=== PATIENT | female | born 1940 | race Caucasian/White ===

== ENCOUNTER → 2016-12-03 | Outpatient (CLI) | payer MEDICARE, MEDICAID ==
[~2016-12-03] MED LIST: ASPI1TAB PO; ATOR40TA PO; CALC1CAP31 PO; COUM1TAB17 PO; COUM7.5T PO; DOCU100C PO; LISI40TAB PO; NIFE30TA7 PO; SOTA80TA2 PO; TRAD5TAB PO; TRIA37.5 PO; VITA50003 PO
[2016-12-03 10:12] LABS: INR 2.58
== END ==
LOC: M SMT 09:32
PROVIDERS: ATTEND Internal Medicine Cardiovascular Disease
DX: I48.0 Paroxysmal atrial fibrillation (principal); Z51.81 Encounter for therapeutic drug level monitoring; Z79.01 Long term (current) use of anticoagulants

== ENCOUNTER → 2016-12-18 | Outpatient (CLI) | payer MEDICARE, MEDICAID ==
[2016-12-18 13:08] LABS: INR 2.21
== END ==
LOC: M SMT 09:11
PROVIDERS: ATTEND Internal Medicine Cardiovascular Disease
DX: Z51.81 Encounter for therapeutic drug level monitoring (principal); Z79.01 Long term (current) use of anticoagulants

== ENCOUNTER → 2016-12-26 | Outpatient (REF) | payer MEDICARE, MEDICAID ==
[~2016-12-26] MED LIST changes: +FERR325T3 PO; +HYDR10TAB PO; +ISOS30TA4 PO; +ISOS30TAB PO; +NIFE60TA6 PO; +NITR100C2 PO
[2016-12-26 18:05] LABS: PERCENT SATURATION 36.4 % (13.2-37.4)
[2016-12-26 19:30] LABS: BACTERIA, URINE MOD AMOUNT; HYALINE CAST, URINE NONE SEEN /lpf (0-1); MICROSCOPIC EXAM PERFORMED; RBC, URINE NONE SEEN /hpf (0-3); SQUAMOUS EPITHELIAL CELL URINE SMALL AMOUNT /hpf (SMALL AMT)
== END ==
LOC: M LAB REF 16:48
PROVIDERS: ATTEND Internal Medicine Nephrology
DX: N18.4 Chronic kidney disease, stage 4 (severe) (principal); N39.0 Urinary tract infection, site not specified; D63.1 Anemia in chronic kidney disease

== ENCOUNTER 2016-12-27 14:14 | Emergency (ER) | payer MEDICARE, MEDICAID ==
[~2016-12-27 14:14] MED LIST changes: -FERR325T3 PO; -HYDR10TAB PO; -ISOS30TA4 PO; -ISOS30TAB PO; -NIFE60TA6 PO; -NITR100C2 PO
--- NOTE | 2016-12-27 16:00 | EDDOCDS ---
Physician Documentation [facility] Name: Ania Davenport Age: 76 yrs Sex: Female : 1940 Arrival Date: 12/27/2016 Time: 14:14 Bed I9 Private MD: Margarito Jones Disposition: 12/27/16 15:50 Discharged to Home/Self Care. Impression: Urinary tract infection, site not specified. - Condition is Stable. - Discharge Instructions: Urinary Tract Infection, [id number]. - Prescriptions for Pyridium 200 mg Oral Tablet - take 1 tablet by ORAL route every 8 hours for 3 days; 9 tablet. Macrobid 100 mg Oral Capsule - take 100 milligram by ORAL route every 12 hours for 10 days; 20 capsule. - Medication Reconciliation, Local Pharmacy Hours form. - Follow up: Private Physician; When: 4 - 5 days; Reason: Recheck today's complaints, Continuance of care. - Problem is an ongoing problem. - Symptoms are unchanged. Historical: - Allergies: SULFA (SULFONAMIDES) (Unknown); - Home Meds: 1. aspirin 81 mg Oral chew 1 tab once daily 2. atorvastatin 40 mg oral tab 1 tab nightly 3. calcitriol 0.25 mcg oral cap 1 cap friday and friday 4. Coumadin 7.5 mg Oral tab once daily 5. lisinopril 40 mg Oral tab 1 tab once daily 6. nifedipine 60 mg oral tr24 1 tab once daily 7. Tradjenta 2.5mg oral tab 1 tab once daily 8. sotalol 80 mg Oral tab 1 tab daily 9. triamterene-hydrochlorothiazid 37.5-25 mg Oral tab 0.5 tab once daily - PMHx: Atrial Fib; Diabetes - NIDDM: controlled; Hypercholesterolemia; Hypertension; Mesenteric Ischemia; - PSHx: Heart cath; - Social history: Smoking status: Patient states former smoker of tobacco. No barriers to communication noted, The patient speaks fluent Nigerian, Speaks appropriately for age. - Family history: Not pertinent. - : The pt / caregiver states he / she is on anticoagulants: coumadin. Home medication list is obtained from the patient. - Exposure Risk Screening:: None identified. Vital Signs: 12/27 14:15 BP 157 / 79; Pulse 57; Resp 18 S; Temp 98.3; Pulse Ox 100% on R/A; Weight 59.42 kg / dd6 131 lbs (R); Height 5 ft. 2 in. (157.48 cm) (R); 14:15 Body Mass Index 23.96 (59.42 kg, 157.48 cm) dd6 MDM: 14:25 Urinalysis Ordered. EDMS 14:25 Urine Culture Ordered. EDMS 15:44 Financial registration complete. 15:45 [facility] Payment Agreement was scanned into [employer] and attached to record. lg Signatures: Dispatcher [employer] EDMS Annalise Lopez, Reg Reg lg Joaquin Samuel, MACHINE BENDER MACHINE BENDER Margaux Denton RN RN pml Zoe Bailey RN RN kc3 The chart was reviewed and I authenticate all verbal orders and agree with the evaluation and treatment provided.Attachments: 15:45 [facility] Payment Agreement lg MTDD
--- NOTE | 2016-12-27 16:00 | EDDOCDS ---
Nurse's Notes [facility] Name: Ania Davenport Age: 76 yrs Sex: Female : 1940 Arrival Date: 12/27/2016 Time: 14:14 Bed I9 Private MD: Margarito Jones Diagnosis: Urinary tract infection, site not specified Presentation: 12/27 14:26 Presenting complaint: Patient states: urinary frequency, pain, urgency since yesterday. kc3 Pt reports was seen by kidney doctor who checked for UTI but was not given results. Adult Sepsis Screening: The patient does not have new or worsening altered mentation. Patient's respiratory rate is less than 22. Systolic blood pressure is greater than 100. Patient has a qSOFA score of 0- Negative Sepsis Screen. Suicide/Homicide risk assessment- the patient denies having any suicidal and/or homicidal ideations and does not present with any other emotional, behavioral or mental health complaints. 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 Transition of care: patient was not received from another setting of care. 14:26 Acuity: ALBA Level 4 kc3 14:26 Method Of Arrival: Walkin/Carried/Asstd kc3 Triage Assessment: 14:32 General: Appears in no apparent distress, comfortable, Behavior is appropriate for age, kc3 cooperative. Pain: Pain currently is 5 out of 10 on a pain scale. Respiratory: Respiratory effort is even, unlabored. : Reports pain with urination urgency urinary frequency. Derm: Skin is pink, warm & dry. Historical: - Allergies: SULFA (SULFONAMIDES) (Unknown); - Home Meds: 1. aspirin 81 mg Oral chew 1 tab once daily 2. atorvastatin 40 mg oral tab 1 tab nightly 3. calcitriol 0.25 mcg oral cap 1 cap friday and friday 4. Coumadin 7.5 mg Oral tab once daily 5. lisinopril 40 mg Oral tab 1 tab once daily 6. nifedipine 60 mg oral tr24 1 tab once daily 7. Tradjenta 2.5mg oral tab 1 tab once daily 8. sotalol 80 mg Oral tab 1 tab daily 9. triamterene-hydrochlorothiazid 37.5-25 mg Oral tab 0.5 tab once daily - PMHx: Atrial Fib; Diabetes - NIDDM: controlled; Hypercholesterolemia; Hypertension; Mesenteric Ischemia; - PSHx: Heart cath; - Social history: Smoking status: Patient states former smoker of tobacco. No barriers to communication noted, The patient speaks fluent Gabonese, Speaks appropriately for age. - Family history: Not pertinent. - : The pt / caregiver states he / she is on anticoagulants: coumadin. Home medication list is obtained from the patient. - Exposure Risk Screening:: None identified. Screenin:57 Screening information is obtained from the patient. Fall risk: No risks identified. pml Assistance ADL's: requires no assistance with activities of daily living. Abuse/DV Screen: The patient / caregiver reports he/she is: not in a situation that causes fear, pain or injury. Nutritional screening: No deficits noted. Advance Directives: Currently, there is no health care proxy. home support is adequate. Assessment: 15:57 General: Appears in no apparent distress, comfortable, Behavior is appropriate for age, pml cooperative. Pain: Location: suprapubic area Pain currently is 3 out of 10 on a pain scale. Neurological: Level of Consciousness is awake, alert, Oriented to person, place, time. Cardiovascular: Capillary refill < 3 seconds. Respiratory: Airway is patent Respiratory effort is even, unlabored. GI: Abdomen is non- distended. Derm: Skin is pink, warm & dry. Vital Signs: 14:15 BP 157 / 79; Pulse 57; Resp 18 S; Temp 98.3; Pulse Ox 100% on R/A; Weight 59.42 kg (R); dd6 Height 5 ft. 2 in. (157.48 cm) (R); 14:15 Body Mass Index 23.96 (59.42 kg, 157.48 cm) dd6 Vitals: 14:15 Log In Time: December 27, 2016 at 14:13. dd6 ED Course: 14:15 Patient visited by Sarbjit Welch PCA. dd6 14:15 Margarito Jones PA is Private Physician. dd6 14:15 Patient moved to Waiting dd6 14:17 Patient moved to Pre RCE dd6 14:28 Triage Initiated kc3 15:34 Patient moved to I srm 15:35 Joaquin Samuel FNP is [facility]. ke 15:35 Patient visited by Joaquin Samuel FNP. ke 15:35 Patient visited by Joaquin Samuel FNP. ke 15:45 [facility] Payment Agreement was scanned into [employer] and attached to record. lg 15:57 The patient / caregiver is instructed regarding the plan of care and ED course. Patient pml has correct armband on for positive identification. Bed in low position. Call light in reach. 15:57 No IV's were initiated during this patient's visit. No procedures done that require pml assistance. Order Results: Lab Order: Urinalysis; SPEC'M 12/27/16 14:38 Test: APPEARANCE, URINE; Value: CLEAR; Range: CLEAR; Status: F Test: COLOR, URINE; Value: YELLOW; Range: YELLOW; Status: F Test: PH,URINE; Value: 7.0; Range: 5.0-9.0; Units: UNITS; Status: F Test: SPECIFIC GRAVITY URINE AUTO; Value: 1.010; Range: 1.002-1.035; Status: F Test: PROTEIN, URINE AUTO; Value: NEGATIVE; Range: NEGATIVE; Units: mg/dL; Status: F Test: GLUCOSE, URINE (UA) AUTO; Value: NEGATIVE; Range: NEGATIVE; Units: mg/dL; Status: F Test: KETONE, URINE AUTO; Value: NEGATIVE; Range: NEGATIVE; Units: mg/dL; Status: F Test: UROBILINOGEN, URINE AUTO; Value: 0.2; Range: 0.0-2.0; Units: mg/dL; Status: F Test: BILIRUBIN, URINE AUTO; Value: NEGATIVE; Range: NEGATIVE; Status: F Test: NITRITE, URINE AUTO; Value: NEGATIVE; Range: NEGATIVE; Status: F Test: LEUKOCYTE ESTERASE, URINE AUTO; Value: 3+; Range: NEGATIVE; Abnormal: Above high normal; Status: F Test: BLOOD, URINE BLOOD; Value: NEGATIVE; Range: NEGATIVE; Status: F Test: WBC, URINE AUTO; Value: 7; Range: 0-3; Abnormal: Above high normal; Units: /HPF; Status: F Test: RBC, URINE AUTO; Value: 3; Range: 0-3; Units: /HPF; Status: F Test: BACTERIA, URINE AUTO; Value: 1+; Range: NEGATIVE; Abnormal: Above high normal; Status: F Test: SQUAMOUS EPITHELIAL CELL UR AU; Value: 4; Range: 0-6; Units: /HPF; Status: F Test: MUCUS, URINE; Value: SMALL; Range: NEGATIVE; Status: F Test: HYALINE CAST, URINE AUTO; Value: 0; Range: 0-1; Units: /LPF; Status: F Outcome: 15:50 Discharge ordered by Provider. 15:57 Discharge Assessment: Patient awake, alert and oriented x 3. No cognitive and/or pml functional deficits noted. Patient verbalized understanding of disposition instructions. patient administered narcotics - no. The following High Risk Discharge criteria are identified: None. Discharged to home ambulatory. Condition: good Condition: stable. Discharge instructions given to patient, Instructed on discharge instructions, follow up and referral plans. medication usage, Demonstrated understanding of instructions, medications, Pt was receptive of discharge instructions/ teaching. Prescriptions given X 2. No special radiology studies were completed. Property sent home with patient. 15:59 Patient left the ED. pml Signatures: Mireya Javier, RN RN Annalise Lopez, Reg Reg lg Joaquin Samuel, BANQUET WAITER/WAITRESS BANQUET WAITER/WAITRESS Sarbjit Moss, VANDANA MANAGER PRIVACY dd6 Margaux Fried RN RN pml Crane, Kelsi, RN RN kc3 MTDD
[2016-12-28] MEDS ORDERED: LISI40TAB PO (23:23)
[2016-12-28] MEDS ORDERED: NIFE60TA6 PO (23:23)
[2016-12-28] MEDS ORDERED: FERR325T3 PO (23:23)
[2016-12-28] MEDS ORDERED: SOTA80TA2 PO (23:23)
[2016-12-28] MEDS ORDERED: NITR100C2 PO (23:23)
--- NOTE | 2016-12-29 17:00 | EDDOCDS ---
Physician Documentation [facility] Name: Ania Davenport Age: 76 yrs Sex: Female : 1940 Arrival Date: 12/27/2016 Time: 14:14 Bed I9 Private MD: Margarito Jones Disposition: 12/27/16 15:50 Discharged to Home/Self Care. Impression: Urinary tract infection, site not specified. - Condition is Stable. - Discharge Instructions: Urinary Tract Infection, Upjw-gt-Dply. - Prescriptions for Pyridium 200 mg Oral Tablet - take 1 tablet by ORAL route every 8 hours for 3 days; 9 tablet. Macrobid 100 mg Oral Capsule - take 100 milligram by ORAL route every 12 hours for 10 days; 20 capsule. - Medication Reconciliation, Local Pharmacy Hours form. - Follow up: Private Physician; When: 4 - 5 days; Reason: Recheck today's complaints, Continuance of care. - Problem is an ongoing problem. - Symptoms are unchanged. Historical: - Allergies: SULFA (SULFONAMIDES) (Unknown); - Home Meds: 1. aspirin 81 mg Oral chew 1 tab once daily 2. atorvastatin 40 mg oral tab 1 tab nightly 3. calcitriol 0.25 mcg oral cap 1 cap friday and friday 4. Coumadin 7.5 mg Oral tab once daily 5. lisinopril 40 mg Oral tab 1 tab once daily 6. nifedipine 60 mg oral tr24 1 tab once daily 7. Tradjenta 2.5mg oral tab 1 tab once daily 8. sotalol 80 mg Oral tab 1 tab daily 9. triamterene-hydrochlorothiazid 37.5-25 mg Oral tab 0.5 tab once daily - PMHx: Atrial Fib; Diabetes - NIDDM: controlled; Hypercholesterolemia; Hypertension; Mesenteric Ischemia; - PSHx: Heart cath; - Social history: Smoking status: Patient states former smoker of tobacco. No barriers to communication noted, The patient speaks fluent Nigerien, Speaks appropriately for age. - Family history: Not pertinent. - : The pt / caregiver states he / she is on anticoagulants: coumadin. Home medication list is obtained from the patient. - Exposure Risk Screening:: None identified. Vital Signs: 12/27 14:15 BP 157 / 79; Pulse 57; Resp 18 S; Temp 98.3; Pulse Ox 100% on R/A; Weight 59.42 kg / dd6 131 lbs (R); Height 5 ft. 2 in. (157.48 cm) (R); 14:15 Body Mass Index 23.96 (59.42 kg, 157.48 cm) dd6 MDM: 14:25 Urinalysis Ordered. EDMS 14:25 Urine Culture Ordered. EDMS 15:44 Financial registration complete. lg 15:45 [facility] Payment Agreement was scanned into [employer] and attached to record. lg 12/28 08:47 T-Sheet-- Draft Copy was scanned into [employer] and attached to record. [facility] Signatures: Dispatcher [employer] EDMS Annalise Lopez, Markel Reg lg Joaquin Samuel, COAL HAULER COAL HAULER Margaux Denton RN RN pml Crane, Kelsi, RN RN taya3 Pretty Keyes [facility] The chart was reviewed and I authenticate all verbal orders and agree with the evaluation and treatment provided.Attachments: 12/27 15:45 [facility] Payment Agreement lg 12/28 08:47 T-Sheet-- Draft Copy [facility] Chart Complete MTDD
--- NOTE | 2016-12-29 17:00 | EDDOCDS ---
Nurse's Notes [facility] Name: Ania Davenport Age: 76 yrs Sex: Female : 1940 Arrival Date: 12/27/2016 Time: 14:14 Bed I9 Private MD: Margarito Jones Diagnosis: Urinary tract infection, site not specified Presentation: 12/27 14:26 Presenting complaint: Patient states: urinary frequency, pain, urgency since yesterday. kc3 Pt reports was seen by kidney doctor who checked for UTI but was not given results. Adult Sepsis Screening: The patient does not have new or worsening altered mentation. Patient's respiratory rate is less than 22. Systolic blood pressure is greater than 100. Patient has a qSOFA score of 0- Negative Sepsis Screen. Suicide/Homicide risk assessment- the patient denies having any suicidal and/or homicidal ideations and does not present with any other emotional, behavioral or mental health complaints. 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 Transition of care: patient was not received from another setting of care. 14:26 Acuity: ALBA Level 4 kc3 14:26 Method Of Arrival: Walkin/Carried/Asstd kc3 Triage Assessment: 14:32 General: Appears in no apparent distress, comfortable, Behavior is appropriate for age, kc3 cooperative. Pain: Pain currently is 5 out of 10 on a pain scale. Respiratory: Respiratory effort is even, unlabored. : Reports pain with urination urgency urinary frequency. Derm: Skin is pink, warm & dry. Historical: - Allergies: SULFA (SULFONAMIDES) (Unknown); - Home Meds: 1. aspirin 81 mg Oral chew 1 tab once daily 2. atorvastatin 40 mg oral tab 1 tab nightly 3. calcitriol 0.25 mcg oral cap 1 cap friday and friday 4. Coumadin 7.5 mg Oral tab once daily 5. lisinopril 40 mg Oral tab 1 tab once daily 6. nifedipine 60 mg oral tr24 1 tab once daily 7. Tradjenta 2.5mg oral tab 1 tab once daily 8. sotalol 80 mg Oral tab 1 tab daily 9. triamterene-hydrochlorothiazid 37.5-25 mg Oral tab 0.5 tab once daily - PMHx: Atrial Fib; Diabetes - NIDDM: controlled; Hypercholesterolemia; Hypertension; Mesenteric Ischemia; - PSHx: Heart cath; - Social history: Smoking status: Patient states former smoker of tobacco. No barriers to communication noted, The patient speaks fluent [place]rugu[place], Speaks appropriately for age. - Family history: Not pertinent. - : The pt / caregiver states he / she is on anticoagulants: coumadin. Home medication list is obtained from the patient. - Exposure Risk Screening:: None identified. Screenin:57 Screening information is obtained from the patient. Fall risk: No risks identified. pml Assistance ADL's: requires no assistance with activities of daily living. Abuse/DV Screen: The patient / caregiver reports he/she is: not in a situation that causes fear, pain or injury. Nutritional screening: No deficits noted. Advance Directives: Currently, there is no health care proxy. home support is adequate. Assessment: 15:57 General: Appears in no apparent distress, comfortable, Behavior is appropriate for age, pml cooperative. Pain: Location: suprapubic area Pain currently is 3 out of 10 on a pain scale. Neurological: Level of Consciousness is awake, alert, Oriented to person, place, time. Cardiovascular: Capillary refill < 3 seconds. Respiratory: Airway is patent Respiratory effort is even, unlabored. GI: Abdomen is non- distended. Derm: Skin is pink, warm & dry. Vital Signs: 14:15 BP 157 / 79; Pulse 57; Resp 18 S; Temp 98.3; Pulse Ox 100% on R/A; Weight 59.42 kg (R); dd6 Height 5 ft. 2 in. (157.48 cm) (R); 14:15 Body Mass Index 23.96 (59.42 kg, 157.48 cm) dd6 Vitals: 14:15 Log In Time: December 27, 2016 at 14:13. dd6 ED Course: 14:15 Patient visited by Sarbjit Welch PCA. dd6 14:15 Margarito Jones PA is Private Physician. dd6 14:15 Patient moved to Waiting dd6 14:17 Patient moved to Pre RCE dd6 14:28 Triage Initiated kc3 15:34 Patient moved to I srm 15:35 [facility] Samuel [facility] ke 15:35 Patient visited by Joaquin Samuel FNP. ke 15:35 Patient visited by Joaquin Samuel FNP. ke 15:45 [facility] Payment Agreement was scanned into [employer] and attached to record. lg 15:57 The patient / caregiver is instructed regarding the plan of care and ED course. Patient pml has correct armband on for positive identification. Bed in low position. Call light in reach. 15:57 No IV's were initiated during this patient's visit. No procedures done that require pml assistance. 12/28 08:47 T-Sheet-- Draft Copy was scanned into [employer] and attached to record. [facility] Order Results: Lab Order: Urinalysis; SPEC'M 12/27/16 14:38 Test: APPEARANCE, URINE; Value: CLEAR; Range: CLEAR; Status: F Test: COLOR, URINE; Value: YELLOW; Range: YELLOW; Status: F Test: PH,URINE; Value: 7.0; Range: 5.0-9.0; Units: UNITS; Status: F Test: SPECIFIC GRAVITY URINE AUTO; Value: 1.010; Range: 1.002-1.035; Status: F Test: PROTEIN, URINE AUTO; Value: NEGATIVE; Range: NEGATIVE; Units: mg/dL; Status: F Test: GLUCOSE, URINE (UA) AUTO; Value: NEGATIVE; Range: NEGATIVE; Units: mg/dL; Status: F Test: KETONE, URINE AUTO; Value: NEGATIVE; Range: NEGATIVE; Units: mg/dL; Status: F Test: UROBILINOGEN, URINE AUTO; Value: 0.2; Range: 0.0-2.0; Units: mg/dL; Status: F Test: BILIRUBIN, URINE AUTO; Value: NEGATIVE; Range: NEGATIVE; Status: F Test: NITRITE, URINE AUTO; Value: NEGATIVE; Range: NEGATIVE; Status: F Test: LEUKOCYTE ESTERASE, URINE AUTO; Value: 3+; Range: NEGATIVE; Abnormal: Above high normal; Status: F Test: BLOOD, URINE BLOOD; Value: NEGATIVE; Range: NEGATIVE; Status: F Test: WBC, URINE AUTO; Value: 7; Range: 0-3; Abnormal: Above high normal; Units: /HPF; Status: F Test: RBC, URINE AUTO; Value: 3; Range: 0-3; Units: /HPF; Status: F Test: BACTERIA, URINE AUTO; Value: 1+; Range: NEGATIVE; Abnormal: Above high normal; Status: F Test: SQUAMOUS EPITHELIAL CELL UR AU; Value: 4; Range: 0-6; Units: /HPF; Status: F Test: MUCUS, URINE; Value: SMALL; Range: NEGATIVE; Status: F Test: HYALINE CAST, URINE AUTO; Value: 0; Range: 0-1; Units: /LPF; Status: F Lab Order: Urine Culture; SPEC'M 12/27/16 14:38 Test: URINE CULTURE; Value: <EXTERNAL COMMENT eCWMed> FULL REPORT IN LAB NOTES (eCW and Medent).; Status: F Test: URINE CULTURE; Value: URINE CULTURE RESULT NO GROWTH; Status: F Outcome: 12/27 15:50 Discharge ordered by Provider. gracia 15:57 Discharge Assessment: Patient awake, alert and oriented x 3. No cognitive and/or pml functional deficits noted. Patient verbalized understanding of disposition instructions. patient administered narcotics - no. The following High Risk Discharge criteria are identified: None. Discharged to home ambulatory. Condition: good Condition: stable. Discharge instructions given to patient, Instructed on discharge instructions, follow up and referral plans. medication usage, Demonstrated understanding of instructions, medications, Pt was receptive of discharge instructions/ teaching. Prescriptions given X 2. No special radiology studies were completed. Property sent home with patient. 15:59 Patient left the ED. pml Signatures: Mireya Javier, RN RN Annalise Lopez, Joaquin Hammond lg, EXECUTIVE ADVISOR EXECUTIVE ADVISOR Sarbjit Moss, VANDANA CIRCULAR KNITTER HELPER dd6 Margaux Fried RN RN pml Crane, Kelsi, RN RN [id number] [place] Chart Complete MTDD
--- NOTE | 2016-12-29 17:00 | EDDOCDS ---
Physician Documentation [facility] Name: Ania Davenport Age: 76 yrs Sex: Female : 1940 Arrival Date: 12/27/2016 Time: 14:14 Bed I9 Private MD: Margarito Jones Disposition: 12/27/16 15:50 Discharged to Home/Self Care. Impression: Urinary tract infection, site not specified. - Condition is Stable. - Discharge Instructions: Urinary Tract Infection, [id number]. - Prescriptions for Pyridium 200 mg Oral Tablet - take 1 tablet by ORAL route every 8 hours for 3 days; 9 tablet. Macrobid 100 mg Oral Capsule - take 100 milligram by ORAL route every 12 hours for 10 days; 20 capsule. - Medication Reconciliation, Local Pharmacy Hours form. - Follow up: Private Physician; When: 4 - 5 days; Reason: Recheck today's complaints, Continuance of care. - Problem is an ongoing problem. - Symptoms are unchanged. Historical: - Allergies: SULFA (SULFONAMIDES) (Unknown); - Home Meds: 1. aspirin 81 mg Oral chew 1 tab once daily 2. atorvastatin 40 mg oral tab 1 tab nightly 3. calcitriol 0.25 mcg oral cap 1 cap friday and friday 4. Coumadin 7.5 mg Oral tab once daily 5. lisinopril 40 mg Oral tab 1 tab once daily 6. nifedipine 60 mg oral tr24 1 tab once daily 7. Tradjenta 2.5mg oral tab 1 tab once daily 8. sotalol 80 mg Oral tab 1 tab daily 9. triamterene-hydrochlorothiazid 37.5-25 mg Oral tab 0.5 tab once daily - PMHx: Atrial Fib; Diabetes - NIDDM: controlled; Hypercholesterolemia; Hypertension; Mesenteric Ischemia; - PSHx: Heart cath; - Social history: Smoking status: Patient states former smoker of tobacco. No barriers to communication noted, The patient speaks fluent Swazi, Speaks appropriately for age. - Family history: Not pertinent. - : The pt / caregiver states he / she is on anticoagulants: coumadin. Home medication list is obtained from the patient. - Exposure Risk Screening:: None identified. Vital Signs: 12/27 14:15 BP 157 / 79; Pulse 57; Resp 18 S; Temp 98.3; Pulse Ox 100% on R/A; Weight 59.42 kg / dd6 131 lbs (R); Height 5 ft. 2 in. (157.48 cm) (R); 14:15 Body Mass Index 23.96 (59.42 kg, 157.48 cm) dd6 MDM: 14:25 Urinalysis Ordered. EDMS 14:25 Urine Culture Ordered. EDMS 15:44 Financial registration complete. lg 15:45 [facility] Payment Agreement was scanned into [employer] and attached to record. lg 12/28 08:47 T-Sheet-- Draft Copy was scanned into [employer] and attached to record. [facility] Signatures: Dispatcher [employer] EDMS Annalise Lopez, Markel Reg lg Joaquin Samuel, DRIVER LICENSE AGENT DRIVER LICENSE AGENT Margaux Denton RN RN pml Crane, Kelsi, RN RN [id number] [place] [facility] The chart was reviewed and I authenticate all verbal orders and agree with the evaluation and treatment provided.Attachments: 12/27 15:45 [facility] Payment Agreement lg 12/28 08:47 T-Sheet-- Draft Copy [facility] Chart Complete MTDD
--- NOTE | 2016-12-30 08:33 | DSES ---
DATE OF ADMISSION: 12/27/2016 DATE OF DISCHARGE: DISCHARGE DIAGNOSES: 1. Acute on chronic renal insufficiency. 2. Dehydration. 3. Complaints of urinary frequency with normal urine culture. 12/27/2016 urine culture with no growth. DISCHARGE MEDICATIONS: - hydralazine 10 mg twice a day - isosorbide mononitrate 30 mg in the morning - aspirin 81 mg daily - atorvastatin 40 mg at night - calcitriol 0.25 mcg three times a week - ferrous sulfate 325 mg daily - Tradjenta 5 mg daily - nifedipine 60 mg daily - Sotalol 80 mg daily - warfarin 7.5 mg at night HOSPITAL COURSE: This is a 76-year-old female who presented to the emergency room with decrease in urine output, dribbling for several days with increasing lower extremity edema. The patient was seen by her police chief deputy, Dr. Aguirre, on 12/26/2016, could not remember the details. No prescription was given. The patient was having symptoms of increased urinary urgency and was suspected to have a urinary tract infection (UTI) and was given nitrofurantoin and Pyridium. Urine culture collected that day was negative. The patient had persistent symptoms and was found to have acute on chronic renal failure and was given intravenous fluids due to acute on chronic renal failure with a creatinine of 1.96 from baseline of 1.4. Over the next few hours, the patient had improvement in creatinine. She was tolerating her diet well and she was discharged in stable condition. Urine on 12/27/2016 showed no growth. She was instructed to followup with her police chief deputy this week to call on Friday for a followup appointment. LABORATORY DATA: On discharge: White count 7, hemoglobin 9.3, hematocrit 26, platelet count 160. Sodium 138, potassium 4.0, chloride 106, bicarbonate 23, BUN 59, creatinine 1.49 , glucose of 85, BNP 175. Microbiology: 12/27/2016: Urine culture negative. Time spent on discharge: 30 minutes. JUNIOR
[2016-12-30] MEDS ORDERED: ISOS30TAB PO (12:23)
[2016-12-30] MEDS ORDERED: HYDR10TAB PO (12:23)
== END 2016-12-27 15:59 | disposition home or self-care (01) ==
LOC: M ED 14:14
DX: N39.0 Urinary tract infection, site not specified (principal); I48.91 Unspecified atrial fibrillation; E11.9 Type 2 diabetes mellitus without complications; E78.00 Pure hypercholesterolemia, unspecified; I10 Essential (primary) hypertension; K55.059 Acute (reversible) ischemia of intestine, part and extent unspecified; Z95.1 Presence of aortocoronary bypass graft; Z87.891 Personal history of nicotine dependence; Z79.01 Long term (current) use of anticoagulants; Z79.82 Long term (current) use of aspirin; Z79.899 Other long term (current) drug therapy; Z88.2 Allergy status to sulfonamides

== ENCOUNTER 2016-12-28 18:48 | Observation (INO) | payer MEDICARE, MEDICAID ==
[~2016-12-28] VITALS: Ht 157.5 cm; Wt 60.0 kg
[2016-12-28 20:52] LABS: BASO # 0.2 K/mm3 (0.0-0.2); BASO % 2.2 % (0.0-1.0); EOS # 0.3 K/mm3 (0.0-0.50); EOS % 2.9 % (0.0-3.0); LARGE UNSTAINED CELL # 0.2 K/mm3 (0.0-0.4); LARGE UNSTAINED CELL % 2.4 % (0.0-4.0); LYMPH # 1.5 K/mm3 (1.5-4.5); LYMPH % 13.6 % (24.0-44.0); MEAN CORPUSCULAR HEMOGLOBIN 31.6 pg (27.0-33.0); MEAN CORPUSCULAR HGB CONC 34.3 g/dl (32.0-36.5); MONO # 0.7 K/mm3 (0.0-0.8); MONO % 7.4 % (0.0-5.0); NEUTROPHILS # 6.6 K/mm3 (1.8-7.7); NEUTROPHILS % 71.4 % (36.0-66.0); PLATELET COUNT, AUTOMATED 206 k/mm3 (150-450); RED CELL DISTRIBUTION WIDTH 13.6 % (11.5-14.5); WHITE BLOOD COUNT 9.2 K/mm3 (4.0-10.0)
[2016-12-28 20:55] LABS: ANION GAP 8 MEQ/L (8-16); BLOOD UREA NITROGEN 69 MG/DL (7-18); CALCIUM LEVEL 9.2 MG/DL (8.8-10.2); CARBON DIOXIDE LEVEL 27 MEQ/L (21-32); CHLORIDE LEVEL 97 MEQ/L (98-107); CREATININE FOR GFR 1.96 MG/DL (0.55-1.02); GLOMERULAR FILTRATION RATE 26.5 (>39); GLUCOSE, FASTING 90 MG/DL (83-110); POTASSIUM SERUM 4.3 MEQ/L (3.5-5.1); SODIUM LEVEL 132 MEQ/L (136-145)
[2016-12-28] MEDS ORDERED: FERR325T3 PO (23:23)
[2016-12-28] MEDS ORDERED: NITR100C2 PO (23:23)
[2016-12-28] MEDS ORDERED: LISI40TAB PO (23:23)
[2016-12-28] MEDS ORDERED: NIFE60TA6 PO (23:23)
[2016-12-28] MEDS ORDERED: SOTA80TA2 PO (23:23)
[2016-12-29] MEDS ORDERED: NS 1,000 ML IV SCH (01:45)
--- NOTE | 2016-12-29 02:14 | HPEPDOC ---
General Date of Admission Primary Care Physician: Margarito Jones [facility] Attending Physician: KATHI BRUNNER Chief Complaint The patient is a 76-year-old female admitted with a reason for visit of Acute on chronic renal insufficiency with oliguria Source: Patient Exam Limitations: No limitations History of Present Illness Ms. Davenport has been suffering from what she perceives to be an inability to completely void, and dribbling for several days now as well as feeling as though she is getting some puffiness in her ankles. Originally, she was seen by her medical sales associate Dr. Chamberlain on 12/26/16, and she cannot remember the details of that conversation, but no prescription was given and her urine culture from that day has now resulted as being negative. Because she was still having the symptoms she came to the emergency department on 12/27/2015, and it was suspected that she had a UTI, therefore she was given nitrofurantoin and Pyridium, and the second urine culture was collected on that day, which is now resulted as being negative. Because of persistent symptoms despite taking her medication as prescribed, she once again returns to the ED today, the evening . It appears that her creatinine is elevated from her baseline, her BUN is also elevated from her baseline, and she reported that she really had not been able to urinate much during the day despite drinking plenty. While in the ED she was started on normal saline at 75 mL's per hour given that she had an elevated BUN, and she now reports that she has voided a few times, and a postvoid residual bladder scan reveals only 20 mL. Home Medications Scheduled (Sotalol HCl) 80 Mg Tab 80 MG PO DAILY (Reported) Aspirin (Aspirin 81) 81 Mg Tab 81 MG PO DAILY (Reported) Atorvastatin Calcium (Atorvastatin Calcium) 40 Mg Tab 40 MG PO QHS (Reported) Calcitriol (Calcitriol) 0.25 Mcg Cap 0.25 MCG PO 3XW (Reported) Mon, Wed, Fri Ferrous Sulfate (Ferrous Sulfate) 325 Mg Tab 325 MG PO DAILY (Reported) Hydrochlorothiazide W/Triamter (Triamterene/Hydrochloroth 37.5-25 mg) 1 Tab Tab 0.5 TAB PO DAILY (Reported) Linagliptin Base (Tradjenta) 5 Mg Tab 5 MG PO DAILY (Reported) Lisinopril (Lisinopril) 40 Mg Tab 40 MG PO DAILY (Reported) Nifedipine (Nifedipine ER) 60 Mg Tab 60 MG PO DAILY (Reported) Nitrofurantoin Macrocrystals (Nitrofurantoin Macrocrystals) 100 Mg Cap 100 MG PO Q12H (Reported) For 10 days; Started 12/27/2016 Warfarin Sod (Coumadin) 7.5 Mg Tab 7.5 MG PO QPM (Reported) Allergies Coded Allergies: Sulfa Antibiotics (Unverified Allergy, Unknown, 04/07/16) Past Medical History Medical History CK disease stage III Paroxysmal atrial fibrillation Diabetes mellitus type 2 Hypercholesterolemia Hypertension Chronic anemia Surgical History Cardiac catheterization Coronary stents Family History Family History Mother had open heart surgery for an unknown reason. Father had a pacemaker Social History * Smoker: former Smoker (smoking for 25 years, quit in march 2016) Alcohol: denies Drugs: denies Recent Travel/Sick Contacts: Denies: Recent travel Psychosocial History: No pertinent psych hx Review of Symptoms Constitutional: Denies: Chills, Fever, Night Sweats ENT: Denies: Dysphagia, Ear Pain, Head Aches Skin: Denies: Breakdown, Lesions, Rash Pulmonary: Denies: Cough, Dyspnea Cardiovascular: Denies: Chest Pain, Lt Headedness, Orthopnea, Palpitations, Paroxysmal Noc. Dyspnea Gastrointestinal: Denies: Abdominal Pain, Diarrhea, Nausea, Vomiting Genitourinary: Reports: Retention (subjective), Denies: Dysuria, Frequency, Incontinence Hematologic: Denies: Bleeding Excessively, Bruising Neurological: Denies: Change in speech, Confusion, Numbness, Weakness Psych: Reports: Mood Normal, Denies: Depression, Memory Issues Physical Examination General Exam: Positive: Alert, Cooperative, No Acute Distress Eye Exam: Positive: Conjunctiva & lids normal, EOMI, PERRLA, Negative: Sclera icteric ENT Exam: Positive: Atraumatic, Mucous membr. moist/pink, Pharynx Normal Neck Exam: Positive: Supple, Negative: JVD, thyromegaly Chest Exam: Positive: Clear to auscultation, Normal air movement Heart Exam: Positive: Normal S1, Normal S2, Rate Normal, Regular Rhythm, Negative: Murmurs, Rubs Telemetry: Positive: No significant arrhythmia Abdomen Exam: Positive: Normal bowel sounds, Soft, Negative: Hepatospenomegaly Extremity Exam: Positive: Normal pulses, Negative: Clubbing, Cyanosis, Edema Skin Exam: Positive: Nl turgor and temperature, Negative: Breakdown, Lesion Psych Exam: Positive: Mental status NL, Mood NL, Oriented x 3 Vital Signs Blood pressure 149/66, pulse 60, respirations 18, temperature 98.6, pulse ox 97 % on room air, weight 59 kg, height 5 feet 2 inches, body mass index 24 Laboratory Data Labs 24H Laboratory Tests 2 12/28/16 20:08: Anion Gap 8, B-Type Natriuretic Peptide 175H, White Blood Count 9.2, Red Blood Count 3.18L, Hemoglobin 10.0L, Hematocrit 29.3L, Mean Corpuscular Volume 92.0, Mean Corpuscular Hemoglobin 31.6, Mean Corpuscular Hemoglobin Concent 34.3, Red Cell Distribution Width 13.6, Platelet Count 206, Neutrophils (%) (Auto) 71.4H, Lymphocytes (%) (Auto) 13.6L, Monocytes (%) (Auto) 7.4H, Eosinophils (%) (Auto) 2.9, Basophils (%) (Auto) 2.2H, Neutrophils # (Auto) 6.6, Lymphocytes # (Auto) 1.5, Monocytes # (Auto) 0.7, Eosinophils # (Auto) 0.3, Basophils # (Auto) 0.2, Blood Urea Nitrogen 69H, Creatinine 1.96H, Sodium Level 132L, Potassium Level 4.3, Chloride Level 97L, Carbon Dioxide Level 27, Calcium Level 9.2, Total Creatine Kinase 71, Creatine Kinase MB 1.5, Creatine Kinase MB Relative Index 2.11, Glomerular Filtration Rate 26.5L, Large Unclassified Cells # 0.2, Large Unclassified Cells % 2.4, Troponin I < 0.02, Urine Amorphous Sediment , Urine Appearance CLEAR, Urine Color VICTORIA, Urine pH 5.0, Urine Specific [place] 1.014 , Urine Protein NEGATIVE, Urine Glucose (UA) NEGATIVE, Urine Ketones NEGATIVE, Urine Urobilinogen 2.0H, Urine Bilirubin NEGATIVE, Urine Leukocyte Esterase NEGATIVE, Urine Bacteria (Auto) 1+H, Urine Blood NEGATIVE, Urine Calcium Carbonate Cryst(Auto) , Urine Calcium Oxalate Cryst (Auto) , Urine Calcium Phosphate Lyn (Auto) , Urine Cellular Casts , Urine Cystine Crystals , Urine Granular Casts (Auto) , Urine Hyaline Casts (Auto) 14, Urine Leucine Crystals , Urine Mucus (Auto) , Urine Nitrite POSITIVE, Urine Oval Fat Bodies (Auto) , Urine RBC (Auto) 0, Urine Renal Epithelial Cells , Urine Sperm (Auto) , Urine Squamous Epithelial Cells 1, Urine Transitional Epithelial Cells , Urine Trichomonas (Auto) , Urine Triple Phosphate Cryst (Auto) , Urine Tyrosine Crystals , Urine Uric Acid Crystals (Auto) , Urine WBC (Auto) 2, Urine Waxy Casts (Auto) , Urine Yeast-Like Cells (Auto) CBC/BMP Laboratory Tests 12/28/16 20:08 Calcium Level 9.2, Total Creatine Kinase 71, Red Blood Count 3.18 L, Mean Corpuscular Volume 92.0, Mean Corpuscular Hemoglobin 31.6, Mean Corpuscular Hemoglobin Concent 34.3, Red Cell Distribution Width 13.6, Neutrophils (%) (Auto ) 71.4 H, Lymphocytes (%) (Auto) 13.6 L, Monocytes (%) (Auto) 7.4 H, Eosinophils (%) (Auto) 2.9, Basophils (%) (Auto) 2.2 H, Neutrophils # (Auto) 6.6 , Lymphocytes # (Auto) 1.5, Monocytes # (Auto) 0.7, Eosinophils # (Auto) 0.3, Basophils # (Auto) 0.2 Assessment/Plan Problems: (1) Acute kidney injury superimposed on chronic kidney disease Status: Acute (2) Oliguria Status: Acute (3) Stage III chronic kidney disease Status: Chronic (4) Paroxysmal atrial fibrillation Status: Chronic (5) Diabetes mellitus type 2 in nonobese Status: Chronic (6) Hypercholesterolemia Status: Chronic (7) Hypertension Status: Chronic (8) Chronic anemia Status: Chronic (9) History of coronary artery stent placement Status: Chronic Plan / VTE VTE Prophylaxis Ordered?: Yes (warfarin) Plan Plan Will admit the patient to [facility]. It is unclear as to whether her acute kidney injury has developed over the past few days as we do not have laboratory values from previous visits, it is possible that her presentation today is secondary to the administration of nitrofurantoin and Pyridium. We will admit her for observation, in light of her elevated BUN, it is also possible that this may be from hypovolemia, therefore she was initiated on normal saline at 75 mL's per hour in the ED and has begun to produce a small amount of urine, therefore we will continue this on the floor for some total of 1 L (such that she does not get fluid overloaded) and monitor her I's and O's, and recheck her labs in the morning. GME ATTESTATION GME ATTESTATION My preceptor for this patient encounter was physically present in the building during the encounter and was fully available. As needed, all aspects of the patient interview, examination, medical decision making process, and medical care plan development were reviewed and approved by the preceptor. Preceptor is aware and concurs with the plan as stated in the body of this note and will attest to such by his/her cosignature. ATTENDING NOTE I, Kathi Brunner, have seen and examined the above patient and agree with the assessment and plan as documented by Dr. Christian. The patient will be placed in observation status on the service of Dr. Dawkins. SONDRA CHRISTIAN DO Dec 29, 2016 02:14 KATHI BRUNNER Dec 29, 2016 04:51
--- NOTE | 2016-12-29 02:43 | EDDOCDS ---
Physician Documentation [facility] Name: Ania Davenport Age: 76 yrs Sex: Female : 1940 Arrival Date: 12/28/2016 Time: 18:48 Bed 8 Private MD: Margarito Jones Disposition: 12/28/16 22:32 Hospitalization ordered by Kathi Brunner for Inpatient Admission. Preliminary diagnosis is Acute kidney failure - Medication related. - Bed requested for 4 Oil Trough. - Status is Inpatient Admission. af2 - Condition is Stable. - Problem is an ongoing problem. - Symptoms have improved. Historical: - Allergies: SULFA (SULFONAMIDES) (Unknown); - Home Meds: 1. aspirin 81 mg Oral chew 1 tab once daily 2. atorvastatin 40 mg oral tab 1 tab nightly 3. calcitriol 0.25 mcg oral cap 1 cap MWF 4. Coumadin 7.5 mg Oral tab once daily 1/2 tab on Friday 5. lisinopril 40 mg Oral tab 1 tab once daily 6. nifedipine 60 mg Oral tr24 1 tab once daily 7. sotalol 80 mg Oral tab 1 tab daily 8. Tradjenta 2.5mg oral tab 1 tab once daily 9. triamterene-hydrochlorothiazid 37.5-25 mg Oral tab 0.5 tab once daily 10. nitrofurantoin macrocrystal 100 mg Oral cap bid 11. ferrous sulfate 325 mg (65 mg iron) Oral tab daily - PMHx: Atrial Fib; Diabetes - NIDDM: controlled; Hypercholesterolemia; Hypertension; Renal Failure w/o Dialysis; Anemia; - PSHx: cardiac catheterization; Stents, Coronary; - Social history: Smoking status: Patient uses tobacco products, current some day smoker. No barriers to communication noted, The patient speaks fluent Sinhala. - Family history: Not pertinent. - : The pt / caregiver states he / she is on anticoagulants: coumadin. Home medication list is obtained from the patient. - Exposure Risk Screening:: None identified. Vital Signs: 12/28 18:49 BP 120 / 63; Pulse 59; Resp 18; Temp 98.6(O); Pulse Ox 100% on R/A; Weight 59.42 kg / elp 131 lbs (R); Height 5 ft. 2 in. (157.48 cm) (R); Pain 0/10; 19:57 BP 132 / 78 (auto/); af2 19:58 Pulse 102 MON; Pulse Ox 93% ; af2 20:46 BP 137 / 93 (auto/); af2 20:47 Pulse 60 MON; Resp 18 S; Pulse Ox 96% on R/A; af2 21:46 BP 132 / 63 (auto/); af2 21:47 Pulse 58 MON; Resp 18 S; Pulse Ox 96% on R/A; af2 22:14 Pulse 56 MON; Resp 18 S; Pulse Ox 97% on R/A; af2 22:18 BP 148 / 74 (auto/); af2 22:46 BP 125 / 60 (auto/); af2 22:46 Pulse 58 MON; Resp 18 S; af2 23:18 BP 149 / 66 (auto/); af2 23:19 Pulse 60 MON; Resp 18 S; Pulse Ox 97% on R/A; af2 23:46 BP 110 / 51 (auto/); af2 23:46 Pulse 64 MON; Resp 18 S; Pulse Ox 96% on R/A; af2 12/29 00:16 BP 121 / 59 (auto/); af2 00:17 Pulse 64 MON; Resp 18 S; Pulse Ox 97% on R/A; af2 00:46 BP 132 / 64 (auto/); af2 00:47 Pulse 62 MON; Resp 18 S; Pulse Ox 99% on R/A; af2 01:12 BP 157 / 71 (auto/); af2 01:14 Pulse 64 MON; Resp 18 S; Pulse Ox 99% on R/A; af2 01:16 BP 141 / 65 (auto/); af2 01:17 Pulse 62 MON; Resp 18 S; Pulse Ox 99% on R/A; af2 01:46 BP 119 / 58 (auto/); af2 01:46 Pulse 68 MON; Resp 18 S; Pulse Ox 98% on R/A; af2 02:16 BP 134 / 63 (auto/); af2 02:16 Pulse 60 MON; Resp 18 S; Temp 98.7; Pulse Ox 96% on R/A; af2 12/28 18:49 Body Mass Index 23.96 (59.42 kg, 157.48 cm) elp MDM: 12/28 20:31 Straddle Carrier Operator/Pulse Ox/q 30 min VS ordered. mm11 20:31 IV Saline Lock ordered. mm11 20:31 Rhythm Strip to chart ordered. mm11 20:31 Undress patient appropriately for examination ordered. mm11 20:32 B-Type Natiuretic Peptide Ordered. EDMS 20:32 Basic Metabolic Profile Ordered. EDMS 20:32 CBC with Diff Ordered. EDMS 20:32 Cardiac Injury Profile Ordered. EDMS 20:32 Troponin Ordered. EDMS 20:32 ECG WITH READING ER PHYS+CARDIAG ordered. EDMS 20:33 UA Ordered. EDMS 21:18 Basic Metabolic Profile Reviewed. mm11 21:18 CBC with Diff Reviewed. mm11 21:18 UA Reviewed. mm11 21:18 Cardiac Injury Profile Reviewed. mm11 21:18 Troponin Reviewed. mm11 21:59 B-Type Natiuretic Peptide Reviewed. mm11 22:07 Financial registration complete. zo 22:14 NS 0.9% 1000 ml IV at 75 mL/hr continuous ordered. mm11 22:14 Misc. Nursing Order ordered. mm11 22:15 BED REQUEST+ADM ordered. EDMS 22:59 [facility] Payment Agreement was scanned into [employer] and attached to record. zo 12/29 01:26 Admission / Observation Status ordered. EDMS 02:13 RENAL DIET ordered. EDMS 02:13 BASIC METABOLIC PROFILE Ordered. EDMS 02:13 COMPLETE BLOOD COUNT Ordered. EDMS Administered Medications: 12/28 22:22 Drug: NS 0.9% 1000 ml [sodium chloride 0.9 % intravenous solution] Route: IV; Rate: 75 af2 mL/hr; Site: right antecubital; Signatures: Dispatcher [employer] EDMN Mayelin Vital RN RN daq Olin, Zoeann zo Maynard, Matthew, DO DO mm11 Ros Godfrey RN RN jjr Conner, Teresa, RN RN ttb Fulton, Amber, RN RN af2 The chart was reviewed and I authenticate all verbal orders and agree with the evaluation and treatment provided.Attachments: 22:59 [facility] Payment Agreement zo MTDD
--- NOTE | 2016-12-29 02:43 | EDDOCDS ---
Nurse's Notes [facility] Name: Ania Davenport Age: 76 yrs Sex: Female : 1940 Arrival Date: 12/28/2016 Time: 18:48 Bed 8 Private MD: Margarito Jones Diagnosis: Acute kidney failure-Medication related Presentation: 12/28 19:00 Presenting complaint: Patient states: dribbling urine yesterday has only voided once jjr today, prescribed macrobid here yesterday, pt also reports increased swelling to ankles today. Adult Sepsis Screening: The patient does not have new or worsening altered mentation. Patient's respiratory rate is less than 22. Systolic blood pressure is greater than 100. Patient has a qSOFA score of 0- Negative Sepsis Screen. Suicide/Homicide risk assessment- the patient denies having any suicidal and/or homicidal ideations and does not present with any other emotional, behavioral or mental health complaints. 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 Transition of care: patient was not received from another setting of care. 19:00 Acuity: ALBA Level 3 jjr 19:00 Method Of Arrival: Walkin/Carried/Asstd jjr Triage Assessment: 19:03 General: Appears in no apparent distress. Pain: Denies pain. Respiratory: Airway is jjr patent Respiratory effort is even, unlabored, Respiratory pattern is regular. Historical: - Allergies: SULFA (SULFONAMIDES) (Unknown); - Home Meds: 1. aspirin 81 mg Oral chew 1 tab once daily 2. atorvastatin 40 mg oral tab 1 tab nightly 3. calcitriol 0.25 mcg oral cap 1 cap MWF 4. Coumadin 7.5 mg Oral tab once daily 1/2 tab on Friday 5. lisinopril 40 mg Oral tab 1 tab once daily 6. nifedipine 60 mg Oral tr24 1 tab once daily 7. sotalol 80 mg Oral tab 1 tab daily 8. Tradjenta 2.5mg oral tab 1 tab once daily 9. triamterene-hydrochlorothiazid 37.5-25 mg Oral tab 0.5 tab once daily 10. nitrofurantoin macrocrystal 100 mg Oral cap bid 11. ferrous sulfate 325 mg (65 mg iron) Oral tab daily - PMHx: Atrial Fib; Diabetes - NIDDM: controlled; Hypercholesterolemia; Hypertension; Renal Failure w/o Dialysis; Anemia; - PSHx: cardiac catheterization; Stents, Coronary; - Social history: Smoking status: Patient uses tobacco products, current some day smoker. No barriers to communication noted, The patient speaks fluent Salvadorean. - Family history: Not pertinent. - : The pt / caregiver states he / she is on anticoagulants: coumadin. Home medication list is obtained from the patient. - Exposure Risk Screening:: None identified. Screenin:14 Screening information is obtained from the patient. Fall risk: No risks identified. ttb Assistance ADL's: requires no assistance with activities of daily living. Abuse/DV Screen: The patient / caregiver reports he/she is: not in a situation that causes fear, pain or injury. Nutritional screening: No deficits noted. Advance Directives: Currently, there is no health care proxy. home support is adequate. Assessment: 20:14 General: Appears in no apparent distress, comfortable, Behavior is appropriate for age, ttb cooperative, pleasant. Pain: Denies pain. Neurological: Level of Consciousness is awake, alert. Cardiovascular: Heart tones S1 S2 present Chest pain is denied. Respiratory: No deficits noted. Airway is patent Respiratory effort is even, unlabored, Respiratory pattern is regular, symmetrical, Breath sounds are clear bilaterally. Denies cough, shortness of breath. GI: Denies nausea, vomiting, pain. : hematuria Reports hematuria decreased urine output. Derm: Skin is normal. Musculoskeletal: Range of motion intact in all extremities. 20:16 Derm: Swollen area noted on LEs with 1+ swelling, mild pitting. ttb 20:40 General: report given to Alejandra RN to continue care.. ttb 20:56 General: Appears in no apparent distress, comfortable, Behavior is appropriate for age, af2 cooperative, Assumed care of pt at this time, pt offers no complaints at this time. SB on monitor. +1 edema to bilateral ankles. . Neurological: Level of Consciousness is awake, alert. Cardiovascular: Heart tones S1 S2 present. Respiratory: Airway is patent Respiratory effort is even, unlabored, Breath sounds are clear. Derm: Skin is normal. 21:27 General: pt assisted with ambulation to bathroom, pt states she was able to void a af2 moderate amount but still feels pressure in pelvic region. provider notified, bladder scan obtained- 20ml PVR. provider notified of results.. 23:25 General: Appears in no apparent distress, comfortable, Behavior is appropriate for age, af2 cooperative. Cardiovascular: Rhythm is sinus rhythm No ectopy. Respiratory: Airway is patent Respiratory effort is even, unlabored. Derm: Skin is normal. 12/29 00:30 General: Appears in no apparent distress, comfortable, Behavior is appropriate for age, af2 cooperative. Neurological: Level of Consciousness is awake, alert. Respiratory: Airway is patent Respiratory effort is even, unlabored. Derm: Skin is normal. 01:57 General: Appears in no apparent distress, comfortable, Behavior is appropriate for age, af2 cooperative, pt assisted with ambulation to BSC. RR even and unlabored. . Cardiovascular: Rhythm is sinus rhythm No ectopy. Respiratory: Airway is patent Respiratory effort is even, unlabored. Derm: Skin is normal. Vital Signs: 12/28 18:49 BP 120 / 63; Pulse 59; Resp 18; Temp 98.6(O); Pulse Ox 100% on R/A; Weight 59.42 kg elp (R); Height 5 ft. 2 in. (157.48 cm) (R); Pain 0/10; 19:57 BP 132 / 78 (auto/); af2 19:58 Pulse 102 MON; Pulse Ox 93% ; af2 20:46 BP 137 / 93 (auto/); af2 20:47 Pulse 60 MON; Resp 18 S; Pulse Ox 96% on R/A; af2 21:46 BP 132 / 63 (auto/); af2 21:47 Pulse 58 MON; Resp 18 S; Pulse Ox 96% on R/A; af2 22:14 Pulse 56 MON; Resp 18 S; Pulse Ox 97% on R/A; af2 22:18 BP 148 / 74 (auto/); af2 22:46 BP 125 / 60 (auto/); af2 22:46 Pulse 58 MON; Resp 18 S; af2 23:18 BP 149 / 66 (auto/); af2 23:19 Pulse 60 MON; Resp 18 S; Pulse Ox 97% on R/A; af2 23:46 BP 110 / 51 (auto/); af2 23:46 Pulse 64 MON; Resp 18 S; Pulse Ox 96% on R/A; af2 12/29 00:16 BP 121 / 59 (auto/); af2 00:17 Pulse 64 MON; Resp 18 S; Pulse Ox 97% on R/A; af2 00:46 BP 132 / 64 (auto/); af2 00:47 Pulse 62 MON; Resp 18 S; Pulse Ox 99% on R/A; af2 01:12 BP 157 / 71 (auto/); af2 01:14 Pulse 64 MON; Resp 18 S; Pulse Ox 99% on R/A; af2 01:16 BP 141 / 65 (auto/); af2 01:17 Pulse 62 MON; Resp 18 S; Pulse Ox 99% on R/A; af2 01:46 BP 119 / 58 (auto/); af2 01:46 Pulse 68 MON; Resp 18 S; Pulse Ox 98% on R/A; af2 02:16 BP 134 / 63 (auto/); af2 02:16 Pulse 60 MON; Resp 18 S; Temp 98.7; Pulse Ox 96% on R/A; af2 12/28 18:49 Body Mass Index 23.96 (59.42 kg, 157.48 cm) elp Vitals: 12/28 18:49 Log In Time: December 28, 2016 at 18:47. el ED Course: 18:49 Patient visited by Radha oDdson PCA. elp 18:49 Margarito Jones PA is Private Physician. elp 18:49 Patient moved to Waiting elp 18:50 Patient visited by Radha Dodson PCA. elp 18:50 Patient moved to Pre RCE elp 19:01 Triage Initiated jjr 19:40 Patient moved to Triage 1 ct3 19:59 Patient moved to I8 / 16 kmg1 20:14 Patient visited by Shy Nice RN. ttb 20:14 The patient / caregiver is instructed regarding the plan of care and ED course. Patient ttb has correct armband on for positive identification. Placed in gown. 20:14 Inserted peripheral IV: 20gauge IV in left antecubital area and blood collected. ttb Patient tolerated the procedure well. Labs drawn. (by ED staff). Urine collected. Clean catch specimen. 20:16 Patient visited by Shy Nice RN. ttb 20:22 Tino Hobbs DO is Attending Physician. mm11 20:22 Patient visited by Tino Hobbs DO. mm11 20:31 Patient visited by Tino Hobbs DO. mm11 20:38 UA Sent. ms18 20:38 B-Type Natiuretic Peptide Sent. ms18 20:38 Basic Metabolic Profile Sent. ms18 20:38 CBC with Diff Sent. ms18 20:38 Cardiac Injury Profile Sent. ms18 20:38 Troponin Sent. ms18 20:39 Patient visited by Stefania Gomez. ajs 20:39 EKG done. (by ED staff). Reviewed by Tino Hobbs DO. ajs 20:44 Zoe Bailey,TEODORA is Primary Nurse. sls1 20:44 Alejandra Finley RN is Primary Nurse. sls1 20:44 Patient moved to 8 sls1 20:47 Patient visited by Stefania Gomez. ajs 20:47 monitoring engineer on. Pulse ox on. NIBP on. ajs 20:58 Patient visited by Alejandra Finley RN. af2 20:59 Patient visited by Shy Nice RN. ttb 20:59 Patient visited by Shy Nice RN. ttb 21:29 Patient visited by Alejandra Finley RN. af2 22:05 Patient visited by Alejandra Finley RN. af2 22:31 Kathi Brunner is Hospitalizing Provider. mm11 22:59 [facility] Payment Agreement was scanned into [employer] and attached to record. zo 23:26 Patient visited by Alejandra Finley RN. af2 12/29 01:03 Patient visited by Alejandra Finley RN. af2 01:57 No procedures done that require assistance. af2 02:34 Patient visited by Alejandra Finley RN. af2 Administered Medications: 12/28 22:22 Drug: NS 0.9% 1000 ml [sodium chloride 0.9 % intravenous solution] Route: IV; Rate: 75 af2 mL/hr; Site: right antecubital; Order Results: Lab Order: B-Type Natiuretic Peptide; SPEC'M 12/28/16 20:08 Test: BRAIN NATRIURETIC PEPTIDE; Value: 175; Range: <100; Abnormal: Above high normal; Units: PG/ML; Status: F Lab Order: Basic Metabolic Profile; SPEC'M 12/28/16 20:08 Test: GLUCOSE, FASTING; Value: 90; Range: 83-110; Units: MG/DL; Status: F Test: BLOOD UREA NITROGEN; Value: 69; Range: 7-18; Abnormal: Above high normal; Units: MG/DL; Status: F Test: CREATININE FOR GFR; Value: 1.96; Range: 0.55-1.02; Abnormal: Above high normal; Units: MG/DL; Status: F Test: GLOMERULAR FILTRATION RATE; Value: 26.5; Range: >39; Abnormal: Below low normal; Status: F Test: SODIUM LEVEL; Value: 132; Range: 136-145; Abnormal: Below low normal; Units: MEQ/L; Status: F Test: POTASSIUM SERUM; Value: 4.3; Range: 3.5-5.1; Units: MEQ/L; Status: F Test: CHLORIDE LEVEL; Value: 97; Range: 98-107; Abnormal: Below low normal; Units: MEQ/L; Status: F Test: CARBON DIOXIDE LEVEL; Value: 27; Range: 21-32; Units: MEQ/L; Status: F Test: ANION GAP; Value: 8; Range: 8-16; Units: MEQ/L; Status: F Test: CALCIUM LEVEL; Value: 9.2; Range: 8.8-10.2; Units: MG/DL; Status: F Test Note: ; Units are mL/min/1.73 m2 Chronic Kidney Disease Staging per NKF: Stage I & II GFR >=60 Normal to Mildly Decreased Stage III GFR 30-59 Moderately Decreased Stage IV GFR 15-29 Severely Decreased Stage V GFR <15 Very Little GFR Left ESRD GFR <15 on MILIEU MANAGER Lab Order: CBC with Diff; SPEC'M 12/28/16 20:08 Test: WHITE BLOOD COUNT; Value: 9.2; Range: 4.0-10.0; Units: K/mm3; Status: F Test: RED BLOOD COUNT; Value: 3.18; Range: 4.00-5.40; Abnormal: Below low normal; Units: M/mm3; Status: F Test: HEMOGLOBIN; Value: 10.0; Range: 12.0-16.0; Abnormal: Below low normal; Units: g/dl; Status: F Test: HEMATOCRIT; Value: 29.3; Range: 36.0-47.0; Abnormal: Below low normal; Units: %; Status: F Test: MEAN CORPUSCULAR VOLUME; Value: 92.0; Range: 80.0-96.0; Units: fl; Status: F Test: MEAN CORPUSCULAR HEMOGLOBIN; Value: 31.6; Range: 27.0-33.0; Units: pg; Status: F Test: MEAN CORPUSCULAR HGB CONC; Value: 34.3; Range: 32.0-36.5; Units: g/dl; Status: F Test: RED CELL DISTRIBUTION WIDTH; Value: 13.6; Range: 11.5-14.5; Units: %; Status: F Test: PLATELET COUNT, AUTOMATED; Value: 206; Range: 150-450; Units: k/mm3; Status: F Test: NEUTROPHILS %; Value: 71.4; Range: 36.0-66.0; Abnormal: Above high normal; Units: %; Status: F Test: LYMPH %; Value: 13.6; Range: 24.0-44.0; Abnormal: Below low normal; Units: %; Status: F Test: MONO %; Value: 7.4; Range: 0.0-5.0; Abnormal: Above high normal; Units: %; Status: F Test: EOS %; Value: 2.9; Range: 0.0-3.0; Units: %; Status: F Test: BASO %; Value: 2.2; Range: 0.0-1.0; Abnormal: Above high normal; Units: %; Status: F Test: LARGE UNSTAINED CELL %; Value: 2.4; Range: 0.0-4.0; Units: %; Status: F Test: NEUTROPHILS #; Value: 6.6; Range: 1.8-7.7; Units: K/mm3; Status: F Test: LYMPH #; Value: 1.5; Range: 1.5-4.5; Units: K/mm3; Status: F Test: MONO #; Value: 0.7; Range: 0.0-0.8; Units: K/mm3; Status: F Test: EOS #; Value: 0.3; Range: 0.0-0.50; Units: K/mm3; Status: F Test: BASO #; Value: 0.2; Range: 0.0-0.2; Units: K/mm3; Status: F Test: LARGE UNSTAINED CELL #; Value: 0.2; Range: 0.0-0.4; Units: K/mm3; Status: F Lab Order: Cardiac Injury Profile; SPEC'M 12/28/16 20:08 Test: CPK CREATINE PHOSPHOKINASE; Value: 71; Range: 26-192; Units: U/L; Status: F Test: CK-MB VALUE MASS; Value: 1.5; Range: 0.0-3.6; Units: NG/ML; Status: F Test: MB/CK RELATIVE INDEX; Value: 2.11; Range: < OR =4; Status: F Test Note: ; DIAGNOSIS CRITERIA MMB ng/ml Relative Index (RI) NON-AMI < or = 5 N/A GAL[place]ONE > 5 < or = 4 AMI > 5 > 4 Lab Order: Troponin; SPEC'M 12/28/16 20:08 Test: TROPONIN I; Value: < 0.02; Range: < 0.10; Units: NG/ML; Status: F Test Note: ; Troponin I Reference Interval for [employer] LOCI: 99th Percentile= 0.00-0.045 ng/ml Risk Stratification: <= 0.10 ng/ml Decreased Risk for Adverse Clinical Events. 0.10-1.50 ng/ml Increased Risk for Adverse Clinical Events. Evaluation of additional criterion and/or repeat testing in 2-6 hours is suggested to rule out myocardial damage. >= 1.50 ng/ml Indicative of Myocardial Injury. Lab Order: UA; SPEC'M 12/28/16 20:08 Test: APPEARANCE, URINE; Value: CLEAR; Range: CLEAR; Status: F Test: COLOR, URINE; Value: ALEJANDRA; Range: YELLOW; Status: F Test: PH,URINE; Value: 5.0; Range: 5.0-9.0; Units: UNITS; Status: F Test: SPECIFIC GRAVITY URINE AUTO; Value: 1.014; Range: 1.002-1.035; Status: F Test: PROTEIN, URINE AUTO; Value: NEGATIVE; Range: NEGATIVE; Units: mg/dL; Status: F Test: GLUCOSE, URINE (UA) AUTO; Value: NEGATIVE; Range: NEGATIVE; Units: mg/dL; Status: F Test: KETONE, URINE AUTO; Value: NEGATIVE; Range: NEGATIVE; Units: mg/dL; Status: F Test: UROBILINOGEN, URINE AUTO; Value: 2.0; Range: 0.0-2.0; Abnormal: Above high normal; Units: mg/dL; Status: F Test: BILIRUBIN, URINE AUTO; Value: NEGATIVE; Range: NEGATIVE; Status: F Test: NITRITE, URINE AUTO; Value: POSITIVE; Range: NEGATIVE; Status: F Test: LEUKOCYTE ESTERASE, URINE AUTO; Value: NEGATIVE; Range: NEGATIVE; Status: F Test: BLOOD, URINE BLOOD; Value: NEGATIVE; Range: NEGATIVE; Status: F Test: WBC, URINE AUTO; Value: 2; Range: 0-3; Units: /HPF; Status: F Test: RBC, URINE AUTO; Value: 0; Range: 0-3; Units: /HPF; Status: F Test: BACTERIA, URINE AUTO; Value: 1+; Range: NEGATIVE; Abnormal: Above high normal; Status: F Test: SQUAMOUS EPITHELIAL CELL UR AU; Value: 1; Range: 0-6; Units: /HPF; Status: F Test: HYALINE CAST, URINE AUTO; Value: 14; Range: 0-1; Units: /LPF; Status: F Outcome: 22:32 Decision to Hospitalize by Provider. mm11 12/29 01:56 Discharge Assessment: Patient awake, alert and oriented x 3. No cognitive and/or af2 functional deficits noted. Patient verbalized understanding of disposition instructions. patient administered narcotics - no. The following High Risk Discharge criteria are identified: None. Admitted to Med/Surg accompanied by tech, via stretcher, with chart. Condition: stable. No special radiology studies were completed. Property :Personal belongings accompany Pt. 02:42 Patient left the ED. af2 Signatures: Katerina Hoskins, RN RN kmg1 Funmi Birch Matthew, DO DO mm11 Ros Godfrey RN RN Marita Adams, SPECIAL NEEDS BUS DRIVER SPECIAL NEEDS BUS DRIVER ct3 Stefania Gomez Shannon RN RN sls1 Shy Nice RN RN ttRadha Duncan, SPECIAL NEEDS BUS DRIVER SPECIAL NEEDS BUS DRIVER xiomarap Shireen Hahn RN RN ms18 Alejandra FinleyRN RN af2 Corrections: (The following items were deleted from the chart) 12/28 21:29 21:18 General: af2 af2 12/29 02:40 02:16 Pulse 60bpm; MonitorResp 18bpm; Spontaneous; Pulse Ox 96% RA; af2 af2 MTDD
[2016-12-29 02:45] VITALS: BP 167/72
[2016-12-29 06:00] VITALS: BP 144/67
[2016-12-29 06:21] LABS: INR 2.12; MEAN CORPUSCULAR HGB CONC 34.7 g/dl (32.0-36.5); MEAN CORPUSCULAR VOLUME 92.1 fl (80.0-96.0); RED CELL DISTRIBUTION WIDTH 13.5 % (11.5-14.5)
[2016-12-29 06:35] LABS: CALCIUM LEVEL 8.6 MG/DL (8.8-10.2); CREATININE FOR GFR 1.49 MG/DL (0.55-1.02); GLOMERULAR FILTRATION RATE 36.4 (>39); POTASSIUM SERUM 4.1 MEQ/L (3.5-5.1)
[2016-12-29] MEDS ORDERED: ISOS30TA4 PO (07:27)
[2016-12-29] MEDS ORDERED: HYDR10TAB PO ×2 (07:27→15:44)
[2016-12-29] MEDS ORDERED: SOTALOL HCL 80 MG TAB PO SCH (09:00)
[2016-12-29] MEDS ORDERED: LISINOPRIL 40 MG TAB PO SCH (09:00)
[2016-12-29] MEDS ORDERED: NIFEdipine 60 MG XL TAB PO SCH (09:00)
[2016-12-29] MEDS ORDERED: **hydrALAZINE** 10 MG TAB PO SCH (09:00)
[2016-12-29] MEDS ORDERED: FERROUS SULFATE 325MG TAB PO SCH (09:00)
[2016-12-29] MEDS ORDERED: ISOSORBIDE MON. (IMDUR) 30 MG XR TAB PO SCH (09:00)
[2016-12-29] MEDS ORDERED: MAXZIDE 75/50 TABLET PO SCH (09:00)
[2016-12-29] MEDS ORDERED: ASPIRIN 81 MG ENTERIC TAB PO SCH (09:00)
[2016-12-29 10:09] VITALS: BP 144/67
[2016-12-29 14:00] VITALS: BP 155/67
[2016-12-29] MEDS ORDERED: ISOS30TAB PO (15:44)
--- NOTE | 2016-12-29 15:47 | ECGEPIP ---
Stationary ECG Study [facility] - ED Test Date: 2016-12-28 Pat Name: AXEL RAY Department: Room: [place] [address] Gender: F Fountain Helper: frances : 1940 Requested By: TEAGAN Soria Order Number: [id number] Reading MD: Pretty Culver Measurements Intervals [place] Rate: 56 P: 55 [place]: 169 QRS: 52 QRSD: 95 T: 49 QT: 461 QTc: 448 Interpretive Statements SINUS BRADYCARDIA PRIOR 07/24/16 ATRIAL FIBRILLATION Electronically Signed On 12-29-2016 15:47:16 EST by Pretty Culver
[2016-12-29] MEDS ORDERED: WARFARIN SOD 7.5 MG TAB PO SCH (17:00)
[2016-12-29] MEDS ORDERED: ATORVASTATIN 20 MG TAB PO SCH (21:00)
--- NOTE | 2016-12-30 08:33 | DSES ---
DATE OF ADMISSION: 12/28/2016 DATE OF DISCHARGE: 12/29/2016 DISCHARGE DIAGNOSES: 1. Acute on chronic renal insufficiency. 2. Dehydration. 3. Complaints of urinary frequency with normal urine culture. 12/27/2016 urine culture with no growth. DISCHARGE MEDICATIONS: - hydralazine 10 mg twice a day - isosorbide mononitrate 30 mg in the morning - aspirin 81 mg daily - atorvastatin 40 mg at night - calcitriol 0.25 mcg three times a week - ferrous sulfate 325 mg daily - Tradjenta 5 mg daily - nifedipine 60 mg daily - Sotalol 80 mg daily - warfarin 7.5 mg at night HOSPITAL COURSE: This is a 76-year-old female who presented to the emergency room with decrease in urine output, dribbling for several days with increasing lower extremity edema. The patient was seen by her channel marketing program manager, Dr. Aguirre, on 12/26/2016, could not remember the details. No prescription was given. The patient was having symptoms of increased urinary urgency and was suspected to have a urinary tract infection (UTI) and was given nitrofurantoin and Pyridium. Urine culture collected that day was negative. The patient had persistent symptoms and was found to have acute on chronic renal failure and was given intravenous fluids due to acute on chronic renal failure with a creatinine of 1.96 from baseline of 1.4. Over the next few hours, the patient had improvement in creatinine. She was tolerating her diet well and she was discharged in stable condition. Urine on 12/27/2016 showed no growth. She was instructed to followup with her channel marketing program manager this week to call on Friday for a followup appointment. LABORATORY DATA: On discharge: White count 7, hemoglobin 9.3, hematocrit 26, platelet count 160. Sodium 138, potassium 4.0, chloride 106, bicarbonate 23, BUN 59, creatinine 1.49 , glucose of 85, BNP 175. Microbiology: 12/27/2016: Urine culture negative. Time spent on discharge: 30 minutes. edited: 01/03/2017 [email or web address] byron PACHECO
[2016-12-30] MEDS ORDERED: HYDR10TAB PO (12:23)
[2016-12-30] MEDS ORDERED: ISOS30TAB PO (12:23)
--- NOTE | 2016-12-31 03:43 | EDDOCDS ---
Nurse's Notes [facility] Name: Ania Davenport Age: 76 yrs Sex: Female : 1940 Arrival Date: 12/28/2016 Time: 18:48 Bed 8 Private MD: Margarito Jones Diagnosis: Acute kidney failure-Medication related Presentation: 12/28 19:00 Presenting complaint: Patient states: dribbling urine yesterday has only voided once jjr today, prescribed macrobid here yesterday, pt also reports increased swelling to ankles today. Adult Sepsis Screening: The patient does not have new or worsening altered mentation. Patient's respiratory rate is less than 22. Systolic blood pressure is greater than 100. Patient has a qSOFA score of 0- Negative Sepsis Screen. Suicide/Homicide risk assessment- the patient denies having any suicidal and/or homicidal ideations and does not present with any other emotional, behavioral or mental health complaints. 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 Transition of care: patient was not received from another setting of care. 19:00 Acuity: ALBA Level 3 jjr 19:00 Method Of Arrival: Walkin/Carried/Asstd jjr Triage Assessment: 19:03 General: Appears in no apparent distress. Pain: Denies pain. Respiratory: Airway is jjr patent Respiratory effort is even, unlabored, Respiratory pattern is regular. Historical: - Allergies: SULFA (SULFONAMIDES) (Unknown); - Home Meds: 1. aspirin 81 mg Oral chew 1 tab once daily 2. atorvastatin 40 mg oral tab 1 tab nightly 3. calcitriol 0.25 mcg oral cap 1 cap MWF 4. Coumadin 7.5 mg Oral tab once daily 1/2 tab on Friday 5. lisinopril 40 mg Oral tab 1 tab once daily 6. nifedipine 60 mg Oral tr24 1 tab once daily 7. sotalol 80 mg Oral tab 1 tab daily 8. Tradjenta 2.5mg oral tab 1 tab once daily 9. triamterene-hydrochlorothiazid 37.5-25 mg Oral tab 0.5 tab once daily 10. nitrofurantoin macrocrystal 100 mg Oral cap bid 11. ferrous sulfate 325 mg (65 mg iron) Oral tab daily - PMHx: Atrial Fib; Diabetes - NIDDM: controlled; Hypercholesterolemia; Hypertension; Renal Failure w/o Dialysis; Anemia; - PSHx: cardiac catheterization; Stents, Coronary; - Social history: Smoking status: Patient uses tobacco products, current some day smoker. No barriers to communication noted, The patient speaks fluent Marshallese. - Family history: Not pertinent. - : The pt / caregiver states he / she is on anticoagulants: coumadin. Home medication list is obtained from the patient. - Exposure Risk Screening:: None identified. Screenin:14 Screening information is obtained from the patient. Fall risk: No risks identified. ttb Assistance ADL's: requires no assistance with activities of daily living. Abuse/DV Screen: The patient / caregiver reports he/she is: not in a situation that causes fear, pain or injury. Nutritional screening: No deficits noted. Advance Directives: Currently, there is no health care proxy. home support is adequate. Assessment: 20:14 General: Appears in no apparent distress, comfortable, Behavior is appropriate for age, ttb cooperative, pleasant. Pain: Denies pain. Neurological: Level of Consciousness is awake, alert. Cardiovascular: Heart tones S1 S2 present Chest pain is denied. Respiratory: No deficits noted. Airway is patent Respiratory effort is even, unlabored, Respiratory pattern is regular, symmetrical, Breath sounds are clear bilaterally. Denies cough, shortness of breath. GI: Denies nausea, vomiting, pain. : hematuria Reports hematuria decreased urine output. Derm: Skin is normal. Musculoskeletal: Range of motion intact in all extremities. 20:16 Derm: Swollen area noted on LEs with 1+ swelling, mild pitting. ttb 20:40 General: report given to Alejandra RN to continue care.. ttb 20:56 General: Appears in no apparent distress, comfortable, Behavior is appropriate for age, af2 cooperative, Assumed care of pt at this time, pt offers no complaints at this time. SB on monitor. +1 edema to bilateral ankles. . Neurological: Level of Consciousness is awake, alert. Cardiovascular: Heart tones S1 S2 present. Respiratory: Airway is patent Respiratory effort is even, unlabored, Breath sounds are clear. Derm: Skin is normal. 21:27 General: pt assisted with ambulation to bathroom, pt states she was able to void a af2 moderate amount but still feels pressure in pelvic region. provider notified, bladder scan obtained- 20ml PVR. provider notified of results.. 23:25 General: Appears in no apparent distress, comfortable, Behavior is appropriate for age, af2 cooperative. Cardiovascular: Rhythm is sinus rhythm No ectopy. Respiratory: Airway is patent Respiratory effort is even, unlabored. Derm: Skin is normal. 12/29 00:30 General: Appears in no apparent distress, comfortable, Behavior is appropriate for age, af2 cooperative. Neurological: Level of Consciousness is awake, alert. Respiratory: Airway is patent Respiratory effort is even, unlabored. Derm: Skin is normal. 01:57 General: Appears in no apparent distress, comfortable, Behavior is appropriate for age, af2 cooperative, pt assisted with ambulation to BSC. RR even and unlabored. . Cardiovascular: Rhythm is sinus rhythm No ectopy. Respiratory: Airway is patent Respiratory effort is even, unlabored. Derm: Skin is normal. Vital Signs: 12/28 18:49 BP 120 / 63; Pulse 59; Resp 18; Temp 98.6(O); Pulse Ox 100% on R/A; Weight 59.42 kg elp (R); Height 5 ft. 2 in. (157.48 cm) (R); Pain 0/10; 19:57 BP 132 / 78 (auto/); af2 19:58 Pulse 102 MON; Pulse Ox 93% ; af2 20:46 BP 137 / 93 (auto/); af2 20:47 Pulse 60 MON; Resp 18 S; Pulse Ox 96% on R/A; af2 21:46 BP 132 / 63 (auto/); af2 21:47 Pulse 58 MON; Resp 18 S; Pulse Ox 96% on R/A; af2 22:14 Pulse 56 MON; Resp 18 S; Pulse Ox 97% on R/A; af2 22:18 BP 148 / 74 (auto/); af2 22:46 BP 125 / 60 (auto/); af2 22:46 Pulse 58 MON; Resp 18 S; af2 23:18 BP 149 / 66 (auto/); af2 23:19 Pulse 60 MON; Resp 18 S; Pulse Ox 97% on R/A; af2 23:46 BP 110 / 51 (auto/); af2 23:46 Pulse 64 MON; Resp 18 S; Pulse Ox 96% on R/A; af2 12/29 00:16 BP 121 / 59 (auto/); af2 00:17 Pulse 64 MON; Resp 18 S; Pulse Ox 97% on R/A; af2 00:46 BP 132 / 64 (auto/); af2 00:47 Pulse 62 MON; Resp 18 S; Pulse Ox 99% on R/A; af2 01:12 BP 157 / 71 (auto/); af2 01:14 Pulse 64 MON; Resp 18 S; Pulse Ox 99% on R/A; af2 01:16 BP 141 / 65 (auto/); af2 01:17 Pulse 62 MON; Resp 18 S; Pulse Ox 99% on R/A; af2 01:46 BP 119 / 58 (auto/); af2 01:46 Pulse 68 MON; Resp 18 S; Pulse Ox 98% on R/A; af2 02:16 BP 134 / 63 (auto/); af2 02:16 Pulse 60 MON; Resp 18 S; Temp 98.7; Pulse Ox 96% on R/A; af2 12/28 18:49 Body Mass Index 23.96 (59.42 kg, 157.48 cm) elp Vitals: 12/28 18:49 Log In Time: December 28, 2016 at 18:47. el ED Course: 18:49 Patient visited by Radah Dodson PCA. elp 18:49 Margarito Jones PA is Private Physician. elp 18:49 Patient moved to Waiting elp 18:50 Patient visited by Radha Dodson PCA. elp 18:50 Patient moved to Pre RCE elp 19:01 Triage Initiated jjr 19:40 Patient moved to Triage 1 ct3 19:59 Patient moved to I8 / 16 kmg1 20:14 Patient visited by Shy Nice RN. ttb 20:14 The patient / caregiver is instructed regarding the plan of care and ED course. Patient ttb has correct armband on for positive identification. Placed in gown. 20:14 Inserted peripheral IV: 20gauge IV in left antecubital area and blood collected. ttb Patient tolerated the procedure well. Labs drawn. (by ED staff). Urine collected. Clean catch specimen. 20:16 Patient visited by Shy Nice RN. ttb 20:22 Tino Hobbs DO is Attending Physician. mm11 20:22 Patient visited by Tino Hobbs DO. mm11 20:31 Patient visited by Tino Hobbs DO. mm11 20:38 UA Sent. ms18 20:38 B-Type Natiuretic Peptide Sent. ms18 20:38 Basic Metabolic Profile Sent. ms18 20:38 CBC with Diff Sent. ms18 20:38 Cardiac Injury Profile Sent. ms18 20:38 Troponin Sent. ms18 20:39 Patient visited by Stefania Gomez. ajs 20:39 EKG done. (by ED staff). Reviewed by Tino Hobbs DO. ajs 20:44 Zoe Bailey,TEODORA is Primary Nurse. sls1 20:44 Alejandra Finley RN is Primary Nurse. sls1 20:44 Patient moved to 8 sls1 20:47 Patient visited by Stefania Gomez. ajs 20:47 pvc monitor on. Pulse ox on. NIBP on. ajs 20:58 Patient visited by Alejandra Finley RN. af2 20:59 Patient visited by Shy Nice RN. ttb 20:59 Patient visited by Shy Nice RN. ttb 21:29 Patient visited by Alejandra Finley RN. af2 22:05 Patient visited by Alejandra Finley RN. af2 22:31 Kathi Brunner is Hospitalizing Provider. mm11 22:59 [facility] Payment Agreement was scanned into [employer] and attached to record. zo 23:26 Patient visited by Alejandra Finley RN. af2 12/29 01:03 Patient visited by Alejandra Finley RN. af2 01:57 No procedures done that require assistance. af2 02:34 Patient visited by Alejandra Finley RN. af2 19:46 ECG/EKG was scanned into Zoom and attached to record. kf3 20:07 T-Sheet-- Draft Copy was scanned into Zoom and attached to record. klr Administered Medications: 12/28 22:22 Drug: NS 0.9% 1000 ml [sodium chloride 0.9 % intravenous solution] Route: IV; Rate: 75 af2 mL/hr; Site: right antecubital; Order Results: Lab Order: B-Type Natiuretic Peptide; SPEC'M 12/28/16 20:08 Test: BRAIN NATRIURETIC PEPTIDE; Value: 175; Range: <100; Abnormal: Above high normal; Units: PG/ML; Status: F Lab Order: Basic Metabolic Profile; SPEC12/28/16 20:08 Test: GLUCOSE, FASTING; Value: 90; Range: 83-110; Units: MG/DL; Status: F Test: BLOOD UREA NITROGEN; Value: 69; Range: 7-18; Abnormal: Above high normal; Units: MG/DL; Status: F Test: CREATININE FOR GFR; Value: 1.96; Range: 0.55-1.02; Abnormal: Above high normal; Units: MG/DL; Status: F Test: GLOMERULAR FILTRATION RATE; Value: 26.5; Range: >39; Abnormal: Below low normal; Status: F Test: SODIUM LEVEL; Value: 132; Range: 136-145; Abnormal: Below low normal; Units: MEQ/L; Status: F Test: POTASSIUM SERUM; Value: 4.3; Range: 3.5-5.1; Units: MEQ/L; Status: F Test: CHLORIDE LEVEL; Value: 97; Range: 98-107; Abnormal: Below low normal; Units: MEQ/L; Status: F Test: CARBON DIOXIDE LEVEL; Value: 27; Range: 21-32; Units: MEQ/L; Status: F Test: ANION GAP; Value: 8; Range: 8-16; Units: MEQ/L; Status: F Test: CALCIUM LEVEL; Value: 9.2; Range: 8.8-10.2; Units: MG/DL; Status: F Test Note: ; Units are mL/min/1.73 m2 Chronic Kidney Disease Staging per NKF: Stage I & II GFR >=60 Normal to Mildly Decreased Stage III GFR 30-59 Moderately Decreased Stage IV GFR 15-29 Severely Decreased Stage V GFR <15 Very Little GFR Left ESRD GFR <15 on [employer] Lab Order: CBC with Diff; SPEC12/28/16 20:08 Test: WHITE BLOOD COUNT; Value: 9.2; Range: 4.0-10.0; Units: K/mm3; Status: F Test: RED BLOOD COUNT; Value: 3.18; Range: 4.00-5.40; Abnormal: Below low normal; Units: M/mm3; Status: F Test: HEMOGLOBIN; Value: 10.0; Range: 12.0-16.0; Abnormal: Below low normal; Units: g/dl; Status: F Test: HEMATOCRIT; Value: 29.3; Range: 36.0-47.0; Abnormal: Below low normal; Units: %; Status: F Test: MEAN CORPUSCULAR VOLUME; Value: 92.0; Range: 80.0-96.0; Units: fl; Status: F Test: MEAN CORPUSCULAR HEMOGLOBIN; Value: 31.6; Range: 27.0-33.0; Units: pg; Status: F Test: MEAN CORPUSCULAR HGB CONC; Value: 34.3; Range: 32.0-36.5; Units: g/dl; Status: F Test: RED CELL DISTRIBUTION WIDTH; Value: 13.6; Range: 11.5-14.5; Units: %; Status: F Test: PLATELET COUNT, AUTOMATED; Value: 206; Range: 150-450; Units: k/mm3; Status: F Test: NEUTROPHILS %; Value: 71.4; Range: 36.0-66.0; Abnormal: Above high normal; Units: %; Status: F Test: LYMPH %; Value: 13.6; Range: 24.0-44.0; Abnormal: Below low normal; Units: %; Status: F Test: MONO %; Value: 7.4; Range: 0.0-5.0; Abnormal: Above high normal; Units: %; Status: F Test: EOS %; Value: 2.9; Range: 0.0-3.0; Units: %; Status: F Test: BASO %; Value: 2.2; Range: 0.0-1.0; Abnormal: Above high normal; Units: %; Status: F Test: LARGE UNSTAINED CELL %; Value: 2.4; Range: 0.0-4.0; Units: %; Status: F Test: NEUTROPHILS #; Value: 6.6; Range: 1.8-7.7; Units: K/mm3; Status: F Test: LYMPH #; Value: 1.5; Range: 1.5-4.5; Units: K/mm3; Status: F Test: MONO #; Value: 0.7; Range: 0.0-0.8; Units: K/mm3; Status: F Test: EOS #; Value: 0.3; Range: 0.0-0.50; Units: K/mm3; Status: F Test: BASO #; Value: 0.2; Range: 0.0-0.2; Units: K/mm3; Status: F Test: LARGE UNSTAINED CELL #; Value: 0.2; Range: 0.0-0.4; Units: K/mm3; Status: F Lab Order: Cardiac Injury Profile; SPEC'M 12/28/16 20:08 Test: CPK CREATINE PHOSPHOKINASE; Value: 71; Range: 26-192; Units: U/L; Status: F Test: CK-MB VALUE MASS; Value: 1.5; Range: 0.0-3.6; Units: NG/ML; Status: F Test: MB/CK RELATIVE INDEX; Value: 2.11; Range: < OR =4; Status: F Test Note: ; DIAGNOSIS CRITERIA MMB ng/ml Relative Index (RI) NON-AMI < or = 5 N/A [place] > 5 < or = 4 AMI > 5 > 4 Lab Order: Troponin; SPEC'M 12/28/16 20:08 Test: TROPONIN I; Value: < 0.02; Range: < 0.10; Units: NG/ML; Status: F Test Note: ; Troponin I Reference Interval for [facility] LOCI: 99th Percentile= 0.00-0.045 ng/ml Risk Stratification: <= 0.10 ng/ml Decreased Risk for Adverse Clinical Events. 0.10-1.50 ng/ml Increased Risk for Adverse Clinical Events. Evaluation of additional criterion and/or repeat testing in 2-6 hours is suggested to rule out myocardial damage. >= 1.50 ng/ml Indicative of Myocardial Injury. Lab Order: UA; SPEC'M 12/28/16 20:08 Test: APPEARANCE, URINE; Value: CLEAR; Range: CLEAR; Status: F Test: COLOR, URINE; Value: ALEJANDRA; Range: YELLOW; Status: F Test: PH,URINE; Value: 5.0; Range: 5.0-9.0; Units: UNITS; Status: F Test: SPECIFIC GRAVITY URINE AUTO; Value: 1.014; Range: 1.002-1.035; Status: F Test: PROTEIN, URINE AUTO; Value: NEGATIVE; Range: NEGATIVE; Units: mg/dL; Status: F Test: GLUCOSE, URINE (UA) AUTO; Value: NEGATIVE; Range: NEGATIVE; Units: mg/dL; Status: F Test: KETONE, URINE AUTO; Value: NEGATIVE; Range: NEGATIVE; Units: mg/dL; Status: F Test: UROBILINOGEN, URINE AUTO; Value: 2.0; Range: 0.0-2.0; Abnormal: Above high normal; Units: mg/dL; Status: F Test: BILIRUBIN, URINE AUTO; Value: NEGATIVE; Range: NEGATIVE; Status: F Test: NITRITE, URINE AUTO; Value: POSITIVE; Range: NEGATIVE; Status: F Test: LEUKOCYTE ESTERASE, URINE AUTO; Value: NEGATIVE; Range: NEGATIVE; Status: F Test: BLOOD, URINE BLOOD; Value: NEGATIVE; Range: NEGATIVE; Status: F Test: WBC, URINE AUTO; Value: 2; Range: 0-3; Units: /HPF; Status: F Test: RBC, URINE AUTO; Value: 0; Range: 0-3; Units: /HPF; Status: F Test: BACTERIA, URINE AUTO; Value: 1+; Range: NEGATIVE; Abnormal: Above high normal; Status: F Test: SQUAMOUS EPITHELIAL CELL UR AU; Value: 1; Range: 0-6; Units: /HPF; Status: F Test: HYALINE CAST, URINE AUTO; Value: 14; Range: 0-1; Units: /LPF; Status: F Outcome: 22:32 Decision to Hospitalize by Provider. mm11 12/29 01:56 Discharge Assessment: Patient awake, alert and oriented x 3. No cognitive and/or af2 functional deficits noted. Patient verbalized understanding of disposition instructions. patient administered narcotics - no. The following High Risk Discharge criteria are identified: None. Admitted to Med/Surg accompanied by tech, via stretcher, with chart. Condition: stable. No special radiology studies were completed. Property :Personal belongings accompany Pt. 02:42 Patient left the ED. af2 Signatures: Katerina Hoskins, RN RN kmg1 Funmi Birch Matthew, DO DO mm11 Eran Shelley, Reg Reg kf3 Ros Godfrey RN RN jjMarita Ortega, TEST ANALYST TEST ANALYST ct3 Stefania Gomez Shannon RN RN sls1 Shy Nice RN RN ttb Patchen, Erin, TEST ANALYST TEST ANALYST Shireen Montague,RN RN ms18 Alejandra FinleyRN RN af2 Ashely Alvarenga Corrections: (The following items were deleted from the chart) 12/28 21:29 21:18 General: af2 af2 12/29 02:40 02:16 Pulse 60bpm; MonitorResp 18bpm; Spontaneous; Pulse Ox 96% RA; af2 af2 Chart Complete MTDD
--- NOTE | 2016-12-31 03:43 | EDDOCDS ---
Physician Documentation [facility] Name: Ania Davenport Age: 76 yrs Sex: Female : 1940 Arrival Date: 12/28/2016 Time: 18:48 Bed 8 Private MD: Margarito Jones Disposition: 12/28/16 22:32 Hospitalization ordered by Kathi Brunner for Inpatient Admission. Preliminary diagnosis is Acute kidney failure - Medication related. - Bed requested for 4 [place]. - Status is Inpatient Admission. af2 - Condition is Stable. - Problem is an ongoing problem. - Symptoms have improved. Historical: - Allergies: SULFA (SULFONAMIDES) (Unknown); - Home Meds: 1. aspirin 81 mg Oral chew 1 tab once daily 2. atorvastatin 40 mg oral tab 1 tab nightly 3. calcitriol 0.25 mcg oral cap 1 cap MWF 4. Coumadin 7.5 mg Oral tab once daily 1/2 tab on Friday 5. lisinopril 40 mg Oral tab 1 tab once daily 6. nifedipine 60 mg Oral tr24 1 tab once daily 7. sotalol 80 mg Oral tab 1 tab daily 8. Tradjenta 2.5mg oral tab 1 tab once daily 9. triamterene-hydrochlorothiazid 37.5-25 mg Oral tab 0.5 tab once daily 10. nitrofurantoin macrocrystal 100 mg Oral cap bid 11. ferrous sulfate 325 mg (65 mg iron) Oral tab daily - PMHx: Atrial Fib; Diabetes - NIDDM: controlled; Hypercholesterolemia; Hypertension; Renal Failure w/o Dialysis; Anemia; - PSHx: cardiac catheterization; Stents, Coronary; - Social history: Smoking status: Patient uses tobacco products, current some day smoker. No barriers to communication noted, The patient speaks fluent Pashto. - Family history: Not pertinent. - : The pt / caregiver states he / she is on anticoagulants: coumadin. Home medication list is obtained from the patient. - Exposure Risk Screening:: None identified. Vital Signs: 12/28 18:49 BP 120 / 63; Pulse 59; Resp 18; Temp 98.6(O); Pulse Ox 100% on R/A; Weight 59.42 kg / elp 131 lbs (R); Height 5 ft. 2 in. (157.48 cm) (R); Pain 0/10; 19:57 BP 132 / 78 (auto/); af2 19:58 Pulse 102 MON; Pulse Ox 93% ; af2 20:46 BP 137 / 93 (auto/); af2 20:47 Pulse 60 MON; Resp 18 S; Pulse Ox 96% on R/A; af2 21:46 BP 132 / 63 (auto/); af2 21:47 Pulse 58 MON; Resp 18 S; Pulse Ox 96% on R/A; af2 22:14 Pulse 56 MON; Resp 18 S; Pulse Ox 97% on R/A; af2 22:18 BP 148 / 74 (auto/); af2 22:46 BP 125 / 60 (auto/); af2 22:46 Pulse 58 MON; Resp 18 S; af2 23:18 BP 149 / 66 (auto/); af2 23:19 Pulse 60 MON; Resp 18 S; Pulse Ox 97% on R/A; af2 23:46 BP 110 / 51 (auto/); af2 23:46 Pulse 64 MON; Resp 18 S; Pulse Ox 96% on R/A; af2 12/29 00:16 BP 121 / 59 (auto/); af2 00:17 Pulse 64 MON; Resp 18 S; Pulse Ox 97% on R/A; af2 00:46 BP 132 / 64 (auto/); af2 00:47 Pulse 62 MON; Resp 18 S; Pulse Ox 99% on R/A; af2 01:12 BP 157 / 71 (auto/); af2 01:14 Pulse 64 MON; Resp 18 S; Pulse Ox 99% on R/A; af2 01:16 BP 141 / 65 (auto/); af2 01:17 Pulse 62 MON; Resp 18 S; Pulse Ox 99% on R/A; af2 01:46 BP 119 / 58 (auto/); af2 01:46 Pulse 68 MON; Resp 18 S; Pulse Ox 98% on R/A; af2 02:16 BP 134 / 63 (auto/); af2 02:16 Pulse 60 MON; Resp 18 S; Temp 98.7; Pulse Ox 96% on R/A; af2 12/28 18:49 Body Mass Index 23.96 (59.42 kg, 157.48 cm) elp MDM: 12/28 20:31 Boat Patcher Plastic/Pulse Ox/q 30 min VS ordered. mm11 20:31 IV Saline Lock ordered. mm11 20:31 Rhythm Strip to chart ordered. mm11 20:31 Undress patient appropriately for examination ordered. mm11 20:32 B-Type Natiuretic Peptide Ordered. EDMS 20:32 Basic Metabolic Profile Ordered. EDMS 20:32 CBC with Diff Ordered. EDMS 20:32 Cardiac Injury Profile Ordered. EDMS 20:32 Troponin Ordered. EDMS 20:32 ECG WITH READING ER PHYS+CARDIAG ordered. EDMS 20:33 UA Ordered. EDMS 21:18 Basic Metabolic Profile Reviewed. mm11 21:18 CBC with Diff Reviewed. mm11 21:18 UA Reviewed. mm11 21:18 Cardiac Injury Profile Reviewed. mm11 21:18 Troponin Reviewed. mm11 21:59 B-Type Natiuretic Peptide Reviewed. mm11 22:07 Financial registration complete. zo 22:14 NS 0.9% 1000 ml IV at 75 mL/hr continuous ordered. mm11 22:14 Misc. Nursing Order ordered. mm11 22:15 BED REQUEST+ADM ordered. EDMS 22:59 [facility] Payment Agreement was scanned into [employer] and attached to record. zo 12/29 01:26 Admission / Observation Status ordered. EDMS 02:13 RENAL DIET ordered. EDMS 02:13 BASIC METABOLIC PROFILE Ordered. EDMS 02:13 COMPLETE BLOOD COUNT Ordered. EDMS 19:46 ECG/EKG was scanned into [employer] and attached to record. kf3 20:07 T-Sheet-- Draft Copy was scanned into [employer] and attached to record. klr Administered Medications: 12/28 22:22 Drug: NS 0.9% 1000 ml [sodium chloride 0.9 % intravenous solution] Route: IV; Rate: 75 af2 mL/hr; Site: right antecubital; Signatures: Dispatcher [employer] EDMS Mayelin Vital RN RN daq Olin, Zoeann zo Maynard, Matthew, DO DO mm11 Eran Shelley, Reg Reg kf3 Ros Godfrey, RN RN jShy De RN RN ttb Fulton, Amber, RN RN af2 Redder, Kathie klr The chart was reviewed and I authenticate all verbal orders and agree with the evaluation and treatment provided.Attachments: 22:59 [facility] Payment Agreement zo 12/29 19:46 ECG/EKG kf3 20:07 T-Sheet-- Draft Copy klr Chart Complete MTDD
== END 2016-12-29 14:38 | disposition home or self-care (01) ==
LOC: M ED 18:48 → M MSPAV 18:49 → M ED INP 12-29 01:24 → UNDOADMOB 12-29 01:24 → M MSPAV 12-29 02:44 → M ED INP 12-29 02:44 → UNDODISOB 12-29 14:38
PROVIDERS: ADMIT Hospitalist; ATTEND General Practice
DX: N17.9 Acute kidney failure, unspecified (principal); N18.3 Chronic kidney disease, stage 3 (moderate); R34 Anuria and oliguria; I48.0 Paroxysmal atrial fibrillation; E11.9 Type 2 diabetes mellitus without complications; E78.00 Pure hypercholesterolemia, unspecified; I12.9 Hypertensive chronic kidney disease with stage 1 through stage 4 chronic kidney disease, or unspecified chronic kidney disease; Z79.82 Long term (current) use of aspirin; Z79.01 Long term (current) use of anticoagulants; Z79.899 Other long term (current) drug therapy; Z88.2 Allergy status to sulfonamides; D64.9 Anemia, unspecified; Z98.61 Coronary angioplasty status; Z87.891 Personal history of nicotine dependence
CPT/HCPCS: 36415; 80048; 81001; 82550; 82553; 83880; 84484; 85025; 85027; 85610; 93005; 93041; 97161; 99285; G0378; G8978; G8979; G8980

== ENCOUNTER → 2017-01-07 | Outpatient (CLI) | payer MEDICARE, MEDICAID ==
[~2017-01-07] MED LIST changes: +FERR325T3 PO; +HYDR10TAB PO; +ISOS30TA4 PO; +ISOS30TAB PO; +NIFE60TA6 PO; +NITR100C2 PO
--- NOTE | 2017-01-07 14:02 | REP ---
LIMITED PELVIC BLADDER SONOGRAPHY: HISTORY: Chronic kidney disease stage IV. FINDINGS: There is a 7 mm cystic area at the left ureterovesical origin along the bladder wall consistent with a left ureterocele. Emptying ureteral jets are confirmed from both ureters on color Doppler interrogation. No bladder mass lesion is seen. Bladder perry are otherwise smooth. Incidental note is made of uterine myometrial calcifications and question of endometrial thickening in this postmenopausal female. Pre-void bladder volume is calculated at 232.7 mL. Postvoid bladder volume is 9.4 mL, 4% postvoid residual. IMPRESSION: 1. Small left ureterocele. Emptying ureteral jets are observed bilaterally. 2. Question endometrial thickening in the uterus, fibroid change. The uterine endometrium appears to measure 9 mm in thickness. Endometrial hyperplasia versus neoplasia. Signed by Jeffry Olsen MD 01/07/2017 02:35 P
== END ==
LOC: M RAD 12:38
PROVIDERS: ATTEND Internal Medicine Nephrology
DX: N18.4 Chronic kidney disease, stage 4 (severe) (principal); N17.9 Acute kidney failure, unspecified; N28.89 Other specified disorders of kidney and ureter; D25.9 Leiomyoma of uterus, unspecified

== ENCOUNTER → 2017-01-08 | Outpatient (CLI) | payer MEDICARE, MEDICAID ==
[2017-01-08 10:56] LABS: INR 2.34
== END ==
LOC: M SMT 09:06
PROVIDERS: ATTEND Internal Medicine Cardiovascular Disease
DX: Z51.81 Encounter for therapeutic drug level monitoring (principal); Z79.01 Long term (current) use of anticoagulants; I48.0 Paroxysmal atrial fibrillation

== ENCOUNTER 2017-01-17 16:03 | Emergency (ER) | payer MEDICARE, MEDICAID ==
--- NOTE | 2017-01-17 16:54 | EDDOCDS ---
Physician Documentation [facility] Name: Ania Davenport Age: 76 yrs Sex: Female : 1940 Arrival Date: 01/17/2017 Time: 16:03 Bed TR7 Private MD: Margarito Jones [facility] Disposition: 01/17/17 16:46 Discharged to Home/Self Care. Impression: Fall on same level from slipping, tripping and stumbling. - Condition is Stable. - Discharge Instructions: Fall Prevention and Home Safety, Head Injury, Adult, [id number]. - Medication Reconciliation, Local Pharmacy Hours form. - Follow up: Margarito Jones; When: As needed; Reason: Continuance of care. - Problem is new. - Symptoms are unchanged. Historical: - Allergies: SULFA (SULFONAMIDES) (Unknown); IV Dye; - Home Meds: 1. aspirin 81 mg Oral chew 1 tab once daily 2. atorvastatin 40 mg oral tab 1 tab nightly 3. calcitriol 0.25 mcg oral cap 1 cap mwf 4. Coumadin 7.5 mg Oral tab 1/2 dose on Friday and Friday 5. ferrous sulfate 325 mg (65 mg iron) Oral tab daily 6. amlodipine 10 mg Oral tab 1 tab once daily 7. Tradjenta 2.5mg oral tab 1 tab once daily 8. sotalol 80 mg Oral tab 1 tab daily 9. Keflex 500 mg Oral cap 1 cap every 12 hours 10. Lasix 10 mg Oral 1 tab once daily - PMHx: Anemia; Atrial Fib; Diabetes - NIDDM: controlled; Hypercholesterolemia; Hypertension; Renal Failure w/o Dialysis; - PSHx: cardiac catheterization; Stents, Coronary; - Social history: Smoking status: Patient states former smoker of tobacco. No barriers to communication noted, The patient speaks fluent Panamanian, Speaks appropriately for age. - Family history: Not pertinent. - : The pt / caregiver states he / she is on anticoagulants: coumadin. Home medication list is obtained from the patient. - Exposure Risk Screening:: None identified. Vital Signs: 01/17 16:05 BP 152 / 70; Pulse 68; Resp 18 S; Temp 99.5(O); Pulse Ox 99% on R/A; Weight 58.97 kg / gr2 130.01 lbs (R); Height 5 ft. 2 in. (157.48 cm) (R); Pain 01/10; 16:05 Body Mass Index 23.78 (58.97 kg, 157.48 cm) gr2 Signatures: Joaquin Samuel, AARTI SAND TESTER Carolyn Thomas,RN RN ld5 MTDD
--- NOTE | 2017-01-17 16:54 | EDDOCDS ---
Nurse's Notes [facility] Name: Ania Davenport Age: 76 yrs Sex: Female : 1940 Arrival Date: 01/17/2017 Time: 16:03 Bed TR7 Private MD: Margarito Jones NCFM Diagnosis: Fall on same level from slipping, tripping and stumbling Presentation: 01/17 16:13 Presenting complaint: Patient states: "I just need a CT scan because I fell. 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 Denies hitting head. Denies pain. Adult Sepsis Screening: The patient does not have new or worsening altered mentation. Patient's respiratory rate is less than 22. Systolic blood pressure is greater than 100. Patient has a qSOFA score of 0- Negative Sepsis Screen. Suicide/Homicide risk assessment- the patient denies having any suicidal and/or homicidal ideations and does not present with any other emotional, behavioral or mental health complaints. 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 Transition of care: patient was not received from another setting of care. 16:13 Acuity: ALBA Level 4 ld5 16:13 Method Of Arrival: Walkin/Carried/Asstd ld5 Triage Assessment: 16:17 General: Appears in no apparent distress. Pain: Denies pain. Neurological: Level of ld5 Consciousness is awake, alert. Respiratory: Airway is patent Respiratory effort is even, unlabored. 16:18 Musculoskeletal: Range of motion intact in all extremities. ld5 Historical: - Allergies: SULFA (SULFONAMIDES) (Unknown); IV Dye; - Home Meds: 1. aspirin 81 mg Oral chew 1 tab once daily 2. atorvastatin 40 mg oral tab 1 tab nightly 3. calcitriol 0.25 mcg oral cap 1 cap mwf 4. Coumadin 7.5 mg Oral tab 1/2 dose on Friday and Friday 5. ferrous sulfate 325 mg (65 mg iron) Oral tab daily 6. amlodipine 10 mg Oral tab 1 tab once daily 7. Tradjenta 2.5mg oral tab 1 tab once daily 8. sotalol 80 mg Oral tab 1 tab daily 9. Keflex 500 mg Oral cap 1 cap every 12 hours 10. Lasix 10 mg Oral 1 tab once daily - PMHx: Anemia; Atrial Fib; Diabetes - NIDDM: controlled; Hypercholesterolemia; Hypertension; Renal Failure w/o Dialysis; - PSHx: cardiac catheterization; Stents, Coronary; - Social history: Smoking status: Patient states former smoker of tobacco. No barriers to communication noted, The patient speaks fluent Montenegrin, Speaks appropriately for age. - Family history: Not pertinent. - : The pt / caregiver states he / she is on anticoagulants: coumadin. Home medication list is obtained from the patient. - Exposure Risk Screening:: None identified. Screenin:52 Screening information is obtained from the patient. Fall risk: No risks identified. ld5 Assistance ADL's: requires no assistance with activities of daily living. Abuse/DV Screen: The patient / caregiver reports he/she is: not in a situation that causes fear, pain or injury. Nutritional screening: No deficits noted. Advance Directives: Currently, there is no health care proxy. home support is adequate. Assessment: 16:52 General: Appears in no apparent distress, Behavior is cooperative. Pain: Denies pain. ld5 Neurological: Level of Consciousness is awake, alert. Respiratory: Airway is patent Respiratory effort is even, unlabored. GI: Denies nausea, vomiting. Vital Signs: 16:05 BP 152 / 70; Pulse 68; Resp 18 S; Temp 99.5(O); Pulse Ox 99% on R/A; Weight 58.97 kg gr2 (R); Height 5 ft. 2 in. (157.48 cm) (R); Pain 2/10; 16:05 Body Mass Index 23.78 (58.97 kg, 157.48 cm) gr2 Vitals: 16:05 Log In Time: January 17, 2017 at 16:05. gr2 ED Course: 16:04 Patient visited by Mariah Godfrey. gr2 16:04 Patient moved to Waiting gr2 16:05 Margarito Jones is Private Physician. gr2 16:06 Patient visited by Mariah Godfrey. gr2 16:06 Patient moved to Pre RCE gr2 16:14 Triage Initiated ld5 16:19 Patient visited by Carolyn Luna RN. ld5 16:19 Patient moved to Triage 1 ld5 16:31 [facility] ke 16:31 Patient visited by Joaquin Samuel FNP. ke 16:31 Patient visited by Joqauin Samuel FNP. ke 16:45 Margarito Jones is Referral Physician. ke 16:52 Patient moved to [facility] ld5 16:52 The patient / caregiver is instructed regarding the plan of care and ED course. Patient ld5 has correct armband on for positive identification. 16:52 No IV's were initiated during this patient's visit. No procedures done that require ld5 assistance. 16:53 Patient visited by Carolyn Luna RN. ld5 Order Results: There are currently no results for this order. Outcome: 16:46 Discharge ordered by Provider. ke 16:52 Discharge Assessment: Patient awake, alert and oriented x 3. No cognitive and/or ld5 functional deficits noted. Patient verbalized understanding of disposition instructions. patient administered narcotics - no. The following High Risk Discharge criteria are identified: None. Discharged to home ambulatory. Condition: stable. Discharge instructions given to patient, Instructed on discharge instructions, follow up and referral plans. Demonstrated understanding of instructions, Pt was receptive of discharge instructions/ teaching. No special radiology studies were completed. Property :Personal belongings accompany Pt. 16:53 Patient left the ED. ld5 Signatures: Joaquin Samuel FNP FNP ke Dickerson, Laura,TEODORA RN ld5 Mariah Godfrey gr2 Corrections: (The following items were deleted from the chart) 16:19 16:13 Presenting complaint: Patient states: "I just need a CT scan because I fell. 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 Denies pain ld5 MTDD
--- NOTE | 2017-01-19 17:54 | EDDOCDS ---
Nurse's Notes [facility] Name: Ania Davenport Age: 76 yrs Sex: Female : 1940 Arrival Date: 01/17/2017 Time: 16:03 Bed TR7 Private MD: Margarito Jones NCFM Diagnosis: Fall on same level from slipping, tripping and stumbling Presentation: 01/17 16:13 Presenting complaint: Patient states: "I just need a CT scan because I fell. 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 Denies hitting head. Denies pain. Adult Sepsis Screening: The patient does not have new or worsening altered mentation. Patient's respiratory rate is less than 22. Systolic blood pressure is greater than 100. Patient has a qSOFA score of 0- Negative Sepsis Screen. Suicide/Homicide risk assessment- the patient denies having any suicidal and/or homicidal ideations and does not present with any other emotional, behavioral or mental health complaints. 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 Transition of care: patient was not received from another setting of care. 16:13 Acuity: ALBA Level 4 ld5 16:13 Method Of Arrival: Walkin/Carried/Asstd ld5 Triage Assessment: 16:17 General: Appears in no apparent distress. Pain: Denies pain. Neurological: Level of ld5 Consciousness is awake, alert. Respiratory: Airway is patent Respiratory effort is even, unlabored. 16:18 Musculoskeletal: Range of motion intact in all extremities. ld5 Historical: - Allergies: SULFA (SULFONAMIDES) (Unknown); IV Dye; - Home Meds: 1. aspirin 81 mg Oral chew 1 tab once daily 2. atorvastatin 40 mg oral tab 1 tab nightly 3. calcitriol 0.25 mcg oral cap 1 cap mwf 4. Coumadin 7.5 mg Oral tab 1/2 dose on Friday and Friday 5. ferrous sulfate 325 mg (65 mg iron) Oral tab daily 6. amlodipine 10 mg Oral tab 1 tab once daily 7. Tradjenta 2.5mg oral tab 1 tab once daily 8. sotalol 80 mg Oral tab 1 tab daily 9. Keflex 500 mg Oral cap 1 cap every 12 hours 10. Lasix 10 mg Oral 1 tab once daily - PMHx: Anemia; Atrial Fib; Diabetes - NIDDM: controlled; Hypercholesterolemia; Hypertension; Renal Failure w/o Dialysis; - PSHx: cardiac catheterization; Stents, Coronary; - Social history: Smoking status: Patient states former smoker of tobacco. No barriers to communication noted, The patient speaks fluent Kittitian, Speaks appropriately for age. - Family history: Not pertinent. - : The pt / caregiver states he / she is on anticoagulants: coumadin. Home medication list is obtained from the patient. - Exposure Risk Screening:: None identified. Screenin:52 Screening information is obtained from the patient. Fall risk: No risks identified. ld5 Assistance ADL's: requires no assistance with activities of daily living. Abuse/DV Screen: The patient / caregiver reports he/she is: not in a situation that causes fear, pain or injury. Nutritional screening: No deficits noted. Advance Directives: Currently, there is no health care proxy. home support is adequate. Assessment: 16:52 General: Appears in no apparent distress, Behavior is cooperative. Pain: Denies pain. ld5 Neurological: Level of Consciousness is awake, alert. Respiratory: Airway is patent Respiratory effort is even, unlabored. GI: Denies nausea, vomiting. Vital Signs: 16:05 BP 152 / 70; Pulse 68; Resp 18 S; Temp 99.5(O); Pulse Ox 99% on R/A; Weight 58.97 kg gr2 (R); Height 5 ft. 2 in. (157.48 cm) (R); Pain 2/10; 16:05 Body Mass Index 23.78 (58.97 kg, 157.48 cm) gr2 Vitals: 16:05 Log In Time: January 17, 2017 at 16:05. gr2 ED Course: 16:04 Patient visited by Mariah Godfrey. gr2 16:04 Patient moved to Waiting gr2 16:05 Margarito Jones is Private Physician. gr2 16:06 Patient visited by Mariah Godfrey. gr2 16:06 Patient moved to Pre RCE gr2 16:14 Triage Initiated ld5 16:19 Patient visited by Carolyn Luna RN. ld5 16:19 Patient moved to Triage 1 ld5 16:31 [facility] ke 16:31 Patient visited by Joaquin Samuel FNP. ke 16:31 Patient visited by Joaquin Samuel FNP. ke 16:45 Margarito Jones is Referral Physician. ke 16:52 Patient moved to TR7 ld5 16:52 The patient / caregiver is instructed regarding the plan of care and ED course. Patient ld5 has correct armband on for positive identification. 16:52 No IV's were initiated during this patient's visit. No procedures done that require ld5 assistance. 16:53 Patient visited by Carolyn Luna RN. ld5 16:58 [facility] Payment Agreement was scanned into [employer] and attached to record. gjb 0218 09:58 T-Sheet-- Draft Copy was scanned into [employer] and attached to record. gb Order Results: There are currently no results for this order. Outcome: 0217 16:46 Discharge ordered by Provider. ke 16:52 Discharge Assessment: Patient awake, alert and oriented x 3. No cognitive and/or ld5 functional deficits noted. Patient verbalized understanding of disposition instructions. patient administered narcotics - no. The following High Risk Discharge criteria are identified: None. Discharged to home ambulatory. Condition: stable. Discharge instructions given to patient, Instructed on discharge instructions, follow up and referral plans. Demonstrated understanding of instructions, Pt was receptive of discharge instructions/ teaching. No special radiology studies were completed. Property :Personal belongings accompany Pt. 16:53 Patient left the ED. ld5 Signatures: Suma Contreras, Reg Reg gb Joaquin Samuel FNP FNP Carolyn Luna,TEODORA RN ld5 Mariah Godfrey gr2 Mellisa Gutierrez [facility] Corrections: (The following items were deleted from the chart) 16:19 16:13 Presenting complaint: Patient states: "I just need a CT scan because I fell. 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 Denies LOC. Denies pain ld5 Chart Complete MTDD
--- NOTE | 2017-01-19 17:54 | EDDOCDS ---
Physician Documentation [facility] Name: Ania Davenport Age: 76 yrs Sex: Female : 1940 Arrival Date: 01/17/2017 Time: 16:03 Bed TR7 Private MD: Margarito Jones [facility] Disposition: 01/17/17 16:46 Discharged to Home/Self Care. Impression: Fall on same level from slipping, tripping and stumbling. - Condition is Stable. - Discharge Instructions: Fall Prevention and Home Safety, Head Injury, Adult, [id number]. - Medication Reconciliation, Local Pharmacy Hours form. - Follow up: Margarito Jones; When: As needed; Reason: Continuance of care. - Problem is new. - Symptoms are unchanged. Historical: - Allergies: SULFA (SULFONAMIDES) (Unknown); IV Dye; - Home Meds: 1. aspirin 81 mg Oral chew 1 tab once daily 2. atorvastatin 40 mg oral tab 1 tab nightly 3. calcitriol 0.25 mcg oral cap 1 cap mwf 4. Coumadin 7.5 mg Oral tab 1/2 dose on Friday and Friday 5. ferrous sulfate 325 mg (65 mg iron) Oral tab daily 6. amlodipine 10 mg Oral tab 1 tab once daily 7. Tradjenta 2.5mg oral tab 1 tab once daily 8. sotalol 80 mg Oral tab 1 tab daily 9. Keflex 500 mg Oral cap 1 cap every 12 hours 10. Lasix 10 mg Oral 1 tab once daily - PMHx: Anemia; Atrial Fib; Diabetes - NIDDM: controlled; Hypercholesterolemia; Hypertension; Renal Failure w/o Dialysis; - PSHx: cardiac catheterization; Stents, Coronary; - Social history: Smoking status: Patient states former smoker of tobacco. No barriers to communication noted, The patient speaks fluent Niuean, Speaks appropriately for age. - Family history: Not pertinent. - : The pt / caregiver states he / she is on anticoagulants: coumadin. Home medication list is obtained from the patient. - Exposure Risk Screening:: None identified. Vital Signs: 01/17 16:05 BP 152 / 70; Pulse 68; Resp 18 S; Temp 99.5(O); Pulse Ox 99% on R/A; Weight 58.97 kg / gr2 130.01 lbs (R); Height 5 ft. 2 in. (157.48 cm) (R); Pain 01/10; 16:05 Body Mass Index 23.78 (58.97 kg, 157.48 cm) gr2 MDM: 16:58 [facility] Payment Agreement was scanned into [employer] and attached to record. [facility] Financial registration complete. gjb 01/18 09:58 T-Sheet-- Draft Copy was scanned into [employer] and attached to record. gb Signatures: Suma Contreras, Reg Reg Joaquin Pierce, TARGET NETWORK ANALYST TARGET NETWORK ANALYST Carolyn Thomas,RN RN [email or web address] Mellisa Gutierrez The chart was reviewed and I authenticate all verbal orders and agree with the evaluation and treatment provided.Attachments: 01/17 16:58 [facility] Payment Agreement b 01/18 09:58 T-Sheet-- Draft Copy gb Chart Complete MTDD
--- NOTE | 2017-01-19 17:54 | EDDOCDS ---
Physician Documentation [facility] Name: Ania Davenport Age: 76 yrs Sex: Female : 1940 Arrival Date: 01/17/2017 Time: 16:03 Bed TR7 Private MD: Margarito Jones [facility] Disposition: 01/17/17 16:46 Discharged to Home/Self Care. Impression: Fall on same level from slipping, tripping and stumbling. - Condition is Stable. - Discharge Instructions: Fall Prevention and Home Safety, Head Injury, Adult, [id number]. - Medication Reconciliation, Local Pharmacy Hours form. - Follow up: Margarito Jones; When: As needed; Reason: Continuance of care. - Problem is new. - Symptoms are unchanged. Historical: - Allergies: SULFA (SULFONAMIDES) (Unknown); IV Dye; - Home Meds: 1. aspirin 81 mg Oral chew 1 tab once daily 2. atorvastatin 40 mg oral tab 1 tab nightly 3. calcitriol 0.25 mcg oral cap 1 cap mwf 4. Coumadin 7.5 mg Oral tab 1/2 dose on Friday and Friday 5. ferrous sulfate 325 mg (65 mg iron) Oral tab daily 6. amlodipine 10 mg Oral tab 1 tab once daily 7. Tradjenta 2.5mg oral tab 1 tab once daily 8. sotalol 80 mg Oral tab 1 tab daily 9. Keflex 500 mg Oral cap 1 cap every 12 hours 10. Lasix 10 mg Oral 1 tab once daily - PMHx: Anemia; Atrial Fib; Diabetes - NIDDM: controlled; Hypercholesterolemia; Hypertension; Renal Failure w/o Dialysis; - PSHx: cardiac catheterization; Stents, Coronary; - Social history: Smoking status: Patient states former smoker of tobacco. No barriers to communication noted, The patient speaks fluent Micronesian, Speaks appropriately for age. - Family history: Not pertinent. - : The pt / caregiver states he / she is on anticoagulants: coumadin. Home medication list is obtained from the patient. - Exposure Risk Screening:: None identified. Vital Signs: 01/17 16:05 BP 152 / 70; Pulse 68; Resp 18 S; Temp 99.5(O); Pulse Ox 99% on R/A; Weight 58.97 kg / gr2 130.01 lbs (R); Height 5 ft. 2 in. (157.48 cm) (R); Pain 01/10; 16:05 Body Mass Index 23.78 (58.97 kg, 157.48 cm) gr2 MDM: 16:58 [facility] Payment Agreement was scanned into [employer] and attached to record. [facility] 58 Financial registration complete. gjb 01/18 09:58 T-Sheet-- Draft Copy was scanned into [employer] and attached to record. gb Signatures: Suma Contreras, Reg Reg Joaquin Pierce, PASTING MACHINE OPERATOR PASTING MACHINE OPERATOR Carolyn Thomas,RN RN [email or web address] Mellisa Gutierrez The chart was reviewed and I authenticate all verbal orders and agree with the evaluation and treatment provided.Attachments: 01/17 16:58 [facility] Payment Agreement b 01/18 09:58 T-Sheet-- Draft Copy gb Chart Complete MTDD
== END 2017-01-17 16:53 | disposition home or self-care (01) ==
LOC: M ED 16:03
DX: Z71.1 Person with feared health complaint in whom no diagnosis is made (principal); D64.9 Anemia, unspecified; I48.91 Unspecified atrial fibrillation; E11.9 Type 2 diabetes mellitus without complications; E78.00 Pure hypercholesterolemia, unspecified; I12.9 Hypertensive chronic kidney disease with stage 1 through stage 4 chronic kidney disease, or unspecified chronic kidney disease; N18.9 Chronic kidney disease, unspecified; Z98.61 Coronary angioplasty status; Z87.891 Personal history of nicotine dependence; Z79.01 Long term (current) use of anticoagulants; Z79.82 Long term (current) use of aspirin; Z79.899 Other long term (current) drug therapy; Z88.2 Allergy status to sulfonamides; Z91.041 Radiographic dye allergy status

== ENCOUNTER → 2017-01-22 | Outpatient (CLI) | payer MEDICARE, MEDICAID ==
[2017-01-22 10:15] LABS: INR 2.87
== END ==
LOC: M SMT 09:07
PROVIDERS: ATTEND Internal Medicine Cardiovascular Disease
DX: I48.0 Paroxysmal atrial fibrillation (principal); Z51.81 Encounter for therapeutic drug level monitoring; Z79.01 Long term (current) use of anticoagulants

== ENCOUNTER 2017-02-05 06:39 | Emergency (ER) | payer MEDICARE, MEDICAID ==
[~2017-02-05] VITALS: Ht 157.5 cm; Wt 58.5 kg
[2017-02-05] MEDS ORDERED: AMLO25TA PO (07:06)
[2017-02-05 09:03] LABS: BASO % 0.2 % (0.0-1.0); EOS # 0.1 K/mm3 (0.0-0.50); EOS % 1.2 % (0.0-3.0); LARGE UNSTAINED CELL # 0.2 K/mm3 (0.0-0.4); LARGE UNSTAINED CELL % 1.9 % (0.0-4.0); LYMPH # 0.6 K/mm3 (1.5-4.5); LYMPH % 6.8 % (24.0-44.0); MEAN CORPUSCULAR HEMOGLOBIN 31.2 pg (27.0-33.0); MEAN CORPUSCULAR HGB CONC 33.5 g/dl (32.0-36.5); MEAN CORPUSCULAR VOLUME 93.1 fl (80.0-96.0); MONO # 0.4 K/mm3 (0.0-0.8); MONO % 4.3 % (0.0-5.0); NEUTROPHILS % 85.7 % (36.0-66.0); PLATELET COUNT, AUTOMATED 187 k/mm3 (150-450); RED CELL DISTRIBUTION WIDTH 13.1 % (11.5-14.5); WHITE BLOOD COUNT 8.4 K/mm3 (4.0-10.0)
[2017-02-05 09:04] LABS: INR 1.24
[2017-02-05 09:25] LABS: CALCIUM LEVEL 9.3 MG/DL (8.8-10.2); CREATININE FOR GFR 1.3 MG/DL (0.55-1.02); GLOMERULAR FILTRATION RATE 42.6 (>39); POTASSIUM SERUM 3.5 MEQ/L (3.5-5.1)
[2017-02-05] MEDS ORDERED: FLEET OIL RETENTION ENEMA PR STA (11:37)
--- NOTE | 2017-02-05 12:16 | REP ---
CT study of the abdomen and pelvis without contrast: History: Urinary retention. Comparison CT study February 23, 2016. Findings: Preliminary digital hardboard supervisor radiograph demonstrates moderate stool throughout the colon. Vascular calcification is visible. The lung bases are clear. In comparing the prior study from February 23, 2016, there is a questionable mass in the right breast soft tissues on that prior study 12 mm in diameter at the top edge of the imaging field of view. Today's CT study does not include any of the breast tissue. The liver and the spleen are normal in size, homogeneous in texture. Gallbladder mildly dilated in appearance but homogeneous in density. No stone is seen by CT. Common bile duct is mildly dilated at 9 mm in greatest dimension. Previous scan showed similar 8 mm diameter of the CBD. No choledocholithiasis is visible by CT scanning. Pancreas is unremarkable. No evidence of adrenal mass is seen on either side. There is marked atrophy of the right kidney with vascular calcification in the proximal and distal renal artery on the right. The left kidney contains a cyst in its lower pole which measures 3.8 cm in diameter. This is unchanged from the prior study. No hydronephrosis is seen. Heavy vascular calcification is seen in a normal caliber aorta. A normal appendix is visible in the right lower quadrant. There is moderate low density stool throughout the colon including a stool dilated rectum which fills the pelvis. This measures 8.4 cm across. The uterus and bladder are displaced and compressed somewhat anteriorly by the stool dilated rectum. No uterine or adnexal pathology is appreciated. A Waldrop catheter is seen in the urinary bladder. No abdominal wall defect is observed. Impression: 1. Fecal impaction constipation pattern, stool dilated rectum compresses the bladder and uterus. 2. Waldrop catheter in place. No hydronephrosis. Marked atrophy right kidney. Left renal cyst. 3. Mildly dilated gallbladder and common bile duct. The common bile duct measures 9 mm. No stone seen. 4. Possible 12 mm mass in the inferior right breast. Correlation with mammography suggested. Signed by Jeffry Olsen MD 02/05/2017 12:27 P
[2017-02-05] MEDS ORDERED: MIRA3350 PO (17:37)
[2017-02-05] MEDS ORDERED: CITR1SOL PO (17:37)
[2017-02-05 18:23] VITALS: BP 169/79
--- NOTE | 2017-02-06 06:30 | ED PDOC ---
Provider Note jonathan packer faxed formal report of ct abd/p for fu Gaye Smith MD Feb 06, 2017 06:30
== END 2017-02-05 18:20 | disposition home or self-care (01) ==
LOC: M ED 08:02
DX: R33.9 Retention of urine, unspecified (principal); K59.00 Constipation, unspecified; R93.5 Abnormal findings on diagnostic imaging of other abdominal regions, including retroperitoneum; I12.9 Hypertensive chronic kidney disease with stage 1 through stage 4 chronic kidney disease, or unspecified chronic kidney disease; N18.3 Chronic kidney disease, stage 3 (moderate); K57.92 Diverticulitis of intestine, part unspecified, without perforation or abscess without bleeding; E78.5 Hyperlipidemia, unspecified; I25.10 Atherosclerotic heart disease of native coronary artery without angina pectoris; I48.91 Unspecified atrial fibrillation; Z87.891 Personal history of nicotine dependence; Z88.2 Allergy status to sulfonamides; Z79.899 Other long term (current) drug therapy; Z79.82 Long term (current) use of aspirin; Z79.01 Long term (current) use of anticoagulants

== ENCOUNTER → 2017-02-06 | Outpatient (CLI) | payer MEDICARE, MEDICAID ==
[~2017-02-06] MED LIST changes: +AMLO25TA PO; +CITR1SOL PO; +MIRA3350 PO
[2017-02-06 15:14] LABS: INR 1.1
== END ==
LOC: M LAB 14:48
PROVIDERS: ATTEND Nurse Practitioner Family
DX: M48.06 Spinal stenosis, lumbar region (principal); E11.40 Type 2 diabetes mellitus with diabetic neuropathy, unspecified; M51.26 Other intervertebral disc displacement, lumbar region; M47.816 Spondylosis without myelopathy or radiculopathy, lumbar region; M51.36 Other intervertebral disc degeneration, lumbar region; Z51.81 Encounter for therapeutic drug level monitoring; Z79.01 Long term (current) use of anticoagulants

== ENCOUNTER → 2017-02-13 | Outpatient (CLI) | payer MEDICARE, MEDICAID ==
[2017-02-13 13:15] LABS: INR 1.5
== END ==
LOC: M SMT 09:09
PROVIDERS: ATTEND Internal Medicine Cardiovascular Disease
DX: I48.0 Paroxysmal atrial fibrillation (principal); Z51.81 Encounter for therapeutic drug level monitoring; Z79.01 Long term (current) use of anticoagulants

== ENCOUNTER → 2017-02-20 | Outpatient (CLI) | payer MEDICARE, MEDICAID ==
[2017-02-20 13:28] LABS: INR 1.95
== END ==
LOC: M SMT 08:56
PROVIDERS: ATTEND Internal Medicine Cardiovascular Disease
DX: Z51.81 Encounter for therapeutic drug level monitoring (principal); Z79.01 Long term (current) use of anticoagulants; I48.0 Paroxysmal atrial fibrillation

== ENCOUNTER 2017-02-27 14:49 | Emergency (ER) | payer MEDICARE, MEDICAID ==
[~2017-02-27] VITALS: Ht 157.5 cm; Wt 58.1 kg
[2017-02-27] MEDS ORDERED: K-TA10TA2 PO (15:07)
[2017-02-27] MEDS ORDERED: FURO20TA2 PO (15:07)
[2017-02-27] MEDS ORDERED: SOTALOL HCL 80 MG TAB PO ONE (15:45)
[2017-02-27 16:02] LABS: INR 2.49
[2017-02-27 16:17] LABS: CALCIUM LEVEL 8.7 MG/DL (8.8-10.2); CREATININE FOR GFR 1.38 MG/DL (0.55-1.02); GLOMERULAR FILTRATION RATE 39.8 (>39); MAGNESIUM LEVEL 2.4 MG/DL (1.8-2.4); POTASSIUM SERUM 3.7 MEQ/L (3.5-5.1)
[2017-02-27 16:23] VITALS: BP 165/88
[2017-02-27 16:33] LABS: BASO % 0.4 % (0.0-1.0); EOS # 0.2 K/mm3 (0.0-0.50); EOS % 2.6 % (0.0-3.0); LARGE UNSTAINED CELL # 0.2 K/mm3 (0.0-0.4); LARGE UNSTAINED CELL % 2.3 % (0.0-4.0); LYMPH # 1.1 K/mm3 (1.5-4.5); LYMPH % 16.7 % (24.0-44.0); MEAN CORPUSCULAR HEMOGLOBIN 31.3 pg (27.0-33.0); MEAN CORPUSCULAR HGB CONC 32.9 g/dl (32.0-36.5); MEAN CORPUSCULAR VOLUME 95.4 fl (80.0-96.0); MONO # 0.4 K/mm3 (0.0-0.8); MONO % 6.3 % (0.0-5.0); NEUTROPHILS # 4.7 K/mm3 (1.8-7.7); NEUTROPHILS % 71.7 % (36.0-66.0); PLATELET COUNT, AUTOMATED 183 k/mm3 (150-450); RED CELL DISTRIBUTION WIDTH 13.1 % (11.5-14.5); WHITE BLOOD COUNT 6.6 K/mm3 (4.0-10.0)
[2017-02-27 17:47] VITALS: BP 141/87
--- NOTE | 2017-02-28 16:33 | ECGEPIP ---
Stationary ECG Study [facility] - ED Test Date: 2017-02-27 Pat Name: AEXL RAY Department: Room: - Gender: F Manager Business Management: danilo : 1940 Requested By: Pretty Culver Order Number: [id number] Reading MD: Pretty Culver Measurements Intervals [place] Rate: 93 P: NE: 0 QRS: 42 QRSD: 93 T: -7 QT: 385 QTc: 479 Interpretive Statements ATRIAL FIBRILLATION NONSPECIFIC T-WAVE ABNORMALITY ABNORMAL RHYTHM ECG PRIOR 12/28/16 SINUS RHYTHM Electronically Signed On 02-28-2017 16:32:40 EDT by Pretty Culver
== END 2017-02-27 17:49 | disposition home or self-care (01) ==
LOC: M ED 17:38
DX: I48.91 Unspecified atrial fibrillation (principal)

== ENCOUNTER 2017-02-28 21:13 | Emergency (ER) | payer MEDICARE, MEDICAID ==
[~2017-02-28] VITALS: Ht 157.5 cm; Wt 58.1 kg
[~2017-02-28 21:13] MED LIST changes: +FURO20TA2 PO; +K-TA10TA2 PO
[2017-02-28 23:51] LABS: ANION GAP 6 MEQ/L (8-16); BLOOD UREA NITROGEN 21 MG/DL (7-18); CALCIUM LEVEL 8.5 MG/DL (8.8-10.2); CARBON DIOXIDE LEVEL 33 MEQ/L (21-32); CHLORIDE LEVEL 104 MEQ/L (98-107); CREATININE FOR GFR 1.15 MG/DL (0.55-1.02); GLOMERULAR FILTRATION RATE 49.1 (>39); GLUCOSE, FASTING 122 MG/DL (83-110); POTASSIUM SERUM 3.5 MEQ/L (3.5-5.1); SODIUM LEVEL 143 MEQ/L (136-145)
[2017-03-01 00:18] LABS: BASO % 0.3 % (0.0-1.0); EOS # 0.2 K/mm3 (0.0-0.50); EOS % 2.4 % (0.0-3.0); LARGE UNSTAINED CELL # 0.2 K/mm3 (0.0-0.4); LARGE UNSTAINED CELL % 2.8 % (0.0-4.0); LYMPH # 1.2 K/mm3 (1.5-4.5); LYMPH % 18.9 % (24.0-44.0); MEAN CORPUSCULAR HEMOGLOBIN 32.2 pg (27.0-33.0); MEAN CORPUSCULAR HGB CONC 34.2 g/dl (32.0-36.5); MEAN CORPUSCULAR VOLUME 94.3 fl (80.0-96.0); MONO # 0.4 K/mm3 (0.0-0.8); MONO % 6.6 % (0.0-5.0); NEUTROPHILS # 4.3 K/mm3 (1.8-7.7); PLATELET COUNT, AUTOMATED 171 k/mm3 (150-450); RED CELL DISTRIBUTION WIDTH 13.1 % (11.5-14.5); WHITE BLOOD COUNT 6.2 K/mm3 (4.0-10.0)
[2017-03-01 00:53] VITALS: BP 146/67
--- NOTE | 2017-03-01 08:34 | ECGEPIP ---
Stationary ECG Study [facility] - ED Test Date: 2017-02-28 Pat Name: AXEL RAY Department: Room: - Gender: F Employment Advisor: tila : 1940 Requested By: TEAGAN Soria Order Number: [id number] Reading MD: Rasheed Bustillo Measurements Intervals [place] Rate: 58 P: 94 VA: 150 QRS: 49 QRSD: 88 T: 52 QT: 457 QTc: 450 Interpretive Statements SINUS BRADYCARDIA WITH FREQUENT SUPRAVENTRICULAR PREMATURE COMPLEXES NONSPECIFIC T-WAVE ABNORMALITY RHYTHM CHANGE COMPARED TO 02/27/17 Electronically Signed On 03-01-2017 8:34:10 EDT by Rasheed Bustillo
== END 2017-03-01 00:54 | disposition home or self-care (01) ==
LOC: M ED 22:40
DX: R00.2 Palpitations (principal); I48.91 Unspecified atrial fibrillation; Z79.899 Other long term (current) drug therapy; Z79.82 Long term (current) use of aspirin; Z79.01 Long term (current) use of anticoagulants; Z88.1 Allergy status to other antibiotic agents; Z88.2 Allergy status to sulfonamides; F17.210 Nicotine dependence, cigarettes, uncomplicated

== ENCOUNTER → 2017-03-03 | Outpatient (REF) | payer MEDICARE, MEDICAID ==
[2017-03-03 12:16] LABS: INR 2.22
== END ==
LOC: M LABWUC 11:37
PROVIDERS: ATTEND Internal Medicine Cardiovascular Disease
DX: Z51.81 Encounter for therapeutic drug level monitoring (principal); Z79.01 Long term (current) use of anticoagulants; I48.0 Paroxysmal atrial fibrillation

== ENCOUNTER → 2017-03-19 | Outpatient (CLI) | payer MEDICARE, MEDICAID ==
[2017-03-19 10:48] LABS: INR 1.88
== END ==
LOC: M SMT 09:26
PROVIDERS: ATTEND Internal Medicine Cardiovascular Disease
DX: Z51.81 Encounter for therapeutic drug level monitoring (principal); Z79.01 Long term (current) use of anticoagulants; I48.0 Paroxysmal atrial fibrillation

== ENCOUNTER → 2017-03-27 | Outpatient (CLI) | payer MEDICARE, MEDICAID ==
[2017-03-27 11:01] LABS: INR 3.12
== END ==
LOC: M SMT 08:38
PROVIDERS: ATTEND Internal Medicine Cardiovascular Disease
DX: Z51.81 Encounter for therapeutic drug level monitoring (principal); I48.0 Paroxysmal atrial fibrillation; Z79.01 Long term (current) use of anticoagulants

== ENCOUNTER → 2017-04-11 | Outpatient (CLI) | payer MEDICARE, MEDICAID ==
[2017-04-11 11:19] LABS: INR 2.88
== END ==
LOC: M SMT 08:32
PROVIDERS: ATTEND Internal Medicine Cardiovascular Disease
DX: Z51.81 Encounter for therapeutic drug level monitoring (principal); Z79.01 Long term (current) use of anticoagulants; I48.0 Paroxysmal atrial fibrillation

== ENCOUNTER → 2017-04-25 | Outpatient (REF) | payer MEDICARE, MEDICAID ==
[2017-04-25 13:18] LABS: INR 3.03
== END ==
LOC: M LABSMT 12:46
PROVIDERS: ATTEND Internal Medicine Cardiovascular Disease
DX: Z51.81 Encounter for therapeutic drug level monitoring (principal); Z79.01 Long term (current) use of anticoagulants

== ENCOUNTER → 2017-05-06 | Outpatient (CLI) | payer MEDICARE, MEDICAID ==
[~2017-05-06] MED LIST changes: +AMLO-59 PO
[2017-05-06 13:11] LABS: INR 1.68
== END ==
LOC: M SMT 08:29
PROVIDERS: ATTEND Internal Medicine Cardiovascular Disease
DX: Z51.81 Encounter for therapeutic drug level monitoring (principal); Z79.01 Long term (current) use of anticoagulants; I48.0 Paroxysmal atrial fibrillation

== ENCOUNTER 2017-05-09 22:25 | Emergency (ER) | payer MEDICARE, MEDICAID ==
[~2017-05-09] VITALS: Ht 157.5 cm; Wt 57.2 kg
[~2017-05-09 22:25] MED LIST changes: -AMLO-59 PO
[2017-05-09] MEDS ORDERED: AMLO-59 PO (22:49)
[2017-05-09 23:27] LABS: BASO % 0.4 % (0.0-1.0); EOS # 0.2 K/mm3 (0.0-0.50); EOS % 3.2 % (0.0-3.0); LARGE UNSTAINED CELL # 0.2 K/mm3 (0.0-0.4); LARGE UNSTAINED CELL % 2.4 % (0.0-4.0); LYMPH # 1.5 K/mm3 (1.5-4.5); LYMPH % 20.4 % (24.0-44.0); MEAN CORPUSCULAR HEMOGLOBIN 30.7 pg (27.0-33.0); MEAN CORPUSCULAR VOLUME 93.1 fl (80.0-96.0); MONO # 0.5 K/mm3 (0.0-0.8); MONO % 7.7 % (0.0-5.0); NEUTROPHILS # 4.4 K/mm3 (1.8-7.7); NEUTROPHILS % 65.8 % (36.0-66.0); PLATELET COUNT, AUTOMATED 187 k/mm3 (150-450); RED CELL DISTRIBUTION WIDTH 13.9 % (11.5-14.5); WHITE BLOOD COUNT 6.7 K/mm3 (4.0-10.0)
[2017-05-09 23:40] LABS: INR 2.66
[2017-05-10 00:01] LABS: ANION GAP 8 MEQ/L (8-16); BLOOD UREA NITROGEN 22 MG/DL (7-18); CALCIUM LEVEL 8.9 MG/DL (8.8-10.2); CARBON DIOXIDE LEVEL 30 MEQ/L (21-32); CHLORIDE LEVEL 105 MEQ/L (98-107); CREATININE FOR GFR 1.16 MG/DL (0.55-1.02); GLOMERULAR FILTRATION RATE 48.5 (>39); GLUCOSE, FASTING 133 MG/DL (83-110); POTASSIUM SERUM 3.4 MEQ/L (3.5-5.1); SODIUM LEVEL 143 MEQ/L (136-145); T UPTAKE 34 % (30-39); THYROXINE (T4) 9.5 UG/DL (4.5-12.0)
[2017-05-10 02:33] VITALS: BP 124/61
--- NOTE | 2017-05-11 19:19 | ECGEPIP ---
Stationary ECG Study [facility] - ED Test Date: 2017-05-09 Pat Name: AXEL RAY Department: Room: - Gender: F Mcat Instructor: cristobal : 1940 Requested By: AREN CAZARES Order Number: [id number] Reading MD: Pretty Culver Measurements Intervals [place] Rate: 83 P: ME: 0 QRS: 42 QRSD: 93 T: -13 QT: 384 QTc: 453 Interpretive Statements ATRIAL FIBRILLATION ST DEVIATION AND MODERATE T-WAVE ABNORMALITY, CONSIDER ISCHEMIA Electronically Signed On 05-11-2017 19:19:08 EDT by Pretty Culver
== END 2017-05-10 02:34 | disposition home or self-care (01) ==
LOC: M ED 23:20
DX: I48.91 Unspecified atrial fibrillation (principal); I10 Essential (primary) hypertension; E78.4 Other hyperlipidemia; I25.10 Atherosclerotic heart disease of native coronary artery without angina pectoris; Z87.891 Personal history of nicotine dependence

== ENCOUNTER → 2017-05-20 | Outpatient (CLI) | payer MEDICARE, MEDICAID ==
[~2017-05-20] MED LIST changes: +AMLO-59 PO
[2017-05-20 12:03] LABS: INR 1.53
== END ==
LOC: M SMT 09:02
PROVIDERS: ATTEND Internal Medicine Cardiovascular Disease
DX: Z51.81 Encounter for therapeutic drug level monitoring (principal); Z79.01 Long term (current) use of anticoagulants; I48.0 Paroxysmal atrial fibrillation

== ENCOUNTER → 2017-05-27 | Outpatient (CLI) | payer MEDICARE, MEDICAID ==
[2017-05-27 11:42] LABS: INR 1.86
== END ==
LOC: M SMT 08:22
PROVIDERS: ATTEND Internal Medicine Cardiovascular Disease
DX: I48.0 Paroxysmal atrial fibrillation (principal); Z79.01 Long term (current) use of anticoagulants

== ENCOUNTER → 2017-05-29 | Outpatient (REF) | payer MEDICARE, MEDICAID ==
[~2017-05-29] MED LIST changes: +AMLO-140 PO; -AMLO-59 PO; -ATOR40TA PO; +ATOR40TA75 PO; +BISAC5TA PO; -DOCU100C PO; +DOCU100C16 PO; +METO1TAB7 PO; +NICO2GUM8 PO; +TYLE500T78 PO; +VITA1CAP40 PO; -VITA50003 PO
[2017-05-30 06:22] LABS: FREE T4 1.18 NG/DL (0.76-1.46)
== END ==
LOC: M LAB REF 13:50
PROVIDERS: ATTEND Internal Medicine Nephrology
DX: N18.3 Chronic kidney disease, stage 3 (moderate) (principal); D63.1 Anemia in chronic kidney disease; R63.4 Abnormal weight loss

== ENCOUNTER → 2017-05-29 | Outpatient (REF) | payer MEDICARE, MEDICAID ==
[2017-05-29 15:30] LABS: PERCENT SATURATION 25.2 % (13.2-37.4)
== END ==
LOC: M LAB REF 13:52
PROVIDERS: ATTEND Internal Medicine Nephrology
DX: N18.3 Chronic kidney disease, stage 3 (moderate) (principal); D63.1 Anemia in chronic kidney disease

== ENCOUNTER → 2017-06-02 | Outpatient (CLI) | payer MEDICARE, MEDICAID | LOC: M RAD 14:47 | PROVIDERS: ATTEND Internal Medicine Nephrology | DX: R10.84 Generalized abdominal pain (principal); K59.00 Constipation, unspecified; R63.4 Abnormal weight loss ==

== ENCOUNTER → 2017-06-04 | Outpatient (CLI) | payer MEDICARE, MEDICAID ==
[2017-06-04 10:45] LABS: INR 2.15
== END ==
LOC: M SMT 08:39
PROVIDERS: ATTEND Internal Medicine Cardiovascular Disease
DX: Z51.81 Encounter for therapeutic drug level monitoring (principal); Z79.01 Long term (current) use of anticoagulants; I48.0 Paroxysmal atrial fibrillation

== ENCOUNTER 2017-06-09 14:45 | Emergency (ER) | payer MEDICARE, MEDICAID ==
[~2017-06-09] VITALS: Ht 157.5 cm; Wt 55.9 kg
[~2017-06-09 14:45] MED LIST changes: -METO1TAB7 PO; -NICO2GUM8 PO; -TYLE500T78 PO
[2017-06-09 15:47] LABS: BASO % 0.4 % (0.0-1.0); EOS # 0.1 K/mm3 (0.0-0.50); EOS % 2.2 % (0.0-3.0); LARGE UNSTAINED CELL # 0.2 K/mm3 (0.0-0.4); LARGE UNSTAINED CELL % 2.9 % (0.0-4.0); LYMPH # 1.5 K/mm3 (1.5-4.5); LYMPH % 25.3 % (24.0-44.0); MEAN CORPUSCULAR HEMOGLOBIN 31.6 pg (27.0-33.0); MEAN CORPUSCULAR HGB CONC 34.2 g/dl (32.0-36.5); MEAN CORPUSCULAR VOLUME 92.6 fl (80.0-96.0); MONO # 0.4 K/mm3 (0.0-0.8); MONO % 6.8 % (0.0-5.0); NEUTROPHILS # 3.4 K/mm3 (1.8-7.7); NEUTROPHILS % 62.4 % (36.0-66.0); PLATELET COUNT, AUTOMATED 185 k/mm3 (150-450); RED CELL DISTRIBUTION WIDTH 13.9 % (11.5-14.5); WHITE BLOOD COUNT 5.4 K/mm3 (4.0-10.0)
[2017-06-09 15:57] LABS: INR 2.18
[2017-06-09 16:18] LABS: ANION GAP 5 MEQ/L (8-16); BLOOD UREA NITROGEN 23 MG/DL (7-18); CALCIUM LEVEL 9.3 MG/DL (8.8-10.2); CARBON DIOXIDE LEVEL 31 MEQ/L (21-32); CHLORIDE LEVEL 105 MEQ/L (98-107); CREATININE FOR GFR 1.08 MG/DL (0.55-1.02); GLOMERULAR FILTRATION RATE 52.7 (>39); GLUCOSE, FASTING 101 MG/DL (83-110); POTASSIUM SERUM 3.5 MEQ/L (3.5-5.1); SODIUM LEVEL 141 MEQ/L (136-145); URIC ACID 4.7 MG/DL (2.6-6.0)
--- NOTE | 2017-06-09 16:50 | REP ---
DEEP VENOUS ULTRASONOGRAPHY BILATERAL THIGHS, RULE OUT DVT: REASON: Pain and swelling. TECHNIQUE: Multiple ultrasonographic images of the deep venous structures of the thigh were obtained from the common femoral vein to the popliteal vein along with Doppler interrogation and color flow Doppler images. FINDINGS: There is no abnormal echogenic material seen within any of the visualized deep venous structures that would suggest acute thrombosis. Coaptation is unremarkable throughout. Doppler interrogation shows an expected response to respiratory variability and augmentation. The color flow images show what appears to be a normal vascular pattern throughout. IMPRESSION: There is no ultrasonographic evidence of deep venous thrombosis involving any of the visualized deep venous structures of the bilateral thighs, as described above. Signed by Konstantin Cade DO 06/10/2017 11:23 A
[2017-06-09 16:56] LABS: ERYTHROCYTE SEDIMENTATION RATE 34 mm/hr (0-30)
[2017-06-09 17:09] VITALS: BP 184/73
[2017-07-10] MEDS ORDERED: TYLE500T78 PO (15:17)
[2017-07-10] MEDS ORDERED: METO1TAB7 PO (15:17)
[2017-07-31] MEDS ORDERED: NICO2GUM8 PO (10:21)
== END 2017-06-09 17:14 | disposition home or self-care (01) ==
LOC: M ED 14:45
DX: R60.0 Localized edema (principal); M19.071 Primary osteoarthritis, right ankle and foot; I48.91 Unspecified atrial fibrillation; I50.9 Heart failure, unspecified; E11.9 Type 2 diabetes mellitus without complications; I10 Essential (primary) hypertension; Z86.73 Personal history of transient ischemic attack (TIA), and cerebral infarction without residual deficits; Z98.61 Coronary angioplasty status; Z79.01 Long term (current) use of anticoagulants

== ENCOUNTER → 2017-06-18 | Outpatient (CLI) | payer MEDICARE, MEDICAID ==
[~2017-06-18] MED LIST changes: +METO1TAB7 PO; +NICO2GUM8 PO; +TYLE500T78 PO
[2017-06-18 12:17] LABS: INR 2.12
== END ==
LOC: M SMT 08:49
PROVIDERS: ATTEND Internal Medicine Cardiovascular Disease
DX: Z51.81 Encounter for therapeutic drug level monitoring (principal); Z79.01 Long term (current) use of anticoagulants; I48.0 Paroxysmal atrial fibrillation

== ENCOUNTER → 2017-06-24 | Day surgery (SDC) | payer MEDICARE, MEDICAID ==
[~2017-06-24] VITALS: Ht 157.5 cm; Wt 55.8 kg
[~2017-06-24] MED LIST changes: +BALANCED SALT IRRIGATION SOLUTION 500ML BAG (FOR OR EYE MACHINE) As Ordered ONE; +CYCLOPENTOLATE 2% OPHTH SOLN 2ML BTL OD ONE; +HEALON DUET (HEALON 10MG/ML 0.55ML & HEALON ENDOCOAT 30MG/ML 0.85ML) As Ordered ONE; +LIDOCAINE 1% SDV 5 ML VIAL As Ordered ONE; +LIDOCAINE 4% INJ 5 ML AMP OU ONE; +LR 500 ML IV ONE; +MIDAZOLAM INJ 2 MG/2 ML VIAL (J2250) As Ordered ONE; +MOXIFLOXACIN IN BSS 0.25MG/0.25ML INTRACAMERAL INJ (OR EYE ONLY)(J2280) As Ordered ONE; +OFLOXACIN 0.3 % (OCUFLOX) OPTH SOL 5ML OD ONE; +PHENYLEPHRINE 2.5% OPHTH SOL 2ML OD ONE; +POVIDONE-IODINE 5% OPHTH PREP SOL 30ML As Ordered ONE; +TRIAMCINOLONE PRES FR 40 MG/ML 1ML(TRIESENCE)(OR EYE ONLY)(J3300 PER 1MG) As Ordered ONE; +TROPICAMIDE 1% OPHTH SOLN 2ML OD ONE; +fentaNYL 100 MCG/2 ML INJECTION (J3010) As Ordered ONE
[2017-06-24 14:25] VITALS: BP 155/72
== END | disposition home or self-care (01) ==
LOC: M SDC 09:55
PROVIDERS: ATTEND Ophthalmology
DX: H26.9 Unspecified cataract (principal); E11.22 Type 2 diabetes mellitus with diabetic chronic kidney disease; N18.4 Chronic kidney disease, stage 4 (severe); I12.9 Hypertensive chronic kidney disease with stage 1 through stage 4 chronic kidney disease, or unspecified chronic kidney disease; I48.2 Chronic atrial fibrillation; K21.9 Gastro-esophageal reflux disease without esophagitis; I25.10 Atherosclerotic heart disease of native coronary artery without angina pectoris; E78.00 Pure hypercholesterolemia, unspecified; K59.00 Constipation, unspecified; Z87.891 Personal history of nicotine dependence; Z79.899 Other long term (current) drug therapy; Z79.01 Long term (current) use of anticoagulants; Z79.82 Long term (current) use of aspirin; Z88.2 Allergy status to sulfonamides; Z95.5 Presence of coronary angioplasty implant and graft
CPT/HCPCS: 66984; J2250; J2280; J3010; J3300; V2632

== ENCOUNTER → 2017-07-01 | Outpatient (CLI) | payer MEDICARE, MEDICAID ==
[~2017-07-01] MED LIST changes: -BALANCED SALT IRRIGATION SOLUTION 500ML BAG (FOR OR EYE MACHINE) As Ordered ONE; -CYCLOPENTOLATE 2% OPHTH SOLN 2ML BTL OD ONE; -HEALON DUET (HEALON 10MG/ML 0.55ML & HEALON ENDOCOAT 30MG/ML 0.85ML) As Ordered ONE; -LIDOCAINE 1% SDV 5 ML VIAL As Ordered ONE; -LIDOCAINE 4% INJ 5 ML AMP OU ONE; -LR 500 ML IV ONE; -MIDAZOLAM INJ 2 MG/2 ML VIAL (J2250) As Ordered ONE; -MOXIFLOXACIN IN BSS 0.25MG/0.25ML INTRACAMERAL INJ (OR EYE ONLY)(J2280) As Ordered ONE; -OFLOXACIN 0.3 % (OCUFLOX) OPTH SOL 5ML OD ONE; -PHENYLEPHRINE 2.5% OPHTH SOL 2ML OD ONE; -POVIDONE-IODINE 5% OPHTH PREP SOL 30ML As Ordered ONE; -TRIAMCINOLONE PRES FR 40 MG/ML 1ML(TRIESENCE)(OR EYE ONLY)(J3300 PER 1MG) As Ordered ONE; -TROPICAMIDE 1% OPHTH SOLN 2ML OD ONE; -fentaNYL 100 MCG/2 ML INJECTION (J3010) As Ordered ONE
[2017-07-01 12:00] LABS: INR 1.63
== END ==
LOC: M SMT 09:54
PROVIDERS: ATTEND Internal Medicine Cardiovascular Disease
DX: I48.0 Paroxysmal atrial fibrillation (principal); Z79.01 Long term (current) use of anticoagulants

== ENCOUNTER → 2017-07-08 | Outpatient (CLI) | payer MEDICARE, MEDICAID ==
[2017-07-08 13:10] LABS: INR 2.15
== END ==
LOC: M SMT 09:16
PROVIDERS: ATTEND Internal Medicine Cardiovascular Disease
DX: Z51.81 Encounter for therapeutic drug level monitoring (principal); Z79.01 Long term (current) use of anticoagulants

== ENCOUNTER → 2017-07-22 | Outpatient (CLI) | payer MEDICARE, MEDICAID ==
[2017-07-22 11:11] LABS: INR 2.07
== END ==
LOC: M SMT 09:07
PROVIDERS: ATTEND Internal Medicine Cardiovascular Disease
DX: Z51.81 Encounter for therapeutic drug level monitoring (principal); Z79.01 Long term (current) use of anticoagulants; I48.0 Paroxysmal atrial fibrillation

== ENCOUNTER 2017-07-28 12:58 | Emergency (ER) | payer MEDICARE, MEDICAID ==
[~2017-07-28] VITALS: Ht 157.5 cm; Wt 54.5 kg
[~2017-07-28 12:58] MED LIST changes: -NICO2GUM8 PO
[2017-07-28] MEDS ORDERED: diphenhydrAMINE 25 MG CAP PO ONE (17:00)
[2017-07-28] MEDS ORDERED: METOCLOPRAMIDE 5 MG TAB PO ONE (17:00)
[2017-07-28] MEDS ORDERED: METOCLOPRAMIDE 10 MG TAB PO ONE (17:15)
--- NOTE | 2017-07-28 18:02 | REP ---
CT brain without contrast: History: Headache. Comparison study: April 09, 2016. Findings: Bone window settings demonstrate fairly heavy vascular calcification in the distal carotid and distal vertebral arteries. No bony calvarial defect is seen. Visualized paranasal sinuses are clear. No intraorbital abnormality is seen. There is a calcified mass in the scalp soft tissues on the right posteriorly, unchanged from the comparison study of April 09, 2016. There is moderate diffuse cerebral atrophy. The lateral, third and fourth ventricles are mildly dilated today. These are all increased in size compared to the April 09, 2016 prior study. No periventricular low density is seen to suggest transependymal resorption. There is no visible intracranial hemorrhage. No infarct, mass, extra-axial fluid collection or midline shift is seen. Impression: Diffuse atrophy and vascular calcification. Ventricular enlargement increased since the April 09, 2016 study consistent with mild hydrocephalus. No evidence of intracranial hemorrhage, mass or infarct. No midline shift seen. Signed by Jeffry Olsen MD 07/28/2017 06:41 P
[2017-07-28 19:23] VITALS: BP 148/85
[2017-07-31] MEDS ORDERED: NICO2GUM8 PO (10:21)
== END 2017-07-28 19:28 | disposition home or self-care (01) ==
LOC: M ED 12:58
DX: R51 Headache (principal); G91.9 Hydrocephalus, unspecified; Z72.0 Tobacco use

== ENCOUNTER 2017-08-07 08:12 | Outpatient (CLI) | payer MEDICARE, MEDICAID ==
[~2017-08-07] VITALS: Ht 157.5 cm; Wt 54.4 kg
[~2017-08-07 08:12] MED LIST changes: +NICO2GUM8 PO; +NS 1,000 ML IV ONE
[2017-08-07] MEDS ORDERED: PROPOFOL 500 MG/50 ML VIAL As Ordered ONE (09:57)
[2017-08-07] MEDS ORDERED: LIDOCAINE 2% INJ 100 MG/5 ML SDV (FOR ANES.) As Ordered ONE (09:57)
[2017-08-07 10:45] VITALS: BP 126/66
--- NOTE | 2017-08-07 11:10 | ROOR ---
Patient Name: Ania Davenport Procedure Date: 08/07/2017 9:57 AM Date of : 1940 Age: 77 Room: [facility] Gender: Female Note Status: Finalized Procedure: Colonoscopy Indications: Constipation, Weight loss Providers: Yoan Herrera Jr, MD Referring MD: Margarito Jones NP Requesting Provider: Medicines: Propofol per Anesthesia Complications: No immediate complications. Procedure: Pre-Anesthesia Assessment: - Prior to the procedure, a History and Physical was performed, and patient medications and allergies were reviewed. The patient is competent. The risks and benefits of the procedure and the sedation options and risks were discussed with the patient. All questions were answered and informed consent was obtained. Patient identification and proposed procedure were verified by the physician and the nurse in the pre-procedure area and in the procedure room. Mental Status Examination: alert and oriented. Airway Examination: normal oropharyngeal airway and neck mobility. Respiratory Examination: clear to auscultation. CV Examination: normal. ASA Grade Assessment: II - A patient with mild systemic disease. After reviewing the risks and benefits, the patient was deemed in satisfactory condition to undergo the procedure. The anesthesia plan was to use moderate sedation / analgesia (conscious sedation). Immediately prior to administration of medications, the patient was re-assessed for adequacy to receive sedatives. The heart rate, respiratory rate, oxygen saturations, blood pressure, adequacy of pulmonary ventilation, and response to care were monitored throughout the procedure. The physical status of the patient was re-assessed after the procedure. The Colonoscope was introduced through the anus and advanced to the cecum, identified by appendiceal orifice and ileocecal valve. The quality of the bowel preparation was adequate and good. The colonoscopy was performed without difficulty. The patient tolerated the procedure well. Findings: The rectum, recto-sigmoid colon, descending colon, transverse colon, ascending colon, appendiceal orifice and ileocecal valve appeared normal. A small polyp was found in the cecum. The polyp was removed with a hot snare. Resection and retrieval were complete. For hemostasis, one hemostatic clip was successfully placed. There was no bleeding at the end of the procedure. A few small-mouthed diverticula were found in the sigmoid colon. Impression: - The rectum, recto-sigmoid colon, descending colon, transverse colon, ascending colon, appendiceal orifice and ileocecal valve are normal. - One small polyp in the cecum, removed with a hot snare. Resected and retrieved. Clip was placed. - Diverticulosis in the sigmoid colon. Recommendation: - Discharge patient to home (ambulatory). - Repeat colonoscopy in 5-10 years for surveillance based on pathology results. Yoan Herrera MD Yoan Herrera Jr, MD 08/07/2017 11:10:07 AM This report has been signed electronically. Number of Addenda: 0 Note Initiated On: 08/07/2017 9:57 AM Estimated Blood Loss: Estimated blood loss: none.
== END 2017-08-07 10:59 | disposition home or self-care (01) ==
LOC: M OPP 08:12
PROVIDERS: ATTEND Surgery
DX: D12.0 Benign neoplasm of cecum (principal); K57.30 Diverticulosis of large intestine without perforation or abscess without bleeding; R01.1 Cardiac murmur, unspecified; I12.9 Hypertensive chronic kidney disease with stage 1 through stage 4 chronic kidney disease, or unspecified chronic kidney disease; N18.3 Chronic kidney disease, stage 3 (moderate); I48.91 Unspecified atrial fibrillation; E78.00 Pure hypercholesterolemia, unspecified; E11.9 Type 2 diabetes mellitus without complications; I51.9 Heart disease, unspecified; M19.90 Unspecified osteoarthritis, unspecified site; F41.9 Anxiety disorder, unspecified; Z79.01 Long term (current) use of anticoagulants; Z79.899 Other long term (current) drug therapy; Z88.2 Allergy status to sulfonamides; Z91.041 Radiographic dye allergy status; Z87.891 Personal history of nicotine dependence; Z86.73 Personal history of transient ischemic attack (TIA), and cerebral infarction without residual deficits

== ENCOUNTER → 2017-08-14 | Outpatient (CLI) | payer MEDICARE, MEDICAID ==
[~2017-08-14] MED LIST changes: -NS 1,000 ML IV ONE
[2017-08-14 11:35] LABS: INR 1.53
== END ==
LOC: M SMT 08:11
PROVIDERS: ATTEND Internal Medicine Cardiovascular Disease
DX: Z51.81 Encounter for therapeutic drug level monitoring (principal); Z79.01 Long term (current) use of anticoagulants; I48.0 Paroxysmal atrial fibrillation

== ENCOUNTER → 2017-08-29 | Outpatient (CLI) | payer MEDICARE, MEDICAID ==
[2017-08-29 10:55] LABS: INR 2.14
== END ==
LOC: M SMT 09:30
PROVIDERS: ATTEND Internal Medicine Cardiovascular Disease
DX: Z79.01 Long term (current) use of anticoagulants (principal); I48.0 Paroxysmal atrial fibrillation

== ENCOUNTER → 2017-09-12 | Outpatient (CLI) | payer MEDICARE, MEDICAID ==
[2017-09-12 13:46] LABS: INR 2.03
== END ==
LOC: M SMT 08:55
PROVIDERS: ATTEND Internal Medicine Cardiovascular Disease
DX: Z51.81 Encounter for therapeutic drug level monitoring (principal); Z79.01 Long term (current) use of anticoagulants; I48.0 Paroxysmal atrial fibrillation

== ENCOUNTER → 2017-09-19 | Outpatient (REF) | payer MEDICARE, MEDICAID | LOC: M SMT 16:56 | PROVIDERS: ATTEND Nurse Practitioner Women's Health | DX: R35.0 Frequency of micturition (principal) ==

== ENCOUNTER → 2017-09-26 | Outpatient (CLI) | payer MEDICARE, MEDICAID ==
[2017-09-26 11:12] LABS: INR 2.56
== END ==
LOC: M SMT 08:52
PROVIDERS: ATTEND Internal Medicine Cardiovascular Disease
DX: Z51.81 Encounter for therapeutic drug level monitoring (principal); Z79.01 Long term (current) use of anticoagulants; I48.0 Paroxysmal atrial fibrillation

== ENCOUNTER → 2017-10-10 | Outpatient (CLI) | payer MEDICARE, MEDICAID ==
[2017-10-10 13:41] LABS: INR 1.91
== END ==
LOC: M SMT 09:01
PROVIDERS: ATTEND Internal Medicine Cardiovascular Disease
DX: Z51.81 Encounter for therapeutic drug level monitoring (principal); Z79.01 Long term (current) use of anticoagulants; I48.0 Paroxysmal atrial fibrillation

== ENCOUNTER 2017-10-14 07:24 | Day surgery (SDC) | payer MEDICARE, MEDICAID ==
[~2017-10-14] VITALS: Ht 157.5 cm; Wt 56.2 kg
[~2017-10-14 07:24] MED LIST changes: +BSS with VANC/TOB/EPI for EYE CASES IR ONE; +CYCLOPENTOLATE 2% OPHTH SOLN 2ML BTL OS ONE; +LIDOCAINE 3.5 % 1ML OPHTH TOPICAL GEL OU ONE; +OFLOXACIN 0.3 % (OCUFLOX) OPTH SOL 5ML OS ONE; +PHENYLEPHRINE 2.5% OPHTH SOL 2ML OS ONE; +TROPICAMIDE 1% OPHTH SOLN 2ML OS ONE
[2017-10-14] MEDS ORDERED: LR 1,000 ML IV ONE (08:00)
[2017-10-14] MEDS ORDERED: fentaNYL 100 MCG/2 ML INJECTION (J3010) As Ordered ONE (08:10)
[2017-10-14] MEDS ORDERED: MIDAZOLAM INJ 2 MG/2 ML VIAL (J2250) As Ordered ONE (08:10)
[2017-10-14] MEDS ORDERED: PROPOFOL 200 MG/20 ML VIAL As Ordered ONE (08:10)
[2017-10-14] MEDS ORDERED: GLYCOPYRROLATE INJ 0.2 MG/ML 2 ML VIAL As Ordered ONE (08:49)
[2017-10-14] MEDS ORDERED: LIDOCAINE 1% SDV 5 ML VIAL As Ordered ONE (08:56)
[2017-10-14] MEDS ORDERED: POVIDONE-IODINE 5% OPHTH PREP SOL 30ML As Ordered ONE (08:56)
[2017-10-14] MEDS ORDERED: TRIAMCINOLONE PRES FR 40 MG/ML 1ML(TRIESENCE)(OR EYE ONLY)(J3300 PER 1MG) As Ordered ONE (08:56)
[2017-10-14] MEDS ORDERED: MOXIFLOXACIN IN BSS 0.25MG/0.25ML INTRACAMERAL INJ (OR EYE ONLY)(J2280) As Ordered ONE (08:57)
[2017-10-14] MEDS ORDERED: HEALON DUET (HEALON 10MG/ML 0.55ML & HEALON ENDOCOAT 30MG/ML 0.85ML) As Ordered ONE (08:57)
[2017-10-14] MEDS ORDERED: LIDOCAINE 2% MDV 20 ML VIAL As Ordered ONE (08:59)
[2017-10-14] MEDS ORDERED: LIDOCAINE 2% W/EPIN INJ 20ML **PRES FREE As Ordered ONE (09:00)
[2017-10-14 10:00] VITALS: BP 174/90
== END 2017-10-14 10:10 | disposition home or self-care (01) ==
LOC: M SDC 07:24
PROVIDERS: ATTEND Ophthalmology
DX: H26.9 Unspecified cataract (principal); I48.91 Unspecified atrial fibrillation; I25.10 Atherosclerotic heart disease of native coronary artery without angina pectoris; I12.9 Hypertensive chronic kidney disease with stage 1 through stage 4 chronic kidney disease, or unspecified chronic kidney disease; E78.00 Pure hypercholesterolemia, unspecified; R60.0 Localized edema; E11.9 Type 2 diabetes mellitus without complications; K59.00 Constipation, unspecified; M12.9 Arthropathy, unspecified; G43.909 Migraine, unspecified, not intractable, without status migrainosus; N18.3 Chronic kidney disease, stage 3 (moderate); Z88.2 Allergy status to sulfonamides; Z91.041 Radiographic dye allergy status; Z79.899 Other long term (current) drug therapy; Z79.82 Long term (current) use of aspirin; Z79.01 Long term (current) use of anticoagulants; Z86.73 Personal history of transient ischemic attack (TIA), and cerebral infarction without residual deficits; Z95.5 Presence of coronary angioplasty implant and graft
CPT/HCPCS: 66984; J2250; J2280; J3010; J3300; V2632

== ENCOUNTER → 2017-10-21 | Outpatient (CLI) | payer MEDICARE, MEDICAID ==
[~2017-10-21] MED LIST changes: -BSS with VANC/TOB/EPI for EYE CASES IR ONE; -CYCLOPENTOLATE 2% OPHTH SOLN 2ML BTL OS ONE; -LIDOCAINE 3.5 % 1ML OPHTH TOPICAL GEL OU ONE; -OFLOXACIN 0.3 % (OCUFLOX) OPTH SOL 5ML OS ONE; -PHENYLEPHRINE 2.5% OPHTH SOL 2ML OS ONE; -TROPICAMIDE 1% OPHTH SOLN 2ML OS ONE
[2017-10-21 13:15] LABS: INR 1.6
== END ==
LOC: M SMT 08:59
PROVIDERS: ATTEND Internal Medicine Cardiovascular Disease
DX: I48.0 Paroxysmal atrial fibrillation (principal); Z79.01 Long term (current) use of anticoagulants

== ENCOUNTER → 2017-10-28 | Outpatient (CLI) | payer MEDICARE, MEDICAID | LOC: M SMT 08:48 | PROVIDERS: ATTEND Internal Medicine Cardiovascular Disease | DX: I48.0 Paroxysmal atrial fibrillation (principal); Z79.01 Long term (current) use of anticoagulants ==

== ENCOUNTER → 2017-10-29 | Outpatient (CLI) | payer MEDICARE, MEDICAID ==
[2017-10-29 10:02] LABS: INR 1.8
== END ==
LOC: M SMT 08:55
PROVIDERS: ATTEND Internal Medicine Cardiovascular Disease
DX: I48.0 Paroxysmal atrial fibrillation (principal); Z79.01 Long term (current) use of anticoagulants

== ENCOUNTER 2017-11-07 11:37 | Emergency (ER) | payer MEDICARE, MEDICAID ==
[~2017-11-07] VITALS: Ht 157.5 cm; Wt 56.8 kg
--- NOTE | 2017-11-07 13:57 | REP ---
CT ABDOMEN PELVIS WITHOUT CONTRAST: 11/07/2017 COMPARISON: 02/05/2017 CT. CLINICAL HISTORY: Possible obstruction. Chronic kidney disease, atrial fibrillation, coronary artery disease, CHF, hypertension, diabetes. FINDINGS: CT ABDOMEN: The lung bases show some coronary calcifications and calcifications at the aortic root and descending aorta on this study. No significant pericardial thickening or effusion. No hepatomegaly, focal hepatic mass or intrahepatic biliary dilatation. Gallbladder is contracted without calcified stone or mass. No hiatal hernia. The stomach collapsed. Very heavily calcified abdominal aorta and all of its branches show significant calcifications in the abdomen. Pancreas shows no mass, ductal dilatation or any definite calcification in the region of the common duct. Stomach collapsed with only trace amounts of fluid remaining. Small bowel loops fluid-filled but not abnormally dilated. Colon with some stool and fluid with air and distending it but not abnormally so. The right colon has more caliber than the left. Transverse colon similar to the right with more air. The bone windows show slightly exaggerated lordosis. There is facet arthropathy lower lumbar spine. No acute compression deformity lumbar thoracic region. There is no spondylolysis or posterior element fractures. The visualized ribs intact. There is no periaortic or other retroperitoneal pathologic sized lymphadenopathy. No mass. Lung windows show no perforation or free air in the abdomen or pelvis in the entire scanned volume. Severe atrophy of the right kidney with some calcifications in the renal arteries bilaterally. There is a renal cyst 3.6 cm interpolar lower pole region on the left, unchanged. Neither kidney shows hydronephrosis or stone. There is no ureteral dilatation or stone and no disruption in the course of the ureter. CT PELVIS: The bony hips show degenerative changes and pelvis, pubic rami, SI joints, sacrum and iliac bones intact. There is sacralization of the transverse process of L5 bilaterally. Bladder under filled, slight wall thickening. Uterus anteverted, slightly tilted towards the right and not enlarged. Multiple pelvic phleboliths. Distal left colon and sigmoid intact. Rectum without abnormal distension by stool with only scattered stool in the rectosigmoid and left colon. Heavy iliac and femoral artery calcifications. No ventral or inguinal hernia nor pathologic sized inguinal adenopathy. No adnexal mass. Small bowel loops in the deep pelvis intact. IMPRESSION: 1. Fluid-filled colon and small bowel loops without significant or abnormal dilatation. The pattern suggests gastroenteritis or ileus. I do not see definite obstruction and she does not have the obstipation pattern seen on the previous study. 2. Diffuse heavy atherosclerotic calcifications of the aorta and branches. 3. Renal cyst on the left without stone, hydronephrosis or mass. Right kidney shows significant atrophy with both renal arteries show calcifications. Liver, spleen, gallbladder, pancreas and adrenal glands grossly intact. No ventral or inguinal hernia. Pelvis without mass. Signed by Ezra Foley MD 11/07/2017 06:55 P
[2017-11-07 14:36] LABS: BASO % 0.3 % (0.0-1.0); EOS % 0.6 % (0.0-3.0); IMMATURE GRANULOCYTE % 0.3 % (0-0); LYMPH # 1.2 10^3/uL (1.5-4.5); LYMPH % 18.6 % (24.0-44.0); MEAN CORPUSCULAR HEMOGLOBIN 31.4 pg (27.0-33.0); MEAN CORPUSCULAR HGB CONC 33.4 g/dl (32.0-36.5); MEAN CORPUSCULAR VOLUME 94.1 fl (80.0-96.0); MONO # 0.6 10^3/uL (0.0-0.8); MONO % 8.8 % (0.0-5.0); NEUTROPHILS # 4.6 10^3/uL (1.8-7.7); NEUTROPHILS % 71.4 % (36.0-66.0); PLATELET COUNT, AUTOMATED 187 10^3/uL (150-450); RED CELL DISTRIBUTION WIDTH 12.8 % (11.5-14.5); WHITE BLOOD COUNT 6.4 10^3/uL (4.0-10.0)
[2017-11-07 14:57] LABS: ALBUMIN 4.3 GM/DL (3.2-5.2); ALBUMIN/GLOBULIN RATIO 1.23 (1.00-1.93); BILIRUBIN,DIRECT 0.4 MG/DL (0.0-0.2); BILIRUBIN,TOTAL 1.1 MG/DL (0.2-1.0); CALCIUM LEVEL 9.6 MG/DL (8.8-10.2); CREATININE FOR GFR 1.38 MG/DL (0.55-1.02); GLOMERULAR FILTRATION RATE 39.7 (>39); TOTAL PROTEIN 7.8 GM/DL (6.4-8.2)
[2017-11-07] MEDS ORDERED: POTASSIUM CHLORIDE 10 MEQ SR TABLET PO ONE (15:15)
[2017-11-07 15:56] VITALS: BP 168/92
--- NOTE | 2017-11-08 12:23 | ECGEPIP ---
Stationary ECG Study [facility] - ED Test Date: 2017-11-07 Pat Name: AXEL RAY Department: Room: - Gender: F Building Maintenance Supervisor: : 1940 Requested By: BIBIANA Lanier PA-C Order Number: [id number] Reading MD: Pretty Culver Measurements Intervals Allen Rate: 116 P: ID: 0 QRS: 47 QRSD: 84 T: -42 QT: 329 QTc: 458 Interpretive Statements ATRIAL FIBRILLATION WITH RAPID VENTRICULAR RESPONSE ST DEVIATION AND MODERATE T-WAVE ABNORMALITY, CONSIDER ISCHEMIA INCREASED RATE 05/09/17 Electronically Signed On 11-08-2017 12:22:57 EST by Pretty Culver
== END 2017-11-07 16:17 | disposition home or self-care (01) ==
LOC: M ED 11:37
DX: E87.6 Hypokalemia (principal); K59.00 Constipation, unspecified; E11.9 Type 2 diabetes mellitus without complications; I11.0 Hypertensive heart disease with heart failure; I50.9 Heart failure, unspecified; E78.5 Hyperlipidemia, unspecified; N28.9 Disorder of kidney and ureter, unspecified; F41.9 Anxiety disorder, unspecified; H26.9 Unspecified cataract; Z95.5 Presence of coronary angioplasty implant and graft; Z87.891 Personal history of nicotine dependence

== ENCOUNTER → 2017-11-10 | Outpatient (CLI) | payer MEDICARE, MEDICAID ==
[2017-11-10 11:58] LABS: INR 2.75
== END ==
LOC: M SMT 09:04
PROVIDERS: ATTEND Internal Medicine Cardiovascular Disease
DX: I48.0 Paroxysmal atrial fibrillation (principal); Z79.01 Long term (current) use of anticoagulants

== ENCOUNTER → 2017-11-18 | Outpatient (CLI) | payer MEDICARE, MEDICAID ==
--- NOTE | 2017-11-18 12:41 | REP ---
MESENTERIC DOPPLER SONOGRAPHY OF THE ABDOMEN: HISTORY: Attention mesenteric arteries. Unspecified abdominal pain. PROCEDURE: Pre- and postprandial Doppler imaging of the celiac axis as well as the proximal and midsegment of the superior mesenteric artery are performed. Vascular flow is recorded at baseline as well as 10, 20, 30, 40 minutes after meal challenge. The patient declined the usual Ensure ingestion and instead ingested orange juice, a banana and some pumpkin pie. RESULTS: Normal peak systolic and end diastolic flow velocities are observed in the mesenteric arteries in response to the oral caloric challenge. There is no Doppler evidence to suggest stenosis. Velocity Chart: PSV EDV Baseline celiac axis 82 cm/s 19 cm/s Proximal SMA: Baseline 97.3 12.9 10 minutes post challenge 158.3 38.5 20 minutes post challenge 164.9 35.5 30 minutes post challenge 135.8 31.2 40 minutes post challenge 135.3 cm/s 36.4 Mid SMA baseline 120.5 cm/s 22.3 10 minutes post challenge 215.4 47 20 minutes post challenge 152.9 33.7 30 minutes post challenge 146.9 35.9 40 minutes post challenge 139.9 22.4 IMPRESSION: No Doppler evidence to suggest significant visceral artery stenosis. Signed by Jeffry Olsen MD 11/18/2017 02:26 P
== END ==
LOC: M RAD 09:25
PROVIDERS: ATTEND Nurse Practitioner Family
DX: R10.9 Unspecified abdominal pain (principal); I10 Essential (primary) hypertension

== ENCOUNTER → 2017-11-20 | Outpatient (CLI) | payer MEDICARE, MEDICAID ==
[2017-11-20 10:33] LABS: INR 2.51
== END ==
LOC: M SMT 09:07
PROVIDERS: ATTEND Internal Medicine Cardiovascular Disease
DX: I48.0 Paroxysmal atrial fibrillation (principal); Z79.01 Long term (current) use of anticoagulants

== ENCOUNTER → 2017-12-03 | Outpatient (CLI) | payer MEDICARE, MEDICAID ==
[2017-12-03 17:29] LABS: INR 1.69; PROTHROMBIN TIME 20.4 SECONDS (12.4-14.5)
== END ==
LOC: M SMT 14:05
DX: I48.0 Paroxysmal atrial fibrillation (principal); Z79.01 Long term (current) use of anticoagulants
CPT/HCPCS: 85610

== ENCOUNTER → 2017-12-18 | Outpatient (CLI) | payer MEDICARE, MEDICAID ==
[2017-12-18 11:59] LABS: INR 2.46; PROTHROMBIN TIME 27.7 SECONDS (12.4-14.5)
[2017-12-18 12:08] LABS: ALBUMIN/GLOBULIN RATIO 1.43 (1.00-1.93); ALKALINE PHOSPHATASE 89 U/L (45-117); ALT/SGPT 22 U/L (12-78); AST/SGOT 21 U/L (7-37); BILIRUBIN,DIRECT 0.4 MG/DL (0.0-0.2); BILIRUBIN,TOTAL 1.2 MG/DL (0.2-1.0); CHOLESTEROL LEVEL 149 MG/DL (<200); CHOLESTEROL RISK RATIO 2.191 (<5); HDL CHOLESTEROL 68 MG/DL (>40); LDH LACTATE DEHYDROGENASE 223 U/L (84-246); LDL CHOLESTEROL 62.6 MG/DL (<100); NON-HDL-C 81 MG/DL; TOTAL PROTEIN 6.8 GM/DL (6.4-8.2); TRIGLYCERIDES LEVEL 92 MG/DL (<150)
== END ==
LOC: M SMT 09:10
DX: I25.10 Atherosclerotic heart disease of native coronary artery without angina pectoris (principal); I48.0 Paroxysmal atrial fibrillation; Z79.01 Long term (current) use of anticoagulants
CPT/HCPCS: 83615

== ENCOUNTER 2017-12-31 11:41 | Emergency (ER) | payer MEDICARE, MEDICAID ==
[2017-12-31] MEDS: ONDANSETRON 4MG/2ML VIAL (J2405) IV (12:15)
[2017-12-31] MEDS: NS 500 ML IV (12:15)
[2017-12-31 12:27] LABS: BASO % 0.2 % (0.0-1.0); HEMATOCRIT 40.1 % (36.0-47.0); HEMOGLOBIN 13.5 g/dl (12.0-16.0); IMMATURE GRANULOCYTE # 0.1 10^3/uL (0-0); IMMATURE GRANULOCYTE % 0.3 % (0-0); LYMPH # 0.5 10^3/uL (1.5-4.5); LYMPH % 3.2 % (24.0-44.0); MEAN CORPUSCULAR HEMOGLOBIN 31.3 pg (27.0-33.0); MEAN CORPUSCULAR HGB CONC 33.7 g/dl (32.0-36.5); MEAN CORPUSCULAR VOLUME 92.8 fl (80.0-96.0); MONO # 0.9 10^3/uL (0.0-0.8); MONO % 5.7 % (0.0-5.0); NEUTROPHILS # 13.8 10^3/uL (1.8-7.7); NEUTROPHILS % 90.6 % (36.0-66.0); PLATELET COUNT, AUTOMATED 181 10^3/uL (150-450); RED BLOOD COUNT 4.32 10^6/uL (4.00-5.40); RED CELL DISTRIBUTION WIDTH 13.1 % (11.5-14.5); WHITE BLOOD COUNT 15.2 10^3/uL (4.0-10.0)
[2017-12-31 12:41] LABS: INR 2.08; PROTHROMBIN TIME 24.1 SECONDS (12.4-14.5)
[2017-12-31 12:42] LABS: PARTIAL THROMBOPLASTIN TIME 34.4 SECONDS (26.8-37.9)
[2017-12-31 12:56] LABS: LACTIC ACID SEPSIS PROTOCOL 1.9 MMOL/L (0.4-2.0)
[2017-12-31 12:57] LABS: ALBUMIN/GLOBULIN RATIO 1.14 (1.00-1.93); ALKALINE PHOSPHATASE 98 U/L (45-117); ALT/SGPT 22 U/L (12-78); ANION GAP 9 MEQ/L (8-16); AST/SGOT 22 U/L (7-37); BILIRUBIN,DIRECT 0.4 MG/DL (0.0-0.2); BILIRUBIN,TOTAL 1.5 MG/DL (0.2-1.0); BLOOD UREA NITROGEN 20 MG/DL (7-18); CALCIUM LEVEL 9.3 MG/DL (8.8-10.2); CARBON DIOXIDE LEVEL 28 MEQ/L (21-32); CHLORIDE LEVEL 100 MEQ/L (98-107); CREATININE FOR GFR 1.35 MG/DL (0.55-1.30); GLOMERULAR FILTRATION RATE 40.7 (>39); GLUCOSE, FASTING 140 MG/DL (70-100); LIPASE 164 U/L (73-393); POTASSIUM SERUM 3.2 MEQ/L (3.5-5.1); SODIUM LEVEL 137 MEQ/L (136-145); TOTAL PROTEIN 7.5 GM/DL (6.4-8.2)
[2017-12-31 15:33] LABS: CPK CREATINE PHOSPHOKINASE 78 U/L (26-192); MB/CK RELATIVE INDEX 1.28 (< OR =4); TROPONIN I < 0.02 NG/ML (< 0.10)
[2017-12-31 15:46] LABS: KETONE, URINE AUTO RFX TRACE mg/dL (NEGATIVE); LEUKOCYTE ESTERASE UR AUTO RFX NEGATIVE (NEGATIVE); MUCUS, URINE RFX SMALL (NEGATIVE); NITRITE, URINE AUTO RFX NEGATIVE (NEGATIVE); RBC, URINE AUTO RFX 2 /HPF (0-3); SPECIFIC GRAVITY UR AUTO RFX 1.015 (1.002-1.035); SQUAM EPITHELIAL CELL UR AURFX 1 /HPF (0-6); WBC, URINE AUTO RFX 8 /HPF (0-3)
[2017-12-31 16:08] LABS: INFLUENZA A AMPLIFICATION NEGATIVE (NEGATIVE); INFLUENZA B AMPLIFICATION NEGATIVE (NEGATIVE)
[2017-12-31] MEDS: POTASSIUM CHLORIDE 10 MEQ SR TABLET PO (16:20)
== END 2017-12-31 16:46 | disposition home or self-care (01) ==
LOC: M ED 11:41
DX: K52.9 Noninfective gastroenteritis and colitis, unspecified (principal); I25.10 Atherosclerotic heart disease of native coronary artery without angina pectoris; I50.9 Heart failure, unspecified; E11.9 Type 2 diabetes mellitus without complications; I10 Essential (primary) hypertension; E78.00 Pure hypercholesterolemia, unspecified; Z87.891 Personal history of nicotine dependence; Z95.1 Presence of aortocoronary bypass graft; Z98.61 Coronary angioplasty status; Z79.01 Long term (current) use of anticoagulants; Z79.82 Long term (current) use of aspirin
CPT/HCPCS: J2405

== ENCOUNTER → 2018-01-01 | Outpatient (CLI) | payer MEDICARE, MEDICAID ==
[2018-01-01 13:37] LABS: INR 2.48; PROTHROMBIN TIME 27.8 SECONDS (12.4-14.5)
== END ==
LOC: M SMT 08:53
DX: I48.0 Paroxysmal atrial fibrillation (principal); Z79.01 Long term (current) use of anticoagulants
CPT/HCPCS: 85610

== ENCOUNTER → 2018-01-14 | Outpatient (CLI) | payer MEDICARE, MEDICAID ==
[2018-01-14 09:51] LABS: INR 1.94; PROTHROMBIN TIME 22.8 SECONDS (12.4-14.5)
[2018-01-14 10:25] LABS: ALBUMIN 3.8 GM/DL (3.2-5.2); ALBUMIN/GLOBULIN RATIO 1.31 (1.00-1.93); ALKALINE PHOSPHATASE 86 U/L (45-117); ALT/SGPT 23 U/L (12-78); AST/SGOT 21 U/L (7-37); BILIRUBIN,DIRECT 0.4 MG/DL (0.0-0.2); BILIRUBIN,TOTAL 1.3 MG/DL (0.2-1.0); CHOLESTEROL LEVEL 144 MG/DL (<200); CHOLESTEROL RISK RATIO 2.215 (<5); HDL CHOLESTEROL 65 MG/DL (>40); LDH LACTATE DEHYDROGENASE 218 U/L (84-246); LDL CHOLESTEROL 62.6 MG/DL (<100); NON-HDL-C 79 MG/DL; TOTAL PROTEIN 6.7 GM/DL (6.4-8.2); TRIGLYCERIDES LEVEL 82 MG/DL (<150)
== END ==
LOC: M SMT 08:08
DX: Z79.01 Long term (current) use of anticoagulants (principal); I48.0 Paroxysmal atrial fibrillation; I25.10 Atherosclerotic heart disease of native coronary artery without angina pectoris
CPT/HCPCS: 83615

== ENCOUNTER → 2018-01-20 | Outpatient (CLI) | payer MEDICARE, MEDICAID | LOC: M RAD 09:26 | DX: N85.00 Endometrial hyperplasia, unspecified (principal) | CPT/HCPCS: 76856 ==

== ENCOUNTER → 2018-02-03 | Outpatient (CLI) | payer MEDICARE, MEDICAID | LOC: M RAD 08:42 | DX: R10.11 Right upper quadrant pain (principal) | CPT/HCPCS: 76705 ==

== ENCOUNTER → 2018-02-04 | Outpatient (CLI) | payer MEDICARE, MEDICAID ==
[2018-02-04 13:43] LABS: INR 1.62; PROTHROMBIN TIME 19.7 SECONDS (12.4-14.5)
== END ==
LOC: M SMT 08:36
DX: I48.0 Paroxysmal atrial fibrillation (principal); Z79.01 Long term (current) use of anticoagulants
CPT/HCPCS: 85610

== ENCOUNTER 2018-02-07 10:15 | Emergency (ER) | payer MEDICARE, MEDICAID ==
[2018-02-07] MEDS: ASPIRIN 81 MG CHEW TABLET PO (10:56)
[2018-02-07 11:05] LABS: BASO % 0.2 % (0.0-1.0); EOS % 0.8 % (0.0-3.0); HEMATOCRIT 39.1 % (36.0-47.0); HEMOGLOBIN 12.8 g/dl (12.0-16.0); IMMATURE GRANULOCYTE % 0.2 % (0-3.0); LYMPH # 0.9 10^3/uL (1.5-4.5); LYMPH % 17.2 % (24.0-44.0); MEAN CORPUSCULAR HEMOGLOBIN 30.8 pg (27.0-33.0); MEAN CORPUSCULAR HGB CONC 32.7 g/dl (32.0-36.5); MEAN CORPUSCULAR VOLUME 94.2 fl (80.0-96.0); MONO # 0.5 10^3/uL (0.0-0.8); MONO % 9.4 % (0.0-5.0); NEUTROPHILS # 3.8 10^3/uL (1.8-7.7); NEUTROPHILS % 72.2 % (36.0-66.0); PLATELET COUNT, AUTOMATED 193 10^3/uL (150-450); RED BLOOD COUNT 4.15 10^6/uL (4.00-5.40); WHITE BLOOD COUNT 5.2 10^3/uL (4.0-10.0)
[2018-02-07 11:15] LABS: INR 2.22; PROTHROMBIN TIME 25.4 SECONDS (12.4-14.5)
[2018-02-07 11:17] LABS: ANION GAP 5 MEQ/L (8-16); BLOOD UREA NITROGEN 21 MG/DL (7-18); CARBON DIOXIDE LEVEL 31 MEQ/L (21-32); CHLORIDE LEVEL 107 MEQ/L (98-107); CK-MB VALUE MASS 2.2 NG/ML (0.0-3.6); CPK CREATINE PHOSPHOKINASE 180 U/L (26-192); CREATININE FOR GFR 1.32 MG/DL (0.55-1.30); GLOMERULAR FILTRATION RATE 41.8 (>39); GLUCOSE, FASTING 111 MG/DL (70-100); MB/CK RELATIVE INDEX 1.22 (< OR =4); POTASSIUM SERUM 3.9 MEQ/L (3.5-5.1); SODIUM LEVEL 143 MEQ/L (136-145); TROPONIN I < 0.02 NG/ML (< 0.10)
[2018-02-07 15:10] LABS: CK-MB VALUE MASS 1.6 NG/ML (0.0-3.6); CPK CREATINE PHOSPHOKINASE 139 U/L (26-192); MB/CK RELATIVE INDEX 1.15 (< OR =4); TROPONIN I < 0.02 NG/ML (< 0.10)
== END 2018-02-07 15:42 | disposition home or self-care (01) ==
LOC: M ED 10:15
DX: R07.89 Other chest pain (principal); I48.91 Unspecified atrial fibrillation; E11.9 Type 2 diabetes mellitus without complications; I10 Essential (primary) hypertension; E78.5 Hyperlipidemia, unspecified; N18.3 Chronic kidney disease, stage 3 (moderate); F17.200 Nicotine dependence, unspecified, uncomplicated; Z79.82 Long term (current) use of aspirin; Z79.02 Long term (current) use of antithrombotics/antiplatelets; Z79.899 Other long term (current) drug therapy; Z91.041 Radiographic dye allergy status; Z88.2 Allergy status to sulfonamides
CPT/HCPCS: 71045

== ENCOUNTER → 2018-02-11 | Outpatient (CLI) | payer MEDICARE, MEDICAID ==
[2018-02-11 13:09] LABS: INR 2.08; PROTHROMBIN TIME 24.1 SECONDS (12.4-14.5)
== END ==
LOC: M SMT 08:45
DX: Z79.01 Long term (current) use of anticoagulants (principal); I48.0 Paroxysmal atrial fibrillation
CPT/HCPCS: 85610

== ENCOUNTER 2018-02-22 06:50 | Emergency (ER) | payer MEDICARE, MEDICAID ==
[2018-02-22 08:01] LABS: BASO % 0.5 % (0.0-1.0); EOS # 0.1 10^3/uL (0.0-0.50); EOS % 1.6 % (0.0-3.0); HEMATOCRIT 37.2 % (36.0-47.0); HEMOGLOBIN 12.1 g/dl (12.0-16.0); IMMATURE GRANULOCYTE % 0.4 % (0-3.0); LYMPH # 0.8 10^3/uL (1.5-4.5); LYMPH % 14.3 % (24.0-44.0); MEAN CORPUSCULAR HEMOGLOBIN 30.6 pg (27.0-33.0); MEAN CORPUSCULAR HGB CONC 32.5 g/dl (32.0-36.5); MEAN CORPUSCULAR VOLUME 93.9 fl (80.0-96.0); MONO # 0.5 10^3/uL (0.0-0.8); MONO % 9.2 % (0.0-5.0); NEUTROPHILS # 4.2 10^3/uL (1.8-7.7); PLATELET COUNT, AUTOMATED 171 10^3/uL (150-450); RED BLOOD COUNT 3.96 10^6/uL (4.00-5.40); RED CELL DISTRIBUTION WIDTH 13.1 % (11.5-14.5); WHITE BLOOD COUNT 5.7 10^3/uL (4.0-10.0)
[2018-02-22 08:11] LABS: INR 1.87; PROTHROMBIN TIME 22.1 SECONDS (12.4-14.5)
[2018-02-22 08:12] LABS: PARTIAL THROMBOPLASTIN TIME 38.4 SECONDS (26.8-37.9)
[2018-02-22 08:21] LABS: ANION GAP 2 MEQ/L (8-16); BLOOD UREA NITROGEN 20 MG/DL (7-18); CALCIUM LEVEL 8.9 MG/DL (8.8-10.2); CARBON DIOXIDE LEVEL 34 MEQ/L (21-32); CHLORIDE LEVEL 110 MEQ/L (98-107); CREATININE FOR GFR 1.21 MG/DL (0.55-1.30); GLOMERULAR FILTRATION RATE 46.2 (>39); GLUCOSE, FASTING 116 MG/DL (70-100); POTASSIUM SERUM 3.9 MEQ/L (3.5-5.1); SODIUM LEVEL 146 MEQ/L (136-145)
== END 2018-02-22 09:16 | disposition home or self-care (01) ==
LOC: M ED 06:50
DX: N93.9 Abnormal uterine and vaginal bleeding, unspecified (principal); E11.9 Type 2 diabetes mellitus without complications; I50.9 Heart failure, unspecified; I10 Essential (primary) hypertension; K21.9 Gastro-esophageal reflux disease without esophagitis; G43.909 Migraine, unspecified, not intractable, without status migrainosus; I48.91 Unspecified atrial fibrillation; K64.9 Unspecified hemorrhoids; F41.9 Anxiety disorder, unspecified; Z86.73 Personal history of transient ischemic attack (TIA), and cerebral infarction without residual deficits; Z87.440 Personal history of urinary (tract) infections; Z87.891 Personal history of nicotine dependence; Z79.82 Long term (current) use of aspirin; Z79.899 Other long term (current) drug therapy; Z79.01 Long term (current) use of anticoagulants; Z88.2 Allergy status to sulfonamides; Z91.041 Radiographic dye allergy status
CPT/HCPCS: 80048

== ENCOUNTER → 2018-02-23 | Outpatient (CLI) | payer MEDICARE, MEDICAID ==
[2018-02-23 10:57] LABS: INR 1.62; PROTHROMBIN TIME 19.7 SECONDS (12.4-14.5)
== END ==
LOC: M SMT 08:15
DX: I48.0 Paroxysmal atrial fibrillation (principal); Z79.01 Long term (current) use of anticoagulants
CPT/HCPCS: 85610

== ENCOUNTER → 2018-03-18 | Outpatient (CLI) | payer MEDICARE, MEDICAID ==
[2018-03-18 09:45] LABS: INR 1.76; PROTHROMBIN TIME 21.1 SECONDS (12.4-14.5)
== END ==
LOC: M SMT 08:54
DX: Z79.01 Long term (current) use of anticoagulants (principal); I48.0 Paroxysmal atrial fibrillation
CPT/HCPCS: 85610

== ENCOUNTER → 2018-03-25 | Outpatient (CLI) | payer MEDICARE, MEDICAID ==
[2018-03-25 11:34] LABS: INR 2.17
== END ==
LOC: M SMT 08:36
DX: Z79.01 Long term (current) use of anticoagulants (principal); I48.0 Paroxysmal atrial fibrillation
CPT/HCPCS: 85610

== ENCOUNTER → 2018-04-08 | Outpatient (CLI) | payer MEDICARE, MEDICAID ==
[2018-04-08 13:44] LABS: INR 2.02; PROTHROMBIN TIME 23.6 SECONDS (12.4-14.5)
== END ==
LOC: M SMT 08:49
DX: Z79.01 Long term (current) use of anticoagulants (principal); I48.0 Paroxysmal atrial fibrillation
CPT/HCPCS: 85610

== ENCOUNTER → 2018-04-22 | Outpatient (CLI) | payer MEDICARE, MEDICAID ==
[2018-04-22 09:53] LABS: PROTHROMBIN TIME 22.4 SECONDS (12.4-14.5)
== END ==
LOC: M SMT 08:56
DX: Z51.81 Encounter for therapeutic drug level monitoring (principal); Z79.01 Long term (current) use of anticoagulants; I48.0 Paroxysmal atrial fibrillation
CPT/HCPCS: 85610

== ENCOUNTER → 2018-05-08 | Outpatient (REF) | payer MEDICARE, MEDICAID ==
[2018-05-08 10:24] LABS: APPEARANCE, URINE CLOUDY (CLEAR); BACTERIA, URINE AUTO 1+ (NEGATIVE); BILIRUBIN, URINE AUTO NEGATIVE (NEGATIVE); BLOOD, URINE BLOOD 1+ (NEGATIVE); COLOR, URINE AMBER (YELLOW); GLUCOSE, URINE (UA) AUTO NEGATIVE (NEGATIVE); KETONE, URINE AUTO NEGATIVE (NEGATIVE); LEUKOCYTE ESTERASE, URINE AUTO 3+ (NEGATIVE); MUCUS, URINE SMALL (NEGATIVE); NITRITE, URINE AUTO NEGATIVE (NEGATIVE); PROTEIN, URINE AUTO NEGATIVE (NEGATIVE); RBC, URINE AUTO 5 /HPF (0-3); SPECIFIC GRAVITY URINE AUTO 1.019 (1.002-1.035); SQUAMOUS EPITHELIAL CELL UR AU 23 /HPF (0-6); WBC, URINE AUTO 54 /HPF (0-3)
== END ==
LOC: M SMT 09:53
DX: R35.0 Frequency of micturition (principal)
CPT/HCPCS: 81001

== ENCOUNTER → 2018-05-13 | Outpatient (CLI) | payer MEDICARE, MEDICAID ==
[2018-05-13 09:59] LABS: INR 1.99; PROTHROMBIN TIME 23.3 SECONDS (12.4-14.5)
== END ==
LOC: M SMT 08:58
DX: I48.0 Paroxysmal atrial fibrillation (principal); Z79.01 Long term (current) use of anticoagulants
CPT/HCPCS: 85610

== ENCOUNTER → 2018-06-04 | Outpatient (CLI) | payer MEDICARE, MEDICAID ==
[2018-06-04 10:21] LABS: INR 1.89
== END ==
LOC: M SMT 08:34
DX: I48.0 Paroxysmal atrial fibrillation (principal); Z79.01 Long term (current) use of anticoagulants
CPT/HCPCS: 85610

== ENCOUNTER → 2018-06-18 | Outpatient (CLI) | payer MEDICARE, MEDICAID ==
[2018-06-18 10:24] LABS: INR 1.92; PROTHROMBIN TIME 22.3 SECONDS (12.1-14.4)
== END ==
LOC: M SMT 08:56
DX: I48.0 Paroxysmal atrial fibrillation (principal); Z79.01 Long term (current) use of anticoagulants
CPT/HCPCS: 85610

== ENCOUNTER → 2018-07-01 | Outpatient (CLI) | payer MEDICARE, MEDICAID ==
[2018-07-01 10:19] LABS: INR 1.95; PROTHROMBIN TIME 22.6 SECONDS (12.1-14.4)
== END ==
LOC: M SMT 08:54
DX: I48.0 Paroxysmal atrial fibrillation (principal); Z79.01 Long term (current) use of anticoagulants
CPT/HCPCS: 85610

== ENCOUNTER 2018-07-12 17:12 | Emergency (ER) | payer MEDICARE, MEDICAID ==
[2018-07-12 18:35] LABS: BASO % 0.6 % (0.0-1.0); EOS # 0.1 10^3/uL (0.0-0.50); EOS % 2.4 % (0.0-3.0); HEMATOCRIT 36.5 % (36.0-47.0); HEMOGLOBIN 12.3 g/dl (12.0-15.5); IMMATURE GRANULOCYTE % 0.4 % (0-3.0); LYMPH # 1.2 10^3/uL (1.5-4.5); LYMPH % 24.3 % (24.0-44.0); MEAN CORPUSCULAR HEMOGLOBIN 31.9 pg (27.0-33.0); MEAN CORPUSCULAR HGB CONC 33.7 g/dl (32.0-36.5); MEAN CORPUSCULAR VOLUME 94.8 fl (80.0-96.0); MONO # 0.5 10^3/uL (0.0-0.8); MONO % 10.4 % (0.0-5.0); NEUTROPHILS # 3.1 10^3/uL (1.8-7.7); NEUTROPHILS % 61.9 % (36.0-66.0); PLATELET COUNT, AUTOMATED 159 10^3/uL (150-450); RED BLOOD COUNT 3.85 10^6/uL (4.00-5.40); RED CELL DISTRIBUTION WIDTH 13.1 % (11.5-14.5)
[2018-07-12 18:59] LABS: ANION GAP 5 MEQ/L (8-16); BLOOD UREA NITROGEN 29 MG/DL (7-18); C REACTIVE PROTEIN QUANTITATIV < 0.30 MG/DL (0.00-0.30); CALCIUM LEVEL 8.9 MG/DL (8.8-10.2); CARBON DIOXIDE LEVEL 31 MEQ/L (21-32); CHLORIDE LEVEL 107 MEQ/L (98-107); CREATININE FOR GFR 1.45 MG/DL (0.55-1.30); GLOMERULAR FILTRATION RATE 37.4 (>39); GLUCOSE, FASTING 127 MG/DL (70-100); POTASSIUM SERUM 3.8 MEQ/L (3.5-5.1); SODIUM LEVEL 143 MEQ/L (136-145); URIC ACID 5.8 MG/DL (2.6-6.0)
[2018-07-12 19:01] LABS: INR 2.16; PROTHROMBIN TIME 24.5 SECONDS (12.1-14.4)
[2018-07-12 19:02] LABS: PARTIAL THROMBOPLASTIN TIME 39.5 SECONDS (25.4-37.6)
[2018-07-12 19:09] LABS: ERYTHROCYTE SEDIMENTATION RATE 26 mm/hr (0-30)
== END 2018-07-12 19:58 | disposition home or self-care (01) ==
LOC: M ED 17:12
DX: M25.472 Effusion, left ankle (principal); I50.9 Heart failure, unspecified; I12.9 Hypertensive chronic kidney disease with stage 1 through stage 4 chronic kidney disease, or unspecified chronic kidney disease; E11.22 Type 2 diabetes mellitus with diabetic chronic kidney disease; N18.3 Chronic kidney disease, stage 3 (moderate); Z86.73 Personal history of transient ischemic attack (TIA), and cerebral infarction without residual deficits
CPT/HCPCS: 93971

== ENCOUNTER → 2018-07-14 | Outpatient (REF) | payer MEDICARE, MEDICAID | LOC: M LAB REF 13:08 | DX: N39.0 Urinary tract infection, site not specified (principal) | CPT/HCPCS: 87086 ==

== ENCOUNTER → 2018-07-22 | Outpatient (CLI) | payer MEDICARE, MEDICAID ==
[2018-07-22 10:24] LABS: INR 2.07; PROTHROMBIN TIME 23.7 SECONDS (12.1-14.4)
== END ==
LOC: M SMT 09:08
DX: Z51.81 Encounter for therapeutic drug level monitoring (principal); Z79.01 Long term (current) use of anticoagulants; I48.0 Paroxysmal atrial fibrillation
CPT/HCPCS: 85610

== ENCOUNTER → 2018-08-21 | Outpatient (CLI) | payer MEDICARE, MEDICAID ==
[2018-08-21 10:21] LABS: INR 2.39; PROTHROMBIN TIME 26.6 SECONDS (12.1-14.4)
== END ==
LOC: M SMT 08:40
DX: Z79.01 Long term (current) use of anticoagulants (principal); I48.0 Paroxysmal atrial fibrillation
CPT/HCPCS: 85610

== ENCOUNTER → 2018-08-31 | Outpatient (CLI) | payer MEDICARE, MEDICAID ==
[2018-08-31 10:03] LABS: INR 2.01; PROTHROMBIN TIME 23.1 SECONDS (12.1-14.4)
== END ==
LOC: M SMT 08:30
DX: Z79.01 Long term (current) use of anticoagulants (principal); I48.0 Paroxysmal atrial fibrillation
CPT/HCPCS: 85610

== ENCOUNTER → 2018-09-15 | Outpatient (CLI) | payer MEDICARE, MEDICAID ==
[2018-09-15 09:54] LABS: PROTHROMBIN TIME 22.1 SECONDS (12.1-14.4)
== END ==
LOC: M SMT 08:46
DX: I48.0 Paroxysmal atrial fibrillation (principal); Z51.81 Encounter for therapeutic drug level monitoring; Z79.01 Long term (current) use of anticoagulants
CPT/HCPCS: 85610

== ENCOUNTER → 2018-09-28 | Outpatient (REF) | payer MEDICARE, MEDICAID | LOC: M LAB REF 17:03 | DX: N39.0 Urinary tract infection, site not specified (principal) | CPT/HCPCS: 87086 ==

== ENCOUNTER → 2018-10-05 | Outpatient (REF) | payer MEDICARE, MEDICAID ==
[2018-10-05 17:52] LABS: APPEARANCE, URINE HAZY (CLEAR); BACTERIA, URINE AUTO NEGATIVE (NEGATIVE); BILIRUBIN, URINE AUTO NEGATIVE (NEGATIVE); BLOOD, URINE BLOOD NEGATIVE (NEGATIVE); COLOR, URINE AMBER (YELLOW); GLUCOSE, URINE (UA) AUTO NEGATIVE (NEGATIVE); KETONE, URINE AUTO NEGATIVE (NEGATIVE); LEUKOCYTE ESTERASE, URINE AUTO 3+ (NEGATIVE); MUCUS, URINE SMALL (NEGATIVE); NITRITE, URINE AUTO NEGATIVE (NEGATIVE); PROTEIN, URINE AUTO 1+ mg/dL (NEGATIVE); RBC, URINE AUTO 2 /HPF (0-3); SPECIFIC GRAVITY URINE AUTO 1.023 (1.002-1.035); SQUAMOUS EPITHELIAL CELL UR AU 7 /HPF (0-6); WBC, URINE AUTO 13 /HPF (0-3)
== END ==
LOC: M SMT 17:05
DX: N39.0 Urinary tract infection, site not specified (principal)
CPT/HCPCS: 81001

== ENCOUNTER → 2018-10-15 | Outpatient (CLI) | payer MEDICARE, MEDICAID ==
[2018-10-15 17:39] LABS: INR 2.18; PROTHROMBIN TIME 24.7 SECONDS (12.1-14.4)
== END ==
LOC: M SMT 15:34
DX: I48.0 Paroxysmal atrial fibrillation (principal); Z79.01 Long term (current) use of anticoagulants
CPT/HCPCS: 85610

== ENCOUNTER → 2018-11-13 | Outpatient (CLI) | payer MEDICARE, MEDICAID ==
[2018-11-13 11:07] LABS: CHOLESTEROL LEVEL 133 MG/DL (<200); CHOLESTEROL RISK RATIO 2.145 (<5); HDL CHOLESTEROL 62 MG/DL (>40); LDL CHOLESTEROL 53 MG/DL (<100); NON-HDL-C 71 MG/DL; TRIGLYCERIDES LEVEL 88 MG/DL (<150)
[2018-11-13 14:49] LABS: ESTIMATED AVERAGE GLUCOSE 108 MG/DL (60-110); HEMOGLOBIN A1c 5.4 %
== END ==
LOC: M SMT 08:59
DX: E11.9 Type 2 diabetes mellitus without complications (principal); E78.49 Other hyperlipidemia; Z79.01 Long term (current) use of anticoagulants; I48.0 Paroxysmal atrial fibrillation
CPT/HCPCS: 83036

== ENCOUNTER → 2018-11-13 | Outpatient (CLI) | payer MEDICARE, MEDICAID ==
[2018-11-13 09:58] LABS: INR 1.82; PROTHROMBIN TIME 21.4 SECONDS (12.1-14.4)
== END ==
LOC: M SMT 08:55
DX: Z79.01 Long term (current) use of anticoagulants (principal); I48.0 Paroxysmal atrial fibrillation

== ENCOUNTER → 2018-11-20 | Outpatient (CLI) | payer MEDICARE, MEDICAID ==
[~2018-11-20] MED LIST changes: +AMLO10TA5 PO; +ERYT5OPO; +LASI20TA3 PO; +LISI40TA PO; +POTA10TA16; -VITA1CAP40 PO; +VITA50005 PO
[2018-11-20 10:29] LABS: INR 1.8; PROTHROMBIN TIME 21.2 SECONDS (12.1-14.4)
== END ==
LOC: M SMT 08:33
PROVIDERS: ATTEND Internal Medicine Cardiovascular Disease
DX: Z51.81 Encounter for therapeutic drug level monitoring (principal); Z79.01 Long term (current) use of anticoagulants; I48.0 Paroxysmal atrial fibrillation

== ENCOUNTER → 2018-12-19 | Outpatient (CLI) | payer MEDICARE, MEDICAID ==
--- NOTE | 2018-12-20 09:22 | REP ---
MRI BRAIN, IACS WITHOUT CONTRAST: 12/19/2018. Clinical history: Sensorineural hearing loss right ear. Comparison: CT without contrast 07/28/2017, 06/24/2013. Technique: Axial T2, FLAIR, basal ganglia are symmetric. Some heterogeneous low attenuation diffusion weighted images and ADC mapping sequences of the whole brain with T1 and T2 thin-section images through the temporal bones. Findings: Lateral ventricles are midline, symmetric, dilated and proportionate to moderately severe diffuse atrophy. The appearance is unchanged from the CT scan in 2017. Third and fourth ventricles are similarly proportionate in size and unchanged. Some periventricular white matter hyperintense signal change noted. There is no vascular territory infarct, intracranial hemorrhage, mass or mass effect. Atrophy is greatest in the temporal lobes with prominent Sylvian fissures present throughout. Cortical stripe preserved. Brainstem intact. Some atrophy of the cerebellum with a dameon cisterna magna as anatomic variation. Basal cisterns intact. Ectatic vertebral basilar arteries coursing anterior to the brainstem slight flattening of the base of the sophie and medulla by the tortuous ectatic basilar artery. On the gradient echo images. The seventh and eighth cranial nerves are seen entering the IACs, semicircular canals grossly intact. Brainstem shows no signal abnormality on the T2 or FLAIR images. Mastoid aeration intact with no opacification of air cells. The diffusion weighted images and the ADC mapping sequences show no definite evidence of acute ischemia. Visualized paranasal sinuses without mucosal thickening or air-fluid levels. Orbits and contents symmetric. No mass in the suprasellar cistern. The posterior right parietal region has a 4 cm diameter intradermal lesion corresponding to the calcifying sebaceous cyst seen on all of the previous CTs. It was 3.8 cm [address] scan. Impression: 1. No abnormalities of the seventh/eighth cranial nerves and their course to the IACs and semicircular canals appear normal. 2. No abnormal signal in the mastoids. 3. A tortuous ectatic vertebral basilar artery with the basilar artery slightly indenting the base of the left side of the sophie, medulla. 4. Ventriculomegaly and proportionate atrophy, unchanged. No acute infarct, intracranial hemorrhage or mass. 5. Intradermal lesion along the right parietal region consistent with known calcified sebaceous cyst from previous multiple CTs. Electronically Signed by Ezra Foley MD 12/20/2018 09:58 A
== END ==
LOC: M RAD 10:48
PROVIDERS: ATTEND Otolaryngology
DX: H90.A21 Sensorineural hearing loss, unilateral, right ear, with restricted hearing on the contralateral side (principal)

== ENCOUNTER → 2018-12-25 | Outpatient (CLI) | payer MEDICARE, MEDICAID ==
[~2018-12-25] MED LIST changes: +MYRB25TA PO; -POTA10TA16; +POTA10TA16 PO
[2018-12-25 11:28] LABS: INR 2.07; PROTHROMBIN TIME 23.7 SECONDS (12.1-14.4)
== END ==
LOC: M SMT 08:12
PROVIDERS: ATTEND Internal Medicine Cardiovascular Disease
DX: Z51.81 Encounter for therapeutic drug level monitoring (principal); Z79.01 Long term (current) use of anticoagulants; I48.0 Paroxysmal atrial fibrillation

== ENCOUNTER → 2019-01-04 | Outpatient (CLI) | payer MEDICARE, MEDICAID ==
[2019-01-04 13:56] LABS: BASO % 0.4 % (0.0-1.0); EOS # 0.2 10^3/uL (0.0-0.50); EOS % 3.4 % (0.0-3.0); HEMATOCRIT 38.5 % (36.0-47.0); HEMOGLOBIN 12.4 g/dl (12.0-15.5); LYMPH % 20.5 % (24.0-44.0); MEAN CORPUSCULAR HEMOGLOBIN 31.4 pg (27.0-33.0); MEAN CORPUSCULAR HGB CONC 32.2 g/dl (32.0-36.5); MEAN CORPUSCULAR VOLUME 97.5 fl (80.0-96.0); MONO # 0.6 10^3/uL (0.0-0.8); MONO % 11.6 % (0.0-5.0); NEUTROPHILS # 3.1 10^3/uL (1.8-7.7); NEUTROPHILS % 63.7 % (36.0-66.0); PLATELET COUNT, AUTOMATED 155 10^3/uL (150-450); RED BLOOD COUNT 3.95 10^6/uL (4.00-5.40); WHITE BLOOD COUNT 4.9 10^3/uL (4.0-10.0)
[2019-01-04 13:59] LABS: INR 2.02; PROTHROMBIN TIME 23.2 SECONDS (12.1-14.4)
[2019-01-04 14:00] LABS: PARTIAL THROMBOPLASTIN TIME 39.4 SECONDS (25.4-37.6)
[2019-01-04 14:20] LABS: ALBUMIN 3.7 GM/DL (3.2-5.2); BILIRUBIN,TOTAL 1.1 MG/DL (0.2-1.0); CALCIUM LEVEL 8.9 MG/DL (8.8-10.2); CREATININE FOR GFR 1.29 MG/DL (0.55-1.30); GLOMERULAR FILTRATION RATE 42.8 (>39); POTASSIUM SERUM 4.1 MEQ/L (3.5-5.1); TOTAL PROTEIN 6.3 GM/DL (6.4-8.2)
== END ==
LOC: M SMT 08:39
PROVIDERS: ATTEND Nurse Practitioner Family
DX: Z01.812 Encounter for preprocedural laboratory examination (principal); I65.23 Occlusion and stenosis of bilateral carotid arteries; I25.10 Atherosclerotic heart disease of native coronary artery without angina pectoris

== ENCOUNTER → 2019-01-04 | Outpatient (CLI) | payer MEDICARE, MEDICAID ==
[2019-01-04 14:04] LABS: ALBUMIN 3.6 GM/DL (3.2-5.2); BILIRUBIN,DIRECT 0.4 MG/DL (0.0-0.2); BILIRUBIN,TOTAL 1.1 MG/DL (0.2-1.0); CHOLESTEROL RISK RATIO 2.49 (<5)
== END ==
LOC: M SMT 08:36
PROVIDERS: ATTEND Nurse Practitioner
DX: I65.23 Occlusion and stenosis of bilateral carotid arteries (principal); I25.10 Atherosclerotic heart disease of native coronary artery without angina pectoris

== ENCOUNTER 2019-01-11 06:45 | Day surgery (SDC) | payer MEDICARE, MEDICAID ==
[~2019-01-11] VITALS: Ht 157.5 cm; Wt 56.0 kg
[2019-01-11 07:14] LABS: INR 1.14; PROTHROMBIN TIME 14.8 SECONDS (12.1-14.4)
[2019-01-11] MEDS ORDERED: LR 1,000 ML IV ONE (08:00)
[2019-01-11] MEDS ORDERED: MIDAZOLAM INJ 2 MG/2 ML VIAL (J2250) As Ordered ONE (08:04)
[2019-01-11] MEDS ORDERED: fentaNYL 100 MCG/2 ML INJECTION (J3010) As Ordered ONE ×2 (08:05→09:26)
[2019-01-11] MEDS ORDERED: LIDOCAINE 2% INJ 100 MG/5 ML SDV (FOR ANES.) As Ordered ONE (08:06)
[2019-01-11] MEDS ORDERED: dexameTHASONE 4 MG/ML 1ML VIAL (J1100) As Ordered ONE (08:06)
[2019-01-11] MEDS ORDERED: ONDANSETRON 4MG/2ML VIAL (J2405) As Ordered ONE (08:06)
[2019-01-11] MEDS ORDERED: PROPOFOL 200 MG/20 ML VIAL As Ordered ONE (08:31)
[2019-01-11] MEDS ORDERED: LIDOCAINE 2% W/EPIN INJ 20ML **PRES FREE As Ordered ONE (08:32)
[2019-01-11] MEDS ORDERED: BACITRACIN OINT 30GM As Ordered ONE (08:32)
[2019-01-11] MEDS ORDERED: ROCURONIUM BROMIDE 50 MG/5 ML VIAL As Ordered ONE (08:37)
[2019-01-11] MEDS ORDERED: ceFAZolin 1GM INJ (J0690 PER 500MG) As Ordered ONE (08:45)
[2019-01-11] MEDS ORDERED: LIDOCAINE W/EPINEPHRINE 1% 20ML VIAL As Ordered ONE (08:55)
[2019-01-11] MEDS ORDERED: SUGAMMADEX SODIUM 500 MG/5 ML VIAL (BRIDION) As Ordered ONE (09:34)
[2019-01-11] MEDS ORDERED: PHENYLephrine HCL 500 MCG/5 ML (100MCG/ML) SYRINGE (J2370) As Ordered ONE (09:43)
--- NOTE | 2019-01-11 10:31 | POST-OPPD ---
Postoperative Procedure Note Date Of Procedure: Jan 11, 2019 PREOPERATIVE DIAGNOSIS: Right posterior ear mass POSTOPERATIVE DIAGNOSIS: same FINDINGS: Complex large cysts PROCEDURE: Excision right posterior ear mass SURGEON: Dr Li ANESTHESIA: General SPECIMENS: Right posterior ear mass ESTIMATED BLOOD LOSS: 1 cc REPLACED: none DRAINS: none COMPLICATIONS: none POSTOPERATIVE CONDITION: stable TERRA LI DO Jan 11, 2019 10:31
[2019-01-11] MEDS ORDERED: TYLETAB14 PO (10:42)
[2019-01-11] MEDS ORDERED: PERCOCET 5MG/325MG TAB PO PRN (10:45)
[2019-01-11] MEDS ORDERED: fentaNYL 100 MCG/2 ML INJECTION (J3010) IV PRN (10:45)
[2019-01-11] MEDS ORDERED: LR 1,000 ML IV SCH (10:45)
[2019-01-11 12:00] VITALS: BP 160/77
--- NOTE | 2019-01-14 11:22 | RO ---
DATE OF PROCEDURE: 01/11/2019 PREOPERATIVE DIAGNOSIS: Right posterior ear mass. POSTOPERATIVE DIAGNOSIS: Right posterior ear mass. PROCEDURE: Excision right posterior ear mass. ATTENDING SURGEON: Dr. Mechelle Lambert ANESTHESIA: General. SPECIMEN: Right posterior ear mass. BLOOD LOSS: About 1 mL. No replacements needed. No complications. DESCRIPTION OF PROCEDURE: This is a 78-year-old female, who was seen in our office with this growing, very large mass behind her right ear extending superiorly, total length 10cm. Patient had similar findings prior on upper scalp, which were cysts and then were treated previously. We addressing the right posterior mass, which appears to be a complex large cyst. She is scheduled for excision. Medical clearance was obtained. Patient is on Coumadin, so she stopped taking Coumadin according to cardiology recommendation, and INR was repeated the day of surgery, which was normal. All risks and benefits and alternatives were discussed with the patient again, and she is ready to proceed. She was brought into the operating room, placed in supine position. Preoperative antibiotics given. Sequential stockings placed on the lower calves, and general anesthesia is induced. The patient placed in semi lateral position with all bony prominences protected , had this wedge positioning her slightly lateral where we had a good view of the right posterior scalp, posterior ear area. We did not shave the area. The hair was , and the gel was placed initially for the separation of the hair. She was prepped and draped in the usual sterile fashion. We started the procedure identifying the mass, which was a cluster of two big masses coming together. So, we started out procedure by infiltrating with 1% lidocaine with epinephrine into the area. After 5 minutes, we made an incision through the inferior portion of the larger portion of the mass in the vertical orientation and sharp dissection was done until the capsule was identified. It is a hard, thick-walled cyst, which was shelled out from its skin in the very superficial area, it measured 5.5 cm length. Additional bleeding encountered, very minimal bleeding. The wound was irrigated with bacitracin irrigation. A significant amount of excess skin was in the most prominent part of the mass. The excess skin was resected. Then the superior portion of the mass, which was by a small skin attached to the skull, was then dissected, which revealed the same cyst which was also shelled out, it measured 3.5cm length. All the excess skin was resected, and the incision was closed uniformly with interrupted #3-0 Monocryl sutures and also with some interrupted mattress sutures with #3-0 Monocryl. There is good approximation. The bacitracin ointment was applied with a bulky dressing and was wrapped with Kerlix. Patient was extubated in operating room without any difficulty, transferred to recovery room in stable condition. JUNIOR
== END 2019-01-11 12:18 | disposition home or self-care (01) ==
LOC: M SDC 06:45
PROVIDERS: ATTEND Plastic Surgery Surgery of the Hand
DX: L72.11 Pilar cyst (principal); I48.91 Unspecified atrial fibrillation; Z98.61 Coronary angioplasty status; I10 Essential (primary) hypertension; E78.5 Hyperlipidemia, unspecified; Z79.01 Long term (current) use of anticoagulants; Z79.82 Long term (current) use of aspirin; Z79.899 Other long term (current) drug therapy; E11.9 Type 2 diabetes mellitus without complications; K44.9 Diaphragmatic hernia without obstruction or gangrene; Z88.2 Allergy status to sulfonamides; Z91.041 Radiographic dye allergy status
CPT/HCPCS: 11426; 36415; 85610; 88305; J1100; J2250; J2370; J2405; J3010

== ENCOUNTER → 2019-01-18 | Outpatient (CLI) | payer MEDICARE, MEDICAID ==
[~2019-01-18] MED LIST changes: +KEFL500C17 PO; +NITR-67; +ONDA4TAB6 PO; +TYLETAB14 PO
[2019-01-18 10:16] LABS: INR 1.46
== END ==
LOC: M SMT 08:58
PROVIDERS: ATTEND Internal Medicine Cardiovascular Disease
DX: Z79.01 Long term (current) use of anticoagulants (principal); I48.0 Paroxysmal atrial fibrillation

== ENCOUNTER 2019-01-20 13:01 | Emergency (ER) | payer MEDICARE, MEDICAID ==
[~2019-01-20] VITALS: Ht 157.5 cm; Wt 55.9 kg
[~2019-01-20 13:01] MED LIST changes: -KEFL500C17 PO; -NITR-67; -ONDA4TAB6 PO
[2019-01-20] MEDS ORDERED: NITR-67 (13:13)
[2019-01-20 13:49] LABS: BASO % 0.4 % (0.0-1.0); EOS # 0.1 10^3/uL (0.0-0.50); EOS % 1.5 % (0.0-3.0); HEMATOCRIT 37.5 % (36.0-47.0); HEMOGLOBIN 12.2 g/dl (12.0-15.5); LYMPH # 0.8 10^3/uL (1.5-4.5); LYMPH % 16.7 % (24.0-44.0); MEAN CORPUSCULAR HEMOGLOBIN 31.4 pg (27.0-33.0); MEAN CORPUSCULAR HGB CONC 32.5 g/dl (32.0-36.5); MEAN CORPUSCULAR VOLUME 96.6 fl (80.0-96.0); MONO # 0.8 10^3/uL (0.0-0.8); MONO % 18.2 % (0.0-5.0); NEUTROPHILS # 2.9 10^3/uL (1.8-7.7); PLATELET COUNT, AUTOMATED 134 10^3/uL (150-450); RED BLOOD COUNT 3.88 10^6/uL (4.00-5.40); WHITE BLOOD COUNT 4.6 10^3/uL (4.0-10.0)
--- NOTE | 2019-01-20 13:57 | REP ---
CT Head without contrast HISTORY: Confusion COMPARISON: 07/28/2017 Areas of decreased attenuation are present in the periventricular white matter. This represents small-vessel ischemic disease. There is no intraparenchymal hemorrhage, acute infarct, mass or midline shift. The ventricular system and cortical sulci as well as subarachnoid space in the posterior fossa are dilated consistent with moderate volume loss. There is no extra cerebral collection. There is no fracture. The visualized sinuses are clear. IMPRESSION: 1. Small vessel ischemic disease. 2. Moderate volume loss. Electronically Signed by Yefri Robison MD 01/20/2019 01:49 P
[2019-01-20 14:11] LABS: BLOOD UREA NITROGEN 17 MG/DL (7-18); CALCIUM LEVEL 8.6 MG/DL (8.8-10.2); CARBON DIOXIDE LEVEL 31 MEQ/L (21-32); CHLORIDE LEVEL 106 MEQ/L (98-107); CK-MB VALUE MASS < 1.0 NG/ML (<3.6); CPK CREATINE PHOSPHOKINASE 59 U/L (26-192); CREATININE FOR GFR 1.34 MG/DL (0.55-1.30); GLOMERULAR FILTRATION RATE 40.9 (>39); GLUCOSE, FASTING 148 MG/DL (70-100); MB/CK RELATIVE INDEX 1.69 (< OR =4); POTASSIUM SERUM 3.9 MEQ/L (3.5-5.1); SODIUM LEVEL 142 MEQ/L (136-145); TROPONIN I < 0.02 NG/ML (< 0.10)
[2019-01-20] MEDS ORDERED: KEFL500C17 PO (14:30)
[2019-01-20] MEDS ORDERED: ONDA4TAB6 PO (14:30)
[2019-01-20 14:59] VITALS: BP 129/63
== END 2019-01-20 15:00 | disposition home or self-care (01) ==
LOC: M ED 13:01
DX: N39.0 Urinary tract infection, site not specified (principal); N18.6 End stage renal disease; E11.9 Type 2 diabetes mellitus without complications; I11.0 Hypertensive heart disease with heart failure; I50.9 Heart failure, unspecified; I48.91 Unspecified atrial fibrillation; G43.909 Migraine, unspecified, not intractable, without status migrainosus; Z79.899 Other long term (current) drug therapy; Z79.82 Long term (current) use of aspirin; Z79.01 Long term (current) use of anticoagulants; Z88.1 Allergy status to other antibiotic agents; Z88.2 Allergy status to sulfonamides; Z91.040 Latex allergy status

== ENCOUNTER → 2019-01-22 | Outpatient (CLI) | payer MEDICARE, MEDICAID ==
[~2019-01-22] MED LIST changes: +KEFL500C17 PO; +NITR-67; +ONDA4TAB6 PO
[2019-01-22 10:08] LABS: INR 1.85; PROTHROMBIN TIME 21.7 SECONDS (12.1-14.4)
== END ==
LOC: M SMT 08:29
PROVIDERS: ATTEND Internal Medicine Cardiovascular Disease
DX: Z79.01 Long term (current) use of anticoagulants (principal); I48.0 Paroxysmal atrial fibrillation

== ENCOUNTER → 2019-01-23 | Outpatient (CLI) | payer MEDICARE, MEDICAID ==
--- NOTE | 2019-01-23 12:02 | REP ---
PA and lateral chest: Comparison is 12/31/2017. There are no focal infiltrates or pleural effusions. There are no masses or nodules. There is chronic mild interstitial coarsening compatible with chronic interstitial lung disease, unchanged. Cardiac size is enlarged as an interval change. On the lateral view the ascending thoracic aorta appears dilated. This could be confirmed by CT. Impression: Chronic interstitial coarsening compatible with chronic interstitial lung disease. No acute cardiopulmonary findings. Cardiomegaly. Possibly dilated ascending thoracic aorta. This could be confirmed by CT. Electronically Signed by Gregory Osborne MD 01/23/2019 11:54 A
== END ==
LOC: M RAD 11:06
PROVIDERS: ATTEND Nurse Practitioner Family
DX: R05 Cough (principal)

== ENCOUNTER → 2019-01-26 | Outpatient (CLI) | payer MEDICARE, MEDICAID ==
[2019-01-26 10:35] LABS: INR 2.34; PROTHROMBIN TIME 26.1 SECONDS (12.1-14.4)
== END ==
LOC: M SMT 08:52
PROVIDERS: ATTEND Internal Medicine Cardiovascular Disease
DX: I48.0 Paroxysmal atrial fibrillation (principal); Z79.01 Long term (current) use of anticoagulants

== ENCOUNTER → 2019-01-29 | Outpatient (CLI) | payer MEDICARE, MEDICAID ==
[2019-01-29 10:19] LABS: INR 2.49; PROTHROMBIN TIME 27.4 SECONDS (12.1-14.4)
== END ==
LOC: M SMT 08:55
PROVIDERS: ATTEND Internal Medicine Cardiovascular Disease
DX: I48.0 Paroxysmal atrial fibrillation (principal); Z79.01 Long term (current) use of anticoagulants

== ENCOUNTER → 2019-02-05 | Outpatient (CLI) | payer MEDICARE, MEDICAID ==
[2019-02-05 10:59] LABS: INR 2.13; PROTHROMBIN TIME 24.2 SECONDS (12.1-14.4)
== END ==
LOC: M SMT 08:12
PROVIDERS: ATTEND Internal Medicine Cardiovascular Disease
DX: I48.0 Paroxysmal atrial fibrillation (principal); Z79.01 Long term (current) use of anticoagulants

== ENCOUNTER → 2019-02-08 | Outpatient (CLI) | payer MEDICARE, MEDICAID ==
--- NOTE | 2019-02-08 10:23 | REP ---
Chest two views HISTORY: Bronchitis Comparison: 01/23/2019 An increase in interstitial markings is present in the lungs consistent with chronic interstitial fibrosis. The heart is normal in size. The pulmonary vasculature is normal in appearance. The bony structure is intact. IMPRESSION: Chronic interstitial fibrosis. Electronically Signed by Yefri Robison MD 02/08/2019 10:15 A
[2019-02-08 10:54] LABS: AMORPHOUS SEDIMENT SMALL (NEGATIVE); APPEARANCE, URINE CLOUDY (CLEAR); BACTERIA, URINE AUTO NEGATIVE (NEGATIVE); BILIRUBIN, URINE AUTO 1+ (NEGATIVE); BLOOD, URINE BLOOD NEGATIVE (NEGATIVE); COLOR, URINE AMBER (YELLOW); GLUCOSE, URINE (UA) AUTO NEGATIVE (NEGATIVE); KETONE, URINE AUTO TRACE mg/dL (NEGATIVE); LEUKOCYTE ESTERASE, URINE AUTO 3+ (NEGATIVE); MUCUS, URINE SMALL (NEGATIVE); NITRITE, URINE AUTO NEGATIVE (NEGATIVE); PROTEIN, URINE AUTO 1+ mg/dL (NEGATIVE); RBC, URINE AUTO 12 /HPF (0-3); SPECIFIC GRAVITY URINE AUTO 1.025 (1.002-1.035); SQUAMOUS EPITHELIAL CELL UR AU 21 /HPF (0-6); TRANSITIONAL EPITHELIAL AUTO 1 /HPF; WBC, URINE AUTO 101 /HPF (0-3)
== END ==
LOC: M RAD 09:05
PROVIDERS: ATTEND Nurse Practitioner Family
DX: J40 Bronchitis, not specified as acute or chronic (principal); N39.0 Urinary tract infection, site not specified; J84.10 Pulmonary fibrosis, unspecified

== ENCOUNTER → 2019-02-09 | Outpatient (REF) | payer MEDICARE, MEDICAID ==
[2019-02-09 18:37] LABS: APPEARANCE, URINE CLOUDY (CLEAR); BACTERIA, URINE AUTO 1+ (NEGATIVE); BILIRUBIN, URINE AUTO NEGATIVE (NEGATIVE); BLOOD, URINE BLOOD NEGATIVE (NEGATIVE); CALCIUM OXALATE CRYSTALS LARGE; COLOR, URINE AMBER (YELLOW); GLUCOSE, URINE (UA) AUTO NEGATIVE (NEGATIVE); KETONE, URINE AUTO NEGATIVE (NEGATIVE); LEUKOCYTE ESTERASE, URINE AUTO 3+ (NEGATIVE); MUCUS, URINE SMALL (NEGATIVE); NITRITE, URINE AUTO NEGATIVE (NEGATIVE); PROTEIN, URINE AUTO 1+ mg/dL (NEGATIVE); RBC, URINE AUTO 16 /HPF (0-3); SPECIFIC GRAVITY URINE AUTO 1.017 (1.002-1.035); SQUAMOUS EPITHELIAL CELL UR AU 21 /HPF (0-6); TRANSITIONAL EPITHELIAL AUTO <1 /HPF; WBC, URINE AUTO 139 /HPF (0-3)
== END ==
LOC: M SMT 17:15
PROVIDERS: ATTEND Nurse Practitioner Family
DX: R39.89 Other symptoms and signs involving the genitourinary system (principal)

== ENCOUNTER → 2019-02-15 | Outpatient (REF) | payer MEDICARE, MEDICAID ==
[2019-02-15 12:36] LABS: APPEARANCE, URINE HAZY (CLEAR); BACTERIA, URINE AUTO NEGATIVE (NEGATIVE); BILIRUBIN, URINE AUTO NEGATIVE (NEGATIVE); BLOOD, URINE BLOOD NEGATIVE (NEGATIVE); COLOR, URINE AMBER (YELLOW); GLUCOSE, URINE (UA) AUTO NEGATIVE (NEGATIVE); KETONE, URINE AUTO TRACE mg/dL (NEGATIVE); LEUKOCYTE ESTERASE, URINE AUTO 3+ (NEGATIVE); MUCUS, URINE SMALL (NEGATIVE); NITRITE, URINE AUTO NEGATIVE (NEGATIVE); PROTEIN, URINE AUTO NEGATIVE (NEGATIVE); RBC, URINE AUTO 3 /HPF (0-3); SPECIFIC GRAVITY URINE AUTO 1.024 (1.002-1.035); SQUAMOUS EPITHELIAL CELL UR AU 8 /HPF (0-6); WBC, URINE AUTO 16 /HPF (0-3)
== END ==
LOC: M LAB REF 11:18
PROVIDERS: ATTEND Nurse Practitioner Family
DX: N39.0 Urinary tract infection, site not specified (principal)

== ENCOUNTER → 2019-02-17 | Outpatient (CLI) | payer MEDICARE, MEDICAID ==
[2019-02-17 10:28] LABS: CALCIUM LEVEL 8.4 MG/DL (8.8-10.2); CREATININE FOR GFR 1.22 MG/DL (0.55-1.30); GLOMERULAR FILTRATION RATE 45.6 (>39); POTASSIUM SERUM 4.1 MEQ/L (3.5-5.1)
== END ==
LOC: M SMT 08:42
PROVIDERS: ATTEND Nurse Practitioner Women's Health
DX: R31.29 Other microscopic hematuria (principal); I48.0 Paroxysmal atrial fibrillation; Z79.01 Long term (current) use of anticoagulants

== ENCOUNTER → 2019-02-17 | Outpatient (CLI) | payer MEDICARE, MEDICAID ==
[2019-02-17 10:12] LABS: INR 2.17; PROTHROMBIN TIME 24.6 SECONDS (12.1-14.4)
== END ==
LOC: M SMT 08:47
PROVIDERS: ATTEND Internal Medicine Cardiovascular Disease
DX: I48.0 Paroxysmal atrial fibrillation (principal); Z79.01 Long term (current) use of anticoagulants

== ENCOUNTER → 2019-02-22 | Outpatient (CLI) | payer MEDICARE, MEDICAID ==
--- NOTE | 2019-02-22 10:00 | REP ---
CT abdomen and pelvis without contrast: History: Microscopic hematuria. Comparison CT study to aortic 1017. There is a November 07, [address] study as well. CT contrast: The patient declined the intravenous contrast portion of the examination. She relates a prior contrast reaction which describes as causing 3 days of blurry vision. CT findings: Preliminary digital cross country/track and field coach radiograph shows moderate stool in the right colon. The lung bases are clear. There are is mitral annular and coronary artery and diffuse vascular calcification. The liver and the spleen are normal in size homogeneous in texture. No CT abnormality is noted in the gallbladder. The pancreas appears intact. No adrenal lesion is seen on either side. The right kidney is quite atrophic. A this is unchanged from the comparison studies. There is no hydronephrosis seen on either side. There is a cyst in the anterior mid left kidney. This measures 3.9 cm in greatest diameter today, previously 3.4 cm. Normal caliber aorta is seen with heavy calcification. No hydronephrosis or renal calculus seen. No ureteral or bladder calculus is observed. No uterine or adnexal abnormality is seen. A normal appendix is noted. No small or large bowel dilation is seen. No abdominal wall defect is noted. Bone window settings show no bony destructive lesion. Impression: Moderate diffuse cortical atrophy right kidney. 3.9 cm cyst left kidney. No hydronephrosis or stone seen. No mass visible. The patient declined intravenous contrast as above. Electronically Signed by Jeffry Olsen MD 02/22/2019 09:51 A
== END ==
LOC: M RAD 08:19
PROVIDERS: ATTEND Nurse Practitioner Women's Health
DX: N28.1 Cyst of kidney, acquired (principal); N26.1 Atrophy of kidney (terminal)

== ENCOUNTER → 2019-03-10 | Outpatient (CLI) | payer MEDICARE, MEDICAID ==
[~2019-03-10] MED LIST changes: -ASPI1TAB PO; +ASPI81TA26 PO; +ERYT1OIN26; -ERYT5OPO; +LISI40TA52 PO; -LISI40TAB PO
[2019-03-10 09:28] LABS: INR 1.99; PROTHROMBIN TIME 22.9 SECONDS (12.1-14.4)
== END ==
LOC: M SMT 08:41
PROVIDERS: ATTEND Internal Medicine Cardiovascular Disease
DX: Z79.01 Long term (current) use of anticoagulants (principal); I48.0 Paroxysmal atrial fibrillation

== ENCOUNTER → 2019-04-08 | Outpatient (CLI) | payer MEDICARE, MEDICAID ==
[2019-04-08 10:42] LABS: FREE T3 2.7 PG/ML (2.2-4.0); FREE T4 1.06 NG/DL (0.76-1.46); THYROID STIMULATING HORMONE 1.79 uIU/ML (0.358-3.740)
== END ==
LOC: M SMT 08:37
PROVIDERS: ATTEND Nurse Practitioner Family
DX: R00.2 Palpitations (principal); I48.0 Paroxysmal atrial fibrillation; Z51.81 Encounter for therapeutic drug level monitoring; Z79.01 Long term (current) use of anticoagulants

== ENCOUNTER → 2019-04-08 | Outpatient (CLI) | payer MEDICARE, MEDICAID ==
[2019-04-08 10:14] LABS: INR 2.23; PROTHROMBIN TIME 25.1 SECONDS (12.1-14.4)
== END ==
LOC: M SMT 08:34
PROVIDERS: ATTEND Internal Medicine Cardiovascular Disease
DX: I48.0 Paroxysmal atrial fibrillation (principal); Z51.81 Encounter for therapeutic drug level monitoring; Z79.01 Long term (current) use of anticoagulants

== ENCOUNTER → 2019-04-12 | Outpatient (CLI) | payer MEDICARE, MEDICAID ==
[2019-04-12 10:15] LABS: INR 2.13; PROTHROMBIN TIME 24.3 SECONDS (12.1-14.4)
== END ==
LOC: M SMT 09:02
PROVIDERS: ATTEND Internal Medicine Cardiovascular Disease
DX: Z79.01 Long term (current) use of anticoagulants (principal); I48.0 Paroxysmal atrial fibrillation

== ENCOUNTER → 2019-04-16 | Outpatient (CLI) | payer MEDICARE, MEDICAID ==
[2019-04-16 10:12] LABS: INR 2.3; PROTHROMBIN TIME 25.8 SECONDS (12.1-14.4)
== END ==
LOC: M SMT 08:36
PROVIDERS: ATTEND Internal Medicine Cardiovascular Disease
DX: Z79.01 Long term (current) use of anticoagulants (principal); I48.0 Paroxysmal atrial fibrillation

== ENCOUNTER → 2019-04-29 | Outpatient (CLI) | payer MEDICARE, MEDICAID ==
[2019-04-29 10:02] LABS: INR 1.93; PROTHROMBIN TIME 22.4 SECONDS (12.1-14.4)
== END ==
LOC: M SMT 08:31
PROVIDERS: ATTEND Internal Medicine Cardiovascular Disease
DX: Z79.01 Long term (current) use of anticoagulants (principal); I48.0 Paroxysmal atrial fibrillation

== ENCOUNTER → 2019-05-03 | Outpatient (CLI) | payer MEDICARE, MEDICAID ==
[2019-05-03 13:55] LABS: INR 1.91; PROTHROMBIN TIME 22.2 SECONDS (12.1-14.4)
== END ==
LOC: M SMT 08:51
PROVIDERS: ATTEND Internal Medicine Cardiovascular Disease
DX: Z51.81 Encounter for therapeutic drug level monitoring (principal); Z79.01 Long term (current) use of anticoagulants; I48.0 Paroxysmal atrial fibrillation

== ENCOUNTER → 2019-05-10 | Outpatient (CLI) | payer MEDICARE, MEDICAID ==
[2019-05-10 11:05] LABS: INR 1.96; PROTHROMBIN TIME 22.7 SECONDS (12.1-14.4)
== END ==
LOC: M SMT 08:43
PROVIDERS: ATTEND Internal Medicine Cardiovascular Disease
DX: Z79.01 Long term (current) use of anticoagulants (principal); I48.0 Paroxysmal atrial fibrillation

== ENCOUNTER → 2019-05-24 | Outpatient (CLI) | payer MEDICARE, MEDICAID ==
[2019-05-24 11:20] LABS: INR 1.87; PROTHROMBIN TIME 21.3 SECONDS (11.8-14.0)
== END ==
LOC: M SMT 08:36
PROVIDERS: ATTEND Internal Medicine Cardiovascular Disease
DX: Z79.01 Long term (current) use of anticoagulants (principal); I48.0 Paroxysmal atrial fibrillation

== ENCOUNTER → 2019-05-28 | Outpatient (CLI) | payer MEDICARE, MEDICAID ==
[2019-05-28 10:42] LABS: INR 2.23; PROTHROMBIN TIME 24.5 SECONDS (11.8-14.0)
== END ==
LOC: M SMT 08:51
PROVIDERS: ATTEND Internal Medicine Cardiovascular Disease
DX: Z51.81 Encounter for therapeutic drug level monitoring (principal); Z79.01 Long term (current) use of anticoagulants; I48.0 Paroxysmal atrial fibrillation

== ENCOUNTER → 2019-06-10 | Outpatient (CLI) | payer MEDICARE, MEDICAID ==
[2019-06-10 10:31] LABS: INR 2.12; PROTHROMBIN TIME 23.5 SECONDS (11.8-14.0)
== END ==
LOC: M SMT 09:07
PROVIDERS: ATTEND Internal Medicine Cardiovascular Disease
DX: I48.0 Paroxysmal atrial fibrillation (principal); Z79.01 Long term (current) use of anticoagulants

== ENCOUNTER → 2019-06-21 | Outpatient (REF) | payer MEDICARE, MEDICAID ==
[2019-06-21 18:14] LABS: APPEARANCE, URINE CLEAR (CLEAR); BACTERIA, URINE AUTO NEGATIVE (NEGATIVE); BILIRUBIN, URINE AUTO NEGATIVE (NEGATIVE); BLOOD, URINE BLOOD NEGATIVE (NEGATIVE); COLOR, URINE STRAW (YELLOW); GLUCOSE, URINE (UA) AUTO NEGATIVE (NEGATIVE); KETONE, URINE AUTO NEGATIVE (NEGATIVE); LEUKOCYTE ESTERASE, URINE AUTO NEGATIVE (NEGATIVE); MUCUS, URINE SMALL (NEGATIVE); NITRITE, URINE AUTO NEGATIVE (NEGATIVE); PROTEIN, URINE AUTO NEGATIVE (NEGATIVE); RBC, URINE AUTO 0 /HPF (0-3); SPECIFIC GRAVITY URINE AUTO 1.008 (1.002-1.035); SQUAMOUS EPITHELIAL CELL UR AU 1 /HPF (0-6); UROBILINOGEN, URINE AUTO 0.2 mg/dL (0.0-2.0); WBC, URINE AUTO 1 /HPF (0-3)
== END ==
LOC: M SMT 17:13
PROVIDERS: ATTEND Nurse Practitioner Women's Health
DX: R30.0 Dysuria (principal)

== ENCOUNTER → 2019-07-01 | Outpatient (CLI) | payer MEDICARE, MEDICAID ==
[2019-07-01 10:57] LABS: INR 2.04; PROTHROMBIN TIME 22.8 SECONDS (11.8-14.0)
== END ==
LOC: M SMT 09:19
PROVIDERS: ATTEND Internal Medicine Cardiovascular Disease
DX: Z79.01 Long term (current) use of anticoagulants (principal); I48.0 Paroxysmal atrial fibrillation

== ENCOUNTER → 2019-07-21 | Outpatient (REF) | payer MEDICARE, MEDICAID ==
[2019-07-21 13:40] LABS: ALBUMIN 3.9 GM/DL (3.2-5.2); BILIRUBIN,TOTAL 1.3 MG/DL (0.2-1.0); CALCIUM LEVEL 9.5 MG/DL (8.8-10.2); CHOLESTEROL RISK RATIO 2.166 (<5); CREATININE FOR GFR 1.29 MG/DL (0.55-1.30); GLOMERULAR FILTRATION RATE 42.7 (>39); HEMATOCRIT 40.7 % (36.0-47.0); HEMOGLOBIN 13.1 g/dl (12.0-15.5); MEAN CORPUSCULAR HGB CONC 32.2 g/dl (32.0-36.5); MEAN CORPUSCULAR VOLUME 96.4 fl (80.0-96.0); PLATELET COUNT, AUTOMATED 161 10^3/uL (150-450); POTASSIUM SERUM 3.8 MEQ/L (3.5-5.1); RED BLOOD COUNT 4.22 10^6/uL (4.00-5.40); TOTAL PROTEIN 6.6 GM/DL (6.4-8.2); WHITE BLOOD COUNT 8.2 10^3/uL (4.0-10.0)
[2019-07-21 13:47] LABS: TOTAL 25(OH) VITAMIN D 35.1 NG/ML (30.0-100.0)
[2019-07-21 13:54] LABS: HEMOGLOBIN A1c 5.9 %
[2019-07-21 14:08] LABS: MALB URINE SIEMENS 30.3 MG/L; MAU/CREAT RATIO 25.2 MCG/MG (0.0-30.0)
== END ==
LOC: M SFHCPLAZ 10:06
PROVIDERS: ATTEND Nurse Practitioner Adult Health
DX: E11.9 Type 2 diabetes mellitus without complications (principal); E78.2 Mixed hyperlipidemia; D64.9 Anemia, unspecified; E55.9 Vitamin D deficiency, unspecified

== ENCOUNTER → 2019-07-29 | Outpatient (CLI) | payer MEDICARE, MEDICAID ==
[~2019-07-29] MED LIST changes: +LACT10SO29 PO; +NIFE1TAB51 PO; +NIFE1TAB52 PO; -NIFE30TA7 PO; -NIFE60TA6 PO
[2019-07-29 10:25] LABS: INR 2.18
== END ==
LOC: M SMT 09:00
PROVIDERS: ATTEND Internal Medicine Cardiovascular Disease
DX: I48.0 Paroxysmal atrial fibrillation (principal); Z79.01 Long term (current) use of anticoagulants

== ENCOUNTER → 2019-08-25 | Outpatient (CLI) | payer MEDICARE, MEDICAID ==
[~2019-08-25] MED LIST changes: -LACT10SO29 PO; -NIFE1TAB51 PO; -NIFE1TAB52 PO; +NIFE30TA7 PO; +NIFE60TA6 PO
[2019-08-25 10:58] LABS: INR 2.23; PROTHROMBIN TIME 24.5 SECONDS (11.8-14.0)
== END ==
LOC: M SMT 09:03
PROVIDERS: ATTEND Internal Medicine Cardiovascular Disease
DX: Z79.01 Long term (current) use of anticoagulants (principal); I48.0 Paroxysmal atrial fibrillation

== ENCOUNTER 2019-09-14 17:02 | Emergency (ER) | payer MEDICARE, MEDICAID ==
[~2019-09-14] VITALS: Ht 157.5 cm; Wt 57.3 kg
[2019-09-14 19:27] LABS: BASO % 0.6 % (0.0-1.0); EOS # 0.2 10^3/uL (0.0-0.5); EOS % 2.2 % (0.0-3.0); HEMATOCRIT 39.4 % (36.0-47.0); LYMPH # 1.8 10^3/uL (1.5-5.0); LYMPH % 26.5 % (24.0-44.0); MEAN CORPUSCULAR HEMOGLOBIN 32.4 pg (27.0-33.0); MEAN CORPUSCULAR VOLUME 98.3 fl (80.0-96.0); MONO # 0.8 10^3/uL (0.0-0.8); MONO % 11.3 % (0.0-5.0); NEUTROPHILS % 59.1 % (36.0-66.0); PLATELET COUNT, AUTOMATED 150 10^3/uL (150-450); RED BLOOD COUNT 4.01 10^6/uL (4.00-5.40); WHITE BLOOD COUNT 6.7 10^3/uL (4.0-10.0)
--- NOTE | 2019-09-14 19:48 | REPVR ---
PROCEDURE INFORMATION: Exam: CT Abdomen And Pelvis Without Contrast Exam date and time: 09/14/2019 7:01 PM Clinical history: 79 years old, female; Abdominal pain; Generalized; Additional info: Lower abd pain on/off TECHNIQUE: Imaging protocol: Computed tomography of the abdomen and pelvis without contrast. Radiation optimization: All CT scans at this facility use at least one of these dose optimization techniques: automated exposure control; mA and/or kV adjustment per patient size (includes targeted exams where dose is matched to clinical indication); or iterative reconstruction. COMPARISON: CT ABD PELVIS W/O CONTRAST 02/22/2019 8:34 AM FINDINGS: Limited evaluation without enteric or IV contrast. Lungs: No suspicious mass or airspace process in the visualized lung bases. Liver: Noncontrast liver shows no obvious lesion. Gallbladder and bile ducts: Gallbladder is present and shows no evidence of gallstone. Pancreas: Noncontrast pancreas shows no obvious mass or adjacent fluid. Spleen: Noncontrast spleen shows no obvious focal deformity. Adrenals: Adrenal glands are normal in appearance. Kidneys and ureters: Right kidney is atrophic. Left kidney demonstrates an anterior midpole 4 cm simple fluid density cyst and probable exophytic 10 mm posterior lower pole cyst. Both of these demonstrate simple fluid density and are unchanged since the prior CT. Stomach and bowel: No evidence of small bowel obstruction. Rectum is distended to 6 cm diameter with desiccated stool. Diffusely large volume of colonic stool is present Diverticular changes are present in the sigmoid colon without active inflammation. Appendix: Appendix is not visualized convincingly. No RLQ inflammation. Intraperitoneal space: No pneumoperitoneum. Vasculature: Atherosclerotic change present in the aorta, without aneurysm. Lymph nodes: No enlarged lymph nodes. Bladder: Unremarkable as visualized. Reproductive: Unremarkable as visualized. Bones/joints: Degenerative changes are seen in the lumbar spine with disc height loss, endplate osteophytes and hypertrophic facet arthropathy. Soft tissues: Unremarkable. IMPRESSION: 1. No acute surgical or inflammatory intra-abdominal or pelvic process. 2. Diffusely prominent colonic stool suggesting constipation and possibly rectal fecal impaction, measuring 6 cm. Similar pattern compared to the prior CT from 02/22/2019. No obstructive lesion is visualized on this noncontrast exam. Electronically signed by: Dav Art On 09/14/2019 19:48:02 PM
[2019-09-14 19:59] LABS: BILIRUBIN,DIRECT 0.4 MG/DL (0.0-0.2); BILIRUBIN,TOTAL 1.3 MG/DL (0.2-1.0); CALCIUM LEVEL 9.2 MG/DL (8.8-10.2); CREATININE FOR GFR 1.41 MG/DL (0.55-1.30); GLOMERULAR FILTRATION RATE 38.5 (>39); POTASSIUM SERUM 3.8 MEQ/L (3.5-5.1); TOTAL PROTEIN 7.1 GM/DL (6.4-8.2)
[2019-09-14] MEDS ORDERED: LACT10SO29 PO (20:22)
[2019-09-14] MEDS ORDERED: LACTULOSE 20 GM/30 ML SYRUP UD PO ONE (20:30)
[2019-09-14 20:44] VITALS: BP 152/78
== END 2019-09-14 20:47 | disposition home or self-care (01) ==
LOC: M ED 17:02
DX: K59.00 Constipation, unspecified (principal); E11.9 Type 2 diabetes mellitus without complications; I13.0 Hypertensive heart and chronic kidney disease with heart failure and stage 1 through stage 4 chronic kidney disease, or unspecified chronic kidney disease; N18.3 Chronic kidney disease, stage 3 (moderate); I50.9 Heart failure, unspecified; Z88.2 Allergy status to sulfonamides; Z91.041 Radiographic dye allergy status; Z87.891 Personal history of nicotine dependence; Z79.82 Long term (current) use of aspirin; Z79.899 Other long term (current) drug therapy

== ENCOUNTER → 2019-09-24 | Outpatient (CLI) | payer MEDICARE, MEDICAID ==
[~2019-09-24] MED LIST changes: +LACT10SO29 PO
[2019-09-24 11:28] LABS: INR 2.54; PROTHROMBIN TIME 27.2 SECONDS (11.8-14.0)
== END ==
LOC: M SMT 09:50
PROVIDERS: ATTEND Internal Medicine Cardiovascular Disease
DX: I48.0 Paroxysmal atrial fibrillation (principal); Z79.01 Long term (current) use of anticoagulants

== ENCOUNTER → 2019-10-08 | Outpatient (CLI) | payer MEDICARE, MEDICAID ==
[2019-10-08 10:15] LABS: INR 2.08; PROTHROMBIN TIME 23.1 SECONDS (11.8-14.0)
== END ==
LOC: M SMT 09:05
PROVIDERS: ATTEND Internal Medicine Cardiovascular Disease
DX: Z79.01 Long term (current) use of anticoagulants (principal); I48.0 Paroxysmal atrial fibrillation

== ENCOUNTER → 2019-11-01 | Outpatient (CLI) | payer MEDICARE, MEDICAID ==
[2019-11-01 15:46] LABS: INR 2.16; PROTHROMBIN TIME 23.9 SECONDS (11.8-14.0)
== END ==
LOC: M PLALAB 08:48
PROVIDERS: ATTEND Internal Medicine Cardiovascular Disease
DX: Z79.01 Long term (current) use of anticoagulants (principal); I48.0 Paroxysmal atrial fibrillation

== ENCOUNTER → 2019-11-03 | Outpatient (REF) | payer MEDICARE, MEDICAID ==
[2019-11-03 14:02] LABS: APPEARANCE, URINE CLEAR (CLEAR); BACTERIA, URINE AUTO NEGATIVE (NEGATIVE); BILIRUBIN, URINE AUTO NEGATIVE (NEGATIVE); BLOOD, URINE BLOOD NEGATIVE (NEGATIVE); COLOR, URINE YELLOW (YELLOW); GLUCOSE, URINE (UA) AUTO NEGATIVE (NEGATIVE); KETONE, URINE AUTO NEGATIVE (NEGATIVE); LEUKOCYTE ESTERASE, URINE AUTO TRACE (NEGATIVE); NITRITE, URINE AUTO NEGATIVE (NEGATIVE); PROTEIN, URINE AUTO NEGATIVE (NEGATIVE); RBC, URINE AUTO 1 /HPF (0-3); SPECIFIC GRAVITY URINE AUTO 1.016 (1.002-1.035); SQUAMOUS EPITHELIAL CELL UR AU 1 /HPF (0-6); WBC, URINE AUTO 1 /HPF (0-3)
== END ==
LOC: M SMT 13:15
PROVIDERS: ATTEND Nurse Practitioner Women's Health
DX: R35.0 Frequency of micturition (principal)
CPT/HCPCS: 81001; 87086; G0463

== ENCOUNTER → 2019-11-29 | Outpatient (CLI) | payer MEDICARE, MEDICAID ==
[2019-11-29 10:37] LABS: INR 1.99; PROTHROMBIN TIME 22.4 SECONDS (11.8-14.0)
== END ==
LOC: M PLALAB 09:07
PROVIDERS: ATTEND Internal Medicine Cardiovascular Disease
DX: Z79.01 Long term (current) use of anticoagulants (principal); I48.0 Paroxysmal atrial fibrillation

== ENCOUNTER → 2019-12-27 | Outpatient (CLI) | payer MEDICARE, MEDICAID ==
[~2019-12-27] MED LIST changes: +NIFE1TAB51 PO; +NIFE1TAB52 PO; -NIFE30TA7 PO; -NIFE60TA6 PO
[2019-12-27 10:19] LABS: INR 1.94; PROTHROMBIN TIME 21.9 SECONDS (11.8-14.0)
== END ==
LOC: M PLALAB 08:49
PROVIDERS: ATTEND Internal Medicine Cardiovascular Disease
DX: Z79.01 Long term (current) use of anticoagulants (principal); I48.0 Paroxysmal atrial fibrillation

== ENCOUNTER → 2020-01-03 | Outpatient (CLI) | payer MEDICARE, MEDICAID ==
[2020-01-03 10:00] LABS: INR 2.25; PROTHROMBIN TIME 24.7 SECONDS (11.8-14.0)
== END ==
LOC: M PLALAB 09:00
PROVIDERS: ATTEND Internal Medicine Cardiovascular Disease
DX: Z79.01 Long term (current) use of anticoagulants (principal); I48.0 Paroxysmal atrial fibrillation

== ENCOUNTER 2020-01-26 10:54 | Emergency (ER) | payer MEDICARE, MEDICAID ==
[~2020-01-26] VITALS: Ht 157.5 cm; Wt 57.2 kg
[2020-01-26] MEDS ORDERED: OMEP-221 PO (11:05)
--- NOTE | 2020-01-26 11:59 | REP ---
Acute abdominal series series including PA chest and supine upright abdomen: PA chest: Comparison is 02/08/2019. Chronic fibrotic changes and costochondral calcifications are superimposed. This is unchanged. Otherwise, the lung carballo are clear. Cardiac size is normal. The jill, mediastinum, skeletal structures are unremarkable. There is no free subdiaphragmatic air. Impression: Negative PA chest. Abdomen, supine upright views: Comparison is the abdomen/pelvis CT of 09/14/2019. There are occasional air-fluid levels in minimally distended bowel loops. The bowel gas pattern is nonspecific. There is calcified vascular atheroma in the splenic artery. There is calcified vascular atheroma and pelvic vessels and in the femoral arteries. There is demineralization. There is scoliosis convex left at the thoracolumbar junction. Impression: Nonspecific bowel gas pattern. Electronically Signed by Gregory Osborne MD 01/26/2020 11:51 A
[2020-01-26 12:07] LABS: BASO % 0.3 % (0.0-1.0); EOS # 0.1 10^3/uL (0.0-0.5); EOS % 1.3 % (0.0-3.0); HEMATOCRIT 39.7 % (36.0-47.0); HEMOGLOBIN 12.9 g/dl (12.0-15.5); LYMPH # 0.8 10^3/uL (1.5-5.0); LYMPH % 12.6 % (24.0-44.0); MEAN CORPUSCULAR HEMOGLOBIN 31.2 pg (27.0-33.0); MEAN CORPUSCULAR HGB CONC 32.5 g/dl (32.0-36.5); MEAN CORPUSCULAR VOLUME 95.9 fl (80.0-96.0); MONO # 0.4 10^3/uL (0.0-0.8); NEUTROPHILS % 78.6 % (36.0-66.0); PLATELET COUNT, AUTOMATED 152 10^3/uL (150-450); RED BLOOD COUNT 4.14 10^6/uL (4.00-5.40); WHITE BLOOD COUNT 6.3 10^3/uL (4.0-10.0)
[2020-01-26 12:30] LABS: BILIRUBIN,DIRECT 0.4 MG/DL (0.0-0.2); BILIRUBIN,TOTAL 1.3 MG/DL (0.2-1.0); TOTAL PROTEIN 6.8 GM/DL (6.4-8.2)
[2020-01-26 12:57] VITALS: BP 140/80
== END 2020-01-26 13:01 | disposition home or self-care (01) ==
LOC: M ED 10:54
DX: R14.0 Abdominal distension (gaseous) (principal); R10.9 Unspecified abdominal pain; E80.6 Other disorders of bilirubin metabolism; I11.0 Hypertensive heart disease with heart failure; I50.9 Heart failure, unspecified; E11.9 Type 2 diabetes mellitus without complications; N18.3 Chronic kidney disease, stage 3 (moderate); I48.91 Unspecified atrial fibrillation; E78.00 Pure hypercholesterolemia, unspecified; F41.9 Anxiety disorder, unspecified; K21.9 Gastro-esophageal reflux disease without esophagitis; Z79.899 Other long term (current) drug therapy; Z79.82 Long term (current) use of aspirin; Z79.01 Long term (current) use of anticoagulants; Z88.1 Allergy status to other antibiotic agents; Z88.2 Allergy status to sulfonamides; Z91.041 Radiographic dye allergy status

== ENCOUNTER → 2020-02-01 | Outpatient (CLI) | payer MEDICARE, MEDICAID ==
[~2020-02-01] MED LIST changes: +OMEP-221 PO
[2020-02-01 11:13] LABS: INR 2.03; PROTHROMBIN TIME 22.7 SECONDS (11.8-14.0)
== END ==
LOC: M PLALAB 09:12
PROVIDERS: ATTEND Internal Medicine Cardiovascular Disease
DX: Z79.01 Long term (current) use of anticoagulants (principal); I48.0 Paroxysmal atrial fibrillation

== ENCOUNTER → 2020-02-04 | Outpatient (CLI) | payer MEDICARE, MEDICAID ==
[~2020-02-04] MED LIST changes: +E-Z-GAS II EFFERVESCENT PACKET (SODIUM BICARB./CITRIC ACID/SIMETHICONE) As Ordered ONE; +E-Z-HD 98% w/w 340GM SUSP BTL As Ordered ONE; +E-Z-PAQUE 96% w/w SUSP 176GM BTL As Ordered ONE
--- NOTE | 2020-02-04 18:44 | REP ---
UPPER GI AIR CONTRAST AND SMALL BOWEL FOLLOW THROUGH The procedure was performed under the direct supervision of Dr. Olsen. The images were reviewed with Dr. Olsen The etl analyst developer film shows no organomegaly or pathological masses. The intestinal gas pattern is non-specific. There are vascular calcifications identified. Liquid barium and gas producing crystals were given in the erect position as well as liquid barium in the prone oblique position in order to perform a double contrast upper GI examination. Additionally liquid barium was given at the end of the examination in order to perform a small bowel follow through. The oral and pharyngeal stages of deglutition are unremarkable. Esophageal transport is prompt and efficient and there is no esophagitis, stricture or mucosal ring. There is a small sliding-type hiatal hernia. Gastroesophageal reflux is not demonstrated on this examination. The patient did appear to aspirate as there is contrast seen in the main stem bronchus bilaterally. The stomach perry are normally outlined . The rugal folds are smooth and regular. There is no gastritis neoplasm or ulcer disease. The duodenal perry are normally outlined . The mucosal folds are smooth and regular. There is no duodenitis pancreatitis peptic ulcer disease or neoplasm. The visualized portion of the proximal small bowel appears normal in course and caliber. The patient was scheduled for a small bowel follow-through however declined that portion of the exam. Impression: 1. There is a small sliding-type hiatal hernia. 2. The patient did appear to aspirate as there is contrast seen in the main stem bronchi bilaterally. 3. The patient declined the small bowel follow-through portion of the exam. 1.1 minutes of fluoro time was utilized for this procedure. Electronically Signed by LORRAINE Alfaro 02/04/2020 05:03 P Electronically Signed by Jeffry Olsen MD 02/04/2020 06:30 P
== END ==
LOC: M RAD 08:23
PROVIDERS: ATTEND Physician Assistant Medical
DX: K44.9 Diaphragmatic hernia without obstruction or gangrene (principal); K59.00 Constipation, unspecified

== ENCOUNTER → 2020-02-10 | Outpatient (CLI) | payer MEDICARE, MEDICAID ==
[~2020-02-10] MED LIST changes: -E-Z-GAS II EFFERVESCENT PACKET (SODIUM BICARB./CITRIC ACID/SIMETHICONE) As Ordered ONE; -E-Z-HD 98% w/w 340GM SUSP BTL As Ordered ONE; -E-Z-PAQUE 96% w/w SUSP 176GM BTL As Ordered ONE
[2020-02-10 10:25] LABS: PROTHROMBIN TIME 22.5 SECONDS (11.8-14.0)
== END ==
LOC: M PLALAB 09:06
PROVIDERS: ATTEND Internal Medicine Cardiovascular Disease
DX: I48.0 Paroxysmal atrial fibrillation (principal); Z79.01 Long term (current) use of anticoagulants
CPT/HCPCS: 36415; 85610; G0463

== ENCOUNTER → 2020-02-17 | Outpatient (CLI) | payer MEDICARE, MEDICAID ==
[2020-02-17 10:46] LABS: INR 1.78; PROTHROMBIN TIME 20.5 SECONDS (11.8-14.0)
== END ==
LOC: M PLALAB 09:09
PROVIDERS: ATTEND Internal Medicine Cardiovascular Disease
DX: Z79.01 Long term (current) use of anticoagulants (principal); I48.0 Paroxysmal atrial fibrillation

== ENCOUNTER → 2020-02-28 | Outpatient (CLI) | payer MEDICARE, MEDICAID ==
[2020-02-28 10:37] LABS: INR 2.16; PROTHROMBIN TIME 23.9 SECONDS (11.8-14.0)
== END ==
LOC: M PLALAB 08:59
PROVIDERS: ATTEND Internal Medicine Cardiovascular Disease
DX: I48.0 Paroxysmal atrial fibrillation (principal); Z79.01 Long term (current) use of anticoagulants

== ENCOUNTER → 2020-03-27 | Outpatient (CLI) | payer MEDICARE, MEDICAID ==
[2020-03-27 10:26] LABS: INR 2.08; PROTHROMBIN TIME 23.2 SECONDS (11.8-14.0)
== END ==
LOC: M PLALAB 08:55
PROVIDERS: ATTEND Internal Medicine Cardiovascular Disease
DX: Z51.81 Encounter for therapeutic drug level monitoring (principal); Z79.01 Long term (current) use of anticoagulants; I48.0 Paroxysmal atrial fibrillation

== ENCOUNTER → 2020-04-25 | Outpatient (CLI) | payer MEDICARE, MEDICAID ==
[~2020-04-25] MED LIST changes: -ERYT1OIN26; +ERYT5OIN25
[2020-04-25 11:15] LABS: INR 1.93; PROTHROMBIN TIME 21.8 SECONDS (11.8-14.0)
== END ==
LOC: M PLALAB 08:51
PROVIDERS: ATTEND Internal Medicine Cardiovascular Disease
DX: Z79.01 Long term (current) use of anticoagulants (principal); I48.0 Paroxysmal atrial fibrillation

== ENCOUNTER → 2020-05-17 | Outpatient (REF) | payer MEDICARE, MEDICAID ==
[~2020-05-17] MED LIST changes: -COUM7.5T PO; +COUM7.5T6 PO; -LACT10SO29 PO; +LACT20EL PO
[2020-05-17 18:52] LABS: APPEARANCE, URINE CLEAR (CLEAR); BACTERIA, URINE AUTO NEGATIVE (NEGATIVE); BILIRUBIN, URINE AUTO NEGATIVE (NEGATIVE); BLOOD, URINE BLOOD NEGATIVE (NEGATIVE); COLOR, URINE STRAW (YELLOW); GLUCOSE, URINE (UA) AUTO NEGATIVE (NEGATIVE); KETONE, URINE AUTO NEGATIVE (NEGATIVE); LEUKOCYTE ESTERASE, URINE AUTO NEGATIVE (NEGATIVE); NITRITE, URINE AUTO NEGATIVE (NEGATIVE); PROTEIN, URINE AUTO NEGATIVE (NEGATIVE); RBC, URINE AUTO 1 /HPF (0-3); SPECIFIC GRAVITY URINE AUTO 1.004 (1.002-1.035); SQUAMOUS EPITHELIAL CELL UR AU 0 /HPF (0-6); UROBILINOGEN, URINE AUTO 0.2 mg/dL (0.0-2.0); WBC, URINE AUTO 1 /HPF (0-3)
== END ==
LOC: M SMT 16:54
PROVIDERS: ATTEND Nurse Practitioner Women's Health
DX: R39.89 Other symptoms and signs involving the genitourinary system (principal)

== ENCOUNTER → 2020-05-23 | Outpatient (CLI) | payer MEDICARE, MEDICAID ==
[2020-05-23 14:28] LABS: INR 2.09; PROTHROMBIN TIME 23.3 SECONDS (11.8-14.0)
== END ==
LOC: M PLALAB 13:02
PROVIDERS: ATTEND Internal Medicine Cardiovascular Disease
DX: Z51.81 Encounter for therapeutic drug level monitoring (principal); Z79.01 Long term (current) use of anticoagulants; I48.0 Paroxysmal atrial fibrillation

== ENCOUNTER → 2020-06-08 | Outpatient (CLI) | payer MEDICARE, MEDICAID ==
[~2020-06-08] MED LIST changes: -AMLO10TA5 PO; +AMLO1TAB25 PO; +TRIA37.5
[2020-06-08 13:12] LABS: INR 4.04; PROTHROMBIN TIME 39.4 SECONDS (11.8-14.0)
== END ==
LOC: M PLALAB 08:56
PROVIDERS: ATTEND Internal Medicine Cardiovascular Disease
DX: I48.0 Paroxysmal atrial fibrillation (principal); Z79.01 Long term (current) use of anticoagulants

== ENCOUNTER → 2020-06-20 | Outpatient (CLI) | payer MEDICARE, MEDICAID ==
[2020-06-20 13:01] LABS: INR 2.15; PROTHROMBIN TIME 23.8 SECONDS (11.8-14.0)
== END ==
LOC: M PLALAB 09:04
PROVIDERS: ATTEND Internal Medicine Cardiovascular Disease
DX: I48.0 Paroxysmal atrial fibrillation (principal); Z79.01 Long term (current) use of anticoagulants

== ENCOUNTER → 2020-07-18 | Outpatient (REF) | payer MEDICARE, MEDICAID ==
[2020-09-04 21:33] LABS: INR 2.34; PROTHROMBIN TIME 26.6 SECONDS (12.5-14.3)
== END ==
LOC: M PLALAB 12:58
PROVIDERS: ATTEND Internal Medicine Cardiovascular Disease
DX: Z79.01 Long term (current) use of anticoagulants (principal); I48.0 Paroxysmal atrial fibrillation

== ENCOUNTER → 2020-08-21 | Outpatient (CLI) | payer MEDICARE, MEDICAID ==
[2020-08-21 13:20] LABS: INR 2.26; PROTHROMBIN TIME 25.5 SECONDS (12.5-14.3)
== END ==
LOC: M PLALAB 09:19
PROVIDERS: ATTEND Internal Medicine Cardiovascular Disease
DX: I48.0 Paroxysmal atrial fibrillation (principal); Z79.01 Long term (current) use of anticoagulants

== ENCOUNTER 2020-09-08 14:55 | Emergency (ER) | payer MEDICARE, MEDICAID ==
[~2020-09-08] VITALS: Ht 157.5 cm; Wt 55.9 kg
[~2020-09-08 14:55] MED LIST changes: -TRIA37.5
[2020-09-08] MEDS ORDERED: ONDANSETRON 4 MG ORAL DISINTEGRATING TAB PO ONE (15:30)
[2020-09-08] MEDS ORDERED: NS 500 ML IV ONE (16:00)
[2020-09-08] MEDS ORDERED: ACETAMINOPHEN TAB 650MG DOSE (2X325MG) PO ONE (16:15)
[2020-09-08 16:27] LABS: BASO % 0.1 % (0.0-1.0); EOS % 0.3 % (0.0-3.0); HEMATOCRIT 38.3 % (36.0-47.0); HEMOGLOBIN 12.7 g/dl (12.0-15.5); LYMPH # 0.7 10^3/uL (1.5-5.0); LYMPH % 6.2 % (24.0-44.0); MEAN CORPUSCULAR HEMOGLOBIN 31.4 pg (27.0-33.0); MEAN CORPUSCULAR HGB CONC 33.2 g/dl (32.0-36.5); MEAN CORPUSCULAR VOLUME 94.6 fl (80.0-96.0); MONO # 0.3 10^3/uL (0.0-0.8); MONO % 2.9 % (0.0-5.0); NEUTROPHILS # 9.6 10^3/uL (1.5-8.5); NEUTROPHILS % 90.1 % (36.0-66.0); PLATELET COUNT, AUTOMATED 174 10^3/uL (150-450); RED BLOOD COUNT 4.05 10^6/uL (4.00-5.40); WHITE BLOOD COUNT 10.6 10^3/uL (4.0-10.0)
--- NOTE | 2020-09-08 16:27 | REPVR ---
PROCEDURE INFORMATION: Exam: XR Chest, 1 View Exam date and time: 09/08/2020 4:15 PM Age: 80 years old Clinical indication: Shortness of breath; Additional info: Fever, weakness TECHNIQUE: Imaging protocol: XR of the chest Views: 1 view. COMPARISON: CR Chest, 2 view PA, Lat 02/08/2019 9:26 AM FINDINGS: Tubes, catheters and devices: External monitoring devices are present. Lungs: Mild interstitial prominence the lung bases. Pleural space: Right lateral costophrenic angle not fully included on the film. Heart/Mediastinum: Unremarkable. No cardiomegaly. Vasculature: Atheromatous change of the thoracic aorta. Bones/joints: Generalized decrease in bone density. Other findings: Patient markedly rotated to the right. IMPRESSION: Mild interstitial prominence at the lung bases may be accentuated by marked patient rotation. Electronically signed by: Raeann Gregory On 09/08/2020 16:27:21 PM
[2020-09-08 16:36] LABS: INR 2.59; PROTHROMBIN TIME 28.3 SECONDS (12.5-14.3)
[2020-09-08 16:55] LABS: ALBUMIN 3.6 GM/DL (3.2-5.2); ALT/SGPT 33 U/L (12-78); BILIRUBIN,DIRECT 0.5 MG/DL (0.0-0.2); BILIRUBIN,TOTAL 1.3 MG/DL (0.2-1.0); BLOOD UREA NITROGEN 35 MG/DL (7-18); CALCIUM LEVEL 9.6 MG/DL (8.8-10.2); CARBON DIOXIDE LEVEL 30 MEQ/L (21-32); CHLORIDE LEVEL 107 MEQ/L (98-107); CPK CREATINE PHOSPHOKINASE 64 U/L (26-192); CREATININE FOR GFR 1.42 MG/DL (0.55-1.30); GLOMERULAR FILTRATION RATE 38.1 (>39); GLUCOSE, FASTING 113 MG/DL (70-100); MB/CK RELATIVE INDEX 1.56 (< OR =4); POTASSIUM SERUM 3.6 MEQ/L (3.5-5.1); SODIUM LEVEL 142 MEQ/L (136-145); TOTAL PROTEIN 6.6 GM/DL (6.4-8.2); TROPONIN I < 0.02 NG/ML (< 0.10)
[2020-09-08 17:30] VITALS: BP 139/64
[2020-09-08] MEDS ORDERED: TRIA37.5 (17:38)
[2020-09-08] MEDS ORDERED: METOPROLOL SUCC (TopROL XL) 100MG *XL* TAB PO ONE (18:45)
[2020-09-08] MEDS ORDERED: ONDA4TAB6 PO (19:13)
--- NOTE | 2020-09-09 06:42 | ECGEPIP ---
[facility] - ED Test Date: 2020-09-08 Pat Name: AXEL RAY Department: Room: - Gender: Female [employer]: SACHI : 1940 Requested By: AMINATA Moore Order Number: [id number] Reading MD: Rasheed Bustillo Measurements Intervals [place] Rate: 100 P: [place]: 0 QRS: 59 QRSD: 85 T: 89 QT: 329 QTc: 425 Interpretive Statements ATRIAL FIBRILLATION WITH RAPID VENTRICULAR RESPONSE INCOMPLETE RIGHT BUNDLE BRANCH BLOCK NONSPECIFIC ST & T-WAVE ABNORMALITY RATE CHANGE COMPARED TO 04/06/18 Electronically Signed on 09-09-2020 6:41:51 EDT by Rasheed Bustillo
== END 2020-09-08 19:30 | disposition home or self-care (01) ==
LOC: M ED 14:55
DX: R11.2 Nausea with vomiting, unspecified (principal); R50.9 Fever, unspecified; I48.91 Unspecified atrial fibrillation; I45.10 Unspecified right bundle-branch block; Z79.01 Long term (current) use of anticoagulants; Z79.82 Long term (current) use of aspirin; Z79.899 Other long term (current) drug therapy; Z88.1 Allergy status to other antibiotic agents; Z88.2 Allergy status to sulfonamides; Z91.041 Radiographic dye allergy status
CPT/HCPCS: 36415; 71045; 80048; 80076; 81001; 82550; 82553; 83605; 84484; 85025; 85610; 87040; 93005; 93041; 96360; 96361; 99285; Q0162

== ENCOUNTER → 2020-09-18 | Outpatient (CLI) | payer MEDICARE, MEDICAID ==
[~2020-09-18] MED LIST changes: +TRIA37.5
[2020-09-18 10:54] LABS: INR 2.5; PROTHROMBIN TIME 27.6 SECONDS (12.5-14.3)
== END ==
LOC: M PLALAB 09:05
PROVIDERS: ATTEND Internal Medicine Cardiovascular Disease
DX: I48.0 Paroxysmal atrial fibrillation (principal); Z79.01 Long term (current) use of anticoagulants

== ENCOUNTER → 2020-09-19 | Outpatient (REF) | payer MEDICARE, MEDICAID ==
[2020-09-19 13:57] LABS: BASO % 0.6 % (0.0-1.0); EOS # 0.1 10^3/uL (0.0-0.5); EOS % 1.9 % (0.0-3.0); HEMATOCRIT 37.9 % (36.0-47.0); LYMPH # 1.1 10^3/uL (1.5-5.0); LYMPH % 20.1 % (24.0-44.0); MEAN CORPUSCULAR HGB CONC 31.7 g/dl (32.0-36.5); MEAN CORPUSCULAR VOLUME 97.9 fl (80.0-96.0); MONO # 0.6 10^3/uL (0.0-0.8); MONO % 11.2 % (0.0-5.0); NEUTROPHILS # 3.5 10^3/uL (1.5-8.5); NEUTROPHILS % 65.6 % (36.0-66.0); PLATELET COUNT, AUTOMATED 198 10^3/uL (150-450); RED BLOOD COUNT 3.87 10^6/uL (4.00-5.40); WHITE BLOOD COUNT 5.4 10^3/uL (4.0-10.0)
[2020-09-19 14:28] LABS: ALBUMIN 3.6 GM/DL (3.2-5.2); BILIRUBIN,TOTAL 1.1 MG/DL (0.2-1.0); CALCIUM LEVEL 10.1 MG/DL (8.8-10.2); CREATININE FOR GFR 1.41 MG/DL (0.55-1.30); GLOMERULAR FILTRATION RATE 38.4 (>39); POTASSIUM SERUM 4.2 MEQ/L (3.5-5.1); TOTAL PROTEIN 6.8 GM/DL (6.4-8.2)
[2020-09-19 14:30] LABS: HEMOGLOBIN A1c 5.7 %
== END ==
LOC: M SFHCPLAZ 10:45
PROVIDERS: ATTEND Physician Assistant Medical
DX: R50.9 Fever, unspecified (principal); E11.9 Type 2 diabetes mellitus without complications; N18.30 Chronic kidney disease, stage 3 unspecified
CPT/HCPCS: 36415; 80053; 83036; 85025; G0463

== ENCOUNTER → 2020-09-25 | Outpatient (REF) | payer MEDICARE, MEDICAID ==
[2020-09-25 14:21] LABS: ALBUMIN 3.5 GM/DL (3.2-5.2); BILIRUBIN,TOTAL 1.2 MG/DL (0.2-1.0); CALCIUM LEVEL 9.4 MG/DL (8.8-10.2); CREATININE FOR GFR 1.52 MG/DL (0.55-1.30); GLOMERULAR FILTRATION RATE 35.2 (>39); POTASSIUM SERUM 3.9 MEQ/L (3.5-5.1); TOTAL PROTEIN 6.4 GM/DL (6.4-8.2)
== END ==
LOC: M SFHCPLAZ 11:53
PROVIDERS: ATTEND Physician Assistant Medical
DX: N18.30 Chronic kidney disease, stage 3 unspecified (principal)
CPT/HCPCS: 36415; 80053; 83880; G0463

== ENCOUNTER → 2020-10-19 | Outpatient (CLI) | payer MEDICARE, MEDICAID ==
[2020-10-19 10:36] LABS: INR 2.31; PROTHROMBIN TIME 25.9 SECONDS (12.5-14.3)
== END ==
LOC: M PLALAB 09:02
PROVIDERS: ATTEND Internal Medicine Cardiovascular Disease
DX: I48.0 Paroxysmal atrial fibrillation (principal); Z79.01 Long term (current) use of anticoagulants

== ENCOUNTER → 2020-11-16 | Outpatient (CLI) | payer MEDICARE, MEDICAID ==
[2020-11-16 10:53] LABS: INR 1.88
== END ==
LOC: M PLALAB 08:58
PROVIDERS: ATTEND Internal Medicine Cardiovascular Disease
DX: I48.0 Paroxysmal atrial fibrillation (principal); Z79.01 Long term (current) use of anticoagulants

== ENCOUNTER → 2020-12-07 | Outpatient (CLI) | payer MEDICARE, MEDICAID ==
[2020-12-07 11:25] LABS: INR 2.04; PROTHROMBIN TIME 23.5 SECONDS (12.5-14.3)
== END ==
LOC: M PLALAB 09:39
PROVIDERS: ATTEND Internal Medicine Cardiovascular Disease
DX: I48.0 Paroxysmal atrial fibrillation (principal); Z79.01 Long term (current) use of anticoagulants

== ENCOUNTER → 2021-01-04 | Outpatient (CLI) | payer MEDICARE, MEDICAID ==
[2021-01-04 11:26] LABS: INR 2.62; PROTHROMBIN TIME 28.6 SECONDS (12.5-14.3)
== END ==
LOC: M PLALAB 09:20
PROVIDERS: ATTEND Internal Medicine Cardiovascular Disease
DX: I48.0 Paroxysmal atrial fibrillation (principal); Z79.01 Long term (current) use of anticoagulants

== ENCOUNTER → 2021-02-01 | Outpatient (CLI) | payer MEDICARE, MEDICAID ==
[~2021-02-01] MED LIST changes: +ISOS1TAB35 PO; -ISOS30TA4 PO; -LISI40TA PO; +LISI40TA4 PO
[2021-02-01 13:31] LABS: INR 2.3; PROTHROMBIN TIME 25.8 SECONDS (12.5-14.3)
== END ==
LOC: M PLALAB 09:37
PROVIDERS: ATTEND Internal Medicine Cardiovascular Disease
DX: I48.0 Paroxysmal atrial fibrillation (principal); Z79.01 Long term (current) use of anticoagulants

== ENCOUNTER → 2021-03-01 | Outpatient (REF) | payer MEDICARE, MEDICAID ==
[2021-03-01 11:02] LABS: INR 1.91; PROTHROMBIN TIME 22.3 SECONDS (12.5-14.3)
== END ==
LOC: M PLALAB 09:51
PROVIDERS: ATTEND Internal Medicine Cardiovascular Disease
DX: Z51.81 Encounter for therapeutic drug level monitoring (principal); Z79.01 Long term (current) use of anticoagulants; I48.0 Paroxysmal atrial fibrillation

== ENCOUNTER → 2021-03-30 | Outpatient (REF) | payer MEDICARE, MEDICAID ==
[2021-03-30 15:17] LABS: BASO % 0.5 % (0.0-1.0); EOS # 0.1 10^3/uL (0.0-0.5); EOS % 2.1 % (0.0-3.0); HEMATOCRIT 38.8 % (36.0-47.0); HEMOGLOBIN 12.2 g/dl (12.0-15.5); LYMPH # 1.2 10^3/uL (1.5-5.0); LYMPH % 21.5 % (24.0-44.0); MEAN CORPUSCULAR HEMOGLOBIN 30.9 pg (27.0-33.0); MEAN CORPUSCULAR HGB CONC 31.4 g/dl (32.0-36.5); MEAN CORPUSCULAR VOLUME 98.2 fl (80.0-96.0); MONO # 0.5 10^3/uL (0.0-0.8); MONO % 9.4 % (2.0-8.0); NEUTROPHILS # 3.7 10^3/uL (1.5-8.5); NEUTROPHILS % 66.1 % (36.0-66.0); PLATELET COUNT, AUTOMATED 166 10^3/uL (150-450); RED BLOOD COUNT 3.95 10^6/uL (4.00-5.40); WHITE BLOOD COUNT 5.6 10^3/uL (4.0-10.0)
[2021-03-30 15:47] LABS: ALBUMIN 3.7 GM/DL (3.2-5.2); BILIRUBIN,TOTAL 1.1 MG/DL (0.2-1.0); CALCIUM LEVEL 9.8 MG/DL (8.8-10.2); CHOLESTEROL RISK RATIO 2.106 (<5); CREATININE FOR GFR 1.56 MG/DL (0.55-1.30); GLOMERULAR FILTRATION RATE 34.2 (>39); POTASSIUM SERUM 3.8 MEQ/L (3.5-5.1)
[2021-03-30 15:57] LABS: TOTAL 25(OH) VITAMIN D 47.6 NG/ML (30.0-100.0)
[2021-03-30 17:05] LABS: HEMOGLOBIN A1c 5.2 %
== END ==
LOC: M SFHCPLAZ 13:54
PROVIDERS: ATTEND Physician Assistant Medical
DX: E55.9 Vitamin D deficiency, unspecified (principal); E11.9 Type 2 diabetes mellitus without complications; E78.2 Mixed hyperlipidemia; I10 Essential (primary) hypertension

== ENCOUNTER 2021-04-11 15:08 | Emergency (ER) | payer MEDICARE, MEDICAID ==
[~2021-04-11] VITALS: Ht 157.5 cm; Wt 57.7 kg
[2021-04-11 16:49] LABS: BASO % 0.3 % (0.0-1.0); EOS # 0.1 10^3/uL (0.0-0.5); EOS % 1.9 % (0.0-3.0); HEMATOCRIT 39.5 % (36.0-47.0); HEMOGLOBIN 12.5 g/dl (12.0-15.5); LYMPH # 1.5 10^3/uL (1.5-5.0); MEAN CORPUSCULAR HGB CONC 31.6 g/dl (32.0-36.5); MONO # 0.7 10^3/uL (0.0-0.8); MONO % 9.2 % (2.0-8.0); NEUTROPHILS # 5.1 10^3/uL (1.5-8.5); NEUTROPHILS % 68.1 % (36.0-66.0); PLATELET COUNT, AUTOMATED 157 10^3/uL (150-450); RED BLOOD COUNT 4.03 10^6/uL (4.00-5.40); WHITE BLOOD COUNT 7.4 10^3/uL (4.0-10.0)
--- NOTE | 2021-04-11 17:32 | REPVR ---
PROCEDURE INFORMATION: Exam: CT Abdomen And Pelvis Without Contrast Exam date and time: 04/11/2021 5:07 PM Age: 80 years old Clinical indication: Abdominal pain; Additional info: Flank pain TECHNIQUE: Imaging protocol: Computed tomography of the abdomen and pelvis without contrast. Radiation optimization: All CT scans at this facility use at least one of these dose optimization techniques: automated exposure control; mA and/or kV adjustment per patient size (includes targeted exams where dose is matched to clinical indication); or iterative reconstruction. COMPARISON: CT ABD PELVIS W/O CONTRAST 09/14/2019 6:55 PM FINDINGS: Lungs: No suspicious mass or airspace process in the visualized lung bases. Heart: Calcification of the mitral valve annulus noted. Liver: Noncontrast liver shows no obvious lesion. Gallbladder and bile ducts: Gallbladder is present and shows no evidence of gallstone. Pancreas: Noncontrast pancreas shows no obvious mass or adjacent fluid. Spleen: Noncontrast spleen shows no obvious focal deformity. Adrenal glands: Adrenal glands are normal in appearance. Kidneys and ureters: Kidneys demonstrate no obstructive uropathy or stone. Bilateral simple fluid density renal cysts are present with similar appearance compared to the prior CT. The largest of these is anterior mid-lower pole left kidney measuring 3.3 cm. Right kidney is atrophic. Stomach and bowel: No evidence of small bowel obstruction. Large volume of stool is seen throughout the colon. Diverticular changes are present within the colon without inflammation. Appendix: Appendix is not seen. No RLQ inflammation to suggest appendicitis. Intraperitoneal space: No pneumoperitoneum. Vasculature: Atherosclerotic change present in the aorta, without aneurysm. Lymph nodes: No enlarged lymph nodes. Urinary bladder: Urinary bladder appears normal. Reproductive: Female reproductive organs appear unremarkable. Bones/joints: Bony structures are normal except for lumbar spine degenerative disc changes. Soft tissues: Unremarkable. Other findings: Limited evaluation without enteric or IV contrast. IMPRESSION: 1. No evidence of obstructive uropathy or renal stone. Bilateral simple fluid density benign renal cysts are present and incidental right renal atrophy is noted. 2. Prominent diffuse colonic stool pattern suggesting constipation without rectal fecal impaction. 3. Colonic diverticulosis but no active inflammation COMMENTS: Consistent with the [place]'s Incidental Findings Committee white paper (J Am Reg Radiol 2018): Any incidental renal lesion less than 1 cm or classified as too small to characterize, or any incidental cystic renal lesion characterized as simple-appearing, is likely benign. No follow-up imaging is recommended for these lesions per consensus recommendations based on imaging criteria. Electronically signed by: Dav Art On 04/11/2021 17:32:26 PM
[2021-04-11] MEDS ORDERED: CEFD300C PO (17:46)
[2021-04-11] MEDS ORDERED: ACETAMINOPHEN TAB 650MG DOSE (2X325MG) PO ONE (17:50)
[2021-04-11] MEDS ORDERED: MIRA3350 PO (17:50)
[2021-04-11] MEDS ORDERED: CEFDINIR 300 MG CAP (OMNICEF) PO ONE (17:50)
[2021-04-11 18:27] VITALS: BP 140/69
== END 2021-04-11 18:30 | disposition home or self-care (01) ==
LOC: M ED 15:08
DX: N39.0 Urinary tract infection, site not specified (principal); I48.91 Unspecified atrial fibrillation; I25.10 Atherosclerotic heart disease of native coronary artery without angina pectoris; I12.9 Hypertensive chronic kidney disease with stage 1 through stage 4 chronic kidney disease, or unspecified chronic kidney disease; N18.30 Chronic kidney disease, stage 3 unspecified; E11.9 Type 2 diabetes mellitus without complications; E78.5 Hyperlipidemia, unspecified; Z79.84 Long term (current) use of oral hypoglycemic drugs; Z79.82 Long term (current) use of aspirin; Z79.899 Other long term (current) drug therapy; Z91.041 Radiographic dye allergy status; Z88.2 Allergy status to sulfonamides; Z91.5 Personal history of self-harm; Z87.891 Personal history of nicotine dependence

== ENCOUNTER → 2021-04-16 | Outpatient (CLI) | payer MEDICARE, MEDICAID ==
[~2021-04-16] MED LIST changes: +CEFD300C PO
[2021-04-16 10:22] LABS: INR 1.83; PROTHROMBIN TIME 21.6 SECONDS (12.5-14.3)
== END ==
LOC: M PLALAB 09:25
PROVIDERS: ATTEND Internal Medicine Cardiovascular Disease
DX: Z79.01 Long term (current) use of anticoagulants (principal); I48.0 Paroxysmal atrial fibrillation

== ENCOUNTER → 2021-04-24 | Outpatient (CLI) | payer MEDICARE, MEDICAID ==
--- NOTE | 2021-04-24 16:33 | REP ---
INDICATION: CKD 3B COMPARISON: None TECHNIQUE: Real time sim scale ultrasound examination using curved array transducer. FINDINGS: The right kidney is atrophic and echogenic measuring 5.8 x 3.7 x 3.5 cm including 1.9 cm upper pole cyst and 1.2 cm midpole cyst. No hydronephrosis, nephrolithiasis or renal mass lesion identified. The left kidney is normal in reniform shape and measures 10.2 x 4.9 x 5.3 cm without hydronephrosis, nephrolithiasis, or renal mass lesion. Upper pole cyst identified measuring 3.7 cm diameter. Bladder is collapsed. IMPRESSION: 1. Chronic atrophic right kidney with few simple appearing cysts. 2. Relatively normal left kidney including 3.7 cm simple upper pole cyst. <Electronically signed by Yordan Trent > 04/24/21 0742
== END ==
LOC: M RAD 15:51
PROVIDERS: ATTEND Nurse Practitioner Family
DX: N26.1 Atrophy of kidney (terminal) (principal); N28.1 Cyst of kidney, acquired

== ENCOUNTER → 2021-05-02 | Outpatient (REF) | payer MEDICARE, MEDICAID ==
[2021-05-02 10:13] LABS: INR 2.15; PROTHROMBIN TIME 24.5 SECONDS (12.5-14.3)
== END ==
LOC: M LABDRWAD 09:43
PROVIDERS: ATTEND Internal Medicine Cardiovascular Disease
DX: I48.0 Paroxysmal atrial fibrillation (principal); Z79.01 Long term (current) use of anticoagulants

== ENCOUNTER → 2021-05-29 | Outpatient (CLI) | payer MEDICARE, MEDICAID ==
--- NOTE | 2021-05-29 11:44 | REP ---
INDICATION: OCCLUSION/STENOSIS THAO CARTOTID ARTERY COMPARISON: None. TECHNIQUE: Sue scale and color Doppler evaluation using linear high frequency transducer Findings: FINDINGS: Two-dimensional sue scale and color images demonstrate moderate amounts of mixed partially calcified atheromatous plaquing with elements of narrowing bed no significant stenosis or occlusion identified. Color Doppler interrogation demonstrates arterial wave patterns with elements of spectral broadening. Normal flow direction is appreciated in the bilateral vertebral arteries. ICA peak systolic velocity: Right 80.7 cm/s; Left 75.9 cm/s ICA diastolic velocity: Right 26.3 cm/s; Left 20.4 cm/s ECA peak systolic velocity: Right 126.6 cm/s; Left 101.9 cm/s CCA peak systolic velocity: Right 73.0 cm/s; Left 54.0 cm/s ICA/CCA ratio: Right 1.11 cm/s; Left 1.41 cm/s IMPRESSION: 1. Moderate to significant amounts of mixed atheromatous plaquing causing some elements of shadowing and limited evaluation of the lumen. 2. Based on set standards narrowing falls within the less than 50% range. 3. If the patient remains symptomatic and further evaluation is necessary, CTA may be warranted for more definitive evaluation. <Electronically signed by Yordan Trent > 05/29/21 9520
== END ==
LOC: M RAD 10:58
PROVIDERS: ATTEND Internal Medicine Cardiovascular Disease
DX: I65.23 Occlusion and stenosis of bilateral carotid arteries (principal)

== ENCOUNTER → 2021-06-01 | Outpatient (CLI) | payer MEDICARE, MEDICAID ==
[2021-06-01 11:13] LABS: INR 2.1
== END ==
LOC: M PLALAB 09:11
PROVIDERS: ATTEND Internal Medicine Cardiovascular Disease
DX: Z79.01 Long term (current) use of anticoagulants (principal); I48.0 Paroxysmal atrial fibrillation

== ENCOUNTER → 2021-06-29 | Outpatient (CLI) | payer MEDICARE, MEDICAID ==
[2021-06-29 11:57] LABS: INR 2.06; PROTHROMBIN TIME 23.6 SECONDS (12.7-14.5)
== END ==
LOC: M PLALAB 08:56
PROVIDERS: ATTEND Internal Medicine Cardiovascular Disease
DX: I48.0 Paroxysmal atrial fibrillation (principal); Z79.01 Long term (current) use of anticoagulants

== ENCOUNTER → 2021-07-27 | Outpatient (CLI) | payer MEDICARE, MEDICAID ==
[2021-07-27 10:25] LABS: INR 2.06; PROTHROMBIN TIME 23.6 SECONDS (12.7-14.5)
== END ==
LOC: M PLALAB 09:12
PROVIDERS: ATTEND Internal Medicine Cardiovascular Disease
DX: Z79.01 Long term (current) use of anticoagulants (principal); I48.0 Paroxysmal atrial fibrillation

== ENCOUNTER → 2021-08-24 | Outpatient (CLI) | payer MEDICARE, MEDICAID ==
[2021-08-24 11:02] LABS: INR 2.43; PROTHROMBIN TIME 26.8 SECONDS (12.7-14.5)
== END ==
LOC: M PLALAB 08:51
PROVIDERS: ATTEND Internal Medicine Cardiovascular Disease
DX: Z79.899 Other long term (current) drug therapy (principal); Z79.01 Long term (current) use of anticoagulants

== ENCOUNTER → 2021-08-29 | Outpatient (REF) | payer MEDICARE, MEDICAID | LOC: M LAB REF 17:34 | PROVIDERS: ATTEND Nurse Practitioner Family | DX: E83.42 Hypomagnesemia (principal) ==

== ENCOUNTER 2021-09-01 03:24 | Inpatient (IN) | payer MEDICARE, MEDICAID ==
[~2021-09-01] VITALS: Ht 157.5 cm; Wt 54.2 kg
[~2021-09-01 03:24] MED LIST changes: -TRIA37.5
[2021-09-01 03:58] LABS: BASO % 0.3 % (0.0-1.0); EOS # 0.1 10^3/uL (0.0-0.5); HEMATOCRIT 38.1 % (36.0-47.0); HEMOGLOBIN 12.7 g/dl (12.0-15.5); LYMPH # 0.7 10^3/uL (1.5-5.0); LYMPH % 9.9 % (24.0-44.0); MEAN CORPUSCULAR HEMOGLOBIN 31.6 pg (27.0-33.0); MEAN CORPUSCULAR HGB CONC 33.3 g/dl (32.0-36.5); MEAN CORPUSCULAR VOLUME 94.8 fl (80.0-96.0); MONO # 0.5 10^3/uL (0.0-0.8); NEUTROPHILS # 5.6 10^3/uL (1.5-8.5); NEUTROPHILS % 81.5 % (36.0-66.0); PLATELET COUNT, AUTOMATED 150 10^3/uL (150-450); RED BLOOD COUNT 4.02 10^6/uL (4.00-5.40); WHITE BLOOD COUNT 6.9 10^3/uL (4.0-10.0)
[2021-09-01] MEDS ORDERED: ONDANSETRON 4MG/2ML VIAL IV ONE (04:00)
[2021-09-01 04:10] LABS: INR 2.13; PROTHROMBIN TIME 24.2 SECONDS (12.7-14.5)
[2021-09-01 04:11] LABS: PARTIAL THROMBOPLASTIN TIME 41.6 SECONDS (25.9-37.0)
[2021-09-01 04:40] LABS: ALBUMIN 3.7 GM/DL (3.2-5.2); ALT/SGPT 32 U/L (12-78); BILIRUBIN,DIRECT 0.4 MG/DL (0.0-0.2); BLOOD UREA NITROGEN 34 MG/DL (7-18); CALCIUM LEVEL 9.5 MG/DL (8.8-10.2); CARBON DIOXIDE LEVEL 28 MEQ/L (21-32); CHLORIDE LEVEL 108 MEQ/L (98-107); CK-MB VALUE MASS < 1.0 NG/ML (<3.6); CPK CREATINE PHOSPHOKINASE 57 U/L (26-192); CREATININE FOR GFR 1.52 MG/DL (0.55-1.30); GLOMERULAR FILTRATION RATE 35.1 (>39); GLUCOSE, FASTING 173 MG/DL (70-100); LIPASE 167 U/L (73-393); MB/CK RELATIVE INDEX 1.75 (< OR =4); POTASSIUM SERUM 3.3 MEQ/L (3.5-5.1); SODIUM LEVEL 144 MEQ/L (136-145); TOTAL PROTEIN 6.9 GM/DL (6.4-8.2); TROPONIN I < 0.02 NG/ML (< 0.10)
[2021-09-01] MEDS ORDERED: KCL 10MEQ/100ML SWI (KRUN) 10 MEQ in IV 1 EA IV ONE ×2 (05:15→06:15)
--- NOTE | 2021-09-01 05:36 | ECGEPIP ---
[facility] - ED Test Date: 2021-09-01 Pat Name: AXEL RAY Department: Room: - Gender: Female [employer]: [employer] : 1940 Requested By: BRIELLE Martínez Order Number: [id number] Reading MD: Rasheed Bustillo Measurements Intervals [place] Rate: 81 P: [place]: QRS: 62 QRSD: 94 T: 174 QT: 420 QTc: 487 Interpretive Statements Atrial fibrillation INCOMPLETE RIGHT BUNDLE BRANCH BLOCK Nonspecific ST and T wave abnormality Prolonged QT SIMILAR TO 09/08/20 Electronically Signed on 09-01-2021 5:36:07 EDT by Rasheed Bustillo
[2021-09-01 05:43] LABS: MAGNESIUM LEVEL 2.2 MG/DL (1.8-2.4)
--- NOTE | 2021-09-01 05:58 | REPVR ---
PROCEDURE INFORMATION: Exam: CT Abdomen And Pelvis Without Contrast Exam date and time: 09/01/2021 4:13 AM Age: 81 years old Clinical indication: Abdominal pain; Generalized; Additional info: Abdominal pain, nausea and vomiting TECHNIQUE: Imaging protocol: Computed tomography of the abdomen and pelvis without contrast. Radiation optimization: All CT scans at this facility use at least one of these dose optimization techniques: automated exposure control; mA and/or kV adjustment per patient size (includes targeted exams where dose is matched to clinical indication); or iterative reconstruction. COMPARISON: CT ABD PELVIS W/O CONTRAST 04/11/2021 5:03 PM Study limitations: Evaluation for mass, inflammatory change, including bowel wall/fold thickening, viscera, and vasculature, is suboptimal without contrast. Diagnostic evaluation is slightly compromised by beam hardening artifacts from positioning of the patient's arms across the body wall. FINDINGS: LUNG BASES: Bibasal ground-glass opacities noted, likely secondary to atelectasis but mild pneumonitis cannot be excluded. Clinical correlation with any pulmonary symptoms. VASCULAR: Visualized cardiac size is enlarged. There are calcifications overlying the left ventricular chamber which could be seen with prior infarction. Extensive coronary arterial calcifications noted. There is dense calcification at the mitral valve. No abdominoaortic aneurysm or retroperitoneal hematoma. Extensive calcified atherosclerosis is seen throughout. Vascular patency is not assessed on this exam. Clinical correlation is advised. PERITONEAL : No free air or free fluid. GI: No hiatal hernia. The distal esophagus and stomach are not sufficiently distended to evaluate wall thickening or for complete diagnostic evaluation by this exam. No appearance of a small-bowel obstruction. Evaluation for bowel wall and fold thickening is compromised on this study, secondary to lack of any contrast. Mild gastroenteritis cannot be excluded. There is slight rotation of small bowel mesentery but without evidence of associated inflammation or obstruction. Small nonspecific mesenteric lymph nodes. Perianal soft tissue thickening is seen. This could be correlated for inflammation or mass. Scattered fecal material and gas within portions of the colon and rectum. No evidence of acute diverticulitis. Portions of the colon appear slightly thick-walled. This could be artifactual secondary to insufficient distention but mild colitis cannot be excluded. No evidence of acute diverticulitis. The appendix is not conclusively identified. What may represent gas in the appendix does not appear inflamed. HEPATOBILIARY, PANCREAS, SPLEEN: Hepatic length is 16.6 cm. Evaluation of hepatic parenchyma is limited by overlying artifact and lack of contrast. Clinical correlation is advised. No calcified gallstones are seen. Evaluation for gallbladder wall thickening is limited by this technique. If there are symptoms related to the gallbladder, consider ultrasound. No pancreatic inflammation. Spleen not enlarged. ADRENALS, KIDNEYS, BLADDER, RETROPERITONEAL: Adrenals within normal limits. No hydronephrosis. The right kidney is diminished in size and volume. No renal calculi are seen. Evaluation of renal parenchyma is limited without contrast. Infection cannot be excluded. Renal lesions are seen bilaterally some of which are indeterminate by this exam but similar to the prior study. Further evaluation is advised. If not already done, consider pre and post contrast MRI. Renal malignancy cannot be excluded on this exam. No perivesical stranding. No bladder wall thickening. PELVIC: No dominant cystic pelvic mass seen. Slightly heterogeneous anteverted uterus. MUSCULOSKELETAL: Calcifications are seen within the breasts. These are difficult to further characterize by this technique. Correlation with clinical breast exam and recent mammogram is advised. Malignant calcifications cannot be excluded on this study. Severe degenerative changes of the spine. Mild degenerative changes within the pelvis. IMPRESSION: Study limitations discussed above. No free-air, free-fluid or focal mesenteric inflammation. Nonspecific gastrointestinal findings to be correlated clinically are discussed above. Indeterminate renal lesions. Nonemergent recommendations discussed above. Indeterminate breast calcifications. Clinical correlation is advised as discussed above. Other incidental findings discussed above. Electronically signed by: John Hernandez On 09/01/2021 05:57:51 AM
[2021-09-01] MEDS ORDERED: CETI10TA4 PO (07:44)
[2021-09-01] MEDS ORDERED: WARF-21 PO ×2 (07:44)
[2021-09-01] MEDS ORDERED: OMEP-218 PO (07:44)
[2021-09-01] MEDS ORDERED: METO1TAB33 PO (07:44)
[2021-09-01] MEDS ORDERED: AMLO1TAB24 PO (07:44)
[2021-09-01] MEDS ORDERED: HOME MED LIST COMPLETE! XX SCH (07:45)
[2021-09-01] MEDS ORDERED: CETIRIZINE (ZyrTEC) 10 MG TAB PO PRN (08:50)
--- NOTE | 2021-09-01 08:55 | HPEPDOC ---
[facility] Medical History & Physical Date of Admission Sep 01, 2021 Date of Service: Sep 01, 2021 History and Physical CHIEF COMPLAINT: abdominal pain HISTORY OF PRESENT ILLNESS: 81-year-old female with past medical history of hypertension and atrial fibrillation on chronic anticoagulation presents for 1 day history of abdominal pain with one episode of nonbilious nonbloody vomiting. Patient denies any other symptoms denies any recent travel denies any sick contacts. She denies chest pain, shortness of breath, headaches, depressed mood. PAST MEDICAL HISTORY: #HTN #afib SOCIAL HISTORY: Former smoker, quit 12 years ago, 55 pack year history. Denies alcohol or illicit drug use. FAMILY HISTORY: Reviewed, patient not clear regarding family medical history. ALLERGIES: Please see below. REVIEW OF SYSTEMS: Negative except as per HPI HOME MEDICATIONS: Please see below. PHYSICAL EXAMINATION: Vital Signs: reviewed General: NAD, lying comfortably in bed HEENT: NC/AT, EOMI, hard of hearing Neck: supple, no masses Chest: lungs CTA B/L Heart: +S1S2, RRR Abd: soft, NT, ND, +BS Ext: no edema Skin: no rashes MSK: full ROM at large joints Neuro: no gross focal deficits Psych: AAOx3 LABORATORY DATA: See below. MICROBIOLOGY: Please see below. A/P: 81 yo female admitted for abdominal pain with vomiting. #abd pain - imaging unrevealing for acute pathology #vomiting - IV fluids, full liquid diet #HTN - continue home meds #afib - rate controlled, continue home meds - a/c with warfarin as per home meds #renal lesion/breast lesion - follow up as outpatient as per recs Dispo: pending clinical improvement Vital Signs Vital Signs Date Time Temp Pulse Resp B/P (MAP) Pulse Ox O2 Delivery O2 Flow Rate FiO2 09/01/21 06:00 74 141/63 (89) 97 Room Air 09/01/21 03:37 96.1 19 Laboratory Data Labs 24H Laboratory Tests 2 09/01/21 03:42: Immature Granulocyte % (Auto) 0.3, Neutrophils (%) (Auto) 81.5H, Lymphocytes (%) (Auto) 9.9L, Monocytes (%) (Auto) 7.0, Eosinophils (%) (Auto) 1.0, Basophils (%) (Auto) 0.3, Neutrophils # (Auto) 5.6, Lymphocytes # (Auto) 0.7L, Monocytes # (Auto) 0.5, Eosinophils # (Auto) 0.1, Basophils # (Auto) 0.0, Nucleated Red Blood Cells % (auto) 0.0, Prothrombin Time 24.2H, Prothromb Time International Ratio 2.13, Activated Partial Thromboplast Time 41.6H, Anion Gap 8, Glomerular Filtration Rate 35.1L, Lactic Acid Level 0.9, Calcium Level 9.5, Magnesium Level 2.2, Total Bilirubin 1.0, Direct Bilirubin 0.4H, Aspartate Amino Transf (AST/SGOT) 27, Alanine Aminotransferase (ALT/SGPT) 32, Alkaline Phosphatase 81, Total Creatine Kinase 57, Creatine Kinase MB < 1.0, Creatine Kinase MB Relative Index 1.75, Troponin I < 0.02, Total Protein 6.9, Albumin 3.7, Albumin/Globulin Ratio 1.2, Lipase 167 09/01/21 08:25: Urine Color YELLOW, Urine Appearance CLEAR, Urine pH 7.0, Urine Specific [place] 1.013, Urine Protein NEGATIVE, Urine Glucose (UA) NEGATIVE, Urine Ketones NEGATIVE, Urine Blood NEGATIVE, Urine Nitrite NEGATIVE, Urine Bilirubin NEGATIVE , Urine Urobilinogen 0.2, Urine Leukocyte Esterase NEGATIVE, Urine WBC (Auto) 0, Urine RBC (Auto) 1, Urine Hyaline Casts (Auto) 0, Urine Bacteria (Auto) NEGATIVE, Urine Squamous Epithelial Cells 0, Urine Mucus (Auto) SMALL, Urine Sperm (Auto) CBC/BMP Laboratory Tests 09/01/21 03:42 Microbiology Microbiology 09/01/21 Respiratory Virus Panel (PCR) ([facility]) - Final, Complete Home Medications Scheduled Amlodipine Besylate (Amlodipine Besylate) 5 Mg Tablet, 5 MG PO DAILY Aspirin (Aspirin EC) 81 Mg Tab, 81 MG PO DAILY Atorvastatin Calcium (Atorvastatin Calcium) 40 Mg Tab, 40 MG PO QHS Bisacodyl (Bisacodyl) 5 Mg Tab, 5 MG PO DAILY Calcitriol (Calcitriol) 0.25 Mcg Cap, 0.25 MCG PO QHS Linagliptin (Tradjenta) 5 Mg Tab, 5 MG PO DAILY ON HOLD PER PCP Metoprolol Succinate (Metoprolol Succinate) 100 Mg Tab.er.24h, 100 MG PO QHS Mirabegron (Myrbetriq) 25 Mg Tab, 25 MG PO DAILY Omeprazole (Omeprazole) 20 Mg Capsule.dr 20 MG PO DAILY Potassium Chloride (Potassium Chloride) 10 Meq Tab, 40 MEQ PO QHS Triamterene/Hydrochlorothiazid (Triamterene-Hctz 37.5-25 mg Tb) 1 Each Tablet, 1 TAB PO DAILY Warfarin Sodium (Warfarin Sodium) 7.5 Mg Tablet, 7.5 MG PO 2XW FRIDAY/FRIDAY Warfarin Sodium (Warfarin Sodium) 7.5 Mg Tablet, 3.75 MG PO 5XW SUN/FRI/FRI/FRI/FRI Scheduled PRN Cetirizine HCl (Cetirizine HCl) 10 Mg Tablet, 10 MG PO DAILY PRN for ALLERGIES Allergies Coded Allergies: Contrast Media (Verified Allergy, Unknown, 01/11/19) Blurred Vision Sulfa (Sulfonamide Antibiotics) (Verified Allergy, Unknown, 09/14/19) A-FIB/CHADSVASC A-FIB History Current/History of A-Fib/PAF?: Yes Current PO Anticoag Therapy: Yes TIFFANIE BERMUDEZ MD Sep 01, 2021 08:55
[2021-09-01] MEDS: DYAZIDE 37.5/25 CAP (TRIAM/HCTZ) PO SCH (09:00)
[2021-09-01] MEDS: BISACODYL 5 MG TAB PO SCH (09:00)
--- NOTE | 2021-09-01 09:11 | REP ---
INDICATION: increased sputum, nausea. COMPARISON: Comparison chest x-ray September 08, 2020. TECHNIQUE: Semi-erect AP portable chest x-ray. FINDINGS: EKG monitoring electrodes overlie the chest. Mild cardiomegaly is observed. The aorta is calcific and somewhat tortuous. There is diffuse osteopenia. Pulmonary vasculature is not increased. The pleural angles are sharp. No infiltrate is seen. IMPRESSION: Cardiomegaly. No infiltrate seen. Otherwise no acute disease. <Electronically signed by Sam Olsen > 09/01/21 0936
[2021-09-01] MEDS ORDERED: PILL CUTTER 1 EACH XX PRN (09:15)
[2021-09-01] MEDS: ASPIRIN 81MG ENTERIC TABLET PO SCH (10:03)
[2021-09-01] MEDS: OMEPRAZOLE 20 MG CAP PO SCH (10:04)
[2021-09-01] MEDS: amLODIPine 5 MG TAB PO SCH (10:05)
[2021-09-01] MEDS: D5W/0.45% SODIUM CHLORIDE 1,000 ML IV SCH ×2 (10:05→20:51)
[2021-09-01 11:30] VITALS: BP 152/62
[2021-09-01 14:00] VITALS: BP 120/68
[2021-09-01] MEDS ORDERED: WARFARIN SOD 7.5MG TAB PO SCH (17:00)
[2021-09-01] MEDS ORDERED: POTASSIUM CHLORIDE 10MEQ SR TABLET PO SCH (21:00)
[2021-09-01] MEDS ORDERED: CALCITRIOL 0.25 MCG CAP (S0169) PO SCH (21:00)
[2021-09-01] MEDS ORDERED: METOPROLOL SUCC (TopROL XL) 100MG *XL* TAB PO SCH (21:00)
[2021-09-01] MEDS ORDERED: ATORVASTATIN 20 MG TAB PO SCH (21:00)
[2021-09-01 22:00] VITALS: BP 152/66
[2021-09-02 06:00] VITALS: BP 153/67
[2021-09-02 06:18] LABS: HEMATOCRIT 34.3 % (36.0-47.0); HEMOGLOBIN 11.3 g/dl (12.0-15.5); MEAN CORPUSCULAR HEMOGLOBIN 31.1 pg (27.0-33.0); MEAN CORPUSCULAR HGB CONC 32.9 g/dl (32.0-36.5); MEAN CORPUSCULAR VOLUME 94.5 fl (80.0-96.0); PLATELET COUNT, AUTOMATED 131 10^3/uL (150-450); RED BLOOD COUNT 3.63 10^6/uL (4.00-5.40); WHITE BLOOD COUNT 6.8 10^3/uL (4.0-10.0)
[2021-09-02 06:41] LABS: ALBUMIN 2.8 GM/DL (3.2-5.2); BILIRUBIN,TOTAL 0.9 MG/DL (0.2-1.0); CALCIUM LEVEL 8.7 MG/DL (8.8-10.2); CREATININE FOR GFR 1.11 MG/DL (0.55-1.30); GLOMERULAR FILTRATION RATE 50.5 (>39); POTASSIUM SERUM 3.5 MEQ/L (3.5-5.1); TOTAL PROTEIN 5.6 GM/DL (6.4-8.2)
[2021-09-02] MEDS: D5W/0.45% SODIUM CHLORIDE 1,000 ML IV SCH (07:55)
[2021-09-02 08:06] VITALS: BP 151/69
[2021-09-02] MEDS: BISACODYL 5 MG TAB PO SCH (08:06)
[2021-09-02] MEDS: ASPIRIN 81MG ENTERIC TABLET PO SCH (08:06)
[2021-09-02] MEDS: amLODIPine 5 MG TAB PO SCH (08:06)
[2021-09-02] MEDS: OMEPRAZOLE 20 MG CAP PO SCH (08:06)
[2021-09-02] MEDS: DYAZIDE 37.5/25 CAP (TRIAM/HCTZ) PO SCH (08:08)
[2021-09-02] MEDS ORDERED: FLUBLOK(EGG FREE)(QUAD)INFLUENZA VACC 0.5ML SYRINGE 18YRS & OLDER IM ONE (09:00)
--- NOTE | 2021-09-02 10:32 | DS.PDOC ---
Discharge Summary General Date of Admission Sep 01, 2021 at 09:36 Date of Discharge 09/02/21 Discharge Summary PROCEDURES PERFORMED DURING STAY: [None]. DISCHARGE DIAGNOSES: #gastroenteritis #HTN #afib/coumadin COMPLICATIONS/CHIEF COMPLAINT: Nausea & Vomiting. HPI/HOSPITAL COURSE: 81-year-old female who presented to the emergency room for a 1 day history of abdominal pain with one episode of nonbilious nonbloody vomiting. Her labs indicated an elevated creatinine. CT scan of her abdomen did not show any acute pathology. She was admitted for further evaluation and IV fluids. Her creatinine improved and she tolerated a regular diet. She was anxious to return home. She was seen by physical therapy. She was deemed safe for discharge home with outpatient follow-up. Her CAT scan did show some lesions involving her kidneys and possibly calcifications with her breasts. This was discussed with her at bedside with instructions to follow-up with her primary care provider. DISCHARGE MEDICATIONS: Please see below. ALLERGIES: Please see below. PHYSICAL EXAMINATION ON DISCHARGE: Vital Signs: reviewed General: NAD, sitting comfortably in chair, elderly HEENT: NC/AT, EOMI Neck: supple, no masses Chest: lungs CTA B/L Heart: +S1S2, RRR Abd: soft, NT, ND, +BS Ext: no edema Skin: no rashes MSK: full ROM at large joints Neuro: no gross focal deficits Psych: AAOx3 LABORATORY DATA: Please see below. ACTIVITY: [As tolerated]. DIET: 2 g sodium DISPOSITION: Discharge home DISCHARGE INSTRUCTIONS: 1. Follow-up with primary care provider 2. Follow-up with primary care provider regarding abnormalities found on imaging of abdomen (renal lesions, breast calcifications) DISCHARGE CONDITION: [Stable]. TIME SPENT ON DISCHARGE: 35 minutes. Vital Signs/I&Os Vital Signs Date Time Temp Pulse Resp B/P (MAP) Pulse Ox O2 Delivery O2 Flow Rate FiO2 09/02/21 08:06 87 151/69 09/02/21 06:00 98.0 18 97 Room Air I&O- Last 24 Hours up to 6 AM 09/02/21 06:00 Intake Total 2380 ml Output Total 450 ml Balance 1930 ml Laboratory Data Labs 24H Laboratory Tests 2 09/02/21 05:46: Nucleated Red Blood Cells % (auto) 0.0, Anion Gap 6L, Glomerular Filtration Rate 50.5, Calcium Level 8.7L, Total Bilirubin 0.9, Aspartate Amino Transf (AST/SGOT) 22, Alanine Aminotransferase (ALT/SGPT) 26, Alkaline Phosphatase 57, Total Protein 5.6L, Albumin 2.8#L, Albumin/Globulin Ratio 1.0L CBC/BMP Laboratory Tests 09/02/21 05:46 Microbiology Microbiology 09/01/21 Respiratory Virus Panel (PCR) ([facility]) - Final, Complete Discharge Medications Scheduled Amlodipine Besylate (Amlodipine Besylate) 5 Mg Tablet, 5 MG PO DAILY, (Reported) Aspirin (Aspirin EC) 81 Mg Tab, 81 MG PO DAILY, (Reported) Atorvastatin Calcium (Atorvastatin Calcium) 40 Mg Tab, 40 MG PO QHS, (Reported) Bisacodyl (Bisacodyl) 5 Mg Tab, 5 MG PO DAILY, (Reported) Calcitriol (Calcitriol) 0.25 Mcg Cap, 0.25 MCG PO QHS, (Reported) Linagliptin (Tradjenta) 5 Mg Tab, 5 MG PO DAILY, (Reported) ON HOLD PER PCP Metoprolol Succinate (Metoprolol Succinate) 100 Mg Tab.er.24h, 100 MG PO QHS, (Reported) Mirabegron (Myrbetriq) 25 Mg Tab, 25 MG PO DAILY, (Reported) Omeprazole (Omeprazole) 20 Mg Capsule.dr, 20 MG PO DAILY, (Reported) Potassium Chloride (Potassium Chloride) 10 Meq Tab, 40 MEQ PO QHS, (Reported) Triamterene/Hydrochlorothiazid (Triamterene-Hctz 37.5-25 mg Tb) 1 Each Tablet, 1 TAB PO DAILY, (Reported) Warfarin Sodium (Warfarin Sodium) 7.5 Mg Tablet, 7.5 MG PO 2XW, (Reported) FRIDAY/FRIDAY Warfarin Sodium (Warfarin Sodium) 7.5 Mg Tablet, 3.75 MG PO 5XW, (Reported) SUN/FRI/FRI/FRI/FRI Scheduled PRN Cetirizine HCl (Cetirizine HCl) 10 Mg Tablet, 10 MG PO DAILY PRN for ALLERGIES, (Reported) Allergies Coded Allergies: Contrast Media (Verified Allergy, Unknown, 01/11/19) Blurred Vision Sulfa (Sulfonamide Antibiotics) (Verified Allergy, Unknown, 09/14/19) TIFFANIE BERMUDEZ MD Sep 02, 2021 10:32
[2021-09-03] MEDS ORDERED: WARFARIN SOD 7.5MG TAB PO SCH (17:00)
== END 2021-09-02 12:11 | disposition home or self-care (01) | DRG 392 ==
LOC: M ED 03:24 → M ED INP 09:36 → ENRESERV 10:58 → M MSPAV 11:30
PROVIDERS: ADMIT Internal Medicine; ATTEND Internal Medicine
DX: K52.9 Noninfective gastroenteritis and colitis, unspecified (principal); I10 Essential (primary) hypertension; I48.91 Unspecified atrial fibrillation; Z87.891 Personal history of nicotine dependence; Z20.822 Contact with and (suspected) exposure to COVID-19; Z79.82 Long term (current) use of aspirin; Z79.899 Other long term (current) drug therapy; Z79.01 Long term (current) use of anticoagulants; Z88.2 Allergy status to sulfonamides; Z91.041 Radiographic dye allergy status; D30.01 Benign neoplasm of right kidney; D30.02 Benign neoplasm of left kidney; N60.01 Solitary cyst of right breast; N60.02 Solitary cyst of left breast

== ENCOUNTER → 2021-09-04 | Outpatient (REF) | payer MEDICARE, MEDICAID ==
[~2021-09-04] MED LIST changes: +AMLO1TAB24 PO; +CETI10TA4 PO; +METO1TAB33 PO; +OMEP-218 PO; +WARF-21 PO
[2021-09-04 20:07] LABS: FREE T3 2.6 PG/ML (2.2-4.0); FREE T4 1.19 NG/DL (0.76-1.46); MAGNESIUM LEVEL 2.2 MG/DL (1.8-2.4); THYROID STIMULATING HORMONE 1.33 uIU/ML (0.358-3.740)
== END ==
LOC: M LAB REF 17:22
PROVIDERS: ATTEND Nurse Practitioner Family
DX: R53.83 Other fatigue (principal); E83.42 Hypomagnesemia

== ENCOUNTER → 2021-09-17 | Outpatient (CLI) | payer MEDICARE, MEDICAID ==
[2021-09-17 14:12] LABS: CALCIUM LEVEL 9.5 MG/DL (8.8-10.2); CREATININE FOR GFR 1.53 MG/DL (0.55-1.30); GLOMERULAR FILTRATION RATE 34.9 (>39); POTASSIUM SERUM 4.2 MEQ/L (3.5-5.1); PTH INTACT 65.4 PG/ML (18.5-88.0); TOTAL 25(OH) VITAMIN D 48.4 NG/ML (30.0-100.0)
== END ==
LOC: M PLALAB 10:19
PROVIDERS: ATTEND Physician Assistant Medical
DX: E55.9 Vitamin D deficiency, unspecified (principal); N18.30 Chronic kidney disease, stage 3 unspecified

== ENCOUNTER → 2021-09-26 | Outpatient (CLI) | payer MEDICARE, MEDICAID ==
[2021-09-26 11:40] LABS: INR 2.17; PROTHROMBIN TIME 24.6 SECONDS (12.7-14.5)
== END ==
LOC: M PLALAB 09:07
PROVIDERS: ATTEND Internal Medicine Cardiovascular Disease
DX: I48.0 Paroxysmal atrial fibrillation (principal); Z79.01 Long term (current) use of anticoagulants

== ENCOUNTER → 2021-10-02 | Outpatient (CLI) | payer MEDICARE, MEDICAID ==
[2021-10-02 10:54] LABS: CALCIUM LEVEL 9.4 MG/DL (8.8-10.2); CREATININE FOR GFR 1.55 MG/DL (0.55-1.30); GLOMERULAR FILTRATION RATE 34.3 (>39); POTASSIUM SERUM 4.3 MEQ/L (3.5-5.1)
== END ==
LOC: M PLALAB 09:18
PROVIDERS: ATTEND Physician Assistant Medical
DX: N28.89 Other specified disorders of kidney and ureter (principal)

== ENCOUNTER → 2021-10-03 | Outpatient (CLI) | payer MEDICARE, MEDICAID ==
--- NOTE | 2021-10-03 16:56 | REP ---
INDICATION: NODULE OF KIDNEY. COMPARISON: CT 09/01/2021, 04/11/2021; ultrasound 04/24/2021. TECHNIQUE: Noncontrast scanning through the abdomen and pelvis with coronal and sagittal reconstructions. FINDINGS: CT abdomen: The lung bases the for better inflated than the previous study there is no definite acute infiltrate. Some underlying minor fibrotic changes are seen. Heavy calcifications in the mitral annulus are again noted. No gross cardiomegaly, pericardial thickening or effusion. There is no hiatal hernia. The liver, spleen, adrenal glands and pancreas show no acute finding. No grossly visualized gallstones evident. I do not see distended gallbladder. Kidneys show atrophy and cortical thinning on the right, unchanged. The left side shows a stable simple cyst off the medial aspect upper pole up to 3.5 cm in diameter and unchanged from prior CT and confirmed by ultrasound as a simple cyst. No hydronephrosis, any definite solid mass, renal stone disease or perinephric fluid. Heavy atherosclerotic calcifications of the abdominal aorta and all branches. Small bowel loops are without dilatation or inflammatory change. Stool and gas scattered in the colon without signs of colitis or diverticulitis. I do not see inflammatory changes about the cecum or appendix. Lung window review of all CT slices shows no perforation or free air no generalized ascites. Bone windows show no interval change in the past month I see no new compression fracture or destructive lesion. There is facet arthropathy lower lumbar spine. Lordosis of the lumbar spine is maintained. CT pelvis: The sacrum, iliac bones, SI joints, pelvis and hips show some degenerative changes without destructive lesions or fractures. Uterus not enlarged. No pelvic mass. Bladder only minimally filled. I do not see a stone within it. There is no distal ureteral stone or ureteral dilatation. Multiple pelvic phleboliths are seen. No ventral or inguinal hernia seen. No pelvic free fluid. Distal left colon, sigmoid and rectum intact. Small bowel loops without dilatation or inflammatory change. IMPRESSION: 1. 3.5 cm simple cyst upper pole left kidney unchanged from previous study and confirmed by ultrasound with simple cyst characteristics. 2. Some mild atrophy and cortical thinning right kidney unchanged. No renal stone disease, solid mass or hydronephrosis. 3. Upper abdominal solid organs, stomach the lung bases and bowel loops unchanged. Nothing acute there. 4. Extensive atherosclerotic calcification aorta and branches. This is stable. <Electronically signed by Ezra Foley > 10/03/21 2351
== END ==
LOC: M PLAIMG 13:20
PROVIDERS: ATTEND Physician Assistant Medical
DX: N28.89 Other specified disorders of kidney and ureter (principal)

== ENCOUNTER → 2021-10-29 | Outpatient (CLI) | payer MEDICARE, MEDICAID ==
[~2021-10-29] MED LIST changes: +OMEP-173 PO; -OMEP-218 PO; -OMEP-221 PO; +OMEP40CA5 PO; +POTA-149 PO; -POTA10TA16 PO
[2021-10-29 10:54] LABS: INR 2.51; PROTHROMBIN TIME 27.4 SECONDS (12.7-14.5)
== END ==
LOC: M PLALAB 09:26
PROVIDERS: ATTEND Internal Medicine Cardiovascular Disease
DX: I48.0 Paroxysmal atrial fibrillation (principal); Z79.01 Long term (current) use of anticoagulants

== ENCOUNTER → 2021-11-12 | Outpatient (CLI) | payer MEDICARE, MEDICAID ==
[~2021-11-12] MED LIST changes: -OMEP-173 PO; +OMEP-218 PO; +OMEP-221 PO; -OMEP40CA5 PO; -POTA-149 PO; +POTA10TA16 PO
[2021-11-12 12:18] LABS: INR 2.44; PROTHROMBIN TIME 26.9 SECONDS (12.7-14.5)
== END ==
LOC: M PLALAB 09:37
PROVIDERS: ATTEND Internal Medicine Cardiovascular Disease
DX: Z51.81 Encounter for therapeutic drug level monitoring (principal); Z79.01 Long term (current) use of anticoagulants

== ENCOUNTER → 2021-12-06 | Outpatient (CLI) | payer MEDICARE, MEDICAID ==
[2021-12-06 13:04] LABS: INR 2.73; PROTHROMBIN TIME 29.3 SECONDS (12.7-14.5)
== END ==
LOC: M PLALAB 08:26
PROVIDERS: ATTEND Internal Medicine Cardiovascular Disease
DX: Z79.01 Long term (current) use of anticoagulants (principal); I48.0 Paroxysmal atrial fibrillation

== ENCOUNTER → 2021-12-20 | Outpatient (CLI) | payer MEDICARE, MEDICAID ==
[~2021-12-20] MED LIST changes: +OMEP-173 PO; -OMEP-218 PO; -OMEP-221 PO; +OMEP40CA5 PO; +POTA-149 PO; -POTA10TA16 PO
[2021-12-20 11:00] LABS: INR 2.43; PROTHROMBIN TIME 26.8 SECONDS (12.7-14.5)
== END ==
LOC: M PLALAB 09:06
PROVIDERS: ATTEND Internal Medicine Cardiovascular Disease
DX: Z51.81 Encounter for therapeutic drug level monitoring (principal); Z79.01 Long term (current) use of anticoagulants

== ENCOUNTER → 2022-01-02 | Outpatient (CLI) | payer MEDICARE, MEDICAID ==
[2022-01-02 10:39] LABS: INR 1.76; PROTHROMBIN TIME 20.9 SECONDS (12.7-14.5)
== END ==
LOC: M PLALAB 09:11
PROVIDERS: ATTEND Internal Medicine Cardiovascular Disease
DX: Z51.81 Encounter for therapeutic drug level monitoring (principal); Z79.01 Long term (current) use of anticoagulants

== ENCOUNTER → 2022-01-23 | Outpatient (CLI) | payer MEDICARE, MEDICAID ==
[2022-01-23 10:22] LABS: INR 1.7; PROTHROMBIN TIME 20.4 SECONDS (12.7-14.5)
== END ==
LOC: M PLALAB 09:10
PROVIDERS: ATTEND Internal Medicine Cardiovascular Disease
DX: I48.0 Paroxysmal atrial fibrillation (principal); Z79.01 Long term (current) use of anticoagulants

== ENCOUNTER → 2022-02-06 | Outpatient (CLI) | payer MEDICARE, MEDICAID ==
[2022-02-06 11:08] LABS: INR 2.29; PROTHROMBIN TIME 25.6 SECONDS (12.7-14.5)
== END ==
LOC: M PLALAB 08:53
PROVIDERS: ATTEND Internal Medicine Cardiovascular Disease
DX: I48.0 Paroxysmal atrial fibrillation (principal); Z79.01 Long term (current) use of anticoagulants

== ENCOUNTER → 2022-03-06 | Outpatient (CLI) | payer MEDICARE, MEDICAID ==
[2022-03-06 13:50] LABS: INR 2.43; PROTHROMBIN TIME 26.8 SECONDS (12.7-14.5)
== END ==
LOC: M PLALAB 09:18
PROVIDERS: ATTEND Internal Medicine Cardiovascular Disease
DX: I48.0 Paroxysmal atrial fibrillation (principal); Z79.01 Long term (current) use of anticoagulants

== ENCOUNTER → 2022-03-06 | Outpatient (CLI) | payer MEDICARE, MEDICAID ==
[2022-03-06 13:30] LABS: BASO % 0.7 % (0.0-1.0); EOS # 0.1 10^3/uL (0.0-0.5); EOS % 2.4 % (0.0-3.0); HEMATOCRIT 36.7 % (36.0-47.0); HEMOGLOBIN 12.1 g/dl (12.0-15.5); LYMPH # 0.9 10^3/uL (1.5-5.0); LYMPH % 14.7 % (24.0-44.0); MEAN CORPUSCULAR HEMOGLOBIN 31.6 pg (27.0-33.0); MEAN CORPUSCULAR VOLUME 95.8 fl (80.0-96.0); MONO # 0.6 10^3/uL (0.0-0.8); MONO % 10.7 % (2.0-8.0); NEUTROPHILS # 4.1 10^3/uL (1.5-8.5); NEUTROPHILS % 71.2 % (36.0-66.0); PLATELET COUNT, AUTOMATED 167 10^3/uL (150-450); RED BLOOD COUNT 3.83 10^6/uL (4.00-5.40); WHITE BLOOD COUNT 5.8 10^3/uL (4.0-10.0)
[2022-03-06 14:01] LABS: HEMOGLOBIN A1c 5.8 %
[2022-03-06 14:05] LABS: ALBUMIN 3.6 GM/DL (3.2-5.2); BILIRUBIN,TOTAL 1.2 MG/DL (0.2-1.0); CALCIUM LEVEL 9.3 MG/DL (8.8-10.2); CHOLESTEROL RISK RATIO 2.327 (<5); CREATININE FOR GFR 1.54 MG/DL (0.55-1.30); GLOMERULAR FILTRATION RATE 34.6 (>39); TOTAL PROTEIN 6.4 GM/DL (6.4-8.2)
[2022-03-06 14:12] LABS: MALB URINE SIEMENS 9.5 MG/L; MAU/CREAT RATIO 7.3 MCG/MG (0.0-30.0)
== END ==
LOC: M PLALAB 09:20
PROVIDERS: ATTEND Physician Assistant Medical
DX: N18.30 Chronic kidney disease, stage 3 unspecified (principal); E11.9 Type 2 diabetes mellitus without complications; I12.9 Hypertensive chronic kidney disease with stage 1 through stage 4 chronic kidney disease, or unspecified chronic kidney disease; I48.0 Paroxysmal atrial fibrillation; Z79.01 Long term (current) use of anticoagulants; Z13.220 Encounter for screening for lipoid disorders

== ENCOUNTER → 2022-03-20 | Outpatient (CLI) | payer MEDICARE, MEDICAID ==
[2022-03-20 10:33] LABS: INR 1.96; PROTHROMBIN TIME 22.7 SECONDS (12.7-14.5)
== END ==
LOC: M PLALAB 09:05
PROVIDERS: ATTEND Internal Medicine Cardiovascular Disease
DX: Z79.01 Long term (current) use of anticoagulants (principal); I48.0 Paroxysmal atrial fibrillation

== ENCOUNTER → 2022-04-17 | Outpatient (CLI) | payer MEDICARE, MEDICAID ==
[2022-04-17 10:38] LABS: INR 1.98; PROTHROMBIN TIME 22.9 SECONDS (12.7-14.5)
== END ==
LOC: M PLALAB 09:01
PROVIDERS: ATTEND Internal Medicine Cardiovascular Disease
DX: Z79.01 Long term (current) use of anticoagulants (principal); I48.0 Paroxysmal atrial fibrillation

== ENCOUNTER → 2022-05-07 | Outpatient (REF) | payer MEDICARE, MEDICAID ==
[2022-05-07 13:57] LABS: APPEARANCE, URINE HAZY (CLEAR); BACTERIA, URINE AUTO 1+ (NEGATIVE); BILIRUBIN, URINE AUTO NEGATIVE (NEGATIVE); BLOOD, URINE BLOOD NEGATIVE (NEGATIVE); COLOR, URINE YELLOW (YELLOW); GLUCOSE, URINE (UA) AUTO NEGATIVE (NEGATIVE); KETONE, URINE AUTO NEGATIVE (NEGATIVE); LEUKOCYTE ESTERASE, URINE AUTO 2+ (NEGATIVE); NITRITE, URINE AUTO NEGATIVE (NEGATIVE); PROTEIN, URINE AUTO NEGATIVE (NEGATIVE); RBC, URINE AUTO 1 /HPF (0-3); SPECIFIC GRAVITY URINE AUTO 1.017 (1.002-1.035); SQUAMOUS EPITHELIAL CELL UR AU 8 /HPF (0-6); TRANSITIONAL EPITHELIAL AUTO <1 /HPF; WBC, URINE AUTO 5 /HPF (0-3)
== END ==
LOC: M SMT 13:11
PROVIDERS: ATTEND Nurse Practitioner Women's Health
DX: R39.89 Other symptoms and signs involving the genitourinary system (principal)

== ENCOUNTER → 2022-05-08 | Outpatient (CLI) | payer MEDICARE, MEDICAID ==
[2022-05-08 10:33] LABS: INR 1.88
== END ==
LOC: M PLALAB 09:13
PROVIDERS: ATTEND Internal Medicine Cardiovascular Disease
DX: Z79.01 Long term (current) use of anticoagulants (principal); I48.0 Paroxysmal atrial fibrillation

== ENCOUNTER → 2022-05-22 | Outpatient (CLI) | payer MEDICARE, MEDICAID ==
[2022-05-22 11:04] LABS: INR 1.92; PROTHROMBIN TIME 22.4 SECONDS (12.7-14.5)
== END ==
LOC: M PLALAB 09:13
PROVIDERS: ATTEND Internal Medicine Cardiovascular Disease
DX: Z79.01 Long term (current) use of anticoagulants (principal); I48.0 Paroxysmal atrial fibrillation

== ENCOUNTER → 2022-05-28 | Outpatient (CLI) | payer MEDICARE, MEDICAID ==
[2022-05-28 13:45] LABS: ALBUMIN 3.6 GM/DL (3.2-5.2); BILIRUBIN,TOTAL 1.1 MG/DL (0.2-1.0); CALCIUM LEVEL 9.2 MG/DL (8.8-10.2); CREATININE FOR GFR 1.45 MG/DL (0.55-1.30); POTASSIUM SERUM 4.2 MEQ/L (3.5-5.1); TOTAL PROTEIN 6.3 GM/DL (6.4-8.2)
[2022-05-28 13:56] LABS: HEMOGLOBIN A1c 5.4 %
== END ==
LOC: M PLALAB 09:34
PROVIDERS: ATTEND Physician Assistant Medical
DX: I48.0 Paroxysmal atrial fibrillation (principal); E11.9 Type 2 diabetes mellitus without complications; Z79.01 Long term (current) use of anticoagulants

== ENCOUNTER → 2022-06-12 | Outpatient (CLI) | payer MEDICARE, MEDICAID ==
[2022-06-12 11:38] LABS: INR 1.53; PROTHROMBIN TIME 18.8 SECONDS (12.7-14.5)
== END ==
LOC: M PLALAB 09:02
PROVIDERS: ATTEND Internal Medicine Cardiovascular Disease
DX: Z79.01 Long term (current) use of anticoagulants (principal); I48.0 Paroxysmal atrial fibrillation

== ENCOUNTER → 2022-06-24 | Outpatient (CLI) | payer MEDICARE, MEDICAID ==
[2022-06-24 14:26] LABS: INR 1.88
== END ==
LOC: M PLALAB 09:36
PROVIDERS: ATTEND Internal Medicine Cardiovascular Disease
DX: I48.0 Paroxysmal atrial fibrillation (principal); Z79.01 Long term (current) use of anticoagulants

== ENCOUNTER → 2022-07-08 | Outpatient (CLI) | payer MEDICARE, MEDICAID ==
[2022-07-08 11:33] LABS: INR 1.95; PROTHROMBIN TIME 22.6 SECONDS (12.7-14.5)
== END ==
LOC: M PLALAB 09:08
PROVIDERS: ATTEND Internal Medicine Cardiovascular Disease
DX: I48.0 Paroxysmal atrial fibrillation (principal); Z79.01 Long term (current) use of anticoagulants

== ENCOUNTER → 2022-07-29 | Outpatient (CLI) | payer MEDICARE, MEDICAID ==
[2022-07-29 10:42] LABS: INR 2.39; PROTHROMBIN TIME 26.4 SECONDS (12.7-14.5)
== END ==
LOC: M PLALAB 08:50
PROVIDERS: ATTEND Internal Medicine Cardiovascular Disease
DX: I48.0 Paroxysmal atrial fibrillation (principal); Z79.01 Long term (current) use of anticoagulants

== ENCOUNTER 2022-08-05 10:02 | Emergency (ER) | payer MEDICARE, MEDICAID ==
[~2022-08-05] VITALS: Ht 157.5 cm; Wt 58.3 kg
[2022-08-05 13:14] LABS: BASO % 0.5 % (0.0-1.0); EOS # 0.1 10^3/uL (0.0-0.5); HEMATOCRIT 40.9 % (36.0-47.0); HEMOGLOBIN 13.3 g/dl (12.0-15.5); LYMPH # 1.2 10^3/uL (1.5-5.0); LYMPH % 19.4 % (24.0-44.0); MEAN CORPUSCULAR HEMOGLOBIN 30.9 pg (27.0-33.0); MEAN CORPUSCULAR HGB CONC 32.5 g/dl (32.0-36.5); MEAN CORPUSCULAR VOLUME 94.9 fl (80.0-96.0); MONO # 0.6 10^3/uL (0.0-0.8); MONO % 10.4 % (2.0-8.0); NEUTROPHILS # 4.1 10^3/uL (1.5-8.5); NEUTROPHILS % 68.4 % (36.0-66.0); PLATELET COUNT, AUTOMATED 175 10^3/uL (150-450); RED BLOOD COUNT 4.31 10^6/uL (4.00-5.40); WHITE BLOOD COUNT 5.9 10^3/uL (4.0-10.0)
[2022-08-05 13:27] LABS: INR 2.12; PROTHROMBIN TIME 24.1 SECONDS (12.7-14.5)
[2022-08-05 13:30] LABS: D-DIMER QUANT 532.71 ng/ml (<500)
[2022-08-05 13:48] LABS: CK-MB VALUE MASS 1.4 NG/ML (<3.6); MB/CK RELATIVE INDEX 1.43 (< OR =4)
[2022-08-05 13:58] LABS: BILIRUBIN,DIRECT 0.4 MG/DL (0.0-0.2); BILIRUBIN,TOTAL 1.5 MG/DL (0.2-1.0); CALCIUM LEVEL 10.1 MG/DL (8.8-10.2); CREATININE FOR GFR 1.4 MG/DL (0.55-1.30); FREE T4 1.19 NG/DL (0.76-1.46); GLOMERULAR FILTRATION RATE 38.5 (>32); POTASSIUM SERUM 3.9 MEQ/L (3.5-5.1); THYROID STIMULATING HORMONE 1.94 uIU/ML (0.358-3.740); TOTAL PROTEIN 7.4 GM/DL (6.4-8.2)
[2022-08-05] MEDS ORDERED: ACETAMINOPHEN TAB 650MG DOSE (2X325MG) PO ONE (14:35)
[2022-08-05 15:11] LABS: CK-MB VALUE MASS 1.6 NG/ML (<3.6); MB/CK RELATIVE INDEX 2.13 (< OR =4)
[2022-08-05 15:39] VITALS: BP 134/65
== END 2022-08-05 15:48 | disposition home or self-care (01) ==
LOC: M ED 10:02
DX: M79.604 Pain in right leg (principal); R07.9 Chest pain, unspecified; E11.9 Type 2 diabetes mellitus without complications; I10 Essential (primary) hypertension; N18.9 Chronic kidney disease, unspecified; E78.5 Hyperlipidemia, unspecified; I25.10 Atherosclerotic heart disease of native coronary artery without angina pectoris; I48.91 Unspecified atrial fibrillation; Z88.1 Allergy status to other antibiotic agents; Z88.2 Allergy status to sulfonamides; Z91.041 Radiographic dye allergy status; Z79.899 Other long term (current) drug therapy; Z79.84 Long term (current) use of oral hypoglycemic drugs; Z79.82 Long term (current) use of aspirin; Z79.01 Long term (current) use of anticoagulants

== ENCOUNTER → 2022-08-27 | Outpatient (CLI) | payer MEDICARE, MEDICAID | LOC: M RAD 15:30 | PROVIDERS: ATTEND Physician Assistant Medical | DX: R10.31 Right lower quadrant pain (principal) ==

== ENCOUNTER → 2022-08-29 | Outpatient (CLI) | payer MEDICARE, MEDICAID ==
[2022-08-29 13:23] LABS: INR 2.21; PROTHROMBIN TIME 24.9 SECONDS (12.7-14.5)
== END ==
LOC: M PLALAB 09:24
PROVIDERS: ATTEND Internal Medicine Cardiovascular Disease
DX: Z79.01 Long term (current) use of anticoagulants (principal); I48.0 Paroxysmal atrial fibrillation

== ENCOUNTER 2022-09-10 17:16 | Emergency (ER) | payer MEDICARE, MEDICAID ==
[~2022-09-10] VITALS: Ht 165.1 cm; Wt 58.1 kg
[2022-09-10 19:16] LABS: BASO % 0.2 % (0.0-1.0); EOS % 0.1 % (0.0-3.0); HEMATOCRIT 36.4 % (36.0-47.0); HEMOGLOBIN 12.4 g/dl (12.0-15.5); LYMPH # 0.3 10^3/uL (1.5-5.0); LYMPH % 2.2 % (24.0-44.0); MEAN CORPUSCULAR HEMOGLOBIN 31.4 pg (27.0-33.0); MEAN CORPUSCULAR HGB CONC 34.1 g/dl (32.0-36.5); MEAN CORPUSCULAR VOLUME 92.2 fl (80.0-96.0); MONO # 0.7 10^3/uL (0.0-0.8); MONO % 5.7 % (2.0-8.0); NEUTROPHILS # 11.9 10^3/uL (1.5-8.5); NEUTROPHILS % 91.3 % (36.0-66.0); PLATELET COUNT, AUTOMATED 158 10^3/uL (150-450); RED BLOOD COUNT 3.95 10^6/uL (4.00-5.40)
[2022-09-10 19:48] LABS: ALBUMIN 3.8 GM/DL (3.2-5.2); BILIRUBIN,DIRECT 0.6 MG/DL (0.0-0.2); BILIRUBIN,TOTAL 1.5 MG/DL (0.2-1.0); CALCIUM LEVEL 9.5 MG/DL (8.8-10.2); CREATININE FOR GFR 1.61 MG/DL (0.55-1.30); GLOMERULAR FILTRATION RATE 32.8 (>32); POTASSIUM SERUM 3.5 MEQ/L (3.5-5.1); TOTAL PROTEIN 6.7 GM/DL (6.4-8.2)
[2022-09-10 20:32] VITALS: BP 123/57
== END 2022-09-10 20:55 | disposition home or self-care (01) ==
LOC: M ED 17:16
DX: R19.7 Diarrhea, unspecified (principal); R11.10 Vomiting, unspecified; N18.30 Chronic kidney disease, stage 3 unspecified; I48.91 Unspecified atrial fibrillation; E78.5 Hyperlipidemia, unspecified; I11.9 Hypertensive heart disease without heart failure; I25.119 Atherosclerotic heart disease of native coronary artery with unspecified angina pectoris; Z88.1 Allergy status to other antibiotic agents; Z88.2 Allergy status to sulfonamides; Z91.041 Radiographic dye allergy status; Z95.818 Presence of other cardiac implants and grafts

== ENCOUNTER → 2022-09-25 | Outpatient (CLI) | payer MEDICARE, MEDICAID ==
[2022-09-25 14:20] LABS: INR 1.96; PROTHROMBIN TIME 22.7 SECONDS (12.5-14.5)
== END ==
LOC: M PLALAB 09:16
PROVIDERS: ATTEND Internal Medicine Cardiovascular Disease
DX: I48.0 Paroxysmal atrial fibrillation (principal); Z79.01 Long term (current) use of anticoagulants

== ENCOUNTER → 2022-10-16 | Outpatient (CLI) | payer MEDICARE, MEDICAID ==
[2022-10-16 14:29] LABS: INR 2.42; PROTHROMBIN TIME 26.8 SECONDS (12.5-14.5)
== END ==
LOC: M PLALAB 09:24
PROVIDERS: ATTEND Internal Medicine Cardiovascular Disease
DX: I48.0 Paroxysmal atrial fibrillation (principal); Z79.01 Long term (current) use of anticoagulants

== ENCOUNTER → 2022-11-06 | Outpatient (CLI) | payer MEDICARE, MEDICAID ==
[2022-11-06 15:17] LABS: INR 2.12; PROTHROMBIN TIME 24.1 SECONDS (12.5-14.5)
== END ==
LOC: M PLALAB 09:20
PROVIDERS: ATTEND Internal Medicine Cardiovascular Disease
DX: I48.0 Paroxysmal atrial fibrillation (principal); Z79.01 Long term (current) use of anticoagulants

== ENCOUNTER → 2022-11-14 | Outpatient (CLI) | payer MEDICARE, MEDICAID ==
[2022-11-14 13:49] LABS: ALBUMIN 3.5 G/DL (3.2-5.2); BILIRUBIN,TOTAL 1.2 MG/DL (0.3-1.2); CALCIUM LEVEL 9.7 MG/DL (8.3-10.6); CREATININE FOR GFR 1.44 MG/DL (0.55-1.30); GLOMERULAR FILTRATION RATE 37.3 (>32); POTASSIUM SERUM 4.6 MMOL/L (3.5-5.1); TOTAL PROTEIN 6.4 G/DL (5.7-8.2)
[2022-11-14 14:09] LABS: HEMOGLOBIN A1c 5.4 % (4.0-6.0)
== END ==
LOC: M PLALAB 09:29
PROVIDERS: ATTEND Physician Assistant Medical
DX: E11.9 Type 2 diabetes mellitus without complications (principal)

== ENCOUNTER → 2022-11-19 | Outpatient (REF) | payer MEDICARE, MEDICAID ==
[2022-11-19 19:44] LABS: APPEARANCE, URINE MANUAL CLEAR (CLEAR); COLOR, URINE MANUAL YELLOW (YELLOW)
[2022-11-19 19:45] LABS: BILIRUBIN, URINE MANUAL NEGATIVE (NEGATIVE); BLOOD URINE MANUAL NEGATIVE (NEGATIVE); GLUCOSE, URINE (UA) MANUAL NEGATIVE (NEGATIVE); KETONE, URINE MANUAL NEGATIVE (NEGATIVE); LEUKOCYTE ESTERASE, URINE MAN NEGATIVE (NEGATIVE); NITRITE, URINE MANUAL NEGATIVE (NEGATIVE); PROTEIN, URINE MANUAL NEGATIVE (NEGATIVE); SPECIFIC GRAVITY,URINE MANUAL 1.005 (1.002-1.035); UROBILINOGEN, URINE MANUAL NORMAL (NORMAL)
== END ==
LOC: M SMT 15:01
PROVIDERS: ATTEND Nurse Practitioner Women's Health
DX: N32.81 Overactive bladder (principal)

== ENCOUNTER → 2022-12-04 | Outpatient (CLI) | payer MEDICARE, MEDICAID ==
[2022-12-04 13:46] LABS: INR 2.29; PROTHROMBIN TIME 25.6 SECONDS (12.5-14.5)
== END ==
LOC: M PLALAB 09:29
PROVIDERS: ATTEND Internal Medicine Cardiovascular Disease
DX: I48.0 Paroxysmal atrial fibrillation (principal); Z79.01 Long term (current) use of anticoagulants

== ENCOUNTER → 2023-01-01 | Outpatient (CLI) | payer MEDICARE, MEDICAID ==
[2023-01-01 10:38] LABS: INR 1.89
== END ==
LOC: M PLALAB 08:39
PROVIDERS: ATTEND Internal Medicine Cardiovascular Disease
DX: I48.0 Paroxysmal atrial fibrillation (principal); Z79.01 Long term (current) use of anticoagulants

== ENCOUNTER → 2023-01-20 | Outpatient (CLI) | payer MEDICARE, MEDICAID ==
[2023-01-20 10:25] LABS: BASO % 0.6 % (0.0-1.0); EOS # 0.1 10^3/uL (0.0-0.5); EOS % 1.9 % (0.0-3.0); HEMOGLOBIN 12.5 g/dl (12.0-15.5); LYMPH % 21.4 % (24.0-44.0); MEAN CORPUSCULAR HEMOGLOBIN 30.1 pg (27.0-33.0); MEAN CORPUSCULAR HGB CONC 31.3 g/dl (32.0-36.5); MEAN CORPUSCULAR VOLUME 96.4 fl (80.0-96.0); MONO # 0.6 10^3/uL (0.0-0.8); MONO % 11.7 % (2.0-8.0); NEUTROPHILS # 3.1 10^3/uL (1.5-8.5); NEUTROPHILS % 64.2 % (36.0-66.0); PLATELET COUNT, AUTOMATED 185 10^3/uL (150-450); RED BLOOD COUNT 4.15 10^6/uL (4.00-5.40); WHITE BLOOD COUNT 4.9 10^3/uL (4.0-10.0)
[2023-01-20 10:53] LABS: ALBUMIN 3.4 G/DL (3.2-5.2); BILIRUBIN,TOTAL 1.4 MG/DL (0.3-1.2); CALCIUM LEVEL 9.9 MG/DL (8.3-10.6); CHOLESTEROL RISK RATIO 2.85 (<5); CREATININE FOR GFR 1.42 MG/DL (0.55-1.30); GLOMERULAR FILTRATION RATE 37.9 (>32); HDL CHOLESTEROL 52.6 MG/DL (>40); LDL CHOLESTEROL 83.8 MG/DL (<100); POTASSIUM SERUM 4.2 MMOL/L (3.5-5.1); TOTAL 25(OH) VITAMIN D 30.5 NG/ML (20.0-100.0); TOTAL PROTEIN 6.2 G/DL (5.7-8.2)
[2023-01-20 11:10] LABS: HEMOGLOBIN A1c 5.7 % (4.0-6.0)
== END ==
LOC: M PLALAB 08:54
PROVIDERS: ATTEND Physician Assistant Medical
DX: E11.9 Type 2 diabetes mellitus without complications (principal); I10 Essential (primary) hypertension; E55.9 Vitamin D deficiency, unspecified; E78.2 Mixed hyperlipidemia

== ENCOUNTER → 2023-01-27 | Outpatient (CLI) | payer MEDICARE, MEDICAID ==
[2023-01-27 13:41] LABS: INR 2.88; PROTHROMBIN TIME 30.6 SECONDS (12.5-14.5)
== END ==
LOC: M PLALAB 09:33
PROVIDERS: ATTEND Internal Medicine Cardiovascular Disease
DX: Z79.01 Long term (current) use of anticoagulants (principal); I48.0 Paroxysmal atrial fibrillation

== ENCOUNTER 2023-01-29 12:56 | Emergency (ER) | payer MEDICARE, MEDICAID ==
[~2023-01-29] VITALS: Ht 157.5 cm; Wt 59.3 kg
[2023-01-29] MEDS ORDERED: ASPIRIN 81MG CHEW TABLET PO ONE (13:30)
[2023-01-29 13:45] LABS: BASO % 0.5 % (0.0-1.0); EOS # 0.1 10^3/uL (0.0-0.5); EOS % 1.8 % (0.0-3.0); HEMATOCRIT 37.6 % (36.0-47.0); HEMOGLOBIN 12.1 g/dl (12.0-15.5); LYMPH # 1.3 10^3/uL (1.5-5.0); LYMPH % 22.5 % (24.0-44.0); MEAN CORPUSCULAR HEMOGLOBIN 30.9 pg (27.0-33.0); MEAN CORPUSCULAR HGB CONC 32.2 g/dl (32.0-36.5); MEAN CORPUSCULAR VOLUME 96.2 fl (80.0-96.0); MONO # 0.5 10^3/uL (0.0-0.8); MONO % 8.8 % (2.0-8.0); NEUTROPHILS # 3.7 10^3/uL (1.5-8.5); PLATELET COUNT, AUTOMATED 169 10^3/uL (150-450); RED BLOOD COUNT 3.91 10^6/uL (4.00-5.40); WHITE BLOOD COUNT 5.7 10^3/uL (4.0-10.0)
[2023-01-29 14:07] LABS: CK-MB VALUE MASS 1.4 NG/ML (<3.6)
[2023-01-29 14:08] LABS: MB/CK RELATIVE INDEX 1.97 (< OR =4)
[2023-01-29 14:09] LABS: ALBUMIN 3.8 G/DL (3.2-5.2); BILIRUBIN,DIRECT 0.5 MG/DL (<0.4); BILIRUBIN,TOTAL 1.2 MG/DL (0.3-1.2); CALCIUM LEVEL 9.3 MG/DL (8.3-10.6); CREATININE FOR GFR 1.36 MG/DL (0.55-1.30); GLOMERULAR FILTRATION RATE 39.8 (>32); POTASSIUM SERUM 3.6 MMOL/L (3.5-5.1); TOTAL PROTEIN 6.6 G/DL (5.7-8.2)
[2023-01-29 14:11] LABS: FREE T4 1.09 NG/DL (0.89-1.76); THYROID STIMULATING HORMONE 2.34 uIU/ML (0.55-4.78)
[2023-01-29 15:00] LABS: INR 3.08; PROTHROMBIN TIME 32.3 SECONDS (12.5-14.5)
[2023-01-29 15:01] LABS: PARTIAL THROMBOPLASTIN TIME 46.8 SECONDS (24.8-34.2)
[2023-01-29 15:12] LABS: D-DIMER QUANT 346.5 ng/ml (<500)
[2023-01-29 15:24] LABS: CK-MB VALUE MASS 1.5 NG/ML (<3.6); MB/CK RELATIVE INDEX 2.3 (< OR =4)
[2023-01-29 17:00] VITALS: BP 161/67
== END 2023-01-29 17:16 | disposition home or self-care (01) ==
LOC: M ED 12:56
DX: R07.9 Chest pain, unspecified (principal); I48.91 Unspecified atrial fibrillation; I25.10 Atherosclerotic heart disease of native coronary artery without angina pectoris; E11.9 Type 2 diabetes mellitus without complications; I12.9 Hypertensive chronic kidney disease with stage 1 through stage 4 chronic kidney disease, or unspecified chronic kidney disease; N18.9 Chronic kidney disease, unspecified; E78.5 Hyperlipidemia, unspecified; D64.9 Anemia, unspecified; N32.81 Overactive bladder; N26.1 Atrophy of kidney (terminal); Z95.5 Presence of coronary angioplasty implant and graft; Z87.891 Personal history of nicotine dependence; Z88.2 Allergy status to sulfonamides; Z91.041 Radiographic dye allergy status; Z79.82 Long term (current) use of aspirin; Z79.899 Other long term (current) drug therapy; Z79.01 Long term (current) use of anticoagulants

== ENCOUNTER → 2023-02-10 | Outpatient (CLI) | payer MEDICARE, MEDICAID ==
[2023-02-10 13:31] LABS: INR 3.18; PROTHROMBIN TIME 33.1 SECONDS (12.5-14.5)
== END ==
LOC: M PLALAB 10:00
PROVIDERS: ATTEND Internal Medicine Cardiovascular Disease
DX: I48.0 Paroxysmal atrial fibrillation (principal); Z79.01 Long term (current) use of anticoagulants

== ENCOUNTER → 2023-02-24 | Outpatient (CLI) | payer MEDICARE, MEDICAID ==
[2023-02-24 10:49] LABS: INR 2.06; PROTHROMBIN TIME 23.6 SECONDS (12.5-14.5)
== END ==
LOC: M PLALAB 09:07
PROVIDERS: ATTEND Internal Medicine Cardiovascular Disease
DX: I48.0 Paroxysmal atrial fibrillation (principal); Z79.01 Long term (current) use of anticoagulants

== ENCOUNTER 2023-02-28 13:55 | Emergency (ER) | payer MEDICARE, MEDICAID ==
[~2023-02-28] VITALS: Ht 157.5 cm; Wt 58.3 kg
[2023-02-28 15:49] LABS: BASO % 0.6 % (0.0-1.0); EOS # 0.1 10^3/uL (0.0-0.5); EOS % 1.3 % (0.0-3.0); HEMATOCRIT 37.2 % (36.0-47.0); HEMOGLOBIN 11.9 g/dl (12.0-15.5); LYMPH # 1.1 10^3/uL (1.5-5.0); LYMPH % 20.4 % (24.0-44.0); MEAN CORPUSCULAR HEMOGLOBIN 30.7 pg (27.0-33.0); MEAN CORPUSCULAR VOLUME 96.1 fl (80.0-96.0); MONO # 0.5 10^3/uL (0.0-0.8); MONO % 8.6 % (2.0-8.0); NEUTROPHILS # 3.7 10^3/uL (1.5-8.5); NEUTROPHILS % 68.7 % (36.0-66.0); PLATELET COUNT, AUTOMATED 152 10^3/uL (150-450); RED BLOOD COUNT 3.87 10^6/uL (4.00-5.40); WHITE BLOOD COUNT 5.3 10^3/uL (4.0-10.0)
[2023-02-28 16:09] LABS: INR 1.71; PARTIAL THROMBOPLASTIN TIME 32.8 SECONDS (24.8-34.2); PROTHROMBIN TIME 20.4 SECONDS (12.5-14.5)
[2023-02-28 16:20] LABS: CALCIUM LEVEL 9.2 MG/DL (8.3-10.6); CREATININE FOR GFR 1.31 MG/DL (0.55-1.30); GLOMERULAR FILTRATION RATE 41.6 (>32); POTASSIUM SERUM 3.7 MMOL/L (3.5-5.1)
[2023-02-28] MEDS ORDERED: PYRI1TAB5 PO (16:29)
[2023-02-28] MEDS ORDERED: oxyBUTYnin 5 MG TAB PO ONE (16:30)
[2023-02-28] MEDS ORDERED: PHENAZOPYRIDINE 100 MG TAB PO ONE (16:30)
[2023-02-28 16:44] VITALS: BP 125/60
== END 2023-02-28 16:45 | disposition home or self-care (01) ==
LOC: M ED 13:55
DX: R35.0 Frequency of micturition (principal); I10 Essential (primary) hypertension; I11.9 Hypertensive heart disease without heart failure; I48.91 Unspecified atrial fibrillation; K21.9 Gastro-esophageal reflux disease without esophagitis; N18.9 Chronic kidney disease, unspecified; F17.200 Nicotine dependence, unspecified, uncomplicated

== ENCOUNTER → 2023-03-17 | Outpatient (CLI) | payer MEDICARE, MEDICAID ==
[~2023-03-17] MED LIST changes: +PYRI1TAB5 PO
[2023-03-17 11:00] LABS: INR 2.44; PROTHROMBIN TIME 26.9 SECONDS (12.5-14.5)
== END ==
LOC: M PLALAB 08:44
PROVIDERS: ATTEND Internal Medicine Cardiovascular Disease
DX: I48.0 Paroxysmal atrial fibrillation (principal); Z79.01 Long term (current) use of anticoagulants

== ENCOUNTER → 2023-03-31 | Outpatient (CLI) | payer MEDICARE, MEDICAID ==
[2023-03-31 11:05] LABS: INR 2.41; PROTHROMBIN TIME 26.6 SECONDS (12.5-14.5)
== END ==
LOC: M PLALAB 08:56
PROVIDERS: ATTEND Internal Medicine Cardiovascular Disease
DX: I48.0 Paroxysmal atrial fibrillation (principal); Z79.01 Long term (current) use of anticoagulants

== ENCOUNTER → 2023-04-14 | Outpatient (CLI) | payer MEDICARE, MEDICAID ==
[2023-04-14 10:57] LABS: INR 1.86; PROTHROMBIN TIME 21.8 SECONDS (12.5-14.5)
== END ==
LOC: M PLALAB 08:49
PROVIDERS: ATTEND Internal Medicine Cardiovascular Disease
DX: I48.0 Paroxysmal atrial fibrillation (principal); Z79.01 Long term (current) use of anticoagulants

== ENCOUNTER → 2023-04-29 | Outpatient (CLI) | payer MEDICARE, MEDICAID ==
[2023-04-29 10:57] LABS: INR 1.73; PROTHROMBIN TIME 20.6 SECONDS (12.5-14.5)
== END ==
LOC: M PLALAB 08:43
PROVIDERS: ATTEND Internal Medicine Cardiovascular Disease
DX: I48.0 Paroxysmal atrial fibrillation (principal); Z79.01 Long term (current) use of anticoagulants

== ENCOUNTER 2023-05-08 14:06 | Emergency (ER) | payer MEDICARE, MEDICAID ==
[~2023-05-08] VITALS: Ht 157.5 cm; Wt 58.2 kg
[2023-05-08 14:06] VITALS: TEMP 98.4
[~2023-05-08 14:06] MED LIST changes: -K-TA10TA2 PO; +POTA-165 PO
[2023-05-08] MEDS ORDERED: TRIA37.5 PO (14:45)
[2023-05-08] MEDS ORDERED: WARF-21 PO ×2 (14:45)
[2023-05-08 15:35] LABS: BASO % 0.6 % (0.0-1.0); EOS # 0.1 10^3/uL (0.0-0.5); EOS % 0.9 % (0.0-3.0); HEMATOCRIT 37.5 % (36.0-47.0); HEMOGLOBIN 11.8 g/dl (12.0-15.5); LYMPH % 18.4 % (24.0-44.0); MEAN CORPUSCULAR HEMOGLOBIN 30.2 pg (27.0-33.0); MEAN CORPUSCULAR HGB CONC 31.5 g/dl (32.0-36.5); MEAN CORPUSCULAR VOLUME 95.9 fl (80.0-96.0); MONO # 0.5 10^3/uL (0.0-0.8); MONO % 9.7 % (2.0-8.0); NEUTROPHILS # 3.7 10^3/uL (1.5-8.5); PLATELET COUNT, AUTOMATED 185 10^3/uL (150-450); RED BLOOD COUNT 3.91 10^6/uL (4.00-5.40); WHITE BLOOD COUNT 5.3 10^3/uL (4.0-10.0)
[2023-05-08 15:58] LABS: CK-MB VALUE MASS < 1.0 NG/ML (<3.6)
[2023-05-08 16:01] LABS: BLOOD UREA NITROGEN 25 MG/DL (9-23); CALCIUM LEVEL 9.2 MG/DL (8.3-10.6); CARBON DIOXIDE LEVEL 31 MMOL/L (20-31); CHLORIDE LEVEL 103 MMOL/L (98-107); CREATININE FOR GFR 1.36 MG/DL (0.55-1.30); GLOMERULAR FILTRATION RATE 39.7 (>32); GLUCOSE, FASTING 142 MG/DL (74-106); POTASSIUM SERUM 3.9 MMOL/L (3.5-5.1); SODIUM LEVEL 140 MMOL/L (136-145)
[2023-05-08 16:06] LABS: CPK CREATINE PHOSPHOKINASE 59 U/L (34-145); MB/CK RELATIVE INDEX 1.69 (< OR =4)
[2023-05-08 17:19] LABS: CK-MB VALUE MASS < 1.0 NG/ML (<3.6)
[2023-05-08 17:21] LABS: CPK CREATINE PHOSPHOKINASE 59 U/L (34-145); MB/CK RELATIVE INDEX 1.69 (< OR =4)
[2023-05-08 17:35] LABS: INR 2.09; PROTHROMBIN TIME 23.8 SECONDS (12.5-14.5)
[2023-05-08 18:04] VITALS: BP 189/79; O2SAT 99
== END 2023-05-08 18:07 | disposition home or self-care (01) ==
LOC: M ED 14:06
DX: R07.89 Other chest pain (principal); S29.011A Strain of muscle and tendon of front wall of thorax, initial encounter; X58.XXXA Exposure to other specified factors, initial encounter; Y92.89 Other specified places as the place of occurrence of the external cause; Y93.89 Activity, other specified; Y99.8 Other external cause status; I48.91 Unspecified atrial fibrillation; I11.9 Hypertensive heart disease without heart failure; E11.9 Type 2 diabetes mellitus without complications; Z95.5 Presence of coronary angioplasty implant and graft; Z79.01 Long term (current) use of anticoagulants; Z87.891 Personal history of nicotine dependence; Z91.041 Radiographic dye allergy status; Z88.2 Allergy status to sulfonamides; Z79.82 Long term (current) use of aspirin; Z79.899 Other long term (current) drug therapy

== ENCOUNTER → 2023-05-13 | Outpatient (CLI) | payer MEDICARE, MEDICAID ==
[~2023-05-13] MED LIST changes: +K-TA10TA2 PO; -POTA-165 PO
[2023-05-13 10:24] LABS: INR 2.05; PROTHROMBIN TIME 23.5 SECONDS (12.5-14.5)
== END ==
LOC: M PLALAB 08:48
PROVIDERS: ATTEND Internal Medicine Cardiovascular Disease
DX: Z79.01 Long term (current) use of anticoagulants (principal); I48.0 Paroxysmal atrial fibrillation

== ENCOUNTER → 2023-06-04 | Outpatient (CLI) | payer MEDICARE, MEDICAID ==
[~2023-06-04] MED LIST changes: -K-TA10TA2 PO; +POTA-165 PO
== END ==
LOC: M PLALAB 08:23
PROVIDERS: ATTEND Internal Medicine Cardiovascular Disease
DX: I48.0 Paroxysmal atrial fibrillation (principal); Z79.01 Long term (current) use of anticoagulants

== ENCOUNTER → 2023-07-02 | Outpatient (CLI) | payer MEDICARE, MEDICAID ==
[2023-07-02 10:56] LABS: INR 1.85; PROTHROMBIN TIME 21.7 SECONDS (12.5-14.5)
== END ==
LOC: M PLALAB 08:43
PROVIDERS: ATTEND Internal Medicine Cardiovascular Disease
DX: Z79.01 Long term (current) use of anticoagulants (principal)

== ENCOUNTER → 2023-07-23 | Outpatient (REF) | payer MEDICARE, MEDICAID ==
[2023-07-23 10:18] LABS: INR 2.35; PROTHROMBIN TIME 25.1 SECONDS (12.5-14.5)
== END ==
LOC: M PLALAB 09:43
PROVIDERS: ATTEND Internal Medicine Cardiovascular Disease
DX: Z79.01 Long term (current) use of anticoagulants (principal); I48.0 Paroxysmal atrial fibrillation

== ENCOUNTER → 2023-07-31 | Outpatient (CLI) | payer MEDICARE, MEDICAID ==
[2023-07-31 14:16] LABS: BASO % 0.6 % (0.0-1.0); EOS # 0.1 10^3/uL (0.0-0.5); EOS % 1.1 % (0.0-3.0); HEMATOCRIT 39.4 % (36.0-47.0); HEMOGLOBIN 12.4 g/dl (12.0-15.5); MEAN CORPUSCULAR HEMOGLOBIN 30.5 pg (27.0-33.0); MEAN CORPUSCULAR HGB CONC 31.5 g/dl (32.0-36.5); MEAN CORPUSCULAR VOLUME 96.8 fl (80.0-96.0); MONO # 0.6 10^3/uL (0.0-0.8); MONO % 11.1 % (2.0-8.0); NEUTROPHILS # 3.6 10^3/uL (1.5-8.5); PLATELET COUNT, AUTOMATED 189 10^3/uL (150-450); RED BLOOD COUNT 4.07 10^6/uL (4.00-5.40); WHITE BLOOD COUNT 5.2 10^3/uL (4.0-10.0)
[2023-07-31 14:40] LABS: HEMOGLOBIN A1c 5.4 % (4.0-6.0)
[2023-07-31 14:45] LABS: ALBUMIN 3.5 G/DL (3.2-5.2); BILIRUBIN,TOTAL 1.1 MG/DL (0.3-1.2); CALCIUM LEVEL 9.5 MG/DL (8.3-10.6); CHOLESTEROL RISK RATIO 2.44 (<5); CREATININE FOR GFR 1.34 MG/DL (0.55-1.30); GLOMERULAR FILTRATION RATE 40.4 (>32); HDL CHOLESTEROL 54.8 MG/DL (>40); LDL CHOLESTEROL 62.8 MG/DL (<100); NON-HDL-C 79.2 MG/DL; POTASSIUM SERUM 4.5 MMOL/L (3.5-5.1); TOTAL PROTEIN 6.2 G/DL (5.7-8.2)
[2023-07-31 14:51] LABS: PTH INTACT 70.9 PG/ML (18.5-88.0)
== END ==
LOC: M PLALAB 09:27
PROVIDERS: ATTEND Physician Assistant Medical
DX: E55.9 Vitamin D deficiency, unspecified (principal); E78.2 Mixed hyperlipidemia

== ENCOUNTER → 2023-08-13 | Outpatient (CLI) | payer MEDICARE, MEDICAID ==
[2023-08-13 13:31] LABS: INR 2.38; PROTHROMBIN TIME 25.4 SECONDS (12.5-14.5)
== END ==
LOC: M PLALAB 09:32
PROVIDERS: ATTEND Internal Medicine Cardiovascular Disease
DX: I48.0 Paroxysmal atrial fibrillation (principal); Z79.01 Long term (current) use of anticoagulants

== ENCOUNTER → 2023-08-14 | Outpatient (REF) | payer MEDICARE, MEDICAID | LOC: M LAB REF 16:56 | PROVIDERS: ATTEND Nurse Practitioner Family | DX: M54.50 Low back pain, unspecified (principal); R30.0 Dysuria ==

== ENCOUNTER → 2023-09-11 | Outpatient (CLI) | payer MEDICARE, MEDICAID ==
[2023-09-11 13:31] LABS: INR 1.92; PROTHROMBIN TIME 21.5 SECONDS (12.5-14.5)
== END ==
LOC: M PLALAB 09:15
PROVIDERS: ATTEND Internal Medicine Cardiovascular Disease
DX: Z79.01 Long term (current) use of anticoagulants (principal); I48.0 Paroxysmal atrial fibrillation

== ENCOUNTER → 2023-09-23 | Outpatient (CLI) | payer MEDICARE, MEDICAID | LOC: M RAD 09:34 | PROVIDERS: ATTEND Internal Medicine Cardiovascular Disease | DX: I25.10 Atherosclerotic heart disease of native coronary artery without angina pectoris (principal); I48.0 Paroxysmal atrial fibrillation; E78.00 Pure hypercholesterolemia, unspecified ==

== ENCOUNTER 2023-09-26 10:19 | Emergency (ER) | payer MEDICARE, MEDICAID ==
[~2023-09-26] VITALS: Ht 157.5 cm; Wt 58.3 kg
[2023-09-26] MEDS ORDERED: NS 1,000 ML IV ONE (11:30)
[2023-09-26 11:55] LABS: BASO % 0.3 % (0.0-1.0); EOS # 0.1 10^3/uL (0.0-0.5); EOS % 1.6 % (0.0-3.0); HEMATOCRIT 38.4 % (36.0-47.0); HEMOGLOBIN 12.7 g/dl (12.0-15.5); LYMPH # 0.9 10^3/uL (1.5-5.0); LYMPH % 14.9 % (24.0-44.0); MEAN CORPUSCULAR HEMOGLOBIN 30.9 pg (27.0-33.0); MEAN CORPUSCULAR HGB CONC 33.1 g/dl (32.0-36.5); MEAN CORPUSCULAR VOLUME 93.4 fl (80.0-96.0); MONO # 0.6 10^3/uL (0.0-0.8); MONO % 10.8 % (2.0-8.0); NEUTROPHILS # 4.1 10^3/uL (1.5-8.5); NEUTROPHILS % 72.2 % (36.0-66.0); PLATELET COUNT, AUTOMATED 186 10^3/uL (150-450); RED BLOOD COUNT 4.11 10^6/uL (4.00-5.40); WHITE BLOOD COUNT 5.7 10^3/uL (4.0-10.0)
[2023-09-26 12:19] LABS: ALBUMIN 3.5 G/DL (3.2-5.2); BILIRUBIN,DIRECT 0.6 MG/DL (<0.4); BILIRUBIN,TOTAL 1.4 MG/DL (0.3-1.2); CALCIUM LEVEL 9.1 MG/DL (8.3-10.6); CREATININE FOR GFR 1.22 MG/DL (0.55-1.30); POTASSIUM SERUM 4.1 MMOL/L (3.5-5.1); TOTAL PROTEIN 6.4 G/DL (5.7-8.2)
[2023-09-26 13:55] VITALS: BP 147/67; TEMP 97.5; O2SAT 100
== END 2023-09-26 13:58 | disposition home or self-care (01) ==
LOC: M ED 10:19
DX: R60.0 Localized edema (principal); R14.0 Abdominal distension (gaseous); R93.421 Abnormal radiologic findings on diagnostic imaging of right kidney; I48.91 Unspecified atrial fibrillation; I50.9 Heart failure, unspecified; E11.9 Type 2 diabetes mellitus without complications; E78.5 Hyperlipidemia, unspecified; I10 Essential (primary) hypertension; N18.30 Chronic kidney disease, stage 3 unspecified; K21.9 Gastro-esophageal reflux disease without esophagitis; Z95.5 Presence of coronary angioplasty implant and graft; Z79.82 Long term (current) use of aspirin; Z79.01 Long term (current) use of anticoagulants; Z79.899 Other long term (current) drug therapy; Z88.2 Allergy status to sulfonamides; Z91.041 Radiographic dye allergy status

== ENCOUNTER → 2023-10-02 | Outpatient (CLI) | payer MEDICARE, MEDICAID ==
[2023-10-02 13:10] LABS: INR 1.8; PROTHROMBIN TIME 20.2 SECONDS (12.5-14.5)
== END ==
LOC: M PLALAB 08:57
PROVIDERS: ATTEND Internal Medicine Cardiovascular Disease
DX: Z79.01 Long term (current) use of anticoagulants (principal); I48.0 Paroxysmal atrial fibrillation

== ENCOUNTER → 2023-10-16 | Outpatient (CLI) | payer MEDICARE, MEDICAID ==
[2023-10-16 14:29] LABS: INR 2.37
== END ==
LOC: M PLALAB 09:12
PROVIDERS: ATTEND Internal Medicine Cardiovascular Disease
DX: I48.0 Paroxysmal atrial fibrillation (principal); Z79.01 Long term (current) use of anticoagulants

== ENCOUNTER → 2023-11-19 | Outpatient (REF) | payer MEDICARE, MEDICAID ==
[2023-11-19 17:55] LABS: APPEARANCE, URINE CLEAR (CLEAR); BACTERIA, URINE AUTO NEGATIVE (NEGATIVE); BILIRUBIN, URINE AUTO NEGATIVE (NEGATIVE); BLOOD, URINE BLOOD NEGATIVE (NEGATIVE); COLOR, URINE YELLOW (YELLOW); GLUCOSE, URINE (UA) AUTO NEGATIVE (NEGATIVE); KETONE, URINE AUTO NEGATIVE (NEGATIVE); LEUKOCYTE ESTERASE, URINE AUTO TRACE (NEGATIVE); NITRITE, URINE AUTO NEGATIVE (NEGATIVE); PROTEIN, URINE AUTO NEGATIVE (NEGATIVE); RBC, URINE AUTO 0 /HPF (0-3); SPECIFIC GRAVITY URINE AUTO 1.012 (1.002-1.035); SQUAMOUS EPITHELIAL CELL UR AU 3 /HPF (0-6); UROBILINOGEN, URINE AUTO 0.2 mg/dL (0.0-2.0); WBC, URINE AUTO 1 /HPF (0-3)
== END ==
LOC: M SMT 17:12
PROVIDERS: ATTEND Physician Assistant
DX: R31.29 Other microscopic hematuria (principal)

== ENCOUNTER → 2023-11-20 | Outpatient (CLI) | payer MEDICARE, MEDICAID ==
[2023-11-20 13:30] LABS: INR 1.88
== END ==
LOC: M PLALAB 09:01
PROVIDERS: ATTEND Internal Medicine Cardiovascular Disease
DX: Z79.01 Long term (current) use of anticoagulants (principal); I48.0 Paroxysmal atrial fibrillation

== ENCOUNTER → 2023-12-04 | Outpatient (CLI) | payer MEDICARE, MEDICAID ==
[2023-12-04 14:05] LABS: INR 2.62; PROTHROMBIN TIME 27.1 SECONDS (12.5-14.5)
== END ==
LOC: M PLALAB 09:03
PROVIDERS: ATTEND Internal Medicine Cardiovascular Disease
DX: I48.0 Paroxysmal atrial fibrillation (principal); Z79.01 Long term (current) use of anticoagulants

== ENCOUNTER → 2023-12-18 | Outpatient (CLI) | payer MEDICARE, MEDICAID ==
[~2023-12-18] MED LIST changes: +HYDR-161 PO; -HYDR10TAB PO
[2023-12-18 14:09] LABS: INR 1.44; PROTHROMBIN TIME 17.1 SECONDS (12.5-14.5)
== END ==
LOC: M PLALAB 09:29
PROVIDERS: ATTEND Internal Medicine Cardiovascular Disease
DX: I48.0 Paroxysmal atrial fibrillation (principal); Z79.01 Long term (current) use of anticoagulants

== ENCOUNTER → 2024-01-01 | Outpatient (CLI) | payer MEDICARE, MEDICAID ==
[2024-01-01 10:29] LABS: INR 1.88; PROTHROMBIN TIME 20.9 SECONDS (12.5-14.5)
== END ==
LOC: M PLALAB 09:18
PROVIDERS: ATTEND Internal Medicine Cardiovascular Disease
DX: I48.0 Paroxysmal atrial fibrillation (principal); Z79.01 Long term (current) use of anticoagulants

== ENCOUNTER → 2024-01-15 | Outpatient (CLI) | payer MEDICARE, MEDICAID ==
[2024-01-15 12:59] LABS: INR 1.84; PROTHROMBIN TIME 20.7 SECONDS (12.5-14.5)
== END ==
LOC: M PLALAB 09:22
PROVIDERS: ATTEND Internal Medicine Cardiovascular Disease
DX: Z79.01 Long term (current) use of anticoagulants (principal); I48.0 Paroxysmal atrial fibrillation

== ENCOUNTER → 2024-01-29 | Outpatient (CLI) | payer MEDICARE, MEDICAID ==
[2024-01-29 10:18] LABS: INR 1.89
== END ==
LOC: M PLALAB 08:47
PROVIDERS: ATTEND Internal Medicine Cardiovascular Disease
DX: Z79.01 Long term (current) use of anticoagulants (principal); I48.0 Paroxysmal atrial fibrillation

== ENCOUNTER 2024-02-07 09:44 | Emergency (ER) | payer MEDICARE, MEDICAID ==
[~2024-02-07] VITALS: Ht 157.5 cm; Wt 58.8 kg
[2024-02-07 09:45] VITALS: TEMP 97.2
[2024-02-07 10:26] LABS: BASO % 0.4 % (0.0-1.0); EOS # 0.1 10^3/uL (0.0-0.5); EOS % 1.2 % (0.0-3.0); HEMATOCRIT 38.2 % (36.0-47.0); HEMOGLOBIN 12.5 g/dl (12.0-15.5); LYMPH % 19.7 % (24.0-44.0); MEAN CORPUSCULAR HEMOGLOBIN 31.6 pg (27.0-33.0); MEAN CORPUSCULAR HGB CONC 32.7 g/dl (32.0-36.5); MEAN CORPUSCULAR VOLUME 96.7 fl (80.0-96.0); MONO # 0.6 10^3/uL (0.0-0.8); MONO % 11.9 % (2.0-8.0); NEUTROPHILS # 3.2 10^3/uL (1.5-8.5); NEUTROPHILS % 66.6 % (36.0-66.0); PLATELET COUNT, AUTOMATED 165 10^3/uL (150-450); RED BLOOD COUNT 3.95 10^6/uL (4.00-5.40); WHITE BLOOD COUNT 4.9 10^3/uL (4.0-10.0)
[2024-02-07] MEDS ORDERED: ALEN70TA82 (10:28)
[2024-02-07] MEDS ORDERED: MYRB50TA PO (10:28)
[2024-02-07] MEDS ORDERED: POTA1TAB23 PO (10:28)
[2024-02-07 10:38] LABS: INR 2.56; PARTIAL THROMBOPLASTIN TIME 48.4 SECONDS (24.8-34.2); PROTHROMBIN TIME 26.6 SECONDS (12.5-14.5)
[2024-02-07 10:49] LABS: ALBUMIN 3.8 G/DL (3.2-5.2); BILIRUBIN,DIRECT 0.6 MG/DL (<0.4); BILIRUBIN,TOTAL 1.5 MG/DL (0.3-1.2); CALCIUM LEVEL 8.7 MG/DL (8.3-10.6); CK-MB VALUE MASS 1.9 NG/ML (<3.6); CREATININE FOR GFR 1.32 MG/DL (0.55-1.30); GLOMERULAR FILTRATION RATE 41.1 (>32); MB/CK RELATIVE INDEX 1.63 (< OR =4); TOTAL PROTEIN 6.3 G/DL (5.7-8.2)
[2024-02-07 10:53] LABS: THYROID STIMULATING HORMONE 2.545 uIU/ML (0.55-4.78)
[2024-02-07] MEDS ORDERED: NITR0.4S14 SL (10:55)
[2024-02-07] MEDS ORDERED: VITA100093 PO (10:55)
[2024-02-07] MEDS ORDERED: HOME MED LIST COMPLETE! XX SCH (11:00)
[2024-02-07 11:42] LABS: CK-MB VALUE MASS 1.8 NG/ML (<3.6)
[2024-02-07 11:48] LABS: MB/CK RELATIVE INDEX 1.8 (< OR =4)
[2024-02-07 13:15] VITALS: O2SAT 99
[2024-02-07] MEDS ORDERED: OMEP40CA4 PO (13:16)
[2024-02-07] MEDS ORDERED: SUCR1TA PO (13:16)
[2024-02-07 13:30] VITALS: BP 164/84
== END 2024-02-07 13:37 | disposition home or self-care (01) ==
LOC: M ED 09:44
DX: R07.9 Chest pain, unspecified (principal); I25.119 Atherosclerotic heart disease of native coronary artery with unspecified angina pectoris; E11.9 Type 2 diabetes mellitus without complications; E78.5 Hyperlipidemia, unspecified; I12.9 Hypertensive chronic kidney disease with stage 1 through stage 4 chronic kidney disease, or unspecified chronic kidney disease; Z88.2 Allergy status to sulfonamides; Z91.041 Radiographic dye allergy status

== ENCOUNTER → 2024-02-12 | Outpatient (CLI) | payer MEDICARE, MEDICAID ==
[~2024-02-12] MED LIST changes: +ALEN70TA82; +MYRB50TA PO; +NITR0.4S14 SL; +OMEP40CA4 PO; +POTA1TAB23 PO; +SUCR1TA PO; +VITA100093 PO
[2024-02-12 10:30] LABS: INR 2.22; PROTHROMBIN TIME 23.8 SECONDS (12.5-14.5)
== END ==
LOC: M PLALAB 09:09
PROVIDERS: ATTEND Internal Medicine Cardiovascular Disease
DX: Z79.01 Long term (current) use of anticoagulants (principal)

== ENCOUNTER → 2024-03-12 | Outpatient (REF) | payer MEDICARE, MEDICAID ==
[2024-03-12 12:55] LABS: INR 2.14; PROTHROMBIN TIME 23.2 SECONDS (12.5-14.5)
== END ==
LOC: M PLALAB 12:22
PROVIDERS: ATTEND Internal Medicine Cardiovascular Disease
DX: Z79.01 Long term (current) use of anticoagulants (principal); I48.0 Paroxysmal atrial fibrillation

== ENCOUNTER → 2024-04-12 | Outpatient (CLI) | payer MEDICARE, MEDICAID ==
[2024-04-12 10:03] LABS: INR 2.23; PROTHROMBIN TIME 23.9 SECONDS (12.5-14.5)
== END ==
LOC: M PLALAB 09:03
PROVIDERS: ATTEND Internal Medicine Cardiovascular Disease
DX: Z79.01 Long term (current) use of anticoagulants (principal)

== ENCOUNTER → 2024-05-07 | Outpatient (CLI) | payer MEDICARE, MEDICAID ==
[~2024-05-07] MED LIST changes: +ONDA-282 PO; -ONDA4TAB6 PO
[2024-05-07 11:02] LABS: INR 2.22; PROTHROMBIN TIME 23.9 SECONDS (12.5-14.5)
== END ==
LOC: M PLALAB 08:49
PROVIDERS: ATTEND Internal Medicine Cardiovascular Disease
DX: Z79.01 Long term (current) use of anticoagulants (principal); I48.0 Paroxysmal atrial fibrillation

== ENCOUNTER 2024-05-19 16:08 | Emergency (ER) | payer MEDICARE, MEDICAID ==
[~2024-05-19] VITALS: Ht 157.5 cm; Wt 60.0 kg
[2024-05-19 16:09] VITALS: BP 146/72; TEMP 98.3; O2SAT 99
[2024-05-19 18:35] LABS: BASO % 0.4 % (0.0-1.0); EOS # 0.1 10^3/uL (0.0-0.5); EOS % 1.3 % (0.0-3.0); HEMATOCRIT 38.9 % (36.0-47.0); HEMOGLOBIN 12.6 g/dl (12.0-15.5); LYMPH # 1.3 10^3/uL (1.5-5.0); LYMPH % 18.5 % (24.0-44.0); MEAN CORPUSCULAR HEMOGLOBIN 31.2 pg (27.0-33.0); MEAN CORPUSCULAR HGB CONC 32.4 g/dl (32.0-36.5); MEAN CORPUSCULAR VOLUME 96.3 fl (80.0-96.0); MONO # 0.7 10^3/uL (0.0-0.8); MONO % 10.9 % (2.0-8.0); NEUTROPHILS # 4.7 10^3/uL (1.5-8.5); NEUTROPHILS % 68.6 % (36.0-66.0); PLATELET COUNT, AUTOMATED 160 10^3/uL (150-450); RED BLOOD COUNT 4.04 10^6/uL (4.00-5.40); WHITE BLOOD COUNT 6.8 10^3/uL (4.0-10.0)
[2024-05-19 19:04] LABS: ALBUMIN 3.8 G/DL (3.2-5.2); BILIRUBIN,DIRECT 0.4 MG/DL (<0.4); BILIRUBIN,TOTAL 1.2 MG/DL (0.3-1.2); CALCIUM LEVEL 9.7 MG/DL (8.3-10.6); CREATININE FOR GFR 1.43 MG/DL (0.55-1.30); GLOMERULAR FILTRATION RATE 37.4 (>32); POTASSIUM SERUM 3.7 MMOL/L (3.5-5.1); TOTAL PROTEIN 6.6 G/DL (5.7-8.2)
== END 2024-05-19 23:14 | disposition left against medical advice (07) ==
LOC: M ED 16:08
DX: Z53.21 Procedure and treatment not carried out due to patient leaving prior to being seen by health care provider (principal)

== ENCOUNTER → 2024-05-20 | Outpatient (REF) | payer MEDICARE, MEDICAID ==
[2024-05-20 14:43] LABS: APPEARANCE, URINE CLEAR (CLEAR); BACTERIA, URINE AUTO NEGATIVE (NEGATIVE); BILIRUBIN, URINE AUTO NEGATIVE (NEGATIVE); BLOOD, URINE BLOOD 1+ (NEGATIVE); COLOR, URINE YELLOW (YELLOW); GLUCOSE, URINE (UA) AUTO NEGATIVE (NEGATIVE); KETONE, URINE AUTO NEGATIVE (NEGATIVE); LEUKOCYTE ESTERASE, URINE AUTO 2+ (NEGATIVE); NITRITE, URINE AUTO NEGATIVE (NEGATIVE); PROTEIN, URINE AUTO NEGATIVE (NEGATIVE); RBC, URINE AUTO 1 /HPF (0-3); SQUAMOUS EPITHELIAL CELL UR AU 2 /HPF (0-6); UROBILINOGEN, URINE AUTO 0.2 mg/dL (0.0-2.0); WBC, URINE AUTO 4 /HPF (0-3)
== END ==
LOC: M SMT 12:53
PROVIDERS: ATTEND Physician Assistant
DX: R31.29 Other microscopic hematuria (principal); N39.46 Mixed incontinence

== ENCOUNTER → 2024-06-02 | Outpatient (CLI) | payer MEDICARE, MEDICAID | LOC: M WHC 10:23 | PROVIDERS: ATTEND Physician Assistant Medical | DX: Z12.31 Encounter for screening mammogram for malignant neoplasm of breast (principal); E78.2 Mixed hyperlipidemia; E11.9 Type 2 diabetes mellitus without complications; Z79.01 Long term (current) use of anticoagulants ==

== ENCOUNTER → 2024-06-02 | Outpatient (REF) | payer MEDICARE, MEDICAID ==
[2024-06-02 13:19] LABS: INR 2.02; PROTHROMBIN TIME 22.1 SECONDS (12.5-14.5)
== END ==
LOC: M PLALAB 12:18
PROVIDERS: ATTEND Internal Medicine Cardiovascular Disease
DX: Z79.01 Long term (current) use of anticoagulants (principal); I48.0 Paroxysmal atrial fibrillation

== ENCOUNTER → 2024-06-02 | Outpatient (REF) | payer MEDICARE, MEDICAID ==
[2024-06-02 13:27] LABS: HEMOGLOBIN A1c 5.3 % (4.0-6.0)
[2024-06-02 13:42] LABS: ALBUMIN 3.8 G/DL (3.2-5.2); BILIRUBIN,TOTAL 1.4 MG/DL (0.3-1.2); CALCIUM LEVEL 9.5 MG/DL (8.3-10.6); CHOLESTEROL RISK RATIO 2.95 (<5); CREATININE FOR GFR 1.41 MG/DL (0.55-1.30); HDL CHOLESTEROL 53.4 MG/DL (>40); LDL CHOLESTEROL 74.6 MG/DL (<100); NON-HDL-C 104.6 MG/DL; POTASSIUM SERUM 4.3 MMOL/L (3.5-5.1); TOTAL PROTEIN 6.3 G/DL (5.7-8.2)
== END ==
LOC: M SFHCPLAZ 12:20
PROVIDERS: ATTEND Physician Assistant Medical
DX: E78.2 Mixed hyperlipidemia (principal); E11.9 Type 2 diabetes mellitus without complications

== ENCOUNTER → 2024-06-25 | Outpatient (CLI) | payer MEDICARE, MEDICAID ==
[2024-06-25 13:12] LABS: INR 2.18; PROTHROMBIN TIME 23.5 SECONDS (12.5-14.5)
== END ==
LOC: M PLALAB 11:00
PROVIDERS: ATTEND Internal Medicine Cardiovascular Disease
DX: I48.0 Paroxysmal atrial fibrillation (principal); Z79.01 Long term (current) use of anticoagulants

== ENCOUNTER → 2024-06-28 | Outpatient (CLI) | payer MEDICARE, MEDICAID ==
[2024-06-28 12:54] LABS: BASO % 0.6 % (0.0-1.0); EOS # 0.1 10^3/uL (0.0-0.5); EOS % 1.4 % (0.0-3.0); HEMATOCRIT 38.9 % (36.0-47.0); HEMOGLOBIN 12.5 g/dl (12.0-15.5); LYMPH # 0.9 10^3/uL (1.5-5.0); LYMPH % 18.5 % (24.0-44.0); MEAN CORPUSCULAR HGB CONC 32.1 g/dl (32.0-36.5); MEAN CORPUSCULAR VOLUME 96.5 fl (80.0-96.0); MONO # 0.5 10^3/uL (0.0-0.8); MONO % 10.9 % (2.0-8.0); NEUTROPHILS # 3.3 10^3/uL (1.5-8.5); NEUTROPHILS % 68.4 % (36.0-66.0); PLATELET COUNT, AUTOMATED 181 10^3/uL (150-450); RED BLOOD COUNT 4.03 10^6/uL (4.00-5.40); WHITE BLOOD COUNT 4.9 10^3/uL (4.0-10.0)
[2024-06-28 13:15] LABS: INR 2.13; PROTHROMBIN TIME 23.1 SECONDS (12.5-14.5)
== END ==
LOC: M PLALAB 10:20
PROVIDERS: ATTEND Internal Medicine Cardiovascular Disease
DX: I48.0 Paroxysmal atrial fibrillation (principal); R23.3 Spontaneous ecchymoses; Z79.01 Long term (current) use of anticoagulants

== ENCOUNTER → 2024-07-12 | Outpatient (CLI) | payer MEDICARE, MEDICAID ==
[2024-07-12 12:53] LABS: INR 2.22; PROTHROMBIN TIME 23.8 SECONDS (12.5-14.5)
== END ==
LOC: M PLALAB 09:08
PROVIDERS: ATTEND Internal Medicine Cardiovascular Disease
DX: I48.0 Paroxysmal atrial fibrillation (principal); Z79.01 Long term (current) use of anticoagulants

== ENCOUNTER → 2024-07-26 | Outpatient (CLI) | payer MEDICARE, MEDICAID ==
[2024-07-26 12:20] LABS: INR 2.31; PROTHROMBIN TIME 24.5 SECONDS (12.5-14.5)
== END ==
LOC: M PLALAB 09:09
PROVIDERS: ATTEND Internal Medicine Cardiovascular Disease
DX: Z79.01 Long term (current) use of anticoagulants (principal)

== ENCOUNTER → 2024-08-16 | Outpatient (CLI) | payer MEDICARE, MEDICAID ==
[2024-08-16 12:52] LABS: INR 2.44; PROTHROMBIN TIME 25.6 SECONDS (12.5-14.5)
== END ==
LOC: M PLALAB 09:05
PROVIDERS: ATTEND Internal Medicine Cardiovascular Disease
DX: I48.0 Paroxysmal atrial fibrillation (principal); Z79.01 Long term (current) use of anticoagulants

== ENCOUNTER → 2024-08-30 | Outpatient (CLI) | payer MEDICARE, MEDICAID ==
[2024-08-30 10:04] LABS: INR 2.17; PROTHROMBIN TIME 23.4 SECONDS (12.5-14.5)
== END ==
LOC: M PLALAB 08:52
PROVIDERS: ATTEND Internal Medicine Cardiovascular Disease
DX: Z79.01 Long term (current) use of anticoagulants (principal)

== ENCOUNTER 2024-09-15 17:14 | Emergency (ER) | payer MEDICARE, MEDICAID ==
[~2024-09-15] VITALS: Ht 157.5 cm; Wt 59.4 kg
[2024-09-15] MEDS ORDERED: CEFD1CAP9 PO (21:57)
[2024-09-15] MEDS: CEFDINIR 300 MG CAP (OMNICEF) PO ONE (22:05)
[2024-09-15 22:13] VITALS: BP 125/59; TEMP 97; O2SAT 100
== END 2024-09-15 22:16 | disposition home or self-care (01) ==
LOC: M ED 17:14
DX: N30.00 Acute cystitis without hematuria (principal); E11.9 Type 2 diabetes mellitus without complications; I11.0 Hypertensive heart disease with heart failure; I48.91 Unspecified atrial fibrillation; I25.119 Atherosclerotic heart disease of native coronary artery with unspecified angina pectoris; I50.22 Chronic systolic (congestive) heart failure; Z88.2 Allergy status to sulfonamides; Z91.041 Radiographic dye allergy status; Z79.1 Long term (current) use of non-steroidal anti-inflammatories (NSAID); Z79.2 Long term (current) use of antibiotics; Z79.899 Other long term (current) drug therapy

== ENCOUNTER → 2024-09-27 | Outpatient (CLI) | payer MEDICARE, MEDICAID ==
[~2024-09-27] MED LIST changes: +CEFD1CAP9 PO
[2024-09-27 10:25] LABS: INR 1.98; PROTHROMBIN TIME 22.7 SECONDS (12.5-14.5)
== END ==
LOC: M PLALAB 08:55
PROVIDERS: ATTEND Internal Medicine Cardiovascular Disease
DX: I48.0 Paroxysmal atrial fibrillation (principal); Z79.01 Long term (current) use of anticoagulants

== ENCOUNTER → 2024-10-18 | Outpatient (CLI) | payer MEDICARE, MEDICAID ==
[2024-10-18 10:28] LABS: INR 2.56; PROTHROMBIN TIME 27.5 SECONDS (12.5-14.5)
== END ==
LOC: M PLALAB 09:00
PROVIDERS: ATTEND Internal Medicine Cardiovascular Disease
DX: I48.0 Paroxysmal atrial fibrillation (principal); Z79.01 Long term (current) use of anticoagulants

== ENCOUNTER → 2024-11-01 | Outpatient (CLI) | payer MEDICARE, MEDICAID ==
[2024-11-01 09:59] LABS: INR 2.1; PROTHROMBIN TIME 23.7 SECONDS (12.5-14.5)
== END ==
LOC: M PLALAB 08:53
PROVIDERS: ATTEND Internal Medicine Cardiovascular Disease
DX: I48.0 Paroxysmal atrial fibrillation (principal); Z79.01 Long term (current) use of anticoagulants

== ENCOUNTER → 2024-11-22 | Outpatient (REF) | payer MEDICARE, MEDICAID ==
[2024-11-22 18:14] LABS: APPEARANCE, URINE HAZY (CLEAR); BACTERIA, URINE AUTO NEGATIVE (NEGATIVE); BILIRUBIN, URINE AUTO NEGATIVE (NEGATIVE); BLOOD, URINE BLOOD NEGATIVE (NEGATIVE); COLOR, URINE YELLOW (YELLOW); GLUCOSE, URINE (UA) AUTO NEGATIVE (NEGATIVE); KETONE, URINE AUTO NEGATIVE (NEGATIVE); LEUKOCYTE ESTERASE, URINE AUTO 2+ (NEGATIVE); NITRITE, URINE AUTO NEGATIVE (NEGATIVE); PROTEIN, URINE AUTO NEGATIVE (NEGATIVE); RBC, URINE AUTO 1 /HPF (0-3); SQUAMOUS EPITHELIAL CELL UR AU 6 /HPF (0-6); UROBILINOGEN, URINE AUTO 0.2 mg/dL (0.0-2.0); WBC, URINE AUTO 8 /HPF (0-3)
== END ==
LOC: M SMT 17:14
PROVIDERS: ATTEND Physician Assistant
DX: R31.29 Other microscopic hematuria (principal)

== ENCOUNTER → 2024-11-29 | Outpatient (CLI) | payer MEDICARE, MEDICAID ==
[2024-11-29 10:05] LABS: INR 2.38
== END ==
LOC: M PLALAB 09:01
PROVIDERS: ATTEND Internal Medicine Cardiovascular Disease
DX: Z79.01 Long term (current) use of anticoagulants (principal)

== ENCOUNTER 2024-12-01 14:34 | Emergency (ER) | payer MEDICARE, MEDICAID ==
[~2024-12-01] VITALS: Ht 157.5 cm; Wt 60.0 kg
[2024-12-01] MEDS ORDERED: ACET-910 PO (16:43)
[2024-12-01] MEDS: ONDANSETRON 4MG ORAL DISINTEGRATING TAB PO ONE (18:07)
[2024-12-01 18:12] LABS: BASO % 0.3 % (0.0-1.0); EOS % 0.1 % (0.0-3.0); HEMATOCRIT 37.9 % (36.0-47.0); HEMOGLOBIN 12.5 g/dl (12.0-15.5); LYMPH # 0.6 10^3/uL (1.5-5.0); LYMPH % 8.3 % (24.0-44.0); MEAN CORPUSCULAR HEMOGLOBIN 30.9 pg (27.0-33.0); MEAN CORPUSCULAR VOLUME 93.6 fl (80.0-96.0); MONO # 0.5 10^3/uL (0.0-0.8); MONO % 7.3 % (2.0-8.0); NEUTROPHILS # 5.8 10^3/uL (1.5-8.5); NEUTROPHILS % 83.7 % (36.0-66.0); PLATELET COUNT, AUTOMATED 153 10^3/uL (150-450); RED BLOOD COUNT 4.05 10^6/uL (4.00-5.40); WHITE BLOOD COUNT 6.9 10^3/uL (4.0-10.0)
[2024-12-01 18:37] LABS: CALCIUM LEVEL 8.8 MG/DL (8.3-10.6); CREATININE FOR GFR 1.41 MG/DL (0.55-1.30)
[2024-12-01] MEDS ORDERED: ONDA-282 PO (19:20)
[2024-12-01 19:38] VITALS: BP 128/60; TEMP 100.6; O2SAT 96
== END 2024-12-01 19:40 | disposition home or self-care (01) ==
LOC: M ED 14:34
DX: J06.9 Acute upper respiratory infection, unspecified (principal); R11.2 Nausea with vomiting, unspecified; E11.9 Type 2 diabetes mellitus without complications; I12.9 Hypertensive chronic kidney disease with stage 1 through stage 4 chronic kidney disease, or unspecified chronic kidney disease; I48.91 Unspecified atrial fibrillation; E78.5 Hyperlipidemia, unspecified; Z88.2 Allergy status to sulfonamides; Z91.041 Radiographic dye allergy status; Z79.1 Long term (current) use of non-steroidal anti-inflammatories (NSAID); Z79.899 Other long term (current) drug therapy; Z79.01 Long term (current) use of anticoagulants

== ENCOUNTER → 2024-12-03 | Outpatient (REF) | payer MEDICARE, MEDICAID ==
[~2024-12-03] MED LIST changes: +ACET-910 PO; +NITR100C3 PO
== END ==
LOC: M LAB REF 11:27
PROVIDERS: ATTEND Nurse Practitioner Family
DX: R41.0 Disorientation, unspecified (principal)

== ENCOUNTER 2024-12-11 10:11 | Emergency (ER) | payer MEDICARE, MEDICAID ==
[~2024-12-11] VITALS: Ht 157.5 cm; Wt 59.8 kg
[~2024-12-11 10:11] MED LIST changes: -NITR100C3 PO
[2024-12-11 11:18] LABS: KETONE, URINE AUTO RFX TRACE mg/dL (NEGATIVE); LEUKOCYTE ESTERASE UR AUTO RFX NEGATIVE (NEGATIVE); MUCUS, URINE RFX SMALL (NEGATIVE); NITRITE, URINE AUTO RFX NEGATIVE (NEGATIVE); RBC, URINE AUTO RFX 4 /HPF (0-3); SQUAM EPITHELIAL CELL UR AURFX 6 /HPF (0-6); WBC, URINE AUTO RFX 6 /HPF (0-3)
[2024-12-11] MEDS ORDERED: NITR100C3 PO (12:12)
[2024-12-11 12:19] VITALS: BP 143/68; TEMP 97.8; O2SAT 100
== END 2024-12-11 12:21 | disposition home or self-care (01) ==
LOC: M ED 10:11
DX: R39.15 Urgency of urination (principal); R35.0 Frequency of micturition; I48.91 Unspecified atrial fibrillation; N18.9 Chronic kidney disease, unspecified; Z88.2 Allergy status to sulfonamides; Z91.041 Radiographic dye allergy status; Z79.1 Long term (current) use of non-steroidal anti-inflammatories (NSAID); Z79.899 Other long term (current) drug therapy; Z79.01 Long term (current) use of anticoagulants

== ENCOUNTER → 2024-12-13 | Outpatient (CLI) | payer MEDICARE, MEDICAID ==
[~2024-12-13] MED LIST changes: +NITR100C3 PO
[2024-12-13 10:10] LABS: INR 2.15; PROTHROMBIN TIME 24.1 SECONDS (12.5-14.5)
== END ==
LOC: M PLALAB 08:42
PROVIDERS: ATTEND Internal Medicine Cardiovascular Disease
DX: I48.0 Paroxysmal atrial fibrillation (principal); Z79.01 Long term (current) use of anticoagulants

== ENCOUNTER → 2024-12-15 | Outpatient (CLI) | payer MEDICARE, MEDICAID | LOC: M WHC 16:31 | PROVIDERS: ATTEND Physician Assistant Medical | DX: Z12.31 Encounter for screening mammogram for malignant neoplasm of breast (principal) ==

== ENCOUNTER → 2024-12-20 | Outpatient (CLI) | payer MEDICARE, MEDICAID ==
[2024-12-20 12:52] LABS: INR 2.24; PROTHROMBIN TIME 24.9 SECONDS (12.5-14.5)
== END ==
LOC: M PLALAB 09:44
PROVIDERS: ATTEND Internal Medicine Cardiovascular Disease
DX: Z79.01 Long term (current) use of anticoagulants (principal)

== ENCOUNTER → 2025-01-17 | Outpatient (CLI) | payer MEDICARE, MEDICAID ==
[2025-01-17 10:17] LABS: INR 2.38
== END ==
LOC: M PLALAB 08:17
PROVIDERS: ATTEND Internal Medicine Cardiovascular Disease
DX: I48.0 Paroxysmal atrial fibrillation (principal); Z79.01 Long term (current) use of anticoagulants

== ENCOUNTER → 2025-02-14 | Outpatient (CLI) | payer MEDICARE, MEDICAID ==
[2025-02-14 13:00] LABS: INR 1.5; PROTHROMBIN TIME 18.3 SECONDS (12.5-14.5)
== END ==
LOC: M PLALAB 09:14
PROVIDERS: ATTEND Internal Medicine Cardiovascular Disease
DX: Z79.01 Long term (current) use of anticoagulants (principal); I48.0 Paroxysmal atrial fibrillation

== ENCOUNTER → 2025-02-16 | Outpatient (CLI) | payer MEDICARE, MEDICAID | LOC: M WHC 14:04 | PROVIDERS: ATTEND Physician Assistant Medical | DX: N64.59 Other signs and symptoms in breast (principal) | CPT/HCPCS: 77065; G0279 ==

== ENCOUNTER 2025-02-17 12:51 | Emergency (ER) | payer MEDICARE, MEDICAID ==
[~2025-02-17] VITALS: Ht 157.5 cm; Wt 60.0 kg
[2025-02-17 12:53] VITALS: BP 147/63; TEMP 97.9; O2SAT 98
[2025-02-17 15:45] LABS: BASO % 0.5 % (0.0-1.0); EOS # 0.1 10^3/uL (0.0-0.5); EOS % 0.9 % (0.0-3.0); HEMATOCRIT 37.7 % (36.0-47.0); HEMOGLOBIN 12.3 g/dl (12.0-15.5); LYMPH # 1.1 10^3/uL (1.5-5.0); LYMPH % 18.8 % (24.0-44.0); MEAN CORPUSCULAR HEMOGLOBIN 31.1 pg (27.0-33.0); MEAN CORPUSCULAR HGB CONC 32.6 g/dl (32.0-36.5); MEAN CORPUSCULAR VOLUME 95.2 fl (80.0-96.0); MONO # 0.6 10^3/uL (0.0-0.8); MONO % 10.2 % (2.0-8.0); NEUTROPHILS % 69.4 % (36.0-66.0); PLATELET COUNT, AUTOMATED 163 10^3/uL (150-450); RED BLOOD COUNT 3.96 10^6/uL (4.00-5.40); WHITE BLOOD COUNT 5.8 10^3/uL (4.0-10.0)
[2025-02-17 16:08] LABS: CALCIUM LEVEL 9.3 MG/DL (8.3-10.6); CREATININE FOR GFR 1.39 MG/DL (0.55-1.30); GLOMERULAR FILTRATION RATE 38.6 (>32); POTASSIUM SERUM 4.3 MMOL/L (3.5-5.1)
== END 2025-02-17 17:58 | disposition home or self-care (01) ==
LOC: M ED 12:51
DX: S33.5XXA Sprain of ligaments of lumbar spine, initial encounter (principal); Y92.9 Unspecified place or not applicable; Y93.9 Activity, unspecified; Y99.9 Unspecified external cause status; I25.2 Old myocardial infarction; I50.22 Chronic systolic (congestive) heart failure; I25.119 Atherosclerotic heart disease of native coronary artery with unspecified angina pectoris; E11.9 Type 2 diabetes mellitus without complications; F41.9 Anxiety disorder, unspecified; Z88.2 Allergy status to sulfonamides; Z91.041 Radiographic dye allergy status; Z79.1 Long term (current) use of non-steroidal anti-inflammatories (NSAID); Z79.01 Long term (current) use of anticoagulants; Z79.899 Other long term (current) drug therapy

== ENCOUNTER → 2025-02-22 | Outpatient (CLI) | payer MEDICARE, MEDICAID ==
[2025-02-22 09:58] LABS: INR 1.87; PROTHROMBIN TIME 21.7 SECONDS (12.5-14.5)
== END ==
LOC: M PLALAB 09:18
PROVIDERS: ATTEND Internal Medicine Cardiovascular Disease
DX: I48.0 Paroxysmal atrial fibrillation (principal); Z79.01 Long term (current) use of anticoagulants

== ENCOUNTER → 2025-03-02 | Outpatient (CLI) | payer MEDICARE, MEDICAID ==
[2025-03-02 13:07] LABS: INR 2.46; PROTHROMBIN TIME 26.7 SECONDS (12.5-14.5)
== END ==
LOC: M PLALAB 10:39
PROVIDERS: ATTEND Internal Medicine Cardiovascular Disease
DX: I48.0 Paroxysmal atrial fibrillation (principal); Z79.01 Long term (current) use of anticoagulants

== ENCOUNTER → 2025-03-16 | Outpatient (CLI) | payer MEDICARE, MEDICAID ==
[2025-03-16 10:06] LABS: HEMATOCRIT 38.2 % (36.0-47.0); HEMOGLOBIN 12.3 g/dl (12.0-15.5); MEAN CORPUSCULAR HEMOGLOBIN 30.8 pg (27.0-33.0); MEAN CORPUSCULAR HGB CONC 32.2 g/dl (32.0-36.5); MEAN CORPUSCULAR VOLUME 95.5 fl (80.0-96.0); PLATELET COUNT, AUTOMATED 171 10^3/uL (150-450); WHITE BLOOD COUNT 4.9 10^3/uL (4.0-10.0)
[2025-03-16 10:31] LABS: ALBUMIN 3.6 G/DL (3.2-5.2); BILIRUBIN,TOTAL 1.4 MG/DL (0.3-1.2); CHOLESTEROL RISK RATIO 2.56 (<5); CREATININE FOR GFR 1.35 MG/DL (0.55-1.30); GLOMERULAR FILTRATION RATE 39.2 (>32); HDL CHOLESTEROL 51.1 MG/DL (>40); HEMOGLOBIN A1c 4.9 % (4.0-6.0); LDL CHOLESTEROL 63.1 MG/DL (<100); NON-HDL-C 79.9 MG/DL; POTASSIUM SERUM 4.1 MMOL/L (3.5-5.1); PTH INTACT 100.6 PG/ML (18.5-88.0); TOTAL PROTEIN 6.3 G/DL (5.7-8.2)
[2025-03-16 10:34] LABS: FREE T4 1.33 NG/DL (0.89-1.76)
[2025-03-16 10:35] LABS: THYROID STIMULATING HORMONE 2.713 uIU/ML (0.55-4.78)
== END ==
LOC: M PLALAB 08:53
PROVIDERS: ATTEND Physician Assistant Medical
DX: I10 Essential (primary) hypertension (principal); I48.91 Unspecified atrial fibrillation; K21.00 Gastro-esophageal reflux disease with esophagitis, without bleeding; Z12.31 Encounter for screening mammogram for malignant neoplasm of breast; R41.3 Other amnesia; E55.9 Vitamin D deficiency, unspecified; Z79.899 Other long term (current) drug therapy; I48.0 Paroxysmal atrial fibrillation; Z79.01 Long term (current) use of anticoagulants

== ENCOUNTER → 2025-03-16 | Outpatient (CLI) | payer MEDICARE, MEDICAID ==
[2025-03-16 10:12] LABS: INR 2.46; PROTHROMBIN TIME 26.7 SECONDS (12.5-14.5)
== END ==
LOC: M PLALAB 08:55
PROVIDERS: ATTEND Internal Medicine Cardiovascular Disease
DX: I48.0 Paroxysmal atrial fibrillation (principal); Z79.01 Long term (current) use of anticoagulants

== ENCOUNTER → 2025-04-04 | Outpatient (CLI) | payer MEDICARE, MEDICAID ==
[~2025-04-04] MED LIST changes: +ISOS-18 PO; -ISOS30TAB PO
[2025-04-04 12:59] LABS: INR 2.55; PROTHROMBIN TIME 27.4 SECONDS (12.5-14.5)
== END ==
LOC: M PLALAB 10:02
PROVIDERS: ATTEND Internal Medicine Cardiovascular Disease
DX: I48.0 Paroxysmal atrial fibrillation (principal); Z79.01 Long term (current) use of anticoagulants

== ENCOUNTER → 2025-04-13 | Outpatient (CLI) | payer MEDICARE, MEDICAID ==
[2025-04-13 10:46] LABS: INR 1.78; PROTHROMBIN TIME 20.9 SECONDS (12.5-14.5)
== END ==
LOC: M PLALAB 08:55
PROVIDERS: ATTEND Internal Medicine Cardiovascular Disease
DX: Z79.01 Long term (current) use of anticoagulants (principal); I48.0 Paroxysmal atrial fibrillation

== ENCOUNTER → 2025-06-15 | Outpatient (CLI) | payer MEDICARE, MEDICAID ==
[~2025-06-15] MED LIST changes: +LISI40TA10 PO; -LISI40TA4 PO
[2025-06-15 13:09] LABS: INR 1.58
== END ==
LOC: M PLALAB 09:31
PROVIDERS: ATTEND Internal Medicine Cardiovascular Disease
DX: I48.0 Paroxysmal atrial fibrillation (principal); Z79.01 Long term (current) use of anticoagulants

== ENCOUNTER → 2025-06-22 | Outpatient (CLI) | payer MEDICARE, MEDICAID ==
[2025-06-22 10:16] LABS: INR 1.74
== END ==
LOC: M PLALAB 09:07
PROVIDERS: ATTEND Internal Medicine Cardiovascular Disease
DX: I48.0 Paroxysmal atrial fibrillation (principal); Z79.01 Long term (current) use of anticoagulants

== ENCOUNTER → 2025-07-05 | Outpatient (CLI) | payer MEDICARE, MEDICAID ==
[2025-07-05 13:01] LABS: INR 1.53
== END ==
LOC: M PLALAB 10:05
PROVIDERS: ATTEND Internal Medicine Cardiovascular Disease
DX: I48.0 Paroxysmal atrial fibrillation (principal); Z79.01 Long term (current) use of anticoagulants

== ENCOUNTER → 2025-07-19 | Outpatient (CLI) | payer MEDICARE, MEDICAID ==
[2025-07-19 10:13] LABS: INR 1.94
== END ==
LOC: M PLALAB 09:09
PROVIDERS: ATTEND Internal Medicine Cardiovascular Disease
DX: I48.0 Paroxysmal atrial fibrillation (principal); Z79.01 Long term (current) use of anticoagulants

== ENCOUNTER → 2025-08-02 | Outpatient (CLI) | payer MEDICARE, MEDICAID ==
[2025-08-02 13:04] LABS: INR 2.47
== END ==
LOC: M PLALAB 10:13
PROVIDERS: ATTEND Internal Medicine Cardiovascular Disease
DX: Z51.81 Encounter for therapeutic drug level monitoring (principal); Z79.01 Long term (current) use of anticoagulants; I48.0 Paroxysmal atrial fibrillation

== ENCOUNTER → 2025-08-05 | Outpatient (REF) | payer MEDICARE, MEDICAID ==
[2025-08-05 14:07] LABS: APPEARANCE, URINE HAZY (CLEAR); BACTERIA, URINE AUTO 1+ (NEGATIVE); BILIRUBIN, URINE AUTO NEGATIVE (NEGATIVE); BLOOD, URINE BLOOD 1+ (NEGATIVE); GLUCOSE, URINE (UA) AUTO NEGATIVE (NEGATIVE); KETONE, URINE AUTO NEGATIVE (NEGATIVE); LEUKOCYTE ESTERASE, URINE AUTO 1+ (NEGATIVE); NITRITE, URINE AUTO NEGATIVE (NEGATIVE); PROTEIN, URINE AUTO NEGATIVE (NEGATIVE); RBC, URINE AUTO 1 /HPF (0-3); SPECIFIC GRAVITY URINE AUTO 1.009 (1.002-1.035); SQUAMOUS EPITHELIAL CELL UR AU 2 /HPF (0-6); UROBILINOGEN, URINE AUTO 2.0 mg/dL (0.0-2.0); WBC, URINE AUTO 2 /HPF (0-3)
== END ==
LOC: M SMT 13:00
PROVIDERS: ATTEND Physician Assistant
DX: R31.29 Other microscopic hematuria (principal)

== ENCOUNTER → 2025-08-15 | Outpatient (CLI) | payer MEDICARE, MEDICAID | LOC: M WHC 09:55 | PROVIDERS: ATTEND Physician Assistant Medical | DX: M81.0 Age-related osteoporosis without current pathological fracture (principal) ==

== ENCOUNTER → 2025-08-30 | Outpatient (CLI) | payer MEDICARE, MEDICAID ==
[2025-08-30 13:07] LABS: INR 1.44
== END ==
LOC: M PLALAB 09:24
PROVIDERS: ATTEND Internal Medicine Cardiovascular Disease
DX: I48.0 Paroxysmal atrial fibrillation (principal); Z79.01 Long term (current) use of anticoagulants

== ENCOUNTER → 2025-09-13 | Outpatient (CLI) | payer MEDICARE, MEDICAID ==
[2025-09-13 10:21] LABS: INR 2.7
== END ==
LOC: M PLALAB 09:18
PROVIDERS: ATTEND Internal Medicine Cardiovascular Disease
DX: I48.0 Paroxysmal atrial fibrillation (principal); Z79.01 Long term (current) use of anticoagulants

== ENCOUNTER → 2025-10-04 | Outpatient (CLI) | payer MEDICARE, MEDICAID ==
[2025-10-04 10:09] LABS: INR 2.28
== END ==
LOC: M PLALAB 09:17
PROVIDERS: ATTEND Internal Medicine Cardiovascular Disease
DX: Z51.81 Encounter for therapeutic drug level monitoring (principal); Z79.01 Long term (current) use of anticoagulants; I48.0 Paroxysmal atrial fibrillation

== ENCOUNTER → 2025-10-26 | Outpatient (CLI) | payer MEDICARE, MEDICAID ==
[2025-10-26 11:13] LABS: INR 2.47
== END ==
LOC: M PLALAB 09:12
PROVIDERS: ATTEND Internal Medicine Cardiovascular Disease
DX: I48.0 Paroxysmal atrial fibrillation (principal); Z79.01 Long term (current) use of anticoagulants

== ENCOUNTER → 2025-11-16 | Outpatient (REF) | payer MEDICARE, MEDICAID ==
[2025-11-16 10:56] LABS: INR 3.92
== END ==
LOC: M LABDRAWP 10:01
PROVIDERS: ATTEND Internal Medicine Cardiovascular Disease
DX: I48.0 Paroxysmal atrial fibrillation (principal); Z79.01 Long term (current) use of anticoagulants

== ENCOUNTER → 2025-11-16 | Outpatient (CLI) | payer MEDICARE, MEDICAID ==
[2025-11-16 10:29] LABS: BASO # 0.0 10^3/uL (0.0-0.2); BASO % 0.7 % (0.0-1.0); EOS # 0.1 10^3/uL (0.0-0.5); EOS % 2.4 % (0.0-3.0); LYMPH # 1.0 10^3/uL (1.5-5.0); LYMPH % 22.0 % (24.0-44.0); MONO # 0.5 10^3/uL (0.0-0.8); MONO % 11.4 % (2.0-8.0); NEUTROPHILS # 2.9 10^3/uL (1.5-8.5); NEUTROPHILS % 63.5 % (36.0-66.0); PLATELET COUNT, AUTOMATED 172 10^3/uL (150-450)
[2025-11-16 10:54] LABS: ALT/SGPT 17.0 U/L (7.0-40); AST/SGOT 25.0 U/L (<34); CALCIUM LEVEL 9.1 MG/DL (8.3-10.6); CARBON DIOXIDE LEVEL 30.0 MMOL/L (20-31); CHLORIDE LEVEL 106.0 MMOL/L (98-107); CHOLESTEROL LEVEL 153.0 MG/DL (<200); CHOLESTEROL RISK RATIO 2.42 (<5); CREATININE FOR GFR 1.52 MG/DL (0.55-1.30); GLOMERULAR FILTRATION RATE 33.8 (>32); LDL CHOLESTEROL 73.4 MG/DL (<100); NON-HDL-C 90.0 MG/DL; POTASSIUM SERUM 4.5 MMOL/L (3.5-5.1); PTH INTACT 114.6 PG/ML (18.5-88.0); SODIUM LEVEL 142.0 MMOL/L (136-145); TRIGLYCERIDES LEVEL 83.0 MG/DL (<150)
[2025-11-16 11:00] LABS: ESTIMATED AVERAGE GLUCOSE 111.0 MG/DL (60-110)
== END ==
LOC: M PLALAB 09:10
PROVIDERS: ATTEND Physician Assistant Medical
DX: I48.0 Paroxysmal atrial fibrillation (principal); E11.9 Type 2 diabetes mellitus without complications; E78.2 Mixed hyperlipidemia; I10 Essential (primary) hypertension; Z79.01 Long term (current) use of anticoagulants

== ENCOUNTER → 2025-11-28 | Outpatient (CLI) | payer MEDICARE, MEDICAID ==
[2025-11-28 10:50] LABS: INR 2.52
== END ==
LOC: M PLALAB 08:55
PROVIDERS: ATTEND Internal Medicine Cardiovascular Disease
DX: I48.0 Paroxysmal atrial fibrillation (principal); Z79.01 Long term (current) use of anticoagulants